=== PATIENT | male | born 1940 | race Caucasian/White ===

== ENCOUNTER 2016-12-06 13:18 | Inpatient (IN) ==
[2016-12-06] MEDS ORDERED: *HR* Morphine 2 MG/ML SYRINGE IVP ONE (15:22)
[2016-12-06 15:51] LABS: Basophils # 0.1 K/mcL (0.0-0.2); Basophils % 0.4 %; Eosinophils % 0.3 %; Hematocrit 34.5 % (37.5-50.1); Hemoglobin 11.1 g/dL (12.9-16.9); Immature Granulocytes % 0.6 % (0-4); Lymphocytes # 1.6 K/mcL (0.6-4.6); Lymphocytes % 11.3 %; Mean Corpuscular HGB Conc 32.2 g/dL (31.6-35.5); Mean Corpuscular Volume 96.4 fL (83.0-100.0); Mean Platelet Volume 10.1 fL (9.4-12.4); Monocytes # 0.7 K/mcL (0.0-1.3); Monocytes % 5.3 %; Neutrophils # 11.3 K/mcL (1.6-8.9); Platelet Count 279 K/mcL (140-400); Red Blood Count 3.58 M/mcL (4.19-5.50); Red Cell Distribution Width 14.6 % (11.5-14.5); Segmented Neutrophils % 82.1 %
[2016-12-06 16:00] LABS: Prothrombin Time 10.8 Seconds (9.4-12.1)
[2016-12-06 16:02] LABS: Activated Partial Thrombo Time 30.7 Seconds (26.0-36.0)
[2016-12-06 16:06] LABS: BUN/Creatinine Ratio 55 (6-26); Blood Urea Nitrogen 42 mg/dL (8-26); Calcium 9.5 mg/dL (8.6-10.8); Carbon Dioxide 28 mEq/L (19-29); Chloride 103 mEq/L (98-109); Glucose 119 mg/dL (70-99); Osmolality,Calculated 298 (280-300); Potassium 4.4 mEq/L (3.5-4.5); Sodium 138 mEq/L (136-145); eGFR For African Americans > 60 (> 60); eGFR For Non-African Americans > 60 (> 60)
--- NOTE | 2016-12-06 16:23 | Emergency Department Note ---
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 Patient states she has a long history of peripheral arterial disease specifically in his legs. He is having increasing pain on the left leg from the knee to the foot over the past few days. He also has chronic right lower extremity pain as well. The left is worse than the right. He denies any color changes or temperature changes in the legs. He is scheduled to see a vascular surgeon in a few weeks to have the arteries were placed in his lower extremities. He recently had a cardiac stent placed a few weeks ago and is on Brilenta. He has noticed some dark black stools over the past few days. He does have a history of a gastric ulcer. Does not take any NSAIDs. He does smoke. No alcohol. No bright red blood per rectum. No abdominal pain. No other complaints. Onset (ago): day(s) Radiation: non-radiation Pain Severity: moderate Pain Scale: 5 Quality: burning Consistency: constant Improves with: nothing Worsens with: movement Associated symptoms: Reports: other (Dark bloody stools) Treatments Prior to Arrival: none - Related Data Home Medications Medication Instructions Recorded Confirmed Hydrocodone/Acetaminophen [[place] 1 - 2 tab PO TID PRN 05/30/16 11/18/16 5-325 Tablet] FLUoxetine HCl [Prozac] 40 mg PO DAILY 11/18/16 11/30/16 Omeprazole 40 mg PO DAILY PRN 11/18/16 11/18/16 Aspirin [Lo-Dose Aspirin EC] 81 mg PO DAILY 11/30/16 11/30/16 Atorvastatin [Lipitor] 40 mg PO HS 11/30/16 11/30/16 Metoprolol XL (24 HR) Succ [Toprol 25 mg PO DAILY 11/30/16 11/30/16 Xl] Ondansetron ODT [Zofran ODT] 4 mg SL Q6HR PRN 11/30/16 11/30/16 Previous Rx's Medication Instructions Recorded Dicyclomine [Bentyl] 20 mg PO BID PRN #20 capsule 11/18/16 Isosorbide MONOnitrate (24 HR) 30 mg PO DAILY #30 tab.er.24h 12/01/16 [Imdur] Nicotine Patch [Nicoderm] 7 mg TD DAILY #14 patch.td24 12/01/16 Nicotine Patch [Nicoderm] 14 mg TD DAILY #14 patch.td24 12/01/16 Nicotine Patch [Nicoderm] 21 mg TD DAILY #28 patch.td24 12/01/16 Nitroglycerin 0.4 mg SL Q5MIN PRN #30 tab.subl 12/01/16 Ticagrelor [Brilinta] 90 mg PO BID #60 tablet 12/01/16 Allergies Allergy/AdvReac Type Severity Reaction Status Date / Time No Known Allergies Allergy Verified 05/30/16 10:20 All systems ED: reviewed and negative except as stated. Constitutional: Reports: as per HPI Eyes: Reports: as per HPI Cardiovascular: Reports: as per HPI Respiratory: Reports: as per HPI Gastrointestinal: Reports: melena Genitourinary: Reports: as per HPI Musculoskeletal: Reports: other (Bilateral leg pain) Neurological: Reports: as per HPI Psychiatric: Reports: as per HPI Hematological/Lymphatic: Reports: as per HPI Past Medical History - Past Medical History Medical history: Reports: COPD, coronary artery disease, hyperlipidemia, hypertension, myocardial infarction, other Surgical history: Reports: orthopedic, other Psychiatric history: Reports: no psych history, depression - Social History Smoking Status: Current every day smoker Smokeless Tobacco Status: No Alcohol use: Reports: occasionally Drug use: Reports: none Physical Exam - General Limitations: no limitations General appearance: alert - Head Head exam: atraumatic - ENT ENT exam: normal exam - Neck Neck exam: Present: normal inspection - Chest Chest inspection: Present: normal inspection - Respiratory Respiratory exam: Present: normal lung sounds bilaterally - Cardiovascular Cardiovascular exam: Present: regular rate, normal rhythm - Abdominal Exam Abdominal exam: Present: soft, Non-Tender. Absent: tenderness - Rectal Exam Pl Sql Programmer present during exam: No Rectal exam: Present: black stool - Extremities Exam Extremities exam: Present: other (Review able to Doppler some pulses in the lower extremities but they were very weak on the Doppler. Normal color to the bilateral lower extremities. They do not feel cold.) - Back Exam Back exam: Present: normal inspection - Neurological Exam Neurological exam: Present: alert, oriented X3 - Psychiatric Psychiatric exam: Present: normal affect, normal mood - Skin Skin exam: Present: warm, dry, intact Course Course Narrative: Patient's hemoglobin was found to be 11. He takes a blood thinner and has a current GI bleed. Most likely an upper GI bleed from gastric ulcer. I started him on Protonix. Patient need to be admitted to be evaluated for this blood thinner. Vital Signs Temperature 97.9 F 12/06/16 13:24 Pulse Rate 82 12/06/16 13:24 Respiratory Rate 14 12/06/16 13:24 Blood Pressure 109/67 12/06/16 13:24 O2 Sat by Pulse Oximetry 98 12/06/16 13:24 Temperature 97.9 F 12/06/16 13:24 Pulse Rate 71 12/06/16 16:22 Respiratory Rate 18 12/06/16 16:22 Blood Pressure 146/72 12/06/16 16:22 O2 Sat by Pulse Oximetry 97 12/06/16 16:22 Oxygen Delivery Oxygen Delivery Room Air Medical Decision Making - Medical Records Medical records reviewed: Yes I reviewed the patient's medical records. - Lab Data Lab results reviewed: Yes I reviewed the patient's lab results. Result diagrams: 12/06/16 15:33 12/06/16 15:33 Lab Results 12/06/16 12/06/16 12/06/16 Range/Units 15:33 15:33 15:33 WBC 13.7 H (4.3-11.1) K/mcL RBC 3.58 L (4.19-5.50) M/mcL Hgb 11.1 L (12.9-16.9) g/dL Hct 34.5 L (37.5-50.1) % MCV 96.4 (83.0-100.0) fL MCH 31.0 (28.0-33.3) pg MCHC 32.2 (31.6-35.5) g/dL RDW 14.6 H (11.5-14.5) % Plt Count 279 (140-400) K/mcL MPV 10.1 (9.4-12.4) fL Immature Gran % 0.6 (0-4) % Seg Neutrophils % 82.1 % Lymphocytes % 11.3 % Monocytes % 5.3 % Eosinophils % 0.3 % Basophils % 0.4 % Neutrophils # 11.3 H (1.6-8.9) K/mcL Lymphocytes # 1.6 (0.6-4.6) K/mcL Monocytes # 0.7 (0.0-1.3) K/mcL Eosinophils # 0.0 (0.0-0.6) K/mcL Basophils # 0.1 (0.0-0.2) K/mcL PT 10.8 (9.4-12.1) Seconds INR 1.0 APTT 30.7 (26.0-36.0) Seconds Sodium 138 (136-145) mEq/L Potassium 4.4 (3.5-4.5) mEq/L Chloride 103 (98-109) mEq/L Carbon Dioxide 28 (19-29) mEq/L BUN 42 H (8-26) mg/dL Creatinine 0.77 (0.72-1.25) mg/dL Est GFR ( Amer) > 60 (> 60) Est GFR (Non-Af Amer) > 60 (> 60) BUN/Creatinine Ratio 55 H (6-26) Glucose 119 H (70-99) mg/dL Calculated Osmolality 298 (280-300) Calcium 9.5 (8.6-10.8) mg/dL Troponin I (0-0.03) ng/mL Stool Occult Blood (Negative) 12/06/16 12/06/16 Range/Units 15:33 16:20 WBC (4.3-11.1) K/mcL RBC (4.19-5.50) M/mcL Hgb (12.9-16.9) g/dL Hct (37.5-50.1) % MCV (83.0-100.0) fL MCH (28.0-33.3) pg MCHC (31.6-35.5) g/dL RDW (11.5-14.5) % Plt Count (140-400) K/mcL MPV (9.4-12.4) fL Immature Gran % (0-4) % Seg Neutrophils % % Lymphocytes % % Monocytes % % Eosinophils % % Basophils % % Neutrophils # (1.6-8.9) K/mcL Lymphocytes # (0.6-4.6) K/mcL Monocytes # (0.0-1.3) K/mcL Eosinophils # (0.0-0.6) K/mcL Basophils # (0.0-0.2) K/mcL PT (9.4-12.1) Seconds INR APTT (26.0-36.0) Seconds Sodium (136-145) mEq/L Potassium (3.5-4.5) mEq/L Chloride (98-109) mEq/L Carbon Dioxide (19-29) mEq/L BUN (8-26) mg/dL Creatinine (0.72-1.25) mg/dL Est GFR ( Amer) (> 60) Est GFR (Non-Af Amer) (> 60) BUN/Creatinine Ratio (6-26) Glucose (70-99) mg/dL Calculated Osmolality (280-300) Calcium (8.6-10.8) mg/dL Troponin I 0.07 H* (0-0.03) ng/mL Stool Occult Blood Positive A (Negative) - Radiology Data Radiology results reviewed: Yes I reviewed the patient's radiology results. - EKG Data EKG #1 EKG results narrative: Rate of 70. No sinus rhythm. Normal axis. NV interval 156. QRS 93. QT 423. Nonspecific T wave abnormality seen in the lateral leads as well as in V2 and V3. This was seen on previous EKG from 6 days ago.
[2016-12-06] MEDS ORDERED: Pantoprazole 80 MG in 0.9 % Sodium Chloride 50 ML IVPB ONE (17:23)
[2016-12-06] MEDS ORDERED: Pantoprazole 40 MG in 0.9 % Sodium Chloride Mini Bag 100 ML IVC SCH (17:30)
[2016-12-06] MEDS ORDERED: Naloxone 0.4 MG/ML INJ IVP PRN (21:09)
[2016-12-06] MEDS ORDERED: Nitroglycerin 0.4 MG TAB.SUBL SL PRN (21:14)
[2016-12-06 22:21] LABS: Hematocrit 30.4 % (37.5-50.1); Hemoglobin 9.9 g/dL (12.9-16.9)
--- NOTE | 2016-12-06 23:11 | Internal Med History&Physical ---
Date of Encounter: 12/07/16 Time of Encounter: 23:00 Assessment and Plan (1) Upper GI bleed Current visit: Yes Status: Acute Acute worsening of known bleeding ulcer after starting Brilinta for BMS placed . Last hgb checked prior to stent placement was 12, was 11.1 on arrival to ER today. Although hgb decreasing he is hemodynamically stable and his last stool was this morning, suggesting that he is not briskly bleeding. Will continue Brilinta at this time, as currently his risk of poor outcome is much higher with risk of stent stenosis (placed 5 days ago) than his risk of catastrophic bleed. - [address] large [address] IV[address] in place - Discussed patient with operating manager chief controller station who recommended to keep Hgb around 10 and transfuse if decreases significantly - 2 units PRBCs on hold, type and screen completed in ER - Q6H H&H - ER physician discussed case with endoscopist chief controller station, Dr. Lira, who is aware of the patient and will assist tonight if bleeding worsens significantly - GI consulted for assistance with definitive management of the ulcer in the morning - Monitor on telemetry (2) CAD (coronary artery disease) Current visit: No Status: Acute Troponin slightly elevated on arrival to ER, likely stress from bleeding, also had recent stent placed. Patient is currently chest pain free. Troponin trended down on recheck. - Trend troponin - Keep patient chest pain free - If develops significant chest pain will transfuse PRBCs Qualifiers: Coronary Disease-Associated Artery/Lesion type: [place] artery [place] vs. transplanted heart: [place] heart Associated angina: angina presence unspecified Qualified Code(s): I25.10 - Atherosclerotic heart disease of [place] coronary artery without angina pectoris (3) Anemia Current visit: Yes Status: Acute Secondary to GI bleed - Management as above Qualifiers: Anemia type: other cause Other causes of anemia: other cause, not classified Qualified Code(s): D64.89 - Other specified anemias (4) Peripheral arterial disease Current visit: Yes Status: Acute Internal Medicine - H&P: HPI Chief complaint: Lower extremity pain, melena Admitted From: Emergency Dept Plans for Post Hospital Care: Home History of present illness: Mr. Pool is a 76 year old male with history of CAD s/p BMS to LAD on 2016, severe peripheral vascular disease, and known gastric ulcer who presented to the ER this afternoon with complaint of worsening lower extremity pain as well as melena for the past three days. He states that he has been having several stools per day and his last stool was this morning (as of 2099 this evening). The stool is black. He had an EGD by Dr Hanley 08/2016 which showed an oozing gastric ulcer with adherent clot, no intervention on ulcer was performed at that time and he is supposed to follow up with Dr. Hanley for repeat endoscopy. He has been experiencing intermittent chest pain and had LHC on 12/01 with BMS placed in LAD. He has continued to have mild intermittent chest pain since the procedure, and imdur was started when he was discharged from the hospital. He denies abdominal pain, and currently has no chest pain. Troponin mildly elevated in ER at 0.07, repeat is 0.05. Past Med Surg Social Fam HX - Past Medical History Medical history: arthritis, COPD, coronary artery disease, CVA, hyperlipidemia, hypertension, myocardial infarction, other Psychiatric history: no psych history, depression - Past Surgical History Surgical History: orthopedic, other - Social History Smoking Status: Current every day smoker Packs per day: 0.5 Smokeless Tobacco Status: No Alcohol use: occasionally Drug use: none - Family History Father Family Member Ethnicity: Non- Living Status: Hx Family Cardiac Disorders: No Hx Family Respiratory Disorders: No Hx Family Cancer: No Hx Family GI Disorders: No Hx Family Endocrine Disorder: No Hx Family Neuromuscular Disorders: No Hx Family Neurologic Disorders: No Hx Family HEENT Disorders: No Hx Family Autoimmune Disorders: No Internal Medicine - H&P: Meds FLUoxetine HCl [Prozac] 40 mg PO DAILY 11/18/16 [History] Omeprazole 40 mg PO DAILY PRN 11/18/16 [History] Aspirin [Lo-Dose Aspirin EC] 81 mg PO DAILY 11/30/16 [History] Atorvastatin [Lipitor] 40 mg PO HS 11/30/16 [History] Metoprolol XL (24 HR) Succ [Toprol Xl] 25 mg PO DAILY 11/30/16 [History] Isosorbide MONOnitrate (24 HR) [Imdur] 30 mg PO DAILY #30 tab.er.24h 12/01/16 [ Rx] Nicotine Patch [Nicoderm] 7 mg TD DAILY #14 patch.td24 12/01/16 [Rx] Nicotine Patch [Nicoderm] 14 mg TD DAILY #14 patch.td24 12/01/16 [Rx] Nicotine Patch [Nicoderm] 21 mg TD DAILY #28 patch.td24 12/01/16 [Rx] Nitroglycerin 0.4 mg SL Q5MIN PRN #30 tab.subl 12/01/16 [Rx] Ticagrelor [Brilinta] 90 mg PO BID #60 tablet 12/01/16 [Rx] Albuterol Sulfate [Albuterol Inhaler] 2 puff IH Q4H PRN 12/06/16 [History] Allergies No Known Allergies Allergy (Verified 05/30/16 10:20) All Systems PM: A 10-system review of systems was performed and is negative for pertinent findings except as documented above in the HPI. - Constitutional Vitals: Temp Pulse Resp BP Pulse Ox 98 F 75 18 125/73 96 12/06/16 21:54 12/06/16 21:54 12/06/16 21:54 12/06/16 21:54 12/06/16 21:54 General appearance: Present: A&O X 3, pleasant, no acute distress - Head Head exam: Present: atraumatic - Eye Eye exam: Present: EOMI, sclera anicteric - ENT ENT exam: Present: mucous membranes moist - Respiratory Respiratory exam: Present: CTAB - Cardiovascular Cardiovascular exam: Present: RRR. Absent: diastolic murmur, gallop, rubs, systolic murmur - GI/Abdominal GI/Abdominal exam: Present: normal bowel sounds, soft. Absent: distended, tenderness - Extremities Exam Extremities exam: Absent: pedal edema - Neurological Exam Neurological exam: Present: no focal deficits - Skin Skin exam: Absent: rash Internal Med - H&P Results - Labs CBC & Chem 7: 12/07/16 04:00 12/07/16 04:00 Labs: Short CBC 12/06/16 Range/Units 21:52 Hgb 9.9 L (12.9-16.9) g/dL Hct 30.4 L (37.5-50.1) % Cardiac Enzymes 12/06/16 Range/Units 21:52 Troponin I 0.05 H* (0-0.03) ng/mL
[2016-12-06] MEDS: *HR* Ticagrelor 90 MG TABLET PO SCH (23:46)
[2016-12-07] MEDS: Pantoprazole 40 MG in 0.9 % Sodium Chloride Mini Bag 100 ML IVC SCH ×2 (00:01→05:17)
[2016-12-07 04:39] LABS: Basophils # 0.1 K/mcL (0.0-0.2); Basophils % 0.5 %; Eosinophils # 0.2 K/mcL (0.0-0.6); Eosinophils % 2.1 %; Hematocrit 29.3 % (37.5-50.1); Hemoglobin 9.3 g/dL (12.9-16.9); Immature Granulocytes % 0.5 % (0-4); Lymphocytes % 27.2 %; Mean Corpuscular HGB Conc 31.7 g/dL (31.6-35.5); Mean Corpuscular Hemoglobin 30.2 pg (28.0-33.3); Mean Corpuscular Volume 95.1 fL (83.0-100.0); Mean Platelet Volume 9.9 fL (9.4-12.4); Monocytes # 0.9 K/mcL (0.0-1.3); Monocytes % 7.7 %; Neutrophils # 6.8 K/mcL (1.6-8.9); Platelet Count 261 K/mcL (140-400); Red Blood Count 3.08 M/mcL (4.19-5.50); Red Cell Distribution Width 14.7 % (11.5-14.5)
[2016-12-07 04:58] LABS: BUN/Creatinine Ratio 46 (6-26); Blood Urea Nitrogen 32 mg/dL (8-26); Calcium 8.7 mg/dL (8.6-10.8); Carbon Dioxide 29 mEq/L (19-29); Chloride 105 mEq/L (98-109); Glucose 87 mg/dL (70-99); Osmolality,Calculated 292 (280-300); Sodium 138 mEq/L (136-145); eGFR For African Americans > 60 (> 60); eGFR For Non-African Americans > 60 (> 60)
[2016-12-07] MEDS ORDERED: 0.9 % Sodium Chloride 1,000 ML IVC ONE (05:04)
[2016-12-07] MEDS ORDERED: 0.9 % Sodium Chloride 1,000 ML ONE (05:04)
[2016-12-07] MEDS: *HR* OxyCODONE/APAP 5/325 TABLET PO PRN ×2 (05:14→22:11)
[2016-12-07] MEDS ORDERED: Metoprolol XL (24 HR) Succ 25 MG TAB.ER.24H PO SCH (09:00)
[2016-12-07] MEDS: Aspirin Enteric Coated 81 MG Tablet PO SCH (09:06)
[2016-12-07] MEDS: Pantoprazole 40 MG VIAL IVP SCH ×2 (09:06→18:30)
[2016-12-07] MEDS: *HR* Ticagrelor 90 MG TABLET PO SCH ×2 (09:06→22:11)
[2016-12-07] MEDS: FLUoxetine 20 MG CAPSULE PO SCH (09:06)
[2016-12-07] MEDS: Isosorbide MONOnitrate (24 HR) 30 MG TAB.ER.24H PO SCH (09:06)
--- NOTE | 2016-12-07 09:59 | Internal Med Progress Note ---
Date of Encounter: 12/07/16 Time of Encounter: 09:57 - Assessment and plan (1) Anemia Current Visit: Yes Status: Acute Assessment and plan: Symptomatic With dizzines and hypotension Hx of melena and prior hx of Peptic ulcers s/p EGD I have spoken with Dr. Hanley who has agreed to evaluate the patient for possible Scope His Hb is 9, s/p one unit RBC Keep NPO Monitor Hb Hold 2nd unit of blood for now IVF Qualifiers: Anemia type: other cause Other causes of anemia: other cause, not classified Qualified Code(s): D64.89 - Other specified anemias (2) Upper GI bleed Current Visit: Yes Status: Suspected Assessment and plan: Suspected from Peptic ulcer Surgery consulted Continue IV PPI BID (3) CAD (coronary artery disease) Current Visit: Yes Status: Chronic Assessment and plan: s/p recent PCI 11/30/16 on dual APT Will continue DaPT at this time , despite suspicion of GIB from his chronic ulcer Slightly increased trops on admission, adynamic, trending down patient also with low blood pressures, already received metoprolol and imdur today, will hold those for now Qualifiers: Coronary Disease-Associated Artery/Lesion type: [place] artery [place] vs. transplanted heart: [place] heart Associated angina: angina presence unspecified Qualified Code(s): I25.10 - Atherosclerotic heart disease of [place] coronary artery without angina pectoris (4) Peripheral arterial disease Current Visit: Yes Status: Chronic (5) Bilateral leg pain Current Visit: Yes Status: Chronic Assessment and plan: Secondary to severe PAD Patient still smoking, continue ASA and Plavix (6) Tobacco abuse Current Visit: Yes Status: Chronic Assessment and plan: NRT (7) DVT prophylaxis Current Visit: Yes Status: Acute Assessment and plan: SCDs, patient with suspected GI bleed - Subjective Interval history: Initial encounter Seen at bedside with family he is being managed for symptomatic anemia with suspected UGIB from known duodenal ulcer patient is recently s/p PCI and is on dual APT. he denies new complains, denies chest pain at this time Awaiting surgery review - Constitutional Vitals: Temp Pulse Resp BP Pulse Ox 98.5 F 65 14 106/67 96 12/07/16 07:44 12/07/16 07:44 12/07/16 07:44 12/07/16 07:44 12/07/16 09:00 General appearance: Present: A&O X 3, pleasant, no acute distress - Head Head exam: Present: atraumatic, normocephalic - Eye Eye exam: Present: PERRL, conjuntiva pink, sclera anicteric Pupils: Present: PERRL - Neck Neck exam general surgery: Present: supple, trachea midline. Absent: lymphadenopathy - Respiratory Respiratory exam: Present: wheezes (Diffuse bilateral expiratory wheezing) - Cardiovascular Cardiovascular exam: Present: RRR, +S1, +S2. Absent: diastolic murmur, gallop, rubs, systolic murmur - GI/Abdominal GI/Abdominal exam: Present: normal bowel sounds, soft, no peritoneal signs. Absent: distended, tenderness - Extremities Exam Extremities exam: Present: warm, radial pulses palpable and symetrical. Absent : calf tenderness, cyanotic, pedal edema - Neurological Exam Neurological exam: Present: alert, CN II-XII intact, normal gait, oriented X3, no focal deficits. Absent: pronater drift, facial droop, speech deficit - Skin Skin exam: Present: dry, intact Internal Medicine: Result - Labs CBC & Chem 7: 12/07/16 04:00 12/07/16 04:00 Labs: Short CBC 12/06/16 12/07/16 Range/Units 21:52 04:00 WBC 11.0 (4.3-11.1) K/mcL Hgb 9.9 L 9.3 L (12.9-16.9) g/dL Hct 30.4 L 29.3 L (37.5-50.1) % Plt Count 261 (140-400) K/mcL Neutrophils # 6.8 (1.6-8.9) K/mcL BMP 12/07/16 04:00 Sodium 138 Potassium 4.0 Chloride 105 Carbon Dioxide 29 BUN 32 H D Creatinine 0.70 L Glucose 87 Calcium 8.7 Cardiac Enzymes 12/06/16 12/07/16 Range/Units 21:52 04:00 Troponin I 0.05 H* 0.05 H* (0-0.03) ng/mL - ABG Interpretation ABG results: PT/INR, D-dimer PT 10.8 Seconds (9.4-12.1) 12/06/16 15:33 Consult Discharge Plan - Plan Referrals: Lesvia Suarez, AVIATION MECHANIC [Primary Care Provider] - 12/13/16 9:00 am
--- NOTE | 2016-12-07 12:39 | Electrocardiograph Report ---
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
[2016-12-07] MEDS ORDERED: Nicotine 21 MG PATCH.TD24 TD PRN (14:47)
[2016-12-07] MEDS ORDERED: Ipratropium/Albuterol Neb 3 ML IH ONE (14:54)
[2016-12-07] MEDS: 0.9 % Sodium Chloride 1,000 ML IVC SCH (15:14)
--- NOTE | 2016-12-07 18:12 | General Surgery Consult Note ---
Date of Encounter: 12/07/16 Time of Encounter: 18:10 Assessment and Plan (1) Upper GI bleed Current Visit: Yes Status: Suspected The patient has a known lesser curvature gastric ulcer and may be actively hemorrhaging from this site after anticoagulation. We will plan upper endoscopy for tomorrow morning History of Present Illness Consult date: 12/07/16 Reason for consult: other (Upper GI bleeding and anemia) History of present illness: The patient was recently admitted to the hospital for treatment of coronary artery disease. He has developed melena. He has a known gastric ulcer area this is been documented and biopsied. There is no evidence of malignancy. With his recent melena it is possible that the gastric ulcers actively hemorrhaging. We will plan upper endoscopy to confirm that the bleeding is from the lesser curvature gastric ulcer and attempt hemostasis if this is actively bleeding. We will plan on upper endoscopy tomorrow morning. Past Med Surg Social Fam HX - Past Medical History Medical history: arthritis, COPD, coronary artery disease, CVA, hyperlipidemia, hypertension, myocardial infarction, other Psychiatric history: no psych history, depression - Past Surgical History Surgical History: orthopedic, other - Social History Smoking Status: Current every day smoker Packs per day: 0.5 Smokeless Tobacco Status: No Alcohol use: occasionally Drug use: none - Family History Father Family Member Ethnicity: Non- Living Status: Hx Family Cardiac Disorders: No Hx Family Respiratory Disorders: No Hx Family Cancer: No Hx Family GI Disorders: No Hx Family Endocrine Disorder: No Hx Family Neuromuscular Disorders: No Hx Family Neurologic Disorders: No Hx Family HEENT Disorders: No Hx Family Autoimmune Disorders: No Medications and Allergies FLUoxetine HCl [Prozac] 40 mg PO DAILY 11/18/16 [History] Omeprazole 40 mg PO DAILY PRN 11/18/16 [History] Aspirin [Lo-Dose Aspirin EC] 81 mg PO DAILY 11/30/16 [History] Atorvastatin [Lipitor] 40 mg PO HS 11/30/16 [History] Metoprolol XL (24 HR) Succ [Toprol Xl] 25 mg PO DAILY 11/30/16 [History] Isosorbide MONOnitrate (24 HR) [Imdur] 30 mg PO DAILY #30 tab.er.24h 12/01/16 [ Rx] Nicotine Patch [Nicoderm] 7 mg TD DAILY #14 patch.td24 12/01/16 [Rx] Nicotine Patch [Nicoderm] 14 mg TD DAILY #14 patch.td24 12/01/16 [Rx] Nicotine Patch [Nicoderm] 21 mg TD DAILY #28 patch.td24 12/01/16 [Rx] Nitroglycerin 0.4 mg SL Q5MIN PRN #30 tab.subl 12/01/16 [Rx] Ticagrelor [Brilinta] 90 mg PO BID #60 tablet 12/01/16 [Rx] Albuterol Sulfate [Albuterol Inhaler] 2 puff IH Q4H PRN 12/06/16 [History] Allergies No Known Allergies Allergy (Verified 05/30/16 10:20) Review of Systems All systems PM: reviewed and no additional remarkable complaints except as stated All systems PM: A 10-system review of systems was performed and is negative for pertinent findings except as documented above in the HPI. General Surgery Exam Initial Vital Signs Temp Pulse Resp BP Pulse Ox 97.9 F 82 14 109/67 98 12/06/16 13:24 12/06/16 13:24 12/06/16 13:24 12/06/16 13:24 12/06/16 13:24 - General physical appearance moderate pain, chronically ill - Neck no masses, no bruits, trachea midline, no lymphadectomy, no venous distension - Respiratory normal expansion, normal respiratory effort, clear to percussion, clear to auscultation - Cardiovascular Cardiovascular exam: Present: irregular rhythm, no murmurs/rubs/gallops - Abdomen Abdomen general surgery: Present: bowel sounds present, soft, non tender - Neurologic Present: CN 2-12 grossly intact, normal coordination, normal sensation - Psychiatric Psychiatric general surgery: Present: appropriate, oriented to person, oriented to place, oriented to time, speech is normal, memory intact Exam Initial Vital Signs Temp Pulse Resp BP Pulse Ox 97.9 F 82 14 109/67 98 12/06/16 13:24 12/06/16 13:24 12/06/16 13:24 12/06/16 13:24 12/06/16 13:24 Results - Labs 12/07/16 04:00 12/07/16 04:00 Abnormal lab results RBC 3.08 M/mcL (4.19-5.50) L 12/07/16 04:00 Hgb 9.3 g/dL (12.9-16.9) L 12/07/16 04:00 Hct 29.3 % (37.5-50.1) L 12/07/16 04:00 RDW 14.7 % (11.5-14.5) H 12/07/16 04:00 BUN 32 mg/dL (8-26) H D 12/07/16 04:00 Creatinine 0.70 mg/dL (0.72-1.25) L 12/07/16 04:00 BUN/Creatinine Ratio 46 (6-26) H 12/07/16 04:00 Troponin I 0.04 ng/mL (0-0.03) H* 12/07/16 09:42 Stool Occult Blood Positive (Negative) A 12/06/16 16:20 All other labs normal. Consult Discharge Plan - Plan Referrals: Lesvia Suarez, KAIN [Primary Care Provider] - 12/13/16 9:00 am
[2016-12-08] MEDS: Pantoprazole 40 MG VIAL IVP SCH (04:36)
[2016-12-08] MEDS: *HR* OxyCODONE/APAP 5/325 TABLET PO PRN ×2 (04:37→22:42)
[2016-12-08] MEDS: 0.9 % Sodium Chloride 1,000 ML IVC SCH (04:37)
[2016-12-08 04:53] LABS: Basophils # 0.1 K/mcL (0.0-0.2); Basophils % 0.8 %; Eosinophils # 0.4 K/mcL (0.0-0.6); Eosinophils % 3.9 %; Hematocrit 30.9 % (37.5-50.1); Hemoglobin 10.1 g/dL (12.9-16.9); Immature Granulocytes % 0.4 % (0-4); Lymphocytes # 2.9 K/mcL (0.6-4.6); Lymphocytes % 28.5 %; Mean Corpuscular HGB Conc 32.7 g/dL (31.6-35.5); Mean Corpuscular Hemoglobin 31.3 pg (28.0-33.3); Mean Corpuscular Volume 95.7 fL (83.0-100.0); Monocytes # 0.7 K/mcL (0.0-1.3); Monocytes % 6.6 %; Neutrophils # 6.1 K/mcL (1.6-8.9); Platelet Count 247 K/mcL (140-400); Red Blood Count 3.23 M/mcL (4.19-5.50); Red Cell Distribution Width 15.2 % (11.5-14.5); Segmented Neutrophils % 59.8 %
[2016-12-08 05:08] LABS: BUN/Creatinine Ratio 41 (6-26); Blood Urea Nitrogen 30 mg/dL (8-26); Calcium 8.9 mg/dL (8.6-10.8); Carbon Dioxide 26 mEq/L (19-29); Chloride 109 mEq/L (98-109); Glucose 87 mg/dL (70-99); Osmolality,Calculated 298 (280-300); Potassium 4.1 mEq/L (3.5-4.5); Sodium 141 mEq/L (136-145); eGFR For African Americans > 60 (> 60); eGFR For Non-African Americans > 60 (> 60)
[2016-12-08] MEDS ORDERED: *HR* Midazolam HCl 5 MG/5 ML VIAL IVP ONE (07:34)
[2016-12-08] MEDS ORDERED: *HR* FentaNYL (PF) 100 MCG/2 ML VIAL ONE (07:34)
--- NOTE | 2016-12-08 07:53 | Pre-Sedation Evaluation ---
Pre-sedation evaluation - Pre-sedation checklist Date of procedure: 12/08/16 Procedure: EGD Recent Vitals: Last Vital Signs Temp 97.7 F 12/08/16 07:43 Pulse 66 12/08/16 07:43 Resp 18 12/08/16 07:43 BP 140/90 12/08/16 07:43 Pulse Ox 94 12/08/16 07:43 H&P (including ROS) documented in medical record: Yes Previous reaction to sedatives/anesthetics: No Dietary Status: NPO after Midnight Airway Assessment: Patient can open mouth completely, TMJ function normal Dentition: dentures removed Possible difficult airway: No ASA Classification *see protocol: CLASS III-Severe systemic disease Plan of Care: Pt appropriate candidate for procedure/moderate/conscious sedation , Risks/benefits of procedure/sedation discussed w/ patient/family
[2016-12-08] MEDS ORDERED: Simethicone 40 MG/0.6 ML MLS IR ONE (07:55)
[2016-12-08] MEDS ORDERED: Tetracaine/Benzocaine/Butamben 200MG/SPRAY (100SPY/BOT) MM ONE (07:55)
[2016-12-08] MEDS ORDERED: *HR* FentaNYL (PF) 100 MCG/2 ML VIAL IVP PRN (07:55)
[2016-12-08] MEDS: *HR* Midazolam HCl 5 MG/5 ML VIAL IVP PRN ×2 (07:58→08:00)
[2016-12-08] MEDS ORDERED: 0.9 % Sodium Chloride 500 ML IVC SCH (08:00)
[2016-12-08] MEDS: Aspirin Enteric Coated 81 MG Tablet PO SCH (10:18)
[2016-12-08] MEDS: FLUoxetine 20 MG CAPSULE PO SCH (10:18)
[2016-12-08] MEDS: *HR* Ticagrelor 90 MG TABLET PO SCH ×2 (10:18→22:42)
--- NOTE | 2016-12-08 13:40 | Internal Med Progress Note ---
Date of Encounter: 12/08/16 Time of Encounter: 13:37 - Assessment and plan (1) Anemia Current Visit: Yes Status: Acute Assessment and plan: Symptomatic With dizzines and hypotension Hx of melena and prior hx of gastric ulcers s/p EGD EGD today noted,, findings include severe gastritis with Hge HB stable a 10 s/p 2 units RBCs Rpt hb a.m Qualifiers: Anemia type: other cause Other causes of anemia: other cause, not classified Qualified Code(s): D64.89 - Other specified anemias (2) Upper GI bleed Current Visit: Yes Status: Suspected Assessment and plan: EGD report noted Start diet Change PPI to po 40mg bid Add carafate 1g qid Patient educated about diagnosis, and biopsies have been taken Continue to monitor (3) CAD (coronary artery disease) Current Visit: Yes Status: Chronic Assessment and plan: s/p recent PCI 11/30/16 on dual APT Will continue DaPT at this time , despite suspicion of GIB from his chronic ulcer Slightly increased trops on admission, adynamic, trending down Continue to hold Imdur and Metoprolol Qualifiers: Coronary Disease-Associated Artery/Lesion type: [place] artery [place] vs. transplanted heart: [place] heart Associated angina: angina presence unspecified Qualified Code(s): I25.10 - Atherosclerotic heart disease of [place] coronary artery without angina pectoris (4) Peripheral arterial disease Current Visit: Yes Status: Chronic (5) Bilateral leg pain Current Visit: Yes Status: Chronic Assessment and plan: Secondary to severe PAD Patient still smoking, continue ASA and Plavix (6) Tobacco abuse Current Visit: Yes Status: Chronic Assessment and plan: NRT (7) DVT prophylaxis Current Visit: Yes Status: Acute Assessment and plan: SCDs, patient with suspected GI bleed - Subjective Interval history: Seen at bedside with family Admitted for management of symptomatic anemia secondary to UGIB Post-endoscopy Complains of wanting something to eat Hb is stable Endoscopy report showed benign esophageal stenosis, diffuse hemorrhagic gastritis with firability and granularity of GI mucosa, non-bleeding gastric ulcer with no stigmata of bleeding - Constitutional Vitals: Temp Pulse Resp BP Pulse Ox 97.6 F 55 13 108/62 96 12/08/16 10:52 12/08/16 10:52 12/08/16 10:52 12/08/16 10:52 12/08/16 10:52 General appearance: Present: A&O X 3, pleasant, no acute distress - Head Head exam: Present: atraumatic, normocephalic - Eye Eye exam: Present: PERRL, conjuntiva pink, sclera anicteric Pupils: Present: PERRL - Neck Neck exam general surgery: Present: supple, trachea midline. Absent: lymphadenopathy - Respiratory Respiratory exam: Present: CTAB. Absent: accessory muscle use, rales, rhonchi, wheezes - Cardiovascular Cardiovascular exam: Present: RRR, +S1, +S2. Absent: diastolic murmur, gallop, rubs, systolic murmur - GI/Abdominal GI/Abdominal exam: Present: normal bowel sounds, soft, no peritoneal signs. Absent: distended, tenderness - Extremities Exam Extremities exam: Present: warm, radial pulses palpable and symetrical. Absent : calf tenderness, cyanotic, pedal edema - Neurological Exam Neurological exam: Present: alert, CN II-XII intact, oriented X3, no focal deficits. Absent: pronater drift, facial droop, speech deficit - Skin Skin exam: Present: dry, intact Internal Medicine: Result - Labs CBC & Chem 7: 12/08/16 04:36 12/08/16 04:36 Labs: Short CBC 12/08/16 Range/Units 04:36 WBC 10.1 (4.3-11.1) K/mcL Hgb 10.1 L (12.9-16.9) g/dL Hct 30.9 L (37.5-50.1) % Plt Count 247 (140-400) K/mcL Neutrophils # 6.1 (1.6-8.9) K/mcL BMP 12/08/16 04:36 Sodium 141 Potassium 4.1 Chloride 109 Carbon Dioxide 26 BUN 30 H Creatinine 0.73 Glucose 87 Calcium 8.9 - ABG Interpretation ABG results: PT/INR, D-dimer PT 10.8 Seconds (9.4-12.1) 12/06/16 15:33 Consult Discharge Plan - Plan Referrals: Lesvia Suarez CNP [Primary Care Provider] - 12/13/16 9:00 am
[2016-12-08] MEDS: Sucralfate 1 GM TABLET PO SCH ×2 (17:20→22:42)
[2016-12-09 05:39] LABS: Basophils # 0.1 K/mcL (0.0-0.2); Basophils % 0.7 %; Eosinophils # 0.4 K/mcL (0.0-0.6); Eosinophils % 5.3 %; Hematocrit 25.1 % (37.5-50.1); Immature Granulocytes % 0.5 % (0-4); Lymphocytes # 2.1 K/mcL (0.6-4.6); Mean Corpuscular HGB Conc 32.7 g/dL (31.6-35.5); Mean Corpuscular Hemoglobin 30.7 pg (28.0-33.3); Mean Platelet Volume 9.8 fL (9.4-12.4); Monocytes # 0.6 K/mcL (0.0-1.3); Monocytes % 7.7 %; Neutrophils # 4.2 K/mcL (1.6-8.9); Platelet Count 209 K/mcL (140-400); Red Blood Count 2.67 M/mcL (4.19-5.50); Segmented Neutrophils % 57.8 %
[2016-12-09 05:58] LABS: Hemoglobin 8.2 g/dL (12.9-16.9)
[2016-12-09] MEDS: Sucralfate 1 GM TABLET PO SCH ×4 (07:35→22:31)
[2016-12-09] MEDS: Aspirin Enteric Coated 81 MG Tablet PO SCH (08:54)
[2016-12-09] MEDS: *HR* OxyCODONE/APAP 5/325 TABLET PO PRN (08:54)
[2016-12-09] MEDS: FLUoxetine 20 MG CAPSULE PO SCH (08:54)
[2016-12-09] MEDS: *HR* Ticagrelor 90 MG TABLET PO SCH (08:54)
--- NOTE | 2016-12-09 10:28 | Internal Med Progress Note ---
Date of Encounter: 12/09/16 Time of Encounter: 10:24 - Assessment and plan (1) Anemia Current Visit: Yes Status: Acute Assessment and plan: Symptomatic With dizzines and hypotension Hx of melena and prior hx of gastric ulcers s/p EGD 08/2016 EGD 12/08 findings include severe gastritis with Hge and gastric ulcer that was non-bleeding Pat's Hb tday dropped to 8.2 from 10.1 yesterday he endorses one large balck BM last night Rpt Hb today and transfuse prn he may need repeat EGD Will consult cardiology regarding DualAPT if Hb shows patient is still actively bleeding Qualifiers: Anemia type: other cause Other causes of anemia: other cause, not classified Qualified Code(s): D64.89 - Other specified anemias (2) Upper GI bleed Current Visit: Yes Status: Suspected Assessment and plan: EGD report noted Start diet Change PPI to po 40mg bid Add carafate 1g qid Patient educated about diagnosis, and biopsies have been taken Continue to monitor (3) CAD (coronary artery disease) Current Visit: Yes Status: Chronic Assessment and plan: s/p recent PCI 11/30/16 on dual APT Will continue DaPT at this time , despite suspicion of GIB from his chronic ulcer Slightly increased trops on admission, adynamic, trending down Restart Imdur and toprol at a lower dose, BP has improved Qualifiers: Coronary Disease-Associated Artery/Lesion type: [place] artery [place] vs. transplanted heart: [place] heart Associated angina: angina presence unspecified Qualified Code(s): I25.10 - Atherosclerotic heart disease of [place] coronary artery without angina pectoris (4) Peripheral arterial disease Current Visit: Yes Status: Chronic Assessment and plan: Start gabapentin for foot pain (5) Bilateral leg pain Current Visit: Yes Status: Chronic Assessment and plan: Secondary to severe PAD Patient still smoking, continue ASA and Plavix, add gabapentin (6) Tobacco abuse Current Visit: Yes Status: Chronic Assessment and plan: Declines NRT (7) DVT prophylaxis Current Visit: Yes Status: Acute Assessment and plan: SCDs, patient with suspected GI bleed - Subjective Interval history: Evaluated at bedside with RN and family Sitting up in bed , drinking a large cup of coffee Reports having a large black BM last night, no hematemesis His Hb today has dropped to 8.2 from 10.1 yesterday Endoscopy 12/08 report showed benign esophageal stenosis, diffuse hemorrhagic gastritis with firability and granularity of GI mucosa, non-bleeding gastric ulcer with no stigmata of bleeding It is possible patient is still bleeding , with UGIB Will repeat HB and transfuse prn Patient may require follow up EGD by Surgery Patient also complained of pain in his left toes, chronic, foot exam shows warm feet bilaterally, no mottling, he is neurovascularly intact - Constitutional Vitals: Temp Pulse Resp BP Pulse Ox 98 F 60 18 135/55 95 12/09/16 06:56 12/09/16 06:56 12/09/16 06:56 12/09/16 06:56 12/09/16 06:56 General appearance: Present: A&O X 3, pleasant, no acute distress - Head Head exam: Present: atraumatic, normocephalic - Eye Eye exam: Present: PERRL, conjuntiva pink, sclera anicteric Pupils: Present: PERRL - Neck Neck exam general surgery: Present: supple, trachea midline. Absent: lymphadenopathy - Respiratory Respiratory exam: Present: CTAB. Absent: accessory muscle use, rales, rhonchi, wheezes - Cardiovascular Cardiovascular exam: Present: RRR, +S1, +S2. Absent: diastolic murmur, gallop, rubs, systolic murmur - GI/Abdominal GI/Abdominal exam: Present: normal bowel sounds, soft, no peritoneal signs. Absent: distended, tenderness - Extremities Exam Extremities exam: Present: normal capillary refill, warm, radial pulses palpable and symetrical. Absent: calf tenderness, cyanotic, pedal edema - Neurological Exam Neurological exam: Present: alert, CN II-XII intact, normal gait, oriented X3, no focal deficits. Absent: pronater drift, facial droop, speech deficit - Skin Skin exam: Present: dry, intact Internal Medicine: Result - Labs CBC & Chem 7: 12/09/16 05:08 12/08/16 04:36 Labs: Short CBC 12/09/16 Range/Units 05:08 WBC 7.3 (4.3-11.1) K/mcL Hgb 8.2 L D (12.9-16.9) g/dL Hct 25.1 L (37.5-50.1) % Plt Count 209 (140-400) K/mcL Neutrophils # 4.2 (1.6-8.9) K/mcL - ABG Interpretation ABG results: PT/INR, D-dimer PT 10.8 Seconds (9.4-12.1) 12/06/16 15:33 Consult Discharge Plan - Plan Referrals: Lesvia Suarez, PULP TESTER [Primary Care Provider] - 12/13/16 9:00 am
[2016-12-09] MEDS: Metoprolol XL (24 HR) Succ 25 MG TAB.ER.24H PO SCH (11:43)
--- NOTE | 2016-12-09 12:18 | General Surgery Progress Note ---
Date of Encounter: 12/09/16 Time of Encounter: 12:15 - Assessment and Plan (1) Upper GI bleed Current Visit: Yes Status: Suspected The patient has a known lesser curvature gastric ulcer and may be actively hemorrhaging from this site after anticoagulation. We will plan upper endoscopy for tomorrow morning 12/09/2016 No Pain and tolerating regular diet. Await biopsy results on gastric ulcer Subjective Patient reports: feels better, tolerating a regular diet Narrative: Tolerating regular diet. Hgb did not respond as expected from transfussion. No active bleeding at the time of EGD Objective Vital Signs - Last 8 Hours Temp Pulse Resp BP Pulse Ox 12/09/16 10:53 98 F 65 18 117/60 98 12/09/16 08:25 98 12/09/16 06:56 98 F 60 18 135/55 95 12/09/16 04:25 97.7 F 54 18 133/63 97 Intake and Output 12/08/16 12/09/16 12/09/16 23:59 07:59 15:59 Intake Total 100 / 100 240 / 240 Balance 100 / 100 240 / 240 Intake: Oral 100 / 100 240 / 240 Other: Meal Dinner Breakfast Percent of Meal Consumed 30% 100% Weight 42.1 kg Patient Weight 12/09/16 23:59 Weight 42.1 kg - General physical appearance chronically ill - Respiratory normal expansion, normal respiratory effort, clear to percussion, clear to auscultation - Cardiovascular Cardiovascular exam: Present: RRR, no murmurs/rubs/gallops - Abdomen Abdomen: Present: bowel sounds present, soft, non tender - Psychiatric oriented to time, oriented to person, oriented to place, speech is normal, memory intact - Labs 12/09/16 05:08 12/08/16 04:36 Consult Discharge Plan - Plan Referrals: Lesvia Suarez PROGRAM SUPERVISOR [Primary Care Provider] - 12/13/16 9:00 am
[2016-12-09] MEDS: Gabapentin 100 MG CAPSULE PO SCH ×2 (14:08→22:31)
[2016-12-09] MEDS ORDERED: 0.9 % Sodium Chloride 500 ML ONE (17:03)
[2016-12-09] MEDS ORDERED: 0.9 % Sodium Chloride 250 ML ONE (21:51)
[2016-12-10 05:28] LABS: BUN/Creatinine Ratio 24 (6-26); Calcium 8.2 mg/dL (8.6-10.8); Carbon Dioxide 26 mEq/L (19-29); Chloride 109 mEq/L (98-109); Glucose 87 mg/dL (70-99); Osmolality,Calculated 291 (280-300); Potassium 3.7 mEq/L (3.5-4.5); Sodium 140 mEq/L (136-145); eGFR For African Americans > 60 (> 60); eGFR For Non-African Americans > 60 (> 60)
[2016-12-10 05:40] LABS: Blood Urea Nitrogen 16 mg/dL (8-26)
[2016-12-10 05:43] LABS: Basophils # 0.1 K/mcL (0.0-0.2); Basophils % 0.8 %; Eosinophils # 0.3 K/mcL (0.0-0.6); Eosinophils % 3.4 %; Hematocrit 31.2 % (37.5-50.1); Immature Granulocytes % 0.5 % (0-4); Lymphocytes # 2.3 K/mcL (0.6-4.6); Lymphocytes % 26.7 %; Mean Corpuscular Hemoglobin 30.2 pg (28.0-33.3); Mean Corpuscular Volume 91.5 fL (83.0-100.0); Mean Platelet Volume 10.5 fL (9.4-12.4); Monocytes # 0.7 K/mcL (0.0-1.3); Monocytes % 8.1 %; Neutrophils # 5.2 K/mcL (1.6-8.9); Platelet Count 205 K/mcL (140-400); Red Blood Count 3.41 M/mcL (4.19-5.50); Red Cell Distribution Width 15.9 % (11.5-14.5); Segmented Neutrophils % 60.5 %
[2016-12-10 05:46] LABS: Hemoglobin 10.3 g/dL (12.9-16.9)
[2016-12-10] MEDS: FLUoxetine 20 MG CAPSULE PO SCH (07:59)
[2016-12-10] MEDS: Metoprolol XL (24 HR) Succ 25 MG TAB.ER.24H PO SCH (07:59)
[2016-12-10] MEDS: Sucralfate 1 GM TABLET PO SCH ×4 (07:59→23:08)
[2016-12-10] MEDS: Gabapentin 100 MG CAPSULE PO SCH ×3 (08:01→23:08)
--- NOTE | 2016-12-10 09:06 | Cardiology Consult Note ---
Date of Encounter: 12/10/16 Time of Encounter: 08:30 Assessment and Plan (1) CAD (coronary artery disease) Current Visit: Yes Status: Chronic Recent PCI with BMS to pLAD on 11/30/16. Will need to be on uninterrupted DAPT (asa + brilinta) for at least 1 month-- resumed medications this AM. Recommend supportive care with PRBC transfusions. H/H stable this AM. Chest pain free. No ischemic ECG changes noted. Mild, adynamic troponin elevation in the setting of GI bleed upon presentation. Continue home CV medication including betablocker and statin. Emphasized the importance of uninterrupted DAPT therapy for at least 1 month-- patient/daughter verbalized understanding. No further recommendations/testing from Cardiac standpoint. Follow-up with [facility] in 2-3 weeks. Qualifiers: Coronary Disease-Associated Artery/Lesion type: [place] artery [place] vs. transplanted heart: [place] heart Associated angina: angina presence unspecified Qualified Code(s): I25.10 - Atherosclerotic heart disease of [place] coronary artery without angina pectoris (2) Anemia Current Visit: Yes Status: Acute Acute anemia in the setting of suspected GI bleed. Hx of gastric ulcer per ECG in 2016. EGD 12/08/16: non-bleeding cratered gastric ulcer. Plan for repeat EGD with Dr. Hanley today given recurrent melanotic stools over the weekend. H/H stable this AM (10.3/31.2), s/p 3 total PRBC infusions. Further mgmt per Surgery/primary service. Qualifiers: Anemia type: other cause Other causes of anemia: other cause, not classified Qualified Code(s): D64.89 - Other specified anemias Discussion w patient/family: The assessment and plan as outlined above was discussed with the patient and/or family members who expressed understanding and agreement. All questions were answered. Thank you for involving us in the care of your patient. Please call with any questions. The patient will be discussed and reviewed with Dr. Stoner; changes to be made accordingly. History of Present Illness Consult date: 12/10/16 Requesting physician: Gaudencio Christopher Consult reason: GI bleed s/p PCI Chief complaint: Melanotic stools History of present illness: Mr. Pool is a 76 year old male with PMH significant for tobacco use, PVD, CAD s/p PCI (11/30/16), COPD, gastric ulcers, HTN, and HLD who presented to the ED on 12/06/16 with complaints of melanotic stools. He reports he started noticing black stools after he was started on brilinta s/p PCI on 11/30/16. Associated symptoms include weakness and fatigue. Upon arrival to ED, initiall Hgb was 11.1; occult stool positive. He underwent EGD on 12/08/16 which demonstrated non-bleeding cratered gastric ulcer. He was reportedly going to be discharged yesterday; however had another episode of melena, H/H check and was 7.8/25.1. Past Med Surg Social Fam HX - Past Medical History Attestation: Yes The following information was validated with the patient. Source: patient, old records reviewed, obtained from family Medical history: arthritis, COPD, coronary artery disease, hyperlipidemia, hypertension, myocardial infarction Psychiatric history: depression - Past Surgical History Surgical History: angioplasty/stent, orthopedic, other - Social History Smoking Status: Current every day smoker Packs per day: 0.5 Smokeless Tobacco Status: No Alcohol use: occasionally Drug use: none - Family History Father Family Member Ethnicity: Non- Living Status: Hx Family Cardiac Disorders: No Hx Family Respiratory Disorders: No Hx Family Cancer: No Hx Family GI Disorders: No Hx Family Endocrine Disorder: No Hx Family Neuromuscular Disorders: No Hx Family Neurologic Disorders: No Hx Family HEENT Disorders: No Hx Family Autoimmune Disorders: No Medications and Allergies FLUoxetine HCl [Prozac] 40 mg PO DAILY 11/18/16 [History] Omeprazole 40 mg PO DAILY PRN 11/18/16 [History] Aspirin [Lo-Dose Aspirin EC] 81 mg PO DAILY 11/30/16 [History] Atorvastatin [Lipitor] 40 mg PO HS 11/30/16 [History] Metoprolol XL (24 HR) Succ [Toprol Xl] 25 mg PO DAILY 11/30/16 [History] Isosorbide MONOnitrate (24 HR) [Imdur] 30 mg PO DAILY #30 tab.er.24h 12/01/16 [ Rx] Nicotine Patch [Nicoderm] 7 mg TD DAILY #14 patch.td24 12/01/16 [Rx] Nicotine Patch [Nicoderm] 14 mg TD DAILY #14 patch.td24 12/01/16 [Rx] Nicotine Patch [Nicoderm] 21 mg TD DAILY #28 patch.td24 12/01/16 [Rx] Nitroglycerin 0.4 mg SL Q5MIN PRN #30 tab.subl 12/01/16 [Rx] Ticagrelor [Brilinta] 90 mg PO BID #60 tablet 12/01/16 [Rx] Albuterol Sulfate [Albuterol Inhaler] 2 puff IH Q4H PRN 12/06/16 [History] Allergies No Known Allergies Allergy (Verified 05/30/16 10:20) All Systems Review: A 10-system review of systems was performed and is negative for pertinent findings except as documented above in the HPI. - Cardiovascular Cardiovascular: as per HPI Physical Examination Vital Signs, Last 4 Hours Temp Pulse Resp BP Pulse Ox 12/10/16 08:05 95 12/10/16 07:05 97.9 F 63 16 138/65 95 12/10/16 05:07 98.1 F 63 18 120/65 93 General: Conversant, No Apparent Distress HEENT: Atraumatic, Normocephaly, Mucus Membranes Moist Cardiac: Reg Rate and Rhythm, Normal S1 and S2 Lungs: Normal Breath Sounds Neuro: Alert and responsive Abdomen: Soft Skin: No rashes noted on visualized skin Musculoskeletal: No Chest Wall Tenderness Extremities: No Edema, Normal Pulses Results 12/10/16 04:41 12/10/16 04:41 Lab Results 12/09/16 12/10/16 12/10/16 16:17 04:41 04:41 WBC 8.6 Hgb 7.8 L 10.3 L D Hct 31.2 L Plt Count 205 Sodium 140 Potassium 3.7 Chloride 109 Carbon Dioxide 26 BUN 16 D Creatinine 0.66 L Glucose 87 Calcium 8.2 L - Imaging and Cardiology Stress Test: report reviewed Echo: report reviewed Cardiac cath: report reviewed Other Results: 12 hour tele: avg HR=59 SB/SR. Occasional PVCs. - EKG Interpretation EKG results cardiology: personally reviewed Consult Discharge Plan - Plan Referrals: Lesvia Suarez CNP [Primary Care Provider] - 12/13/16 9:00 am
[2016-12-10] MEDS: Isosorbide MONOnitrate (24 HR) 30 MG TAB.ER.24H PO SCH (09:07)
[2016-12-10] MEDS: Aspirin Enteric Coated 81 MG Tablet PO SCH (09:07)
[2016-12-10] MEDS: *HR* Ticagrelor 90 MG TABLET PO SCH ×2 (09:07→23:08)
[2016-12-10] MEDS ORDERED: *HR* Midazolam HCl 5 MG/5 ML VIAL IVP ONE (12:23)
[2016-12-10] MEDS ORDERED: *HR* FentaNYL (PF) 100 MCG/2 ML VIAL ONE (12:24)
[2016-12-10] MEDS ORDERED: 0.9 % Sodium Chloride 1,000 ML IVC SCH (12:30)
--- NOTE | 2016-12-10 12:36 | Internal Med Progress Note ---
Date of Encounter: 12/10/16 Time of Encounter: 12:36 - Assessment and plan (1) Anemia Current Visit: Yes Status: Acute Assessment and plan: Symptomatic With dizzines and hypotension Hx of melena and prior hx of gastric ulcers s/p EGD 08/2016 EGD 12/08 findings include severe gastritis with Hge and gastric ulcer that was non-bleeding Evidence of recurrent bleed with drop in Hb 12/09 s/p 2 units HB 10 Repeat EGD today noted for bleeding gastric ulcer, cauterized Rpt Hb a.m Qualifiers: Anemia type: other cause Other causes of anemia: other cause, not classified Qualified Code(s): D64.89 - Other specified anemias (2) Upper GI bleed Current Visit: Yes Status: Acute Assessment and plan: EGD report noted COnitnue PPI po 40mg bid Continue carafate 1g qid Patient educated about diagnosis, and biopsies have been taken Continue to monitor (3) CAD (coronary artery disease) Current Visit: Yes Status: Chronic Assessment and plan: s/p recent PCI 11/30/16 on dual APT Will continue DaPT at this time , despite suspicion of GIB from his chronic ulcer Continue all meds Qualifiers: Coronary Disease-Associated Artery/Lesion type: [place] artery [place] vs. transplanted heart: [place] heart Associated angina: angina presence unspecified Qualified Code(s): I25.10 - Atherosclerotic heart disease of [place] coronary artery without angina pectoris (4) Peripheral arterial disease Current Visit: Yes Status: Chronic Assessment and plan: Start gabapentin for foot pain (5) Bilateral leg pain Current Visit: Yes Status: Chronic Assessment and plan: Secondary to severe PAD Patient still smoking, continue ASA and Plavix, add gabapentin (6) Tobacco abuse Current Visit: Yes Status: Chronic Assessment and plan: Declines NRT (7) DVT prophylaxis Current Visit: Yes Status: Acute Assessment and plan: SCDs, patient with suspected GI bleed - Subjective Interval history: Evaluated at bedside with RN and family Sitting up in bed , drinking a large cup of coffee Reports having a large black BM last night, no hematemesis His Hb today has dropped to 8.2 from 10.1 yesterday Endoscopy 12/08 report showed benign esophageal stenosis, diffuse hemorrhagic gastritis with firability and granularity of GI mucosa, non-bleeding gastric ulcer with no stigmata of bleeding Rpt Hb 12/09 with evidence of active bleed, now Hb 10 s/p 3 units RBC. One dose of Brilinta was held last night prior to cardio eval, has been resumed Repeat EGD today showed one oozing cratered gastric ulcer with oozing hemorrhage , coagulated with argon beam Surgery evaluation highly appreciated - Constitutional Vitals: Temp Pulse Resp BP Pulse Ox 98.2 F 60 16 130/68 95 12/10/16 11:46 12/10/16 12:18 12/10/16 12:18 12/10/16 12:18 12/10/16 12:18 General appearance: Present: A&O X 3, pleasant, no acute distress - Head Head exam: Present: atraumatic, normocephalic - Eye Eye exam: Present: PERRL, conjuntiva pink, sclera anicteric Pupils: Present: PERRL - Neck Neck exam general surgery: Present: supple, trachea midline. Absent: lymphadenopathy - Respiratory Respiratory exam: Present: CTAB. Absent: accessory muscle use, rales, rhonchi, wheezes - Cardiovascular Cardiovascular exam: Present: RRR, +S1, +S2. Absent: diastolic murmur, gallop, rubs, systolic murmur - GI/Abdominal GI/Abdominal exam: Present: normal bowel sounds, soft, no peritoneal signs. Absent: distended, tenderness - Extremities Exam Extremities exam: Present: warm, radial pulses palpable and symetrical. Absent : calf tenderness, cyanotic, pedal edema - Neurological Exam Neurological exam: Present: alert, CN II-XII intact, oriented X3, no focal deficits. Absent: pronater drift, facial droop, speech deficit - Skin Skin exam: Present: dry, intact Internal Medicine: Result - Labs CBC & Chem 7: 12/10/16 04:41 12/10/16 04:41 Labs: Short CBC 12/09/16 12/10/16 Range/Units 16:17 04:41 WBC 8.6 (4.3-11.1) K/mcL Hgb 7.8 L 10.3 L D (12.9-16.9) g/dL Hct 31.2 L (37.5-50.1) % Plt Count 205 (140-400) K/mcL Neutrophils # 5.2 (1.6-8.9) K/mcL BMP 12/10/16 04:41 Sodium 140 Potassium 3.7 Chloride 109 Carbon Dioxide 26 BUN 16 D Creatinine 0.66 L Glucose 87 Calcium 8.2 L - ABG Interpretation ABG results: PT/INR, D-dimer PT 10.8 Seconds (9.4-12.1) 12/06/16 15:33 Consult Discharge Plan - Plan Referrals: Lesvia Suarez CNP [Primary Care Provider] - 12/13/16 9:00 am
[2016-12-10] MEDS ORDERED: *HR* Midazolam HCl 5 MG/5 ML VIAL IVP PRN (12:38)
[2016-12-10] MEDS ORDERED: Simethicone 40 MG/0.6 ML MLS IR ONE (12:38)
[2016-12-10] MEDS ORDERED: *HR* FentaNYL (PF) 100 MCG/2 ML VIAL IVP PRN (12:38)
--- NOTE | 2016-12-10 12:38 | Pre-Sedation Evaluation ---
Pre-sedation evaluation - Pre-sedation checklist Date of procedure: 12/08/16 Procedure: EGD Recent Vitals: Last Vital Signs Temp 98.2 F 12/10/16 11:46 Pulse 60 12/10/16 12:18 Resp 16 12/10/16 12:18 BP 130/68 12/10/16 12:18 Pulse Ox 95 12/10/16 12:18 H&P (including ROS) documented in medical record: Yes Previous reaction to sedatives/anesthetics: No Dietary Status: NPO after Midnight Dentition: dentures removed Possible difficult airway: No ASA Classification *see protocol: CLASS III-Severe systemic disease Plan of Care: Pt appropriate candidate for procedure/moderate/conscious sedation , Risks/benefits of procedure/sedation discussed w/ patient/family
[2016-12-11] MEDS: Sucralfate 1 GM TABLET PO SCH (06:50)
[2016-12-11 07:51] VITALS: BP 139/70
--- NOTE | 2016-12-11 09:44 | Discharge Summary ---
Date of Encounter: 12/11/16 Time of Encounter: 09:42 - Discharge Diagnosis (1) Anemia Priority: Primary Status: Resolved Qualifiers: Anemia type: other cause Other causes of anemia: other cause, not classified Qualified Code(s): D64.89 - Other specified anemias (2) Upper GI bleed Priority: Primary Status: Acute (3) CAD (coronary artery disease) Priority: Secondary Status: Chronic Qualifiers: Coronary Disease-Associated Artery/Lesion type: [place] artery [place] vs. transplanted heart: [place] heart Associated angina: angina presence unspecified Qualified Code(s): I25.10 - Atherosclerotic heart disease of [place] coronary artery without angina pectoris (4) Peripheral arterial disease Priority: Secondary Status: Chronic (5) Bilateral leg pain Priority: Secondary Status: Chronic (6) Tobacco abuse Priority: Secondary Status: Chronic (7) DVT prophylaxis Priority: Primary Status: Resolved - Discharge Medications Prescriptions: Gabapentin [Neurontin] 100 mg PO HS #30 capsule Omeprazole 40 mg PO BID #120 tablet. Sucralfate [Carafate] 1 gm PO QIDAC #120 tablet Home Medications: FLUoxetine HCl [Prozac] 40 mg PO DAILY 11/18/16 [History] Aspirin [Lo-Dose Aspirin EC] 81 mg PO DAILY 11/30/16 [History] Atorvastatin [Lipitor] 40 mg PO HS 11/30/16 [History] Metoprolol XL (24 HR) Succ [Toprol Xl] 25 mg PO DAILY 11/30/16 [History] Isosorbide MONOnitrate (24 HR) [Imdur] 30 mg PO DAILY #30 tab.er.24h 12/01/16 [ Rx] Nicotine Patch [Nicoderm] 7 mg TD DAILY #14 patch.td24 12/01/16 [Rx] Nicotine Patch [Nicoderm] 14 mg TD DAILY #14 patch.td24 12/01/16 [Rx] Nicotine Patch [Nicoderm] 21 mg TD DAILY #28 patch.td24 12/01/16 [Rx] Nitroglycerin 0.4 mg SL Q5MIN PRN #30 tab.subl 12/01/16 [Rx] Ticagrelor [Brilinta] 90 mg PO BID #60 tablet 12/01/16 [Rx] Albuterol Sulfate [Albuterol Inhaler] 2 puff IH Q4H PRN 12/06/16 [History] Gabapentin [Neurontin] 100 mg PO HS #30 capsule 12/11/16 [Rx] Omeprazole 40 mg PO BID #120 tablet. 12/11/16 [Rx] Sucralfate [Carafate] 1 gm PO QIDAC #120 tablet 12/11/16 [Rx] Allergies/Adverse Reactions: Allergies No Known Allergies Allergy (Verified 05/30/16 10:20) Date of admission: 12/07/16 14:43 Primary care physician: Lesvia Suarez CNP Consults: 12/09/16 16:36 Consult to Cardiology [CONS] Routine Comment: Consulting Provider: Cardiology Kate Reason for Consult: UGIB, recent IN s/p PCI on 11/26/16. Please evaluate for Dual antiplatelet therapy continuation. Call Completed: No Discharging clinician: Gaudencio Christopher Anticipated date of discharge: 12/11/16 - Patient Status Disposition: Home, Self-Care Condition: Good Functional capacity at discharge: independent ambulation Overall status at discharge: patient is progressing back to baseline - Discharge Instructions Instructions: Anemia (GEN) Follow Up With: Lesvia Suarez CNP [Primary Care Provider] - 12/13/16 9:00 am - Diet and Activity Activity: resume usual activities as tolerated Diet: low fat, low cholesterol, low salt diet Interval History: See below Hospital course: Mr. Pool is a 76 year old male Evaluated at bedside with family He has a PMH of PAD, CAD, HLD, Tobacco abuse He was admitted and managed for symptomatic anemia secondary to acute blood loss from UGIB He has PCI with bare metal stents a week to onset of symptoms, but he has a history of gastric ulcer He was transfused with 3 units of blood Endoscopy 12/08 report showed benign esophageal stenosis, diffuse hemorrhagic gastritis with firability and granularity of GI mucosa, non-bleeding gastric ulcer with no stigmata of bleeding Rpt Hb 12/09 with evidence of active bleed, now Hb 10 s/p 3 units RBC. One dose of Brilinta was held last night prior to cardio eval, and had been resumed Repeat EGD 12/10 showed one oozing cratered gastric ulcer with oozing hemorrhage , coagulated with argon beam Patient denies new symptoms this morning, and has not had any more melena His HB is stable He is discharged on Omeprazole 40mg bid and sucralfate qid He is well educated about his diagnosis and need for lifelong PPI therapy, follow up with GI and Cardiology Patient was counselled everyday of hospital stay on tobacco cessation, declined NRT, wished to self-quit Plan of care discussed with patient and at beside, verbalized understanding Time spent discussing smoking cessation with patient: 3 to 10 minutes (4 minutes spent on tobacco cessation counselling) - Time Spent with Patient Total time spent providing and/or coordinating discharge services: Less than 30 minutes - Constitutional Vitals: Temp Pulse Resp BP Pulse Ox 98.4 F 66 16 139/70 92 12/11/16 07:49 12/11/16 07:49 12/11/16 07:49 12/11/16 07:49 12/11/16 07:49 General appearance: Present: A&O X 3, pleasant, no acute distress - Head Head exam: Present: atraumatic, normocephalic - Eye Eye exam: Present: PERRL, conjuntiva pink, sclera anicteric Pupils: Present: PERRL - Neck Neck exam general surgery: Present: supple, trachea midline. Absent: lymphadenopathy - Respiratory Respiratory exam: Present: CTAB. Absent: accessory muscle use, rales, rhonchi, wheezes - Cardiovascular Cardiovascular exam: Present: RRR, +S1, +S2. Absent: diastolic murmur, gallop, rubs, systolic murmur - GI/Abdominal GI/Abdominal exam: Present: normal bowel sounds, soft, no peritoneal signs. Absent: distended, tenderness - Extremities Exam Extremities exam: Present: warm, radial pulses palpable and symetrical. Absent : calf tenderness, cyanotic, pedal edema - Neurological Exam Neurological exam: Present: alert, CN II-XII intact, oriented X3, no focal deficits. Absent: pronater drift, facial droop, speech deficit - Skin Skin exam: Present: dry, intact
[2016-12-11] MEDS: Aspirin Enteric Coated 81 MG Tablet PO SCH (10:36)
[2016-12-11] MEDS: Isosorbide MONOnitrate (24 HR) 30 MG TAB.ER.24H PO SCH (10:36)
[2016-12-11] MEDS: FLUoxetine 20 MG CAPSULE PO SCH (10:36)
[2016-12-11] MEDS: Gabapentin 100 MG CAPSULE PO SCH (10:36)
[2016-12-11] MEDS: Metoprolol XL (24 HR) Succ 25 MG TAB.ER.24H PO SCH (10:36)
[2016-12-11] MEDS: *HR* Ticagrelor 90 MG TABLET PO SCH (10:37)
== END 2016-12-11 11:20 | disposition home or self-care (01) | DRG 378 ==
LOC: EMEROO 13:18 → 2ANU 13:18
PROVIDERS: ADMIT Hospitalist; ATTEND Internal Medicine
PROC: ENDOEBX (2016-12-08 08:00)

== ENCOUNTER 2016-12-14 14:12 | Inpatient (IN) ==
[2016-12-14] MEDS ORDERED: Pantoprazole 80 MG in 0.9 % Sodium Chloride 50 ML IVPB ONE (14:27)
[2016-12-14] MEDS ORDERED: 0.9 % Sodium Chloride 1,000 ML IVC ONE (14:27)
--- NOTE | 2016-12-14 14:46 | Emergency Department Note ---
Disposition Clinical Impression: CAD (coronary artery disease), Upper GI bleed, Peripheral arterial disease Anemia Qualifiers: Anemia type: unspecified type Qualified Code(s): D64.9 - Anemia, unspecified Disposition: Admitted As Inpatient Condition: Serious Time of Disposition: 18:00 General Adult HPI - General Chief complaint: ED Weakness Stated complaint: abnormal labs, low hgb Time Seen by Provider: 12/14/16 14:17 Source: patient, family Limitations: no limitations Nursing Notes Reviewed: Yes Vital Signs Reviewed: Yes - History of Present Illness HPI Narrative: 76-year-old male presenting with acute onset of lower extremity pain and continued melanic stools. Patient was also sent over from primary care physician's office after having blood work drawn yesterday that showed a continued decrease in his hemoglobin from 11 on discharge a few days ago to 9.4. Patient was recently admitted for an upper GI bleed and had a scope which showed John 1B ulcer treated with argon laser by Dr. Hanley. Also of note, he had a aorta CTA with runoff on 11/14, which showed a completely occluded infrarenal abdominal aorta. The internal and external as well as the common iliac arteries were also included. The patient had small collateral flow off the internal iliac. At that time. He did have flow through the anterior and posterior tibial arteries. 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 He presents today with new and worsening bilateral lower extremity pain. Was just contacted by PCP office for HGB of 9.4 and told to come to the ER. Patient is also on Brilinta for a recent LAD stent on 11/30. Pain Scale: 8 - Related Data Home Medications Medication Instructions Recorded Confirmed FLUoxetine HCl [Prozac] 40 mg PO DAILY 11/18/16 12/14/16 Aspirin [Lo-Dose Aspirin EC] 81 mg PO DAILY 11/30/16 12/14/16 Atorvastatin [Lipitor] 40 mg PO HS 11/30/16 12/14/16 Metoprolol XL (24 HR) Succ [Toprol 25 mg PO DAILY 11/30/16 12/14/16 Xl] Albuterol Sulfate [Albuterol 2 puff IH Q4H PRN 12/06/16 12/14/16 Inhaler] Previous Rx's Medication Instructions Recorded Isosorbide MONOnitrate (24 HR) 30 mg PO DAILY #30 tab.er.24h 12/01/16 [Imdur] Nitroglycerin 0.4 mg SL Q5MIN PRN #30 tab.subl 12/01/16 Ticagrelor [Brilinta] 90 mg PO BID #60 tablet 12/01/16 Gabapentin [Neurontin] 100 mg PO HS #30 capsule 12/11/16 Omeprazole 40 mg PO BID #120 tablet. 12/11/16 Sucralfate [Carafate] 1 gm PO QIDAC #120 tablet 12/11/16 Allergies Allergy/AdvReac Type Severity Reaction Status Date / Time No Known Allergies Allergy Verified 05/30/16 10:20 Limitations: ROS unobtainable due to patients medical condition Gastrointestinal: Reports: melena Musculoskeletal: Reports: as per HPI (leg pain ) Past Medical History - Past Medical History Attestation: Yes The following information was validated with the patient. Source: patient, old records reviewed Medical history: Reports: arthritis, COPD, coronary artery disease, hyperlipidemia, hypertension, myocardial infarction Surgical history: Reports: angioplasty/stent, orthopedic, other Psychiatric history: Reports: depression - Social History Smoking Status: Current every day smoker Smokeless Tobacco Status: No Alcohol use: Reports: occasionally Drug use: Reports: none Physical Exam - General Limitations: no limitations General appearance: alert, anxious, in distress (Patient is hypotensive, diaphoretic and pale) - Head Head exam: atraumatic, normocephalic, normal inspection - Eye Eye exam: Present: PERRL, other (Pale conjunctiva) - ENT ENT exam: mucous membranes dry - Chest Chest inspection: Present: normal inspection, symmetric chest wall rise - Respiratory Respiratory exam: Present: normal lung sounds bilaterally - Cardiovascular Cardiovascular exam: Present: regular rate, normal rhythm, normal heart sounds - Abdominal Exam Abdominal exam: Present: soft, Non-Tender. Absent: tenderness, distention, guarding, rebound, rigidity - Extremities Exam Extremities exam: Absent: normal capillary refill, pedal edema - Expanded Lower Extremity Exam Neurovascular/Tendon exam: Present: pulse deficit (There is no palpable or dopplerable PT or DP pulses bilaterally), extremity cold to touch, pallor. Absent: normal capillary refill (Patient has significantly delayed capillary refill) Gait: not tested/not observed - Neurological Exam Neurological exam: Present: alert, oriented X3 - Psychiatric Psychiatric exam: Present: anxious - Skin Skin exam: Present: intact, diaphoresis, pallor. Absent: dry Course Course Narrative: 76-year-old male presenting with acute onset of lower extremity pain. Patient was also sent over from primary care physician's office after having blood work drawn yesterday that showed a continued decrease in his hemoglobin from 11-9.4. Patient was recently admitted for an upper GI bleed. Also of note, he had a aorta CTA with runoff on 11/14, which showed a completely occluded infrarenal abdominal aorta. The internal and external as well as the common iliac arteries were also included. The patient had small collateral flow off the internal iliac. At that time. He did have flow through the anterior and posterior tibial arteries. 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 He presents today with new and worsening bilateral lower extremity pain. Patient appears pale, diaphoretic, in moderate/severe pain and is hypotensive. I was unable to palpate PT or DP pulses bilaterally. We were also unable to Doppler these pulses. Femoral pulses are very weak on palpation, and are dopplerable. His abdomen is soft and there is no pulsatile mass. Previous aortogram did not show any AAA. We have ordered 4 units of blood as well as 2 L bolus of normal saline. Vascular surgery was contacted immediately and requested JOSE MIGUEL, and a call back. - Reevaluation(s) Additional Reevaluation(s): 17:40 - air plant engineer called back. States that there are no longer taking admissions to the ICU after 5 PM. We will page the hospitalist. - Consultations Consultation #1: Spoke with Dr. Rose with vascular surgery. I discussed my concern for ischemic limbs. Given the patient's pain and non-palpable or dopplerable PT her DP pulses. His foot is pale and cold bilaterally. His previous CTA aorta with runoff showed a completely occluded infrarenal aorta including the iliacs with minimal collateral blood flow. Patient is presented with acute pain in his bilateral legs. He requested us to obtain an JOSE MIGUEL and call him back. Time: 14:44 Consultation #2: I spoke with Dr. Rose again. The patient's JOSE MIGUEL is 0. He states that he would not operate on him at this hospital tonight. Recommended CTA aorta with runoff and that he would come evaluate the patient in approximately 30 minutes when he is finished in the OR. Time: 16:01 Consultation #3: Dr. Manazer down and evaluated patient. States that we need to control his GI bleed before he would consider operation. Still wanted the CT aorta for operative planning. He will speak with the surgeon on-call, Dr. Bowden about possible endoscopy due to the recent [place] class IB gastric ulcer. Patient is also less then 30 days post stent placement for an 80-90% stenosis of the LAD with complete total occlusion of the left circumflex and right coronaries with adequate collateral flow. Patient's blood pressure is much improved after fluids and blood. Feeling subjectively better. Still looks pale. He is no longer diaphoretic. Time: 17:01 Additional Consultation(s): 17:[address] Bowden. He recommended admission to the hospitalist service and he will consult to discuss upper endoscopy. He also spoke with vascular surgery and they will coordinate care between themselves and cardiology due to the patient's multiple comorbid conditions. 17:20 I spoke with the on-call barman, Dr. Stoner. He recommended that we do not stop the Brilinta since he does have a stent in his LAD and this could lead to massive infarction and cardiac arrest. Recommended continuing resuscitation and if the upper endoscopies unrevealing that we should consider IR for embolization. We will page the air plant engineer for admission at this time. 17:25 - Dr. Stoner called back, stated can stop aspirin therapy but continued to recommend not to hold Brilinta since his LAD is his only artery left. Vital Signs Temperature 98.4 F 12/14/16 14:15 Pulse Rate 87 12/14/16 14:15 Respiratory Rate 18 12/14/16 14:15 Blood Pressure 78/42 12/14/16 14:15 O2 Sat by Pulse Oximetry 96 12/14/16 14:15 Temperature 98.3 F 12/14/16 18:58 Pulse Rate 93 12/14/16 18:58 Respiratory Rate 22 12/14/16 18:58 Blood Pressure 171/88 12/14/16 18:58 O2 Sat by Pulse Oximetry 99 12/14/16 18:58 Oxygen Delivery Oxygen Delivery Room Air Medical Decision Making - Lab Data Result diagrams: 12/14/16 14:49 12/14/16 14:49 Lab Results 12/14/16 12/14/16 12/14/16 Range/Units 14:49 14:49 14:49 WBC 12.6 H (4.3-11.1) K/mcL RBC 2.18 L (4.19-5.50) M/mcL Hgb 6.8 L D (12.9-16.9) g/dL Hct 21.2 L (37.5-50.1) % MCV 97.2 (83.0-100.0) fL MCH 31.2 (28.0-33.3) pg MCHC 32.1 (31.6-35.5) g/dL RDW 16.4 H (11.5-14.5) % Plt Count 281 (140-400) K/mcL MPV 9.8 (9.4-12.4) fL Immature Gran % 0.9 (0-4) % Seg Neutrophils % 68.4 % Lymphocytes % 21.4 % Monocytes % 7.7 % Eosinophils % 1.3 % Basophils % 0.3 % Neutrophils # 8.6 (1.6-8.9) K/mcL Lymphocytes # 2.7 (0.6-4.6) K/mcL Monocytes # 1.0 (0.0-1.3) K/mcL Eosinophils # 0.2 (0.0-0.6) K/mcL Basophils # 0.0 (0.0-0.2) K/mcL PT 12.2 H (9.4-12.1) Seconds INR 1.1 APTT 31.7 (26.0-36.0) Seconds Sodium 139 (136-145) mEq/L Potassium 3.9 (3.5-4.5) mEq/L Chloride 109 (98-109) mEq/L Carbon Dioxide 25 (19-29) mEq/L BUN 23 (8-26) mg/dL Creatinine 0.66 L (0.72-1.25) mg/dL Est GFR ( Amer) > 60 (> 60) Est GFR (Non-Af Amer) > 60 (> 60) BUN/Creatinine Ratio 35 H (6-26) Glucose 124 H (70-99) mg/dL Calculated Osmolality 293 (280-300) Lactic Acid (0.5-2.2) mmol/L Calcium 7.5 L (8.6-10.8) mg/dL Magnesium 1.7 (1.6-2.6) mg/dL Total Bilirubin 0.2 (0.2-1.2) mg/dL AST 14 (5-34) Units/L ALT 10 (0-55) Units/L Alkaline Phosphatase 50 (38-126) Units/L Troponin I (0-0.03) ng/mL Serum Total Protein 4.6 L (6.0-8.3) g/dL Albumin 2.3 L (3.5-5.0) g/dL Globulin 2.3 L (2.4-3.5) g/dL Albumin/Globulin Ratio 1.0 L (1.1-2.2) Lipase 38 (8-78) Units/L Blood Type Antibody Screen Crossmatch 12/14/16 12/14/16 12/14/16 Range/Units 14:49 14:49 14:49 WBC (4.3-11.1) K/mcL RBC (4.19-5.50) M/mcL Hgb (12.9-16.9) g/dL Hct (37.5-50.1) % MCV (83.0-100.0) fL MCH (28.0-33.3) pg MCHC (31.6-35.5) g/dL RDW (11.5-14.5) % Plt Count (140-400) K/mcL MPV (9.4-12.4) fL Immature Gran % (0-4) % Seg Neutrophils % % Lymphocytes % % Monocytes % % Eosinophils % % Basophils % % Neutrophils # (1.6-8.9) K/mcL Lymphocytes # (0.6-4.6) K/mcL Monocytes # (0.0-1.3) K/mcL Eosinophils # (0.0-0.6) K/mcL Basophils # (0.0-0.2) K/mcL PT (9.4-12.1) Seconds INR APTT (26.0-36.0) Seconds Sodium (136-145) mEq/L Potassium (3.5-4.5) mEq/L Chloride (98-109) mEq/L Carbon Dioxide (19-29) mEq/L BUN (8-26) mg/dL Creatinine (0.72-1.25) mg/dL Est GFR ( Amer) (> 60) Est GFR (Non-Af Amer) (> 60) BUN/Creatinine Ratio (6-26) Glucose (70-99) mg/dL Calculated Osmolality (280-300) Lactic Acid 2.9 H (0.5-2.2) mmol/L Calcium (8.6-10.8) mg/dL Magnesium (1.6-2.6) mg/dL Total Bilirubin (0.2-1.2) mg/dL AST (5-34) Units/L ALT (0-55) Units/L Alkaline Phosphatase (38-126) Units/L Troponin I 0.00 (0-0.03) ng/mL Serum Total Protein (6.0-8.3) g/dL Albumin (3.5-5.0) g/dL Globulin (2.4-3.5) g/dL Albumin/Globulin Ratio (1.1-2.2) Lipase (8-78) Units/L Blood Type O POSITIVE Antibody Screen NEGATIVE Crossmatch See Detail [email or web address]. - Will Situation: Demographics, MOA Background: Presenting Complaint, Relevant PMH, Meds, & Allergies Assessment: Vital Signs, Course and respsone to treatment, Exam Concerns, Patient/Family Expectation, Pertinant Lab Results, Outstanding Labs Recommendation: Recommendation based on pending studies, treatments, or consults [email or web address].RKorin Report Given to: Chiquita Solis Repor Time: 17:59 Attestation Statement - Attestation Attestation: I examined this patient and my medical decision-making was reviewed with the EXPORT COORDINATOR/PA/Advanced Practice Nurse/Resident Physician. I agree with the documented findings, disposition and treatment plan as described except to the extent set forth below. 76-year-old male presents ED because of leg pain, dropping hemoglobin,. He has a history of coronary disease and had an LAD stent placed recently. Currently on Brilinta. He has severe coronary disease with multiple areas of collateral dependent upon the LAD. He was also found to have upper GI bleed with gastric ulcer that was cauterized per Dr Hanley. He also has severe occlusive disease of his peripheral vessels as well as aorta. He has occlusion of the infrarenal aorta and is dependent on large collateral flow from his epigastric vessels. He was recently transfused and he said continue drop his hemoglobin. Today he has increasing abdominal discomfort as well as severe pain in both legs. He Continues with dark, tarry stools. Patient appears very pale, diaphoretic and in moderate distress. He is hypotensive with a systolic blood pressure 70. Heart rate 115. Chest is clear to auscultation bilaterally. Abdomen tender in the lower left quadrant, hypoactive bowel sounds Upper extremities are clammy but warm. Both legs are cool and pulseless. 2 IVs were placed he was given 1 L bolus of saline. Blood pressure responded to the crystalloid infusion. He does have a have a drop in his hemoglobin to 6 and was started on 2 units of blood. Blood pressure remained stable. ABIs were obtained and he was found to have JOSE MIGUEL of 0 both legs. Case was discussed with Dr. Rose as well as Dr. Bowden, both saw the patient and the ED. He will be admitted to the critical-care unit and Dr. Bowden will attempt EGD to try to control the upper GI bleeding. Once bleeding is under control he may add be able to undergo revascularization procedure. The high probability of a clinically significant, sudden or life threatening deterioration of the [cardiovascular, renovascular] system(s) required my full and direct attention, intervention and personal management. The aggregate critical care time was [45] minutes. This time is in addition to time spent performing reported procedures but includes the following: [x] Data Review and interpretation [x] Patient assessment and monitoring of vital signs [x] Documentation [x] Medication orders and management
[2016-12-14] MEDS ORDERED: Ondansetron 4 MG/2 ML VIAL IVP ONE (14:52)
[2016-12-14] MEDS ORDERED: *HR* HYDROmorphone (PF) 1 MG/ML SYRINGE IVP ONE ×2 (14:52→16:33)
[2016-12-14 15:00] LABS: Basophils % 0.3 %; Eosinophils # 0.2 K/mcL (0.0-0.6); Eosinophils % 1.3 %; Hematocrit 21.2 % (37.5-50.1); Immature Granulocytes % 0.9 % (0-4); Lymphocytes # 2.7 K/mcL (0.6-4.6); Lymphocytes % 21.4 %; Mean Corpuscular HGB Conc 32.1 g/dL (31.6-35.5); Mean Corpuscular Hemoglobin 31.2 pg (28.0-33.3); Mean Corpuscular Volume 97.2 fL (83.0-100.0); Mean Platelet Volume 9.8 fL (9.4-12.4); Monocytes % 7.7 %; Neutrophils # 8.6 K/mcL (1.6-8.9); Platelet Count 281 K/mcL (140-400); Red Blood Count 2.18 M/mcL (4.19-5.50); Red Cell Distribution Width 16.4 % (11.5-14.5); Segmented Neutrophils % 68.4 %
[2016-12-14 15:03] LABS: INR 1.1; Prothrombin Time 12.2 Seconds (9.4-12.1)
[2016-12-14 15:06] LABS: Activated Partial Thrombo Time 31.7 Seconds (26.0-36.0)
[2016-12-14 15:13] LABS: Alanine Aminotransferase 10 Units/L (0-55); Albumin 2.3 g/dL (3.5-5.0); Alkaline Phosphatase 50 Units/L (38-126); Aspartate Amino Transferase 14 Units/L (5-34); BUN/Creatinine Ratio 35 (6-26); Bilirubin,Total 0.2 mg/dL (0.2-1.2); Blood Urea Nitrogen 23 mg/dL (8-26); Calcium 7.5 mg/dL (8.6-10.8); Carbon Dioxide 25 mEq/L (19-29); Chloride 109 mEq/L (98-109); Globulin 2.3 g/dL (2.4-3.5); Glucose 124 mg/dL (70-99); Lipase 38 Units/L (8-78); Magnesium 1.7 mg/dL (1.6-2.6); Osmolality,Calculated 293 (280-300); Potassium 3.9 mEq/L (3.5-4.5); Sodium 139 mEq/L (136-145); Total Protein 4.6 g/dL (6.0-8.3); eGFR For African Americans > 60 (> 60); eGFR For Non-African Americans > 60 (> 60)
[2016-12-14 15:17] LABS: Hemoglobin 6.8 g/dL (12.9-16.9)
[2016-12-14] MEDS ORDERED: 0.9 % Sodium Chloride 1,000 ML ONE (16:10)
--- NOTE | 2016-12-14 17:40 | Vascular/Endovasc Consult Note ---
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 His current JOSE MIGUEL is 0.0 bilaterally. He reports rest pain. He has no ulcers or gangrene. His motor and sensory exam are intact. He exam appears to be unchanged during the last few weeks. His prior ABIs were 0.[address] scan today reveals no significant vascular changes since his prior CT scan. He has no evidence of an acute arterial process. At this time, given his anemia, GI bleeding and recent coronary stent, he is a very high risk patient for surgery. His primary issue is his GI bleed. The patient was discussed with Dr. Bowden and he will plan for endoscopy in the morning. He will be placed on the hospitalist service for rescusitation. (2) CAD (coronary artery disease) Status: Chronic Recent coronary stent. Continue with Brilinta. Qualifiers: Coronary Disease-Associated Artery/Lesion type: [place] artery [place] vs. transplanted heart: [place] heart Associated angina: without angina Qualified Code(s): I25.10 - Atherosclerotic heart disease of [place] coronary artery without angina pectoris (3) Tobacco abuse Status: Chronic (4) Upper GI bleed Status: Acute (5) Anemia Status: Resolved Qualifiers: Anemia type: other cause Other causes of anemia: other cause, not classified Qualified Code(s): D64.89 - Other specified anemias (6) Anemia Status: Acute Qualifiers: Anemia type: unspecified type Qualified Code(s): D64.9 - Anemia, unspecified - History of Present Illness Consult date: 12/14/16 Requesting physician: Juan Farley Consult reason: Peripheral vascular disease with rest pain Chief complaint: Aortic occlusion, GI bleeding, recent coronary stent History of present illness: Mr. Pool is a 76 year old male with a history of severe peripheral vascular disease. He has a history of a chronic aortoiliac occlusion as well as bilateral femoral and popliteal disease. He recently underwent a left heart cath and was found to have significant coronary artery disease. He underwent a coronary stent placement and was started on Briliinta. The patient reports that he recently was hospitalized due to GI bleeding. He underwent endoscopy and was found to have a bleeding gastric ulcer. He underwent intervention, but did require a repeat EGD. He was discharged and his Brilinta was continued due to his coronary artery stent. He returned to the ER today with anemia and hypotension. He reported leg pain and vascular labs were ordered. The patient had ABIs orf 0.0 bilaterally. He is currently being resucitated and reports that his legs are starting to feel better. He currently denies chest pain or shortness of breath. Past Med Surg Social Fam HX - Past Medical History Medical history: arthritis, COPD, coronary artery disease, hyperlipidemia, hypertension, myocardial infarction Psychiatric history: depression - Past Surgical History Surgical History: angioplasty/stent, orthopedic, other - Social History Smoking Status: Current every day smoker Smokeless Tobacco Status: No Alcohol use: occasionally Drug use: none - Family History Father Family Member Ethnicity: Non- Living Status: Hx Family Cardiac Disorders: No Hx Family Respiratory Disorders: No Hx Family Cancer: No Hx Family GI Disorders: No Hx Family Endocrine Disorder: No Hx Family Neuromuscular Disorders: No Hx Family Neurologic Disorders: No Hx Family HEENT Disorders: No Hx Family Autoimmune Disorders: No Medications and Allergies FLUoxetine HCl [Prozac] 40 mg PO DAILY 11/18/16 [History] Aspirin [Lo-Dose Aspirin EC] 81 mg PO DAILY 11/30/16 [History] Atorvastatin [Lipitor] 40 mg PO HS 11/30/16 [History] Metoprolol XL (24 HR) Succ [Toprol Xl] 25 mg PO DAILY 11/30/16 [History] Isosorbide MONOnitrate (24 HR) [Imdur] 30 mg PO DAILY #30 tab.er.24h 12/01/16 [ Rx] Nitroglycerin 0.4 mg SL Q5MIN PRN #30 tab.subl 12/01/16 [Rx] Ticagrelor [Brilinta] 90 mg PO BID #60 tablet 12/01/16 [Rx] Albuterol Sulfate [Albuterol Inhaler] 2 puff IH Q4H PRN 12/06/16 [History] Gabapentin [Neurontin] 100 mg PO HS #30 capsule 12/11/16 [Rx] Omeprazole 40 mg PO BID #120 tablet. 12/11/16 [Rx] Sucralfate [Carafate] 1 gm PO QIDAC #120 tablet 12/11/16 [Rx] Allergies No Known Allergies Allergy (Verified 05/30/16 10:20) All Systems Review: A 10-system review of systems was performed and is negative for pertinent findings except as documented above in the HPI. - Constitutional Constitutional: no chills, no fever(s) - EENT Nose, mouth and throat: no epistaxis - Cardiovascular Cardiovascular: no chest pain at rest, no dyspnea at rest - Gastrointestinal Gastrointestinal: melena Exam Vital Signs, Last 4 Hours Temp Pulse Resp BP Pulse Ox 12/14/16 17:06 87 18 134/89 12/14/16 16:31 97.8 F 77 18 140/54 98 12/14/16 16:16 81 18 136/55 98 12/14/16 16:00 84 18 134/54 97 12/14/16 15:19 82 18 121/51 100 12/14/16 14:27 67 18 121/62 97 12/14/16 14:15 98.4 F 87 18 78/42 96 General: Present: Conversant, No Apparent Distress HEENT: Present: Trachea midline, Pupils equal Neck: Absent: JVD, Left Carotid bruit, Right Carotid bruit Cardiac: Present: Reg Rate and Rhythm, Normal S1 and S2, No Murmur Lungs: Present: Normal Breath Sounds, No Wheeze, Rales, Rhonchi Neuro: Present: Alert and responsive, No focal deficits noted, Motor nerves grossly intact, Sensory nerves grossly intact Abdomen: Present: Soft, Non-tender Vascular: Present: Normal capillary refill, Pulse, absent, Color/Temperature ( feet warm). Absent: Cyanosis, Edema Consult Discharge Plan - Plan Instructions: Gastrointestinal Bleeding (DC), Peripheral Vascular Disorders (DC ) Additional Instructions: F/up with Cardiology in 2 weeks [facility] diet for the next 2 weeks- avoid citrus of tomato based foods. Avoid carbonated drinks and alcohol. Referrals: Eduardo Hanley MD [Partnered Physician] - 12/28/16 1:15 pm ([place] office) Lesvia Suarez CNP [Primary Care Provider] - 12/24/16 2:00 pm
--- NOTE | 2016-12-14 18:05 | General Surgery Consult Note ---
Date of Encounter: 12/14/16 Time of Encounter: 18:00 Assessment and Plan (1) Upper GI bleed Current Visit: Yes Status: Acute Patient is a presumed upper GI bleeding source due to his previous EGDs and demonstration of a gastric ulcer along the lesser curvature. To the patient and family that I had an opportunity to look at his previous notes and the previous EGD pictures demonstrating the ulcer. I do think that he will require repeat EGD during this hospitalization with possible hemostasis of the bleeding. Concern is the fact that he has to continue with his antiplatelet therapy due to his increased risk of a myocardial infarction. If the medication is stopped he has a very high risk of heart attack and . It is very possible that despite being able to control the source of the upper GI bleed that he may rebleed over a short course just like he has recently done earlier this week. At the time of the EGD I will also tattoo the area of the ulcer with blue dye just in case he may have to undergo some type of surgical procedure (minimally invasive versus open gastric resection of the gastric ulcer ). History of Present Illness Consult date: 12/14/16 Requesting physician: Obinna Rose History of present illness: The patient is a 76-year-old male with a past medical history significant for COPD, arthritis, coronary artery disease (history of myocardial infarction and ( , and peripheral arterial disease has a known history of GI bleed and has recently had an EGD performed demonstrating a gastric ulcer. He has a history of aortic occlusion and has been having occasional symptoms at first and then subsequently rest pain. His ABIs are 0.2 or less and the CTA has demonstrated or verify his aortic occlusion. As part of his workup for possible aortobifemoral bypass he was discovered to have significant coronary artery disease and required a bare metal stent across his LAD. He was performed approximately 10 days ago. Since the time of the procedure he has developed melanotic stool and had an EGD showing gastric stent. Bleeding was controlled with argon beam and he was discharged from the hospital earlier this week but has continuously had melanotic appearing stool. His hemoglobin level was checked by his primary physician yesterday was noted to be 9 or less. He was then asked to come to the emergency room where his hemoglobin was checked once again was approximately 6.4. He denies any nausea or vomiting and does not really admit to current abdominal pain symptoms. He has had a couple of dark colored stools today. He denies any bright red blood per rectum. He denies any hematemesis. Past Med Surg Social Fam HX - Past Medical History Medical history: arthritis, COPD, coronary artery disease, hyperlipidemia, hypertension, myocardial infarction Psychiatric history: depression - Past Surgical History Surgical History: angioplasty/stent, orthopedic, other - Social History Smoking Status: Current every day smoker Smokeless Tobacco Status: No Alcohol use: occasionally Drug use: none - Family History Father Family Member Ethnicity: Non- Living Status: Hx Family Cardiac Disorders: No Hx Family Respiratory Disorders: No Hx Family Cancer: No Hx Family GI Disorders: No Hx Family Endocrine Disorder: No Hx Family Neuromuscular Disorders: No Hx Family Neurologic Disorders: No Hx Family HEENT Disorders: No Hx Family Autoimmune Disorders: No Medications and Allergies FLUoxetine HCl [Prozac] 40 mg PO DAILY 11/18/16 [History] Aspirin [Lo-Dose Aspirin EC] 81 mg PO DAILY 11/30/16 [History] Atorvastatin [Lipitor] 40 mg PO HS 11/30/16 [History] Metoprolol XL (24 HR) Succ [Toprol Xl] 25 mg PO DAILY 11/30/16 [History] Isosorbide MONOnitrate (24 HR) [Imdur] 30 mg PO DAILY #30 tab.er.24h 12/01/16 [ Rx] Nitroglycerin 0.4 mg SL Q5MIN PRN #30 tab.subl 12/01/16 [Rx] Ticagrelor [Brilinta] 90 mg PO BID #60 tablet 12/01/16 [Rx] Albuterol Sulfate [Albuterol Inhaler] 2 puff IH Q4H PRN 12/06/16 [History] Gabapentin [Neurontin] 100 mg PO HS #30 capsule 12/11/16 [Rx] Omeprazole 40 mg PO BID #120 tablet.dr 12/11/16 [Rx] Sucralfate [Carafate] 1 gm PO QIDAC #120 tablet 12/11/16 [Rx] Allergies No Known Allergies Allergy (Verified 05/30/16 10:20) Review of Systems All systems PM: A 10-system review of systems was performed and is negative for pertinent findings except as documented above in the HPI. General Surgery Exam Initial Vital Signs Temp Pulse Resp BP Pulse Ox 98.4 F 87 18 78/42 96 12/14/16 14:15 12/14/16 14:15 12/14/16 14:15 12/14/16 14:15 12/14/16 14:15 - Eyes PERRL, normal ocular movement - Neck no masses, trachea midline, no venous distension - Respiratory normal expansion, normal respiratory effort (Decreased breath sounds noted at the bases) - Cardiovascular Cardiovascular exam: Present: RRR, no murmurs/rubs/gallops - Abdomen Abdomen general surgery: Present: bowel sounds present, soft, non tender - Integumentary Integumentary general surgery: Present: warm and dry - Neurologic Present: CN 2-12 grossly intact - Musculoskeletal Present: other (No clubbing or edema. No obvious cyanosis evident.) - Psychiatric Psychiatric general surgery: Present: A&Ox3, appropriate, oriented to person, oriented to place, oriented to time Exam Initial Vital Signs Temp Pulse Resp BP Pulse Ox 98.4 F 87 18 78/42 96 12/14/16 14:15 12/14/16 14:15 12/14/16 14:15 12/14/16 14:15 12/14/16 14:15 Results - Labs 12/14/16 14:49 12/14/16 14:49 Abnormal lab results WBC 12.6 K/mcL (4.3-11.1) H 12/14/16 14:49 RBC 2.18 M/mcL (4.19-5.50) L 12/14/16 14:49 Hgb 6.8 g/dL (12.9-16.9) L D 12/14/16 14:49 Hct 21.2 % (37.5-50.1) L 12/14/16 14:49 RDW 16.4 % (11.5-14.5) H 12/14/16 14:49 PT 12.2 Seconds (9.4-12.1) H 12/14/16 14:49 Creatinine 0.66 mg/dL (0.72-1.25) L 12/14/16 14:49 BUN/Creatinine Ratio 35 (6-26) H 12/14/16 14:49 Glucose 124 mg/dL (70-99) H 12/14/16 14:49 Lactic Acid 2.9 mmol/L (0.5-2.2) H 12/14/16 14:49 Calcium 7.5 mg/dL (8.6-10.8) L 12/14/16 14:49 Serum Total Protein 4.6 g/dL (6.0-8.3) L 12/14/16 14:49 Albumin 2.3 g/dL (3.5-5.0) L 12/14/16 14:49 Globulin 2.3 g/dL (2.4-3.5) L 12/14/16 14:49 Albumin/Globulin Ratio 1.0 (1.1-2.2) L 12/14/16 14:49 Diabetes panel 12/14/16 Range/Units 14:49 Sodium 139 (136-145) mEq/L Potassium 3.9 (3.5-4.5) mEq/L Chloride 109 (98-109) mEq/L Carbon Dioxide 25 (19-29) mEq/L BUN 23 (8-26) mg/dL Creatinine 0.66 L (0.72-1.25) mg/dL Glucose 124 H (70-99) mg/dL Calcium 7.5 L (8.6-10.8) mg/dL AST 14 (5-34) Units/L ALT 10 (0-55) Units/L Alkaline Phosphatase 50 (38-126) Units/L Albumin 2.3 L (3.5-5.0) g/dL Calcium panel 12/14/16 Range/Units 14:49 Calcium 7.5 L (8.6-10.8) mg/dL Albumin 2.3 L (3.5-5.0) g/dL Pituitary panel 12/14/16 Range/Units 14:49 Sodium 139 (136-145) mEq/L Potassium 3.9 (3.5-4.5) mEq/L Chloride 109 (98-109) mEq/L Carbon Dioxide 25 (19-29) mEq/L BUN 23 (8-26) mg/dL Creatinine 0.66 L (0.72-1.25) mg/dL Glucose 124 H (70-99) mg/dL Calcium 7.5 L (8.6-10.8) mg/dL Adrenal panel 12/14/16 Range/Units 14:49 Sodium 139 (136-145) mEq/L Potassium 3.9 (3.5-4.5) mEq/L Chloride 109 (98-109) mEq/L Carbon Dioxide 25 (19-29) mEq/L BUN 23 (8-26) mg/dL Creatinine 0.66 L (0.72-1.25) mg/dL Glucose 124 H (70-99) mg/dL Calcium 7.5 L (8.6-10.8) mg/dL Total Bilirubin 0.2 (0.2-1.2) mg/dL AST 14 (5-34) Units/L ALT 10 (0-55) Units/L Alkaline Phosphatase 50 (38-126) Units/L Albumin 2.3 L (3.5-5.0) g/dL All other labs normal. Consult Discharge Plan - Plan Referrals: Lesvia Suarez, COLLATERAL SPECIALIST [Primary Care Provider] -
--- NOTE | 2016-12-14 19:39 | Internal Med History&Physical ---
<Saran Rangel - Last Filed: 12/15/16 03:47> Date of Encounter: 12/14/16 Time of Encounter: 19:39 Assessment and Plan (1) Peripheral arterial disease Current visit: Yes Status: Chronic -Chronic 7-8 years. -CTA with runoff shows extensive PAD, total occlusions present. -Vascular on board:must control active bleeding before intervention -Keep patient NPO. -Will continue to follow and take recommendations. Thank you. (2) Anemia Current visit: Yes Status: Acute -Hgb <7. Likely source is Upper GI ulcer. Did not see records of recent colonoscopy. Stool hemocult ordered. History of iron deficiency anemia. -Cr WNL, BUN increased. Not concerned at this time for renal disease contributing to anemia. -Transfuse 4 units of PRBC. Keep Hgb >8. Will reorder if necessary. H and H q6h. -Per cardiology, continue Brilinta. See ED note. Qualifiers: Anemia type: unspecified type Qualified Code(s): D64.9 - Anemia, unspecified (3) Upper GI bleed Current visit: Yes Status: Acute -EDG on 12/10 showed bleeding gastric ulcer. Cauterized -Surgery aware and has been consulted. See ED note on 12/14/16 Plan -Continue to monitor -Consider protonix pump/octreotide. (4) CAD (coronary artery disease) Current visit: Yes Status: Chronic -Recent stent placement in LAD. denies CP. -Cardiology on board. Qualifiers: Coronary Disease-Associated Artery/Lesion type: unspecified vessel or lesion type [place] vs. transplanted heart: [place] heart Associated angina: without angina Qualified Code(s): I25.10 - Atherosclerotic heart disease of [place] coronary artery without angina pectoris (5) Tobacco abuse Current visit: Yes Status: Chronic -Consider nicotine patch if cravings severe. (6) DVT prophylaxis Current visit: Yes Status: Resolved -Continue Brilenta (7) Lactate blood increase Current visit: Yes Status: Acute -lactate elevated at 2.9 and mild elevated WBC -Doubt infection: Not tachy, no complaint of N/V/C. Does not appear toxic. Elevated WBC likely due to stress response. No left shift. -No need for sepsis workup at this time. However, will reorder 4am lab with CBC (8) Hypertension Current visit: Yes Status: Chronic -continue home medications Qualifiers: Hypertension type: essential hypertension Qualified Code(s): I10 - Essential (primary) hypertension Internal Medicine - H&P: HPI Chief complaint: Weakness, LLE and RLE pain Admitted From: Emergency Dept Plans for Post Hospital Care: Home History of present illness: Mr. Pool is a 76 year old male, PMH arthritis, COPD, CAD, [place], HTN, hyperlipidema, c/c weakness and LLE and RLE pain. Concerning lower extremity pain: Been present for 7-8 years. located in throughout the RLE and LLE. Described as tingling, dull ache.Worse with walking however is continuous even at rest behind the thighs. No previous treatment with Cilostazol. Did try gabapentin, which didnt help and caused vivid nightmares, so discontinued. No previous stent placement in legs. Did have CT with runoff that showed extensive occlusions throughout the arteries. Vascular surgery consulted. Continues to smoke. Since treatment in the ED/ICU, feels the same. Concerning weakness/fatigue: Patient states he has been feeling diffused weakness/fatigue for a couple of weeks. Does have history of gastric ulcer and "dark brown/black stools". Recent cardiac stent placement of LAD and rx Brilenta. Following stent placement patient has been noticing these symptoms. Seen at the PCP office, Hgb drop to 9 and instructed to go to ED. While in ED, Hbg 6. Transfusion ordered. Cardio consulted. Instructed to continue brilenta due to severe CAD and risk of thrombosis. Recent EGD 12/10/16 showed bleeding gastric ulcer. Cauterized. Surgery consulted and aware. Patient does not recall last colonoscopy, unable to find in records. Patient still complains of feeling weak. Is able to stand and use bedside commode unassisted. Stool was dark. Denies AN/blurry vision/recent syncope/CP/recent changes to SOB (has COPD)/ hemophysis/ abdominal pain. Please see ED note on 12/14/16 concerning coordination of care regarding vascular surgery and general surgery. Past Med Surg Social Fam HX - Past Medical History Medical history: arthritis, COPD, coronary artery disease, GI bleed (gastric ulcer), hyperlipidemia, hypertension, myocardial infarction Psychiatric history: depression - Past Surgical History Surgical History: angioplasty/stent, orthopedic, other - Social History Smoking Status: Current every day smoker Smokeless Tobacco Status: No Alcohol use: occasionally Drug use: none - Family History Father Family Member Ethnicity: Non- Living Status: Hx Family Cardiac Disorders: No Hx Family Respiratory Disorders: No Hx Family Cancer: No Hx Family GI Disorders: No Hx Family Endocrine Disorder: No Hx Family Neuromuscular Disorders: No Hx Family Neurologic Disorders: No Hx Family HEENT Disorders: No Hx Family Autoimmune Disorders: No Internal Medicine - H&P: Meds FLUoxetine HCl [Prozac] 40 mg PO DAILY 11/18/16 [History] Aspirin [Lo-Dose Aspirin EC] 81 mg PO DAILY 11/30/16 [History] Atorvastatin [Lipitor] 40 mg PO HS 11/30/16 [History] Metoprolol XL (24 HR) Succ [Toprol Xl] 25 mg PO DAILY 11/30/16 [History] Isosorbide MONOnitrate (24 HR) [Imdur] 30 mg PO DAILY #30 tab.er.24h 12/01/16 [ Rx] Nitroglycerin 0.4 mg SL Q5MIN PRN #30 tab.subl 12/01/16 [Rx] Ticagrelor [Brilinta] 90 mg PO BID #60 tablet 12/01/16 [Rx] Albuterol Sulfate [Albuterol Inhaler] 2 puff IH Q4H PRN 12/06/16 [History] Gabapentin [Neurontin] 100 mg PO HS #30 capsule 12/11/16 [Rx] Omeprazole 40 mg PO BID #120 tablet.dr 12/11/16 [Rx] Sucralfate [Carafate] 1 gm PO QIDAC #120 tablet 12/11/16 [Rx] Allergies No Known Allergies Allergy (Verified 05/30/16 10:20) All Systems PM: A 10-system review of systems was performed and is negative for pertinent findings except as documented above in the HPI. - Constitutional Constitutional: as per HPI - Constitutional Vitals: Temp Pulse Resp BP Pulse Ox 98.3 F 93 22 171/88 99 12/14/16 18:58 12/14/16 18:58 12/14/16 18:58 12/14/16 18:58 12/14/16 18:58 General appearance: Present: A&O X 3, no acute distress, answers questions appropriately - Head Head exam: Present: atraumatic, normocephalic - Eye Eye exam: Present: PERRL, conjuntiva pink, sclera anicteric Pupils: Present: PERRL - Neck Neck exam general surgery: Present: supple, trachea midline. Absent: lymphadenopathy - Respiratory Respiratory exam: Present: rhonchi, wheezes - Cardiovascular Cardiovascular exam: Present: RRR, +S1, +S2. Absent: diastolic murmur, gallop, rubs, systolic murmur Additional comments: very faint HR. hard to hear. - GI/Abdominal GI/Abdominal exam: Present: normal bowel sounds, soft, no peritoneal signs. Absent: distended, tenderness - Neurological Exam Neurological exam: Present: alert, oriented X3, strengths equal and symetr throughout. Absent: altered - Psychiatric Psychiatric exam: Present: normal affect, normal mood - Skin Skin exam: Present: pallor (Widespread. Particularly in RLE and LLE). Absent: mottled, petechiae, rash, urticaria, warm - Other Additional findings: R tibial pulse +1/4. unable to palpate L tibial or R and L dorsalis pedis pulse. Internal Med - H&P Results - Labs CBC & Chem 7: 12/14/16 14:49 12/14/16 14:49 <Jalen Kong - Last Filed: 12/15/16 04:19> Date of Encounter: 12/14/16 Internal Medicine - H&P: HPI History of present illness: Mr. Pool is a 76 year old male All Systems PM: A 10-system review of systems was performed and is negative for pertinent findings except as documented above in the HPI. - Constitutional Vitals: Temp Pulse Resp BP Pulse Ox 99.8 F H 63 18 153/73 99 12/15/16 01:40 12/15/16 03:00 12/15/16 03:00 12/15/16 03:00 12/15/16 03:00 Internal Med - H&P Results - Labs CBC & Chem 7: 12/14/16 14:49 12/14/16 14:49 - Attending Attestation I personally interviewed and examined this patient and my medical decision- making was reviewed with the Resident Physician. I agree with the documented findings, disposition and treatment plan as described.
[2016-12-14] MEDS ORDERED: Nitroglycerin 0.4 MG TAB.SUBL SL PRN (19:40)
--- NOTE | 2016-12-14 20:25 | Arterial Study Report ---
LE Arterial Physiologic Study Patient Name:Yoni Pool Order Number:[id number] Procedure Date:12/14/2016 Date:1940Age:76 yrs Gender:Male Rt.BP:140 / mmHgHeart Rate: Location:[facility] ED Room #: ER30 Floor Space Allocator:Marlin Gibbs RDCS Referring MD:Zay Davis DO technologies division chair:Lesvia Suarez, [employer] OPERATOR Reading MD:Obinna Rose MD Primary Indications:Ischemic Limb Risk Factors Yes/No Hypertension Yes Smoking Current Yes Hypercholesterolemia Yes Hx of CAD/PTCA Yes Impressions: The bilateral ABIs are consistent with severe disease. Right JOSE MIGUEL: 0.0 Left JOSE MIGUEL: 0.0 Recommendations: Further evaluation is recommended. Test completed on 12/14/2016 at 3:45:00 pm. Critical findings reported to Dr Davis in person at 3:46:00 pm on 12/14/2016 by Marlin Gibbs RDCS. Findings LE Arterial Physiologic Exam: PVR: Right: The PVR waveforms are absent in the right ankle. Left: The PVR waveforms are absent in the left ankle. Segmental Pressures Side Location Pressure Index Result Right Posterior Tibial 0 Right Dorsalis Pedis 0 Left Posterior Tibial 0 Left Dorsalis Pedis 0 Ankle Brachial Index Right Systolic Diastolic JOSE MIGUEL Brachial 140 Dorsalis Pedis 0 Posterior Tibial 0 Left Systolic Diastolic JOSE MIGUEL Dorsalis Pedis 0 Posterior Tibial 0 Updated by Obinna Rose MD on 12/14/2016 8:18:35 PM with Status of Final electronically signed on 12/14/2016 8:19:07 PM with status of Final
[2016-12-14] MEDS ORDERED: Gabapentin 100 MG CAPSULE PO SCH (21:00)
[2016-12-14] MEDS: *HR* Ticagrelor 90 MG TABLET PO SCH (22:37)
[2016-12-15] MEDS ORDERED: Ipratropium/Albuterol Neb 3 ML IH PRN (00:35)
[2016-12-15] MEDS ORDERED: Albuterol 2.5 MG/3 ML NEBULIZER IH PRN (00:42)
[2016-12-15 06:32] LABS: INR 1.1; Prothrombin Time 11.8 Seconds (9.4-12.1)
[2016-12-15 06:42] LABS: Alanine Aminotransferase 20 Units/L (0-55); Albumin 2.6 g/dL (3.5-5.0); Alkaline Phosphatase 54 Units/L (38-126); Aspartate Amino Transferase 30 Units/L (5-34); BUN/Creatinine Ratio 34 (6-26); Bilirubin,Total 0.6 mg/dL (0.2-1.2); Blood Urea Nitrogen 23 mg/dL (8-26); Calcium 7.8 mg/dL (8.6-10.8); Carbon Dioxide 27 mEq/L (19-29); Chloride 109 mEq/L (98-109); Globulin 2.6 g/dL (2.4-3.5); Glucose 128 mg/dL (70-99); Magnesium 1.6 mg/dL (1.6-2.6); Osmolality,Calculated 295 (280-300); Phosphorous 3.6 mg/dL (2.3-4.7); Potassium 3.7 mEq/L (3.5-4.5); Sodium 140 mEq/L (136-145); Total Protein 5.2 g/dL (6.0-8.3); eGFR For African Americans > 60 (> 60); eGFR For Non-African Americans > 60 (> 60)
[2016-12-15 07:01] LABS: Hematocrit 35.4 % (37.5-50.1); Mean Corpuscular HGB Conc 33.1 g/dL (31.6-35.5); Mean Corpuscular Hemoglobin 29.8 pg (28.0-33.3); Platelet Count 220 K/mcL (140-400); Red Blood Count 3.92 M/mcL (4.19-5.50); Red Cell Distribution Width 16.2 % (11.5-14.5)
[2016-12-15 07:03] LABS: Hemoglobin 11.7 g/dL (12.9-16.9); Mean Corpuscular Volume 90.3 fL (83.0-100.0)
[2016-12-15] MEDS ORDERED: *HR* FentaNYL (PF) 100 MCG/2 ML VIAL ONE (08:12)
[2016-12-15] MEDS ORDERED: *HR* Midazolam HCl 5 MG/5 ML VIAL IVP ONE ×2 (08:12→08:53)
[2016-12-15] MEDS: *HR* Ticagrelor 90 MG TABLET PO SCH ×3 (08:16→20:55)
[2016-12-15] MEDS: Aspirin Enteric Coated 81 MG Tablet PO SCH ×2 (08:16→13:23)
[2016-12-15] MEDS: Isosorbide MONOnitrate (24 HR) 30 MG TAB.ER.24H PO SCH ×2 (08:16→13:22)
[2016-12-15] MEDS: FLUoxetine 20 MG CAPSULE PO SCH ×2 (08:17→13:23)
[2016-12-15] MEDS: Metoprolol XL (24 HR) Succ 25 MG TAB.ER.24H PO SCH ×2 (08:17→13:23)
[2016-12-15] MEDS ORDERED: *HR* FentaNYL (PF) 100 MCG/2 ML VIAL IVP ONE (08:53)
--- NOTE | 2016-12-15 09:00 | Event Note ---
Date of Encounter: 12/15/16 Time of Encounter: 08:59 EGD was performed this morning. Noted ulcer at the lesser curvature-stigmata of bleeding with clot present. No active bleeding, however there was hematin in the stomach consistent with the ulcer as the source of his melena. The ulcer was cauterized, injected with epi, and tattooed with methylene blue. Will add carafate and start clears. Patient will require repeat endoscopy in 24 -48 hours to ensure hemostasis.
[2016-12-15] MEDS ORDERED: *HR* EPINEPHrine 1 MG/10 ML SYRINGE ONE (09:33)
--- NOTE | 2016-12-15 11:13 | Pulmonology Consult Note ---
Date of Encounter: 12/15/16 Time of Encounter: 09:45 Assessment and Plan (1) Acute blood loss anemia Current Visit: Yes Status: Acute Acute blood loss anemia is due to GI bleed likely upper source in light of risk factors for peptic ulcer disease and sees prior history of the same plus active smoker plus anticoagulants). Patient's hemoglobin hemodynamic status and clinical status are acceptable following transfusion of packed red cells. Patient is to undergo EGD by Dr. Bowden for further evaluation. He will be maintained on PPI in the meantime. Given recent proximity of coronary stent placement, the patient will also be maintained on antiplatelet agent. Code(s): D62 - Acute posthemorrhagic anemia SNOMED Code(s): 112551961 (2) CAD (coronary artery disease) Current Visit: Yes Status: Chronic Continue antiplatelet therapy for the same in light of recent stent placement within the distribution of the LAD. Qualifiers: Coronary Disease-Associated Artery/Lesion type: unspecified vessel or lesion type [place] vs. transplanted heart: [place] heart Associated angina: without angina Qualified Code(s): I25.10 - Atherosclerotic heart disease of [place] coronary artery without angina pectoris Code(s): I25.10 - Atherosclerotic heart disease of [place] coronary artery without angina pectoris SNOMED Code(s): 41188221 (3) Peripheral arterial disease Current Visit: Yes Status: Chronic Known severe peripheral arterial disease affecting lower extremity distribution for which patient will require revascularization for evaluation by vascular surgical service. Code(s): I73.9 - Peripheral vascular disease, unspecified SNOMED Code(s): 558443923 (4) COPD (chronic obstructive pulmonary disease) Current Visit: Yes Status: Acute Active cigarette soap smoker, presumptive COPD likely on moderate to moderately severe. Aside from smoking cessation, bronchodilator therapy can be provided. Qualifiers: Qualified Code(s): J44.9 - Chronic obstructive pulmonary disease, unspecified Code(s): J44.9 - Chronic obstructive pulmonary disease, unspecified SNOMED Code(s): 19349191 History of Present Illness Consult date: 12/15/16 Chief complaint: Acute blood loss anemia, GI bleed History of present illness: 76-year-old male active cigarette smoker with COPD severe peripheral vascular disease and coronary artery disease was admitted to the intensive care unit with dark discolored stool (heme positive plus question of melena) anemia necessitating transfusion of 4 units of packed red cells. This patient has known severe coronary disease and recently underwent stent placement LAD distribution by Dr. Sarabia on the of this month. Furthermore, the patient has known severe occlusive aortic femoral disease for which he will likely require surgical intervention. Additional significant background history for GI bleed also includes known peptic ulcer disease. Given his somewhat tenuous status he was admitted to the intensive care unit. Past Med Surg Social Fam HX - Past Medical History Medical history: arthritis, COPD, coronary artery disease, GI bleed (gastric ulcer), hyperlipidemia, hypertension, myocardial infarction Psychiatric history: depression - Past Surgical History Surgical History: angioplasty/stent, orthopedic, other - Social History Smoking Status: Current every day smoker Smokeless Tobacco Status: No Alcohol use: occasionally Drug use: none - Family History Father Family Member Ethnicity: Non- Living Status: Hx Family Cardiac Disorders: No Hx Family Respiratory Disorders: No Hx Family Cancer: No Hx Family GI Disorders: No Hx Family Endocrine Disorder: No Hx Family Neuromuscular Disorders: No Hx Family Neurologic Disorders: No Hx Family HEENT Disorders: No Hx Family Autoimmune Disorders: No Medications and Allergies FLUoxetine HCl [Prozac] 40 mg PO DAILY 11/18/16 [History] Aspirin [Lo-Dose Aspirin EC] 81 mg PO DAILY 11/30/16 [History] Atorvastatin [Lipitor] 40 mg PO HS 11/30/16 [History] Metoprolol XL (24 HR) Succ [Toprol Xl] 25 mg PO DAILY 11/30/16 [History] Isosorbide MONOnitrate (24 HR) [Imdur] 30 mg PO DAILY #30 tab.er.24h 12/01/16 [ Rx] Nitroglycerin 0.4 mg SL Q5MIN PRN #30 tab.subl 12/01/16 [Rx] Ticagrelor [Brilinta] 90 mg PO BID #60 tablet 12/01/16 [Rx] Albuterol Sulfate [Albuterol Inhaler] 2 puff IH Q4H PRN 12/06/16 [History] Gabapentin [Neurontin] 100 mg PO HS #30 capsule 12/11/16 [Rx] Omeprazole 40 mg PO BID #120 tablet. 12/11/16 [Rx] Sucralfate [Carafate] 1 gm PO QIDAC #120 tablet 12/11/16 [Rx] Allergies No Known Allergies Allergy (Verified 10/12/16 10:20) All Systems: A 10-system review of systems was performed and is negative for pertinent findings except as documented above in the HPI. - Respiratory Respiratory: dyspnea - Gastrointestinal Gastrointestinal: as per HPI Physical Examination General appearance: no acute distress, other ( male appears his stated age) Eyes: nonicteric ENT: oropharynx moist Auscultation: bilateral: diminished breath sounds (Diminished breath sound intensity throughout all [place] but clear to auscultation bilaterally.) Cardiovascular: regular rate and rhythm Gastrointestinal: normoactive bowel sounds, non-distended Extremities: no cyanosis, other (Diminished ulcers lower extremities, extremities are somewhat cool but no evidence of ischemia) normal mental status, non-focal exam affect normal Results - Laboratory Findings CBC and BMP: 12/15/16 06:18 12/15/16 06:18 PT/INR, D-dimer PT 11.8 Seconds (9.4-12.1) 12/15/16 06:18 Abnormal lab findings: Abnormal lab results WBC 19.9 K/mcL (4.3-11.1) H D 12/15/16 06:18 RBC 3.92 M/mcL (4.19-5.50) L 12/15/16 06:18 Hgb 11.7 g/dL (12.9-16.9) L D 12/15/16 06:18 Hct 35.4 % (37.5-50.1) L 12/15/16 06:18 RDW 16.2 % (11.5-14.5) H 12/15/16 06:18 Creatinine 0.67 mg/dL (0.72-1.25) L 12/15/16 06:18 BUN/Creatinine Ratio 34 (6-26) H 12/15/16 06:18 Glucose 128 mg/dL (70-99) H 12/15/16 06:18 POC Glucose 118 (58-89) H 12/14/16 18:53 Calcium 7.8 mg/dL (8.6-10.8) L 12/15/16 06:18 Serum Total Protein 5.2 g/dL (6.0-8.3) L 12/15/16 06:18 Albumin 2.6 g/dL (3.5-5.0) L 12/15/16 06:18 Albumin/Globulin Ratio 1.0 (1.1-2.2) L 12/15/16 06:18 - Clinical Findings Intake & Output: Intake & Output 12/14/16 12/15/16 12/15/16 23:59 07:59 15:59 Intake Total 1765 / 2115 700 / 700 Output Total 250 / 250 800 / 800 Balance 1515 / 1865 -100 / -100 Consult Discharge Plan - Plan Referrals: Lesvia Suarez, CHINESE HERBALIST [Primary Care Provider] -
[2016-12-15 13:00] LABS: Hematocrit 33.5 % (37.5-50.1); Hemoglobin 11.5 g/dL (12.9-16.9)
[2016-12-15] MEDS: Sucralfate 1 GM TABLET PO SCH ×3 (13:23→20:56)
[2016-12-15] MEDS: Pantoprazole 40 MG VIAL IVP SCH ×2 (17:45→20:55)
[2016-12-15 19:07] LABS: Hematocrit 31.3 % (37.5-50.1); Hemoglobin 10.7 g/dL (12.9-16.9)
--- NOTE | 2016-12-15 19:07 | Vascular/Endovas Progress Note ---
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 He has been rescusitated after his GI bleed and is now feeling better. He now denies rest pain, ulcearation or gangrene. His feet are warm and pedal signals are present. Continue with a heparin drip at this time. The patient is currently a poor surgical candidate due to unresolved GI bleeding issues and his recent coronary stent. Ideally, resolution of his GI bleed and then scheduling surgery 1 month after his stent is preferred if he remains asymptomatic. . (2) CAD (coronary artery disease) Current Visit: Yes Status: Chronic Qualifiers: Coronary Disease-Associated Artery/Lesion type: unspecified vessel or lesion type [place] vs. transplanted heart: [place] heart Associated angina: without angina Qualified Code(s): I25.10 - Atherosclerotic heart disease of [place] coronary artery without angina pectoris (3) Tobacco abuse Current Visit: Yes Status: Chronic (4) Upper GI bleed Current Visit: Yes Status: Acute (5) Anemia Current Visit: No Status: Resolved Qualifiers: Anemia type: other cause Other causes of anemia: other cause, not classified Qualified Code(s): D64.89 - Other specified anemias (6) Anemia Current Visit: Yes Status: Acute Qualifiers: Anemia type: unspecified type Qualified Code(s): D64.9 - Anemia, unspecified - Subjective Interval history: The patient is resting comfortably today. He reports that his legs are feeling much better today. He denies any pain at rest in his feet. He denies chest pain or shortness of breath. He underwent an EGD this morning. Vital Signs, Last 4 Hours Temp Pulse Resp BP Pulse Ox 12/15/16 18:35 65 22 108/59 97 12/15/16 17:49 69 20 121/53 97 12/15/16 16:00 73 21 102/92 97 12/15/16 15:58 98.6 F - Physical Examination General: Present: Conversant, No Apparent Distress Cardiac: Present: Reg Rate and Rhythm Lungs: Present: Normal Breath Sounds Neuro: Present: Alert and responsive, No focal deficits noted, Motor nerves grossly intact, Sensory nerves grossly intact Vascular: Present: Normal capillary refill, Other (feet warm, pedal signals are present). Absent: Cyanosis, Edema Abdomen: Present: Soft, Non-tender Skin: Present: No rashes noted on visualized skin - VTE Documentation of Mechanical Device: Intermittent pneumatic compression device Results 12/15/16 12:50 12/15/16 06:18 Lab Results, Last 24 hours 12/15/16 12/15/16 12/15/16 06:18 06:18 06:18 WBC 19.9 H D Hgb 11.7 L D Hct 35.4 L Plt Count 220 INR Sodium 140 Potassium 3.7 Chloride 109 Carbon Dioxide 27 BUN 23 Creatinine 0.67 L Glucose 128 H Calcium 7.8 L Magnesium 1.6 Total Bilirubin 0.6 AST 30 ALT 20 Alkaline Phosphatase 54 Troponin I 0.02 12/15/16 12/15/16 06:18 12:50 WBC Hgb 11.5 L Hct 33.5 L Plt Count INR 1.1 Sodium Potassium Chloride Carbon Dioxide BUN Creatinine Glucose Calcium Magnesium Total Bilirubin AST ALT Alkaline Phosphatase Troponin I Consult Discharge Plan - Plan Referrals: Lesvia Suarez, DUAL RATE SUPERVISOR [Primary Care Provider] -
[2016-12-16] MEDS: Pantoprazole 40 MG VIAL IVP SCH ×2 (06:09→18:28)
[2016-12-16 06:29] LABS: Basophils % 0.3 %; Eosinophils # 0.1 K/mcL (0.0-0.6); Eosinophils % 0.4 %; Hemoglobin 10.8 g/dL (12.9-16.9); Immature Granulocytes % 0.8 % (0-4); Lymphocytes # 1.3 K/mcL (0.6-4.6); Lymphocytes % 9.2 %; Mean Corpuscular HGB Conc 33.8 g/dL (31.6-35.5); Mean Corpuscular Hemoglobin 30.9 pg (28.0-33.3); Mean Corpuscular Volume 91.4 fL (83.0-100.0); Mean Platelet Volume 9.7 fL (9.4-12.4); Neutrophils # 11.6 K/mcL (1.6-8.9); Platelet Count 204 K/mcL (140-400); Red Cell Distribution Width 16.8 % (11.5-14.5); Segmented Neutrophils % 82.3 %
[2016-12-16] MEDS: Sucralfate 1 GM TABLET PO SCH ×4 (07:42→22:40)
[2016-12-16] MEDS: Aspirin Enteric Coated 81 MG Tablet PO SCH (07:42)
[2016-12-16] MEDS: *HR* Ticagrelor 90 MG TABLET PO SCH ×2 (07:42→21:39)
[2016-12-16] MEDS: Metoprolol XL (24 HR) Succ 25 MG TAB.ER.24H PO SCH (07:43)
[2016-12-16] MEDS: FLUoxetine 20 MG CAPSULE PO SCH (07:43)
--- NOTE | 2016-12-16 08:56 | Pulmonology Progress Note ---
Date of Encounter: 12/16/16 Time of Encounter: 07:00 Assessment and Plan (1) CAD (coronary artery disease) Current Visit: Yes Status: Chronic Qualifiers: Coronary Disease-Associated Artery/Lesion type: unspecified vessel or lesion type [place] vs. transplanted heart: [place] heart Associated angina: without angina Qualified Code(s): I25.10 - Atherosclerotic heart disease of [place] coronary artery without angina pectoris Code(s): I25.10 - Atherosclerotic heart disease of [place] coronary artery without angina pectoris SNOMED Code(s): 64539142 (2) Acute blood loss anemia Current Visit: Yes Status: Acute Acute blood loss anemia due to upper GI bleed in this patient with peptic ulcer disease. Hemoglobins have been stable. Maintain Protonix IV. Carafate was added by general surgery service. EGD yesterday revealed a large ulcer that was not actively bleeding but had stigmata of recent bleeding. Peptic ulcer disease in this patient is compounded by the absolute need for aspirin and an additional antiplatelet therapy in light of recent LAD stent placement. Code(s): D62 - Acute posthemorrhagic anemia SNOMED Code(s): 022308552 (3) Peripheral arterial disease Current Visit: Yes Status: Chronic History of severe peripheral vascular disease, patient will re-eventually require revascularization of the lower extremities.. Code(s): I73.9 - Peripheral vascular disease, unspecified SNOMED Code(s): 639365739 (4) COPD (chronic obstructive pulmonary disease) Current Visit: Yes Status: Acute Active cigarette smoker with presumptive COPD. Continue bronchodilator therapy. Qualifiers: COPD type: unspecified COPD Qualified Code(s): J44.9 - Chronic obstructive pulmonary disease, unspecified Code(s): J44.9 - Chronic obstructive pulmonary disease, unspecified SNOMED Code(s): 26043362 Subjective Principal diagnosis: Acute blood loss anemia, GI bleed upper, history of peptic ulcer disease. Interval history: No acute problems noted overnight. Currently, there is no compelling clinical evidence to suggest ongoing active gastrointestinal bleeding although certainly the patient is at risk of the same. Objective PUL Vital signs: Last Vital Signs Temp 98.7 F 12/16/16 07:44 Pulse 64 12/16/16 07:00 Resp 20 12/16/16 07:00 BP 146/68 12/16/16 07:00 Pulse Ox 96 12/16/16 06:10 General appearance: no acute distress Eyes: nonicteric ENT: oropharynx moist Neck: supple Auscultation: bilateral: diminished breath sounds Cardiovascular: regular rate and rhythm Gastrointestinal: normoactive bowel sounds, non-distended Extremities: no cyanosis Musculoskeletal: no deformities normal mental status, non-focal exam Results - Laboratory Findings CBC and BMP: 12/16/16 06:22 12/15/16 06:18 PT/INR, D-dimer PT 11.8 Seconds (9.4-12.1) 12/15/16 06:18 Abnormal lab findings: Abnormal lab results WBC 14.0 K/mcL (4.3-11.1) H 12/16/16 06:22 RBC 3.50 M/mcL (4.19-5.50) L 12/16/16 06:22 Hgb 10.8 g/dL (12.9-16.9) L 12/16/16 06:22 Hct 32.0 % (37.5-50.1) L 12/16/16 06:22 RDW 16.8 % (11.5-14.5) H 12/16/16 06:22 Neutrophils # 11.6 K/mcL (1.6-8.9) H 12/16/16 06:22 Creatinine 0.67 mg/dL (0.72-1.25) L 12/15/16 06:18 BUN/Creatinine Ratio 34 (6-26) H 12/15/16 06:18 Glucose 128 mg/dL (70-99) H 12/15/16 06:18 POC Glucose 118 (58-89) H 12/14/16 18:53 Calcium 7.8 mg/dL (8.6-10.8) L 12/15/16 06:18 Serum Total Protein 5.2 g/dL (6.0-8.3) L 12/15/16 06:18 Albumin 2.6 g/dL (3.5-5.0) L 12/15/16 06:18 Albumin/Globulin Ratio 1.0 (1.1-2.2) L 12/15/16 06:18 - Clinical Findings Intake & Output: Intake & Output 12/15/16 12/16/16 12/16/16 23:59 07:59 15:59 Intake Total 60 / 60 15 / 15 Output Total 200 / 200 0 / 0 Balance -140 / -140 15 / 15 Weight 46.7 kg - VTE Documentation of Mechanical Device: Intermittent pneumatic compression device Consult Discharge Plan - Plan Referrals: Lesvia Suarez, MARGARINE MAKER [Primary Care Provider] -
[2016-12-16] MEDS ORDERED: Ipratropium/Albuterol Neb 3 ML IH PRN (10:33)
[2016-12-16] MEDS ORDERED: Albuterol 2.5 MG/3 ML NEBULIZER IH PRN (10:33)
[2016-12-16] MEDS ORDERED: Nitroglycerin 0.4 MG TAB.SUBL SL PRN (10:33)
--- NOTE | 2016-12-16 10:37 | General Surgery Progress Note ---
Date of Encounter: 12/16/16 Time of Encounter: 10:34 - Assessment and Plan (1) Upper GI bleed Current Visit: Yes Status: Acute Current HGB is 10.8 (10.7 yesterday). Agree with continued check of his hemoglobin. Continue with clears. We will tentatively schedule for repeat EGD tomorrow. The reason is to ensure that there is no continued "leak" or small drip of a bleed present at the level of his gastric ulcer. Discussed with the patient he agrees to the above plan. Subjective Patient reports: other (The patient states that everytime he coughs he has a BM. No nausea or vomiting. Reported that yesterday evening he had a brown BM.) Objective Vital Signs - Last 8 Hours Temp Pulse Resp BP Pulse Ox 12/16/16 09:00 65 20 113/65 12/16/16 07:44 98.7 F 12/16/16 07:00 98.3 F 63 20 146/68 12/16/16 06:10 68 18 141/66 96 12/16/16 05:10 64 16 130/66 95 12/16/16 04:00 60 18 114/69 95 12/16/16 03:12 98.3 F 12/16/16 03:10 65 16 116/55 94 Intake and Output 12/15/16 12/16/16 12/16/16 23:59 07:59 15:59 Intake Total 60 / 60 15 / 15 Output Total 200 / 200 0 / 0 Balance -140 / -140 15 / 15 Intake: Oral 60 / 60 15 / 15 Output: Urine 200 / 200 0 / 0 Other: Stool Size Small Moderate Moderate Stool Consistency liquid liquid liquid Stool Characteristics Tarry Stool Color Black Black Black # Voids 1 # Bowel Movements 1 1 Weight 46.7 kg Patient Weight 12/16/16 23:59 Weight 46.7 kg - General physical appearance well developed, well nourished - Abdomen Abdomen: Present: bowel sounds present, soft, tender (noted mild pain in the RUQ. No masses.) - Labs 12/16/16 06:22 12/15/16 06:18 - VTE Documentation of Mechanical Device: Intermittent pneumatic compression device Consult Discharge Plan - Plan Referrals: Lesvia Suarez, STEWARD/STEWARDESS CHIEF CARGO VESSEL [Primary Care Provider] -
[2016-12-16] MEDS ORDERED: Ondansetron 4 MG/2 ML VIAL IVP PRN (11:40)
[2016-12-16] MEDS ORDERED: *HR* Morphine 2 MG/ML SYRINGE IVP PRN (11:42)
--- NOTE | 2016-12-16 17:40 | Electrocardiograph Report ---
[address] [address] Test Date: 2016-12-14 Pat Name: Yoni Pool Department: 102 Room: [facility] Gender: M Blood Bank Assistant: True : 1940 Requested By: Zay Davis Order Number: [id number] Reading MD: Viry Potter Measurements Intervals [place] Rate: 66 P: 227 [place]: 291 QRS: 64 QRSD: 82 T: -79 QT: 424 QTc: 438 Interpretive Statements SINUS RHYTHM Nonspecific T wave changes Electronically Signed On 12-16-2016 17:39:05 EDT by Viry Potter
--- NOTE | 2016-12-16 22:12 | Vascular/Endovas Progress Note ---
Date of Encounter: 12/16/16 Time of Encounter: 13:00 - Assessment and plan (1) Atherosclerosis of [place] artery of both lower extremities with rest pain Status: Chronic The patient has a known aortic occlusion and has been in the process of being prepared for an aortobifemoral artery bypass. He has been rescusitated after his GI bleed and is now feeling better. He states that his legs are now at baseline. He now denies rest pain, ulceration or gangrene. His feet are warm and pedal signals are present. The patient has undergone endoscopy and his hemoglobin is stable today. He is scheduled for repeat endoscopy tomorrow. Will await results of repeat endoscopy. Patient remains a high risk for surgery at this time. (2) CAD (coronary artery disease) Status: Chronic Qualifiers: Coronary Disease-Associated Artery/Lesion type: [place] artery [place] vs. transplanted heart: [place] heart Associated angina: without angina Qualified Code(s): I25.10 - Atherosclerotic heart disease of [place] coronary artery without angina pectoris (3) Tobacco abuse Status: Chronic (4) Upper GI bleed Status: Acute (5) Anemia Status: Resolved Qualifiers: Anemia type: other cause Other causes of anemia: other cause, not classified Qualified Code(s): D64.89 - Other specified anemias (6) Anemia Status: Acute Qualifiers: Anemia type: unspecified type Qualified Code(s): D64.9 - Anemia, unspecified - Subjective Interval history: The patient is resting comfortably today. He reports that his legs are feeling much better today. He denies any pain at rest in his feet. He denies chest pain or shortness of breath. He underwent an EGD this morning. Vital Signs, Last 4 Hours Temp Pulse Resp BP Pulse Ox 12/16/16 20:22 98.4 F 60 14 104/58 98 - Physical Examination General: Present: Conversant, No Apparent Distress Cardiac: Present: Reg Rate and Rhythm Lungs: Present: Normal Breath Sounds, No Wheeze, Rales, Rhonchi Neuro: Present: Alert and responsive, No focal deficits noted, Motor nerves grossly intact, Sensory nerves grossly intact Vascular: Present: Normal capillary refill, Other (pedal signals present bilaterally). Absent: Cyanosis, Edema Abdomen: Present: Soft, Non-tender. Absent: Masses - VTE Documentation of Mechanical Device: Intermittent pneumatic compression device Results 12/18/16 04:17 12/15/16 06:18 Lab Results, Last 24 hours 12/16/16 06:22 WBC 14.0 H Hgb 10.8 L Hct 32.0 L Plt Count 204 Consult Discharge Plan - Plan Instructions: Gastrointestinal Bleeding (DC), Peripheral Vascular Disorders (DC ) Additional Instructions: F/up with Cardiology in 2 weeks [place] diet for the next 2 weeks- avoid citrus of tomato based foods. Avoid carbonated drinks and alcohol. Referrals: Eduardo Hanley MD [Partnered Physician] - 12/28/16 1:15 pm ([place] office) Lesvia Suarez CNP [Primary Care Provider] - 12/24/16 2:00 pm
[2016-12-17] MEDS: Sucralfate 1 GM TABLET PO SCH ×4 (06:31→21:07)
[2016-12-17] MEDS: Pantoprazole 40 MG VIAL IVP SCH ×2 (06:31→17:09)
[2016-12-17 08:14] LABS: Basophils # 0.1 K/mcL (0.0-0.2); Basophils % 0.5 %; Eosinophils # 0.2 K/mcL (0.0-0.6); Eosinophils % 1.9 %; Hematocrit 32.7 % (37.5-50.1); Hemoglobin 10.7 g/dL (12.9-16.9); Immature Granulocytes % 0.6 % (0-4); Immature Platelets 3.6 % (1.1-6.1); Lymphocytes # 1.2 K/mcL (0.6-4.6); Lymphocytes % 11.9 %; Mean Corpuscular HGB Conc 32.7 g/dL (31.6-35.5); Mean Corpuscular Hemoglobin 30.7 pg (28.0-33.3); Mean Corpuscular Volume 93.7 fL (83.0-100.0); Mean Platelet Volume 10.2 fL (9.4-12.4); Monocytes # 0.8 K/mcL (0.0-1.3); Monocytes % 7.4 %; Platelet Count 238 K/mcL (140-400); Red Blood Count 3.49 M/mcL (4.19-5.50); Red Cell Distribution Width 16.6 % (11.5-14.5); Segmented Neutrophils % 77.7 %
[2016-12-17] MEDS: *HR* Ticagrelor 90 MG TABLET PO SCH ×2 (08:48→21:07)
[2016-12-17] MEDS: Aspirin Enteric Coated 81 MG Tablet PO SCH (08:48)
[2016-12-17] MEDS: FLUoxetine 20 MG CAPSULE PO SCH (08:49)
[2016-12-17] MEDS: Isosorbide MONOnitrate (24 HR) 30 MG TAB.ER.24H PO SCH (08:49)
[2016-12-17] MEDS: Metoprolol XL (24 HR) Succ 25 MG TAB.ER.24H PO SCH (08:49)
[2016-12-17] MEDS ORDERED: *HR* Midazolam HCl 5 MG/5 ML VIAL IVP ONE (11:47)
[2016-12-17] MEDS ORDERED: *HR* FentaNYL (PF) 100 MCG/2 ML VIAL ONE (11:49)
[2016-12-17] MEDS: *HR* Midazolam HCl 5 MG/5 ML VIAL IVP PRN ×2 (12:25→12:30)
[2016-12-17] MEDS: *HR* FentaNYL (PF) 100 MCG/2 ML VIAL IVP PRN ×2 (12:25→12:49)
[2016-12-17] MEDS: 0.9 % Sodium Chloride 1,000 ML IVC SCH (12:29)
[2016-12-17] MEDS ORDERED: Tetracaine/Benzocaine/Butamben 200MG/SPRAY (100SPY/BOT) MM ONE (12:36)
[2016-12-17] MEDS ORDERED: Simethicone 40 MG/0.6 ML MLS IR ONE (12:36)
--- NOTE | 2016-12-17 12:40 | Pre-Sedation Evaluation ---
Pre-sedation evaluation - Pre-sedation checklist Date of procedure: 12/17/16 Procedure: EGD Recent Vitals: Last Vital Signs Temp 98.3 F 12/17/16 12:35 Pulse 56 12/17/16 12:35 Resp 16 12/17/16 12:35 BP 84/33 12/17/16 12:35 Pulse Ox 100 12/17/16 12:35 H&P (including ROS) documented in medical record: Yes Previous reaction to sedatives/anesthetics: No Dietary Status: NPO after Midnight Airway Assessment: Patient can open mouth completely, TMJ function normal Dentition: dentures removed Possible difficult airway: No ASA Classification *see protocol: CLASS III-Severe systemic disease Plan of Care: Pt appropriate candidate for procedure/moderate/conscious sedation
--- NOTE | 2016-12-17 12:40 | Pre-Sedation Evaluation ---
Pre-sedation evaluation - Pre-sedation checklist Date of procedure: 12/15/16 Procedure: EGD Recent Vitals: Last Vital Signs Temp 98.3 F 12/17/16 12:35 Pulse 56 12/17/16 12:35 Resp 16 12/17/16 12:35 BP 84/33 12/17/16 12:35 Pulse Ox 100 12/17/16 12:35 H&P (including ROS) documented in medical record: Yes Previous reaction to sedatives/anesthetics: No Dietary Status: NPO after Midnight Airway Assessment: Patient can open mouth completely, TMJ function normal Dentition: dentures removed Possible difficult airway: No ASA Classification *see protocol: CLASS III-Severe systemic disease Plan of Care: Pt appropriate candidate for procedure/moderate/conscious sedation
--- NOTE | 2016-12-17 12:42 | Event Note ---
Date of Encounter: 12/17/16 Time of Encounter: 12:41 EGD completed. No evidence of blood in stomach. No clot present at the level of the ulcer. No active bleeding. Noted erythema in the fundus-biopsied. Ok to advance diet to fulls and advance as tolerated.
--- NOTE | 2016-12-17 13:01 | Internal Med Progress Note ---
Date of Encounter: 12/17/16 Time of Encounter: 10:00 - Assessment and plan (1) Acute blood loss anemia Current Visit: Yes Status: Acute Assessment and plan: Improving. From GI bleed. Continue to monitor blood counts. Continue PPI. Repeat Upper GI endoscopy today. (2) CAD (coronary artery disease) Current Visit: Yes Status: Chronic Assessment and plan: No chest pain. Continue aspirin and ticagrelor Qualifiers: Coronary Disease-Associated Artery/Lesion type: unspecified vessel or lesion type [place] vs. transplanted heart: [place] heart Associated angina: without angina Qualified Code(s): I25.10 - Atherosclerotic heart disease of [place] coronary artery without angina pectoris (3) COPD (chronic obstructive pulmonary disease) Current Visit: Yes Status: Chronic Assessment and plan: On bronchodilators as needed. Qualifiers: COPD type: unspecified COPD Qualified Code(s): J44.9 - Chronic obstructive pulmonary disease, unspecified (4) Peripheral arterial disease Current Visit: Yes Status: Chronic Assessment and plan: Patient with severe peripheral vascular disease. Vascular surgery consult appreciated. Follow up outpatient for further management. (5) Gastric ulcer, acute Current Visit: Yes Status: Acute Assessment and plan: Without active bleeding but with adherent clot. Cauterized. Repeat upper GI endoscopy today. On PPI and sucralfate. Surgery following. Qualifiers: Gastric ulcer complication status: without hemorrhage or perforation Qualified Code(s): K25.3 - Acute gastric ulcer without hemorrhage or perforation (6) Protein-calorie malnutrition, moderate Current Visit: Yes Status: Acute Assessment and plan: Patient with poor appetite and decreasing weight. We will consult nutrition for further recommendations. Albumin is 2.6. - Subjective Interval history: Patient is awake and alert. He says his stools are clearing up with less blood noted. He denies any nausea or vomiting. He is awaiting repeat endoscopy today. - Constitutional Vitals: Temp Pulse Resp BP Pulse Ox 98.3 F 55 16 88/45 100 12/17/16 12:55 12/17/16 12:55 12/17/16 12:55 12/17/16 12:55 12/17/16 12:55 General appearance: Present: A&O X 3, pleasant, no acute distress, underweight, answers questions appropriately - Neck Neck exam general surgery: Present: supple, trachea midline. Absent: lymphadenopathy - Respiratory Respiratory exam: Present: CTAB. Absent: accessory muscle use, rales, rhonchi, wheezes - Cardiovascular Cardiovascular exam: Present: RRR, +S1, +S2. Absent: diastolic murmur, gallop, rubs, systolic murmur - GI/Abdominal GI/Abdominal exam: Present: normal bowel sounds, soft, no peritoneal signs. Absent: distended, tenderness - Extremities Exam Extremities exam: Present: warm, radial pulses palpable and symetrical. Absent : calf tenderness, cyanotic, pedal edema - Neurological Exam Neurological exam: Present: alert, oriented X3, no focal deficits. Absent: facial droop, speech deficit - Skin Skin exam: Present: dry, intact, pallor Internal Medicine: Result - Labs CBC & Chem 7: 12/17/16 07:15 12/15/16 06:18 Labs: Short CBC 12/17/16 Range/Units 07:15 WBC 10.3 (4.3-11.1) K/mcL Hgb 10.7 L (12.9-16.9) g/dL Hct 32.7 L (37.5-50.1) % Plt Count 238 (140-400) K/mcL Neutrophils # 8.0 (1.6-8.9) K/mcL - ABG Interpretation ABG results: PT/INR, D-dimer PT 11.8 Seconds (9.4-12.1) 12/15/16 06:18 - VTE Documentation of Mechanical Device: Intermittent pneumatic compression device Consult Discharge Plan - Plan Referrals: Lesvia Suarez, KNUCKLE BENDER [Primary Care Provider] - - Attending Attestation This document has been at least partially created by [employer] recognition technology by Dr. Miranda. Errors in grammar, wording or other phrases may exist. If errors are found after the documentation is signed, they will be addressed individually in the addendum section of this document when appropriate.
[2016-12-17] MEDS ORDERED: *HR* OxyCODONE/APAP 5/325 TABLET PO PRN (18:56)
--- NOTE | 2016-12-17 22:44 | Vascular/Endovas Progress Note ---
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 He also has bilateral superficial femoral artery disease. He denies any rest pain today. He has had limited mobility. The patient is scheduled to undergo an EGD today. The patient does not appear to require urgent or emergent revascularization. Await the results of his EGD later today. He will follow-up in clinic after discharge for further evaluation. (2) CAD (coronary artery disease) Status: Chronic Qualifiers: Coronary Disease-Associated Artery/Lesion type: [place] artery [place] vs. transplanted heart: [place] heart Associated angina: without angina Qualified Code(s): I25.10 - Atherosclerotic heart disease of [place] coronary artery without angina pectoris (3) Tobacco abuse Status: Chronic (4) Upper GI bleed Status: Acute (5) Anemia Status: Resolved Qualifiers: Anemia type: other cause Other causes of anemia: other cause, not classified Qualified Code(s): D64.89 - Other specified anemias (6) Anemia Status: Acute Qualifiers: Anemia type: unspecified type Qualified Code(s): D64.9 - Anemia, unspecified - Subjective Interval history: The patient is resting comfortably today. He reports that his legs are feeling much better today. He denies any pain at rest in his feet. He underwent an EGD this morning.He denies chest pain or shortness of breath. - Physical Examination General: Present: Conversant, No Apparent Distress Neck: Absent: JVD Cardiac: Present: Reg Rate and Rhythm, No Murmur Lungs: Present: Normal Breath Sounds, No Wheeze, Rales, Rhonchi Neuro: Present: Alert and responsive, No focal deficits noted, Motor nerves grossly intact Vascular: Present: Normal capillary refill. Absent: Clubbing, Cyanosis, Edema Abdomen: Present: Soft, Non-tender. Absent: Masses Skin: Present: No rashes noted on visualized skin - VTE Documentation of Mechanical Device: Intermittent pneumatic compression device Results 12/18/16 04:17 12/15/16 06:18 Lab Results, Last 24 hours 12/17/16 07:15 WBC 10.3 Hgb 10.7 L Hct 32.7 L Plt Count 238 Consult Discharge Plan - Plan Instructions: Gastrointestinal Bleeding (DC), Peripheral Vascular Disorders (DC ) Additional Instructions: F/up with Cardiology in 2 weeks [place] diet for the next 2 weeks- avoid citrus of tomato based foods. Avoid carbonated drinks and alcohol. Referrals: Eduardo Hanley MD [Partnered Physician] - 12/28/16 1:15 pm ([place] office) Lesvia Suarez CNP [Primary Care Provider] - 12/24/16 2:00 pm
[2016-12-18 05:07] LABS: Basophils # 0.1 K/mcL (0.0-0.2); Basophils % 0.6 %; Eosinophils # 0.3 K/mcL (0.0-0.6); Eosinophils % 3.3 %; Hematocrit 28.4 % (37.5-50.1); Hemoglobin 9.2 g/dL (12.9-16.9); Immature Granulocytes % 0.7 % (0-4); Lymphocytes # 1.8 K/mcL (0.6-4.6); Mean Corpuscular HGB Conc 32.4 g/dL (31.6-35.5); Mean Corpuscular Hemoglobin 29.9 pg (28.0-33.3); Mean Corpuscular Volume 92.2 fL (83.0-100.0); Monocytes # 0.7 K/mcL (0.0-1.3); Monocytes % 8.4 %; Neutrophils # 5.6 K/mcL (1.6-8.9); Platelet Count 246 K/mcL (140-400); Red Blood Count 3.08 M/mcL (4.19-5.50); Red Cell Distribution Width 15.8 % (11.5-14.5)
[2016-12-18] MEDS: Sucralfate 1 GM TABLET PO SCH ×2 (06:37→12:48)
[2016-12-18] MEDS: Pantoprazole 40 MG VIAL IVP SCH (06:37)
[2016-12-18] MEDS: Metoprolol XL (24 HR) Succ 25 MG TAB.ER.24H PO SCH (09:25)
[2016-12-18] MEDS: *HR* Ticagrelor 90 MG TABLET PO SCH (09:25)
[2016-12-18] MEDS: FLUoxetine 20 MG CAPSULE PO SCH (09:25)
[2016-12-18] MEDS: Isosorbide MONOnitrate (24 HR) 30 MG TAB.ER.24H PO SCH (09:25)
[2016-12-18] MEDS: Aspirin Enteric Coated 81 MG Tablet PO SCH (09:25)
[2016-12-18 11:00] VITALS: BP 115/61
[2016-12-18] MEDS: 0.9 % Sodium Chloride 1,000 ML IVC SCH (12:51)
--- NOTE | 2016-12-18 13:25 | Discharge Summary ---
Date of Encounter: 12/18/16 Time of Encounter: 13:23 - Discharge Diagnosis (1) Acute blood loss anemia Priority: Primary Status: Acute (2) Upper GI bleed Priority: Primary Status: Acute (3) CAD (coronary artery disease) Priority: Secondary Status: Chronic Qualifiers: Coronary Disease-Associated Artery/Lesion type: [place] artery [place] vs. transplanted heart: [place] heart Associated angina: without angina Qualified Code(s): I25.10 - Atherosclerotic heart disease of [place] coronary artery without angina pectoris (4) Tobacco abuse Priority: Secondary Status: Chronic (5) Peripheral arterial disease Priority: Secondary Status: Chronic (6) COPD (chronic obstructive pulmonary disease) Priority: Secondary Status: Chronic Qualifiers: COPD type: unspecified COPD Qualified Code(s): J44.9 - Chronic obstructive pulmonary disease, unspecified - Discharge Medications Home Medications: FLUoxetine HCl [Prozac] 40 mg PO DAILY 11/18/16 [History] Aspirin [Lo-Dose Aspirin EC] 81 mg PO DAILY 11/30/16 [History] Atorvastatin [Lipitor] 40 mg PO HS 11/30/16 [History] Metoprolol XL (24 HR) Succ [Toprol Xl] 25 mg PO DAILY 11/30/16 [History] Isosorbide MONOnitrate (24 HR) [Imdur] 30 mg PO DAILY #30 tab.er.24h 12/01/16 [ Rx] Nitroglycerin 0.4 mg SL Q5MIN PRN #30 tab.subl 12/01/16 [Rx] Ticagrelor [Brilinta] 90 mg PO BID #60 tablet 12/01/16 [Rx] Albuterol Sulfate [Albuterol Inhaler] 2 puff IH Q4H PRN 12/06/16 [History] Gabapentin [Neurontin] 100 mg PO HS #30 capsule 12/11/16 [Rx] Omeprazole 40 mg PO BID #120 tablet. 12/11/16 [Rx] Sucralfate [Carafate] 1 gm PO QIDAC #120 tablet 12/11/16 [Rx] Allergies/Adverse Reactions: Allergies No Known Allergies Allergy (Verified 05/30/16 10:20) Date of admission: 12/14/16 18:01 Primary care physician: Lesvia Suarez CNP Consults: 12/14/16 19:39 Consult to Pulmonology [CONS] Routine Consulting Provider: [facility] Reason for Consult: ICU Admission Call Completed: Yes 12/17/16 13:07 Consult to Nutrition [CONS] Routine Comment: Consulting Provider: NUTRITION Reason for Dietary Consult: Other Discharging clinician: Letitia Del Cid Anticipated date of discharge: 12/18/16 - Patient Status Disposition: Home, Self-Care Condition: Good Functional capacity at discharge: independent ambulation Overall status at discharge: patient is progressing back to baseline - Discharge Instructions Instructions: Gastrointestinal Bleeding (DC), Peripheral Vascular Disorders (DC ) Follow Up With: Eduardo Hanley MD [Partnered Physician] - 12/28/16 1:15 pm ([place] office) Lesvia Suarez CNP [Primary Care Provider] - 12/24/16 2:00 pm Additional Instructions: F/up with Cardiology in [address] [place] diet for the next 2 weeks- avoid citrus of tomato based foods. Avoid carbonated drinks and alcohol. - Diet and Activity Activity: resume usual activities as tolerated Diet: low fat, low cholesterol, low salt diet, other (soft diet) Hospital course: Mr. Pool is a 76 year old male with the above medical problems was admitted with symptomatic anemia. Patient was recently admitted and discharged with similar complaints after receiving PRBC transfusion and EGD that showed bleeding gastric ulcer and received cauterization. He is noted to be on dual antiplatelet therapy with aspirin and Brilinta for recent coronary stent placement about 2 weeks back. Cardiology was consulted during this admission and recommended to continue antiplatelet therapy. Surgery was consulted and patient underwent EGD that showed hematin in the stomach along with a cratered nonbleeding gastric ulcer with adherent clot, that was cleaned and flushed. Patient received PRBC transfusion and underwent repeat EGD in 2 days that showed no significant bleeding or clots. He is noted to have a 1 g drop in hemoglobin today, at 9.2, however patient and his daughter at bedside report no evidence of melena/ hematochezia/hematemesis and feels that patient is back to his baseline and insisted on being discharged today. Patient is a current active smoker, smoking cessation counseling has been done, he understands the risks of smoking given his underlying coronary artery disease, gastritis, peptic ulcer disease and he began to cut down significantly as an outpatient. He is advised to continue having bland soft diet, avoid NSAIDs and to follow-up with his primary care provider. He is also instructed to present to emergency room in the event of continued GI bleed, shortness of breath or chest pain. Time spent discussing smoking cessation with patient: 3 to 10 minutes (4 min) - Time Spent with Patient Total time spent providing and/or coordinating discharge services: Greater than 30 minutes (45 min) - Constitutional Vitals: Temp Pulse Resp BP Pulse Ox 98.1 F 65 16 115/61 96 12/18/16 10:59 12/18/16 10:59 12/18/16 10:59 12/18/16 10:59 12/18/16 10:59 General appearance: Present: A&O X 3, underweight, answers questions appropriately - Respiratory Respiratory exam: Present: CTAB. Absent: accessory muscle use, rales, rhonchi, wheezes - Cardiovascular Cardiovascular exam: Present: RRR, +S1, +S2. Absent: diastolic murmur, gallop, rubs, systolic murmur - VTE Documentation of Mechanical Device: Intermittent pneumatic compression device
--- NOTE | 2016-12-18 14:06 | General Surgery Progress Note ---
Date of Encounter: 12/18/16 Time of Encounter: 13:45 - Assessment and Plan (1) Gastric ulcer, acute Current Visit: Yes Status: Acute Continue PPI therapy Carafate QID [place] diet for the next 2 weeks- avoid citrus or tomato based foods F/U 12/28/[address] Hanley Qualifiers: Gastric ulcer complication status: without hemorrhage or perforation Qualified Code(s): K25.3 - Acute gastric ulcer without hemorrhage or perforation (2) Acute blood loss anemia Current Visit: Yes Status: Acute Stable No evidence of current or ongoing GI bleeding Subjective Patient reports: no new complaints, feels better, tolerating a regular diet ( full liquid), voiding w/o difficulty, flatus, bowel movement (brown this morning ), afebrile Objective Vital Signs - Last 8 Hours Temp Pulse Resp BP Pulse Ox 12/18/16 10:59 98.1 F 65 16 115/61 96 12/18/16 07:36 98.2 F 60 17 126/65 96 Intake and Output 12/17/16 12/18/16 12/18/16 23:59 07:59 15:59 Intake Total 700 / 700 473 / 473 Balance 700 / 700 473 / 473 Intake: Oral 700 / 700 473 / 473 Other: Meal Lunch Percent of Meal Consumed 100% Stool Size Small Stool Consistency loose Stool Color [place] Black # Bowel Movements 1 - General physical appearance well developed, well nourished, no distress, no pain - Eyes normal ocular movement - ENT normal mucosa, atraumatic, normocephalic - Neck Neck exam: trachea midline - Respiratory normal respiratory effort - Cardiovascular Cardiovascular exam: Present: RRR - Abdomen Abdomen: Present: bowel sounds present, soft, non tender - Neurologic CN 2-12 grossly intact - Musculoskeletal normal gait, normal posture - Psychiatric oriented to time, oriented to person, oriented to place, speech is normal, memory intact - Labs 12/18/16 04:17 12/15/16 06:18 Diabetes panel 12/18/16 Range/Units 04:17 Albumin 2.2 L (3.5-5.0) g/dL Calcium panel 12/18/16 Range/Units 04:17 Albumin 2.2 L (3.5-5.0) g/dL Adrenal panel 12/18/16 Range/Units 04:17 Albumin 2.2 L (3.5-5.0) g/dL - VTE Documentation of Mechanical Device: Intermittent pneumatic compression device Consult Discharge Plan - Plan Instructions: Gastrointestinal Bleeding (DC), Peripheral Vascular Disorders (DC ) Additional Instructions: F/up with Cardiology in 2 weeks [place] diet for the next 2 weeks- avoid citrus of tomato based foods. Avoid carbonated drinks and alcohol. Referrals: Lesvia Suarez CNP [Primary Care Provider] - 12/24/16 2:00 pm Eduardo Hanley MD [Partnered Physician] - 12/28/16 1:15 pm ([place] office)
== END 2016-12-18 14:25 | disposition home or self-care (01) | DRG 378 ==
LOC: EMEROO 14:12 → SUATTDRO 18:01 → ICNU 18:01 → 3BNU 12-16 10:32
PROVIDERS: ADMIT Registered Nurse; ATTEND Internal Medicine
PROC: ENDOEBX (2016-12-17 15:30)

== ENCOUNTER 2016-12-21 20:17 | Inpatient (IN) ==
[2016-12-21] MEDS ORDERED: Ondansetron 4 MG/2 ML VIAL IVP PRN (22:48)
[2016-12-21] MEDS ORDERED: Naloxone 0.4 MG/ML INJ IVP PRN (22:48)
[2016-12-21] MEDS ORDERED: Nitroglycerin 0.4 MG TAB.SUBL SL PRN (23:17)
--- NOTE | 2016-12-21 23:19 | Internal Med History&Physical ---
Date of Encounter: 12/21/16 Time of Encounter: 21:00 Assessment and Plan (1) Upper GI bleed Current visit: No Status: Acute patient has history of gastric ulcer. Recent GI bleeding. Hemoglobin dropped with positive guaiac test. - Consider GI bleeding. Vitals are stable right now. Hemoglobin 7.9 - We will keep patient nothing by mouth, IV fluid, IV PPI. - Surgical consult called for possible EGD/colonoscopy. - Patient has CAD, will transfuse 1 unit PRBC - Monitor vitals and hemoglobin level (2) CAD (coronary artery disease) Current visit: No Status: Chronic Patient has history of CAD, had Bare-metal stent placed on November 30, 2016. He is on aspirin and brilinta. - Consider patient has stable vitals, no signs of massive active bleeding. Balance risk and benefit, will continue aspirin and Brilinta. - Cardiology consult for further management. Qualifiers: Coronary Disease-Associated Artery/Lesion type: [place] artery [place] vs. transplanted heart: [place] heart Associated angina: without angina Qualified Code(s): I25.10 - Atherosclerotic heart disease of [place] coronary artery without angina pectoris (3) Anemia Current visit: No Status: Resolved Due to acute GI bleeding. He will be transfused because patient has cardiac problems Qualifiers: Anemia type: other cause Other causes of anemia: other cause, not classified Qualified Code(s): D64.89 - Other specified anemias (4) DVT prophylaxis Current visit: No Status: Resolved EPCD Internal Medicine - H&P: HPI Chief complaint: Low hemoglobin Admitted From: Home Plans for Post Hospital Care: Home History of present illness: Mr. Pool is a 76 year old male presented to [facility] emergency room for low hemoglobin. He has a history of GI bleeding and was just discharged from hospital. He went to his primary doctor for follow-up yesterday, had a blood draw. He was called by PCP said his hemoglobin is low. His hemoglobin is 10.6 on December 19 and dropped to 7.9 today. Patient denies lightheaded, dizziness, nausea, vomiting, chest pain, or shortness of breath. He noticed that his stool is black and brown. He was admitted for GI bleeding. I discussed with patient regarding CODE STATUS, he is full code. Past Med Surg Social Fam HX - Past Medical History Medical history: arthritis, COPD, coronary artery disease, GI bleed, hyperlipidemia, hypertension, myocardial infarction Psychiatric history: depression - Past Surgical History Surgical History: angioplasty/stent, orthopedic, other - Social History Smoking Status: Current every day smoker Packs per day: 1pack per week Smokeless Tobacco Status: No Alcohol use: none Drug use: none - Family History Father Family Member Ethnicity: Non- Living Status: Hx Family Cardiac Disorders: No Hx Family Respiratory Disorders: No Hx Family Cancer: No Hx Family GI Disorders: No Hx Family Endocrine Disorder: No Hx Family Neuromuscular Disorders: No Hx Family Neurologic Disorders: No Hx Family HEENT Disorders: No Hx Family Autoimmune Disorders: No Internal Medicine - H&P: Meds FLUoxetine HCl [Prozac] 40 mg PO DAILY 11/18/16 [History] Aspirin [Lo-Dose Aspirin EC] 81 mg PO DAILY 11/30/16 [History] Atorvastatin [Lipitor] 40 mg PO HS 11/30/16 [History] Metoprolol XL (24 HR) Succ [Toprol Xl] 25 mg PO DAILY 11/30/16 [History] Isosorbide MONOnitrate (24 HR) [Imdur] 30 mg PO DAILY #30 tab.er.24h 12/01/16 [ Rx] Nitroglycerin 0.4 mg SL Q5MIN PRN #30 tab.subl 12/01/16 [Rx] Ticagrelor [Brilinta] 90 mg PO BID #60 tablet 12/01/16 [Rx] Albuterol Sulfate [Albuterol Inhaler] 2 puff IH Q4H PRN 12/06/16 [History] Omeprazole 40 mg PO BID #120 tablet.dr 12/11/16 [Rx] Sucralfate [Carafate] 1 gm PO QIDAC #120 tablet 12/11/16 [Rx] Gabapentin [Neurontin] 100 mg PO DAILY 12/21/16 [History] HYDROcodone/Acet 5/325 mg [[place] 5-325 mg] 1 tab PO DAILY 12/21/16 [History] Oxycodone HCl/Acetaminophen [Percocet 5-325 mg Tablet] 1 each PO Q6HR PRN [History] Allergies No Known Allergies Allergy (Verified 12/21/16 22:19) All Systems PM: A 10-system review of systems was performed and is negative for pertinent findings except as documented above in the HPI. - Constitutional Vitals: Temp Pulse Resp BP Pulse Ox 97.9 F 71 14 144/64 98 12/21/16 21:30 12/21/16 21:30 12/21/16 21:30 12/21/16 21:30 12/21/16 21:30 General appearance: Present: A&O X 3, no acute distress, answers questions appropriately - Head Head exam: Present: atraumatic, normocephalic - Eye Eye exam: Present: PERRL, conjuntiva pink, sclera anicteric Pupils: Present: PERRL - Neck Neck exam general surgery: Present: supple, trachea midline. Absent: lymphadenopathy - Respiratory Respiratory exam: Present: CTAB. Absent: accessory muscle use, rales, rhonchi, wheezes - Cardiovascular Cardiovascular exam: Present: RRR, +S1, +S2. Absent: diastolic murmur, gallop, rubs, systolic murmur - GI/Abdominal GI/Abdominal exam: Present: normal bowel sounds, soft, no peritoneal signs. Absent: distended, tenderness - Extremities Exam Extremities exam: Present: warm, radial pulses palpable and symetrical. Absent : calf tenderness, cyanotic, pedal edema - Neurological Exam Neurological exam: Present: CN II-XII intact, oriented X3, no focal deficits. Absent: pronater drift, facial droop, speech deficit - Skin Skin exam: Present: dry, intact
[2016-12-21] MEDS: 0.9 % Sodium Chloride 1,000 ML IVC SCH (23:25)
[2016-12-21] MEDS: Pantoprazole 40 MG in 0.9 % Sodium Chloride Mini Bag 100 ML IVC SCH (23:28)
[2016-12-21] MEDS: *HR* Ticagrelor 90 MG TABLET PO SCH (23:40)
[2016-12-22] MEDS ORDERED: 0.9 % Sodium Chloride Mini Bag 100 ML ONE (01:32)
[2016-12-22] MEDS: Pantoprazole 40 MG in 0.9 % Sodium Chloride Mini Bag 100 ML IVC SCH ×4 (03:50→21:44)
[2016-12-22 06:21] LABS: Basophils # 0.1 K/mcL (0.0-0.2); Basophils % 0.6 %; Eosinophils # 0.3 K/mcL (0.0-0.6); Eosinophils % 3.1 %; Hematocrit 26.8 % (37.5-50.1); Immature Granulocytes % 0.7 % (0-4); Lymphocytes # 1.6 K/mcL (0.6-4.6); Lymphocytes % 18.3 %; Mean Corpuscular HGB Conc 32.1 g/dL (31.6-35.5); Mean Corpuscular Hemoglobin 29.4 pg (28.0-33.3); Mean Corpuscular Volume 91.5 fL (83.0-100.0); Mean Platelet Volume 8.9 fL (9.4-12.4); Monocytes # 0.7 K/mcL (0.0-1.3); Neutrophils # 6.2 K/mcL (1.6-8.9); Platelet Count 281 K/mcL (140-400); Red Blood Count 2.93 M/mcL (4.19-5.50); Red Cell Distribution Width 17.1 % (11.5-14.5); Segmented Neutrophils % 69.3 %
[2016-12-22 06:25] LABS: Hemoglobin 8.6 g/dL (12.9-16.9)
[2016-12-22 06:32] LABS: BUN/Creatinine Ratio 30 (6-26); Blood Urea Nitrogen 17 mg/dL (8-26); Calcium 7.5 mg/dL (8.6-10.8); Carbon Dioxide 26 mEq/L (19-29); Chloride 111 mEq/L (98-109); Glucose 88 mg/dL (70-99); Osmolality,Calculated 293 (280-300); Potassium 3.2 mEq/L (3.5-4.5); Sodium 141 mEq/L (136-145); eGFR For African Americans > 60 (> 60); eGFR For Non-African Americans > 60 (> 60)
[2016-12-22 08:16] LABS: Albumin 2.2 g/dL (3.5-5.0); Magnesium 1.5 mg/dL (1.6-2.6)
--- NOTE | 2016-12-22 08:32 | General Surgery Consult Note ---
Date of Encounter: 12/22/16 Time of Encounter: 07:20 Assessment and Plan (1) Gastric ulcer, acute Current Visit: Yes Status: Acute The patient has recurrent gastrointestinal bleeding and is now on anticoagulation for coronary artery stent. The gastric ulcer has not healed over the last 5 months. The gastric ulcers the source of bleeding. He is at high risk for surgery because of recent coronary artery stent. He will not be able to be anticoagulated with the gastric ulcer bleeding. For this reason I recommend a gastrectomy with Billroth I with or without truncal vagotomy. I will discuss this with the family. Qualifiers: Gastric ulcer complication status: without hemorrhage or perforation Qualified Code(s): K25.3 - Acute gastric ulcer without hemorrhage or perforation History of Present Illness Consult date: 12/22/16 History of present illness: The patient is well-known to the general surgery service. He has a known gastric ulcer. This has been identified as the bleeding source. He has had intervention over the last 5 months on multiple occasions. He underwent bare- metal stent placement several weeks ago and is currently on anticoagulation therapy. He continues to bleed. At this point it is no longer reasonable to expect endoscopic measures to control this hemorrhage. The gastric ulcer has been present for over 5 months and not healed. I will discuss the recommendations with the family but at this point I would recommend vagotomy and antrectomy with Billroth I or antrectomy with Billroth I and long-term proton pump inhibitor therapy. Past Med Surg Social Fam HX - Past Medical History Medical history: arthritis, COPD, coronary artery disease, GI bleed, hyperlipidemia, hypertension, myocardial infarction Psychiatric history: depression - Past Surgical History Surgical History: angioplasty/stent, orthopedic, other - Social History Smoking Status: Current every day smoker Packs per day: 1pack per week Smokeless Tobacco Status: No Alcohol use: none Drug use: none - Family History Father Family Member Ethnicity: Non- Living Status: Hx Family Cardiac Disorders: No Hx Family Respiratory Disorders: No Hx Family Cancer: No Hx Family GI Disorders: No Hx Family Endocrine Disorder: No Hx Family Neuromuscular Disorders: No Hx Family Neurologic Disorders: No Hx Family HEENT Disorders: No Hx Family Autoimmune Disorders: No Medications and Allergies FLUoxetine HCl [Prozac] 40 mg PO DAILY 11/18/16 [History] Aspirin [Lo-Dose Aspirin EC] 81 mg PO DAILY 11/30/16 [History] Atorvastatin [Lipitor] 40 mg PO HS 11/30/16 [History] Metoprolol XL (24 HR) Succ [Toprol Xl] 25 mg PO DAILY 11/30/16 [History] Isosorbide MONOnitrate (24 HR) [Imdur] 30 mg PO DAILY #30 tab.er.24h 12/01/16 [ Rx] Nitroglycerin 0.4 mg SL Q5MIN PRN #30 tab.subl 12/01/16 [Rx] Ticagrelor [Brilinta] 90 mg PO BID #60 tablet 12/01/16 [Rx] Albuterol Sulfate [Albuterol Inhaler] 2 puff IH Q4H PRN 12/06/16 [History] Omeprazole 40 mg PO BID #120 tablet.dr 12/11/16 [Rx] Sucralfate [Carafate] 1 gm PO QIDAC #120 tablet 12/11/16 [Rx] Gabapentin [Neurontin] 100 mg PO DAILY 12/21/16 [History] HYDROcodone/Acet 5/325 mg [[place] 5-325 mg] 1 tab PO DAILY 12/21/16 [History] Oxycodone HCl/Acetaminophen [Percocet 5-325 mg Tablet] 1 each PO Q6HR PRN [History] Allergies No Known Allergies Allergy (Verified 12/21/16 22:19) Review of Systems All systems PM: A 10-system review of systems was performed and is negative for pertinent findings except as documented above in the HPI. General Surgery Exam Initial Vital Signs Temp Pulse Resp BP Pulse Ox 97.9 F 71 14 144/64 98 12/21/16 21:30 12/21/16 21:30 12/21/16 21:30 12/21/16 21:30 12/21/16 21:30 - General physical appearance cachectic, chronically ill - Respiratory other (Decreased bilateral breath sounds) - Abdomen Abdomen general surgery: Present: bowel sounds present, soft, non tender - Neurologic Present: CN 2-12 grossly intact, normal coordination, normal sensation - Psychiatric Psychiatric general surgery: Present: appropriate, oriented to person, oriented to place, oriented to time, speech is normal, memory intact Exam Initial Vital Signs Temp Pulse Resp BP Pulse Ox 97.9 F 71 14 144/64 98 12/21/16 21:30 12/21/16 21:30 12/21/16 21:30 12/21/16 21:30 12/21/16 21:30 Results - Labs 12/22/16 06:12 12/22/16 06:12 Abnormal lab results RBC 2.93 M/mcL (4.19-5.50) L 12/22/16 06:12 Hgb 8.6 g/dL (12.9-16.9) L 12/22/16 06:12 Hct 26.8 % (37.5-50.1) L 12/22/16 06:12 RDW 17.1 % (11.5-14.5) H 12/22/16 06:12 MPV 8.9 fL (9.4-12.4) L 12/22/16 06:12 Potassium 3.2 mEq/L (3.5-4.5) L 12/22/16 06:12 Chloride 111 mEq/L (98-109) H 12/22/16 06:12 Creatinine 0.56 mg/dL (0.72-1.25) L 12/22/16 06:12 BUN/Creatinine Ratio 30 (6-26) H 12/22/16 06:12 Calcium 7.5 mg/dL (8.6-10.8) L 12/22/16 06:12 Magnesium 1.5 mg/dL (1.6-2.6) L 12/22/16 06:12 Albumin 2.2 g/dL (3.5-5.0) L 12/22/16 06:12 Diabetes panel 12/22/16 Range/Units 06:12 Sodium 141 (136-145) mEq/L Potassium 3.2 L (3.5-4.5) mEq/L Chloride 111 H (98-109) mEq/L Carbon Dioxide 26 (19-29) mEq/L BUN 17 (8-26) mg/dL Creatinine 0.56 L (0.72-1.25) mg/dL Glucose 88 (70-99) mg/dL Calcium 7.5 L (8.6-10.8) mg/dL Albumin 2.2 L (3.5-5.0) g/dL Calcium panel 12/22/16 Range/Units 06:12 Calcium 7.5 L (8.6-10.8) mg/dL Albumin 2.2 L (3.5-5.0) g/dL Pituitary panel 12/22/16 Range/Units 06:12 Sodium 141 (136-145) mEq/L Potassium 3.2 L (3.5-4.5) mEq/L Chloride 111 H (98-109) mEq/L Carbon Dioxide 26 (19-29) mEq/L BUN 17 (8-26) mg/dL Creatinine 0.56 L (0.72-1.25) mg/dL Glucose 88 (70-99) mg/dL Calcium 7.5 L (8.6-10.8) mg/dL Adrenal panel 12/22/16 Range/Units 06:12 Sodium 141 (136-145) mEq/L Potassium 3.2 L (3.5-4.5) mEq/L Chloride 111 H (98-109) mEq/L Carbon Dioxide 26 (19-29) mEq/L BUN 17 (8-26) mg/dL Creatinine 0.56 L (0.72-1.25) mg/dL Glucose 88 (70-99) mg/dL Calcium 7.5 L (8.6-10.8) mg/dL Albumin 2.2 L (3.5-5.0) g/dL All other labs normal. Consult Discharge Plan - Plan Referrals: Yen Way CNP [Primary Care Provider] -
[2016-12-22] MEDS: Metoprolol XL (24 HR) Succ 25 MG TAB.ER.24H PO SCH (08:34)
[2016-12-22] MEDS: Aspirin Enteric Coated 81 MG Tablet PO SCH (08:34)
[2016-12-22] MEDS: Sucralfate 1 GM TABLET PO SCH ×4 (08:34→20:53)
[2016-12-22] MEDS: *HR* Ticagrelor 90 MG TABLET PO SCH ×2 (08:35→20:53)
[2016-12-22] MEDS: Isosorbide MONOnitrate (24 HR) 30 MG TAB.ER.24H PO SCH (08:35)
[2016-12-22] MEDS: FLUoxetine 20 MG CAPSULE PO SCH (08:39)
[2016-12-22] MEDS: Gabapentin 100 MG CAPSULE PO SCH (08:39)
[2016-12-22] MEDS: Acetaminophen 325 MG TABLET PO PRN ×2 (08:47→16:50)
--- NOTE | 2016-12-22 10:37 | Internal Med Progress Note ---
<PaulinoMatilde Bird - Last Filed: 12/22/16 14:15> Date of Encounter: 12/22/16 Time of Encounter: 09:00 - Assessment and plan (1) Upper GI bleed Current Visit: No Status: Acute Assessment and plan: Patient has been seen and evaluated by Dr. Hanley, surgeon Patient has 5 month of non-healing gastric ulcer Dr. Hanley recommends antrectomy with Billroth I Family is expected to arrive this afternoon to discuss this option and make final decision Continue IV protonix and Carafate Clear diet Hb down to 8.6 from 14.7 on 11/27/16 Continue to monitor Hb (2) Gastric ulcer Current Visit: No Status: Acute Assessment and plan: Plan as above Qualifiers: Gastric ulcer chronicity: unspecified ulcer chronicity Gastric ulcer complication status: with hemorrhage Qualified Code(s): K25.4 - Chronic or unspecified gastric ulcer with hemorrhage (3) Acute blood loss anemia Current Visit: No Status: Acute Assessment and plan: Will continue to monitor Hb Will plan transfusion should Hb drop below 7 (4) CAD (coronary artery disease) Current Visit: No Status: Chronic Assessment and plan: Continue Imdur, BB, Brilinta, ASA Qualifiers: Coronary Disease-Associated Artery/Lesion type: [place] artery [place] vs. transplanted heart: [place] heart Associated angina: without angina Qualified Code(s): I25.10 - Atherosclerotic heart disease of [place] coronary artery without angina pectoris (5) COPD (chronic obstructive pulmonary disease) Current Visit: No Status: Chronic Assessment and plan: Continue albuterol inhaler prn Qualifiers: COPD type: unspecified COPD Qualified Code(s): J44.9 - Chronic obstructive pulmonary disease, unspecified (6) Tobacco abuse Current Visit: No Status: Chronic Assessment and plan: Discussed with patient the dangers of smoking Advise quitting (7) Hypokalemia Current Visit: Yes Status: Acute Assessment and plan: Repleted Continue to monitor (8) Hypomagnesemia Current Visit: Yes Status: Acute Assessment and plan: Repleted Continue to monitor (9) DVT prophylaxis Current Visit: No Status: Resolved Assessment and plan: SCDs - Subjective Interval history: Patient has been admitted for recurrent upper GI bleed due to non-healing gastric ulcer. Patient is on ASA and Brillinta for a bare-metal stent placed on November. - Constitutional Vitals: Temp Pulse Resp BP Pulse Ox 97.6 F 72 16 138/76 95 12/22/16 06:50 12/22/16 06:50 12/22/16 06:50 12/22/16 06:50 12/22/16 06:50 General appearance: Present: cachectic, A&O X 3, no acute distress, answers questions appropriately - Head Head exam: Present: atraumatic, normocephalic - Eye Eye exam: Present: EOMI, PERRL, sclera anicteric. Absent: conjuntiva pink Additional comments: pale conjunctiva - Neck Neck exam general surgery: Present: supple, trachea midline. Absent: lymphadenopathy - Respiratory Respiratory exam: Present: prolonged expiratory phase, wheezes (wheezes to all lung velazco bilaterally). Absent: accessory muscle use, CTAB, rales, rhonchi - Cardiovascular Cardiovascular exam: Present: distant heart sounds, RRR, +S1, +S2. Absent: diastolic murmur, gallop, rubs, systolic murmur Additional comments: Bruit to left and right carotid arteries - GI/Abdominal GI/Abdominal exam: Present: normal bowel sounds, soft, no peritoneal signs. Absent: distended, tenderness - Extremities Exam Extremities exam: Present: warm, radial pulses palpable and symetrical. Absent : calf tenderness, cyanotic, pedal edema Additional comments: Nail clubbing appreciated to bilateral hands - Neurological Exam Neurological exam: Present: CN II-XII intact, oriented X3, no focal deficits. Absent: pronater drift, facial droop, speech deficit - Skin Skin exam: Present: dry, intact Internal Medicine: Result - Labs CBC & Chem 7: 12/22/16 06:12 12/22/16 06:12 Labs: Short CBC 12/22/16 Range/Units 06:12 WBC 8.9 (4.3-11.1) K/mcL Hgb 8.6 L (12.9-16.9) g/dL Hct 26.8 L (37.5-50.1) % Plt Count 281 (140-400) K/mcL Neutrophils # 6.2 (1.6-8.9) K/mcL BMP 12/22/16 06:12 Sodium 141 Potassium 3.2 L Chloride 111 H Carbon Dioxide 26 BUN 17 Creatinine 0.56 L Glucose 88 Calcium 7.5 L Liver Function 12/22/16 Range/Units 06:12 Albumin 2.2 L (3.5-5.0) g/dL Consult Discharge Plan - Plan Referrals: Yen Way CNP [Primary Care Provider] - <JanEnrike senior - Last Filed: 12/22/16 17:38> Date of Encounter: 12/22/16 - Constitutional Vitals: Temp Pulse Resp BP Pulse Ox 98.3 F 66 16 126/66 96 12/22/16 14:28 12/22/16 14:28 12/22/16 14:28 12/22/16 14:28 12/22/16 14:28 Internal Medicine: Result - Labs CBC & Chem 7: 12/22/16 06:12 12/22/16 06:12 Labs: Short CBC 12/22/16 Range/Units 06:12 WBC 8.9 (4.3-11.1) K/mcL Hgb 8.6 L (12.9-16.9) g/dL Hct 26.8 L (37.5-50.1) % Plt Count 281 (140-400) K/mcL Neutrophils # 6.2 (1.6-8.9) K/mcL BMP 12/22/16 06:12 Sodium 141 Potassium 3.2 L Chloride 111 H Carbon Dioxide 26 BUN 17 Creatinine 0.56 L Glucose 88 Calcium 7.5 L Liver Function 12/22/16 12/22/16 Range/Units 06:12 10:47 Total Bilirubin 0.4 (0.2-1.2) mg/dL Albumin 2.2 L 2.2 L (3.5-5.0) g/dL - Attending Attestation I examined this patient and my medical decision-making was reviewed with the Resident Physician, Dr Paulino. I agree with the documented findings, disposition and treatment plan as described except to the extent set forth below. Patient is an elderly man in no acute distress awake alert and oriented. Heart exam reveals regular S1 and S2 with no murmurs. Abdomen is soft nontender to palpation. Lung exam reveals bilateral diminished breath sounds throughout with no wheezes or rales. Plan: Upper GI bleed we will continue nothing by mouth, IV fluids, IV Protonix drip and follow up with surgery. Hemoglobin and hematocrit every 12 hours. Transfuse if more than 2. drop or active bleed or if hemoglobin below 8.
[2016-12-22] MEDS: 0.9 % Sodium Chloride 1,000 ML IVC SCH ×2 (11:07→20:54)
[2016-12-22 11:24] LABS: Albumin 2.2 g/dL (3.5-5.0); Bilirubin,Total 0.4 mg/dL (0.2-1.2)
[2016-12-22] MEDS ORDERED: Magnesium Sulfate 2 GM in D5% in Water 100 ML IVPB ONE (13:20)
--- NOTE | 2016-12-22 16:52 | Cardiology History & Physical ---
Date of Encounter: 12/22/16 Time of Encounter: 16:00 Assessment and Plan (1) CAD (coronary artery disease) Current Visit: No Status: Chronic Mr. Pool has re-presented with GI bleeding presumed from a gastric ulcer while on DAPT for recent PCI. He should remain on DAPT for at least 30 days until 12/30/2016 without interruption. He is hemodynamically stable and without chest pain. I recommend supportive care until that time. I understand that the primary team is considering gastrectomy with Bilroth I. Unfortunately, if antiplatelets are interrupted the patient is at high risk for acute in-stent thrombosis, [place] and . Qualifiers: Coronary Disease-Associated Artery/Lesion type: [place] artery [place] vs. transplanted heart: [place] heart Associated angina: without angina Qualified Code(s): I25.10 - Atherosclerotic heart disease of [place] coronary artery without angina pectoris History of Present Illness Chief complaint: GIB HPI: Mr. Pool is a 76 year old male presenting for recurrent GIB. He had a PCI with a BMS to pLAD on 11/30/2016 as part of a preoperative cardiac evaluation. He presented on 12/10 for melanotic stool and acute blood loss anemia and received supportive care with PRBCs. He underwent an EGD at that time demonstrating a nonbleeding gastric ulcer. He presents again with melanotic stool and blood loss anemia, Hgb 7.9 (10.6 on 12/19). Primary team is considering gastrectomy with Bilroth I. At the bedside, the patient has no complaints of chest pain. He has not had palpitations, pre syncope or syncope. He has been hemodynamically stable. Past Med Surg Social Fam HX - Past Medical History Medical history: arthritis, COPD, coronary artery disease, GI bleed, hyperlipidemia, hypertension, myocardial infarction Psychiatric history: depression - Past Surgical History Surgical History: angioplasty/stent, orthopedic, other - Social History Smoking Status: Current every day smoker Packs per day: 1pack per week Smokeless Tobacco Status: No Alcohol use: none Drug use: none - Family History Father Family Member Ethnicity: Non- Living Status: Hx Family Cardiac Disorders: No Hx Family Respiratory Disorders: No Hx Family Cancer: No Hx Family GI Disorders: No Hx Family Endocrine Disorder: No Hx Family Neuromuscular Disorders: No Hx Family Neurologic Disorders: No Hx Family HEENT Disorders: No Hx Family Autoimmune Disorders: No Medications and Allergies FLUoxetine HCl [Prozac] 40 mg PO DAILY 11/18/16 [History] Aspirin [Lo-Dose Aspirin EC] 81 mg PO DAILY 11/30/16 [History] Atorvastatin [Lipitor] 40 mg PO HS 11/30/16 [History] Metoprolol XL (24 HR) Succ [Toprol Xl] 25 mg PO DAILY 11/30/16 [History] Isosorbide MONOnitrate (24 HR) [Imdur] 30 mg PO DAILY #30 tab.er.24h 12/01/16 [ Rx] Nitroglycerin 0.4 mg SL Q5MIN PRN #30 tab.subl 12/01/16 [Rx] Ticagrelor [Brilinta] 90 mg PO BID #60 tablet 12/01/16 [Rx] Albuterol Sulfate [Albuterol Inhaler] 2 puff IH Q4H PRN 12/06/16 [History] Omeprazole 40 mg PO BID #120 tablet.dr 12/11/16 [Rx] Sucralfate [Carafate] 1 gm PO QIDAC #120 tablet 12/11/16 [Rx] Gabapentin [Neurontin] 100 mg PO DAILY 12/21/16 [History] HYDROcodone/Acet 5/325 mg [[place] 5-325 mg] 1 tab PO DAILY 12/21/16 [History] Oxycodone HCl/Acetaminophen [Percocet 5-325 mg Tablet] 1 each PO Q6HR PRN [History] Allergies No Known Allergies Allergy (Verified 12/21/16 22:19) All Systems Review: A 10-system review of systems was performed and is negative for pertinent findings except as documented above in the HPI. - Cardiovascular Cardiovascular: as per HPI Physical Examination Vital Signs, Last 4 Hours Temp Pulse Resp BP Pulse Ox 12/22/16 14:28 98.3 F 66 16 126/66 96 General: Conversant, No Apparent Distress HEENT: Mucus Membranes Moist Neck: No JVD Cardiac: Reg Rate and Rhythm, Normal S1 and S2, No Murmur Lungs: Normal Breath Sounds, No Wheeze, Rales, Rhonchi Neuro: Alert and responsive, No focal deficits noted Extremities: No Edema Results 12/22/16 06:12 12/22/16 06:12 Lab Results 12/22/16 12/22/16 12/22/16 06:12 06:12 10:47 WBC 8.9 Hgb 8.6 L Hct 26.8 L Plt Count 281 Sodium 141 Potassium 3.2 L Chloride 111 H Carbon Dioxide 26 BUN 17 Creatinine 0.56 L Glucose 88 Calcium 7.5 L Magnesium 1.5 L Total Bilirubin 0.4 - Imaging and Cardiology Echo: report reviewed Cardiac cath: report reviewed Other Results: Recent medical records reviewed - EKG Interpretation EKG results cardiology: other (I do not see an admitting ECG) - VTE Documentation of Mechanical Device: Intermittent pneumatic compression device
[2016-12-23] MEDS: Pantoprazole 40 MG in 0.9 % Sodium Chloride Mini Bag 100 ML IVC SCH ×6 (00:36→23:04)
[2016-12-23 03:52] LABS: Basophils % 0.5 %; Eosinophils # 0.4 K/mcL (0.0-0.6); Eosinophils % 5.4 %; Hematocrit 25.4 % (37.5-50.1); Hemoglobin 8.2 g/dL (12.9-16.9); Lymphocytes # 1.9 K/mcL (0.6-4.6); Mean Corpuscular HGB Conc 32.3 g/dL (31.6-35.5); Mean Corpuscular Hemoglobin 29.7 pg (28.0-33.3); Mean Platelet Volume 9.5 fL (9.4-12.4); Monocytes # 0.7 K/mcL (0.0-1.3); Monocytes % 8.2 %; Neutrophils # 4.9 K/mcL (1.6-8.9); Platelet Count 324 K/mcL (140-400); Red Blood Count 2.76 M/mcL (4.19-5.50); Red Cell Distribution Width 17.2 % (11.5-14.5); Segmented Neutrophils % 60.9 %
[2016-12-23 04:11] LABS: BUN/Creatinine Ratio 28 (6-26); Blood Urea Nitrogen 15 mg/dL (8-26); Calcium 7.3 mg/dL (8.6-10.8); Carbon Dioxide 24 mEq/L (19-29); Chloride 113 mEq/L (98-109); Glucose 74 mg/dL (70-99); Osmolality,Calculated 287 (280-300); Potassium 3.4 mEq/L (3.5-4.5); Sodium 139 mEq/L (136-145); eGFR For African Americans > 60 (> 60); eGFR For Non-African Americans > 60 (> 60)
[2016-12-23] MEDS ORDERED: Potassium Chloride 20 MEQ, Lidocaine 1% 2 ML in D5% in Water 250 ML IVPB ONE (07:46)
[2016-12-23] MEDS: Metoprolol XL (24 HR) Succ 25 MG TAB.ER.24H PO SCH (07:52)
[2016-12-23] MEDS: Isosorbide MONOnitrate (24 HR) 30 MG TAB.ER.24H PO SCH (07:52)
[2016-12-23] MEDS: Sucralfate 1 GM TABLET PO SCH (07:52)
[2016-12-23] MEDS: FLUoxetine 20 MG CAPSULE PO SCH (07:53)
[2016-12-23] MEDS: Gabapentin 100 MG CAPSULE PO SCH (07:53)
[2016-12-23] MEDS: 0.9 % Sodium Chloride 1,000 ML IVC SCH ×2 (08:59→19:46)
--- NOTE | 2016-12-23 09:28 | General Surgery Progress Note ---
Date of Encounter: 12/23/16 Time of Encounter: 08:10 - Assessment and Plan (1) Gastric ulcer, acute Current Visit: Yes Status: Acute The patient has recurrent gastrointestinal bleeding and is now on anticoagulation for coronary artery stent. The gastric ulcer has not healed over the last 5 months. The gastric ulcers the source of bleeding. He is at high risk for surgery because of recent coronary artery stent. He will not be able to be anticoagulated with the gastric ulcer bleeding. For this reason I recommend a gastrectomy with Billroth I with or without truncal vagotomy. I will discuss this with the family. 12/23/2016. Reviewed the cardiology note. He appears to be a prohibitive risk for surgery. This means that until his risk decrease his we will perform only temporizing therapeutic interventions such as upper endoscopy with injection, hemostatic clipping, or coagulation. We will need to continue this until his risk of in-stent thrombosis is manageable. Today his hemoglobin and hematocrit are stable and I would not recommend upper endoscopy was he is actively bleeding. Qualifiers: Gastric ulcer complication status: without hemorrhage or perforation Qualified Code(s): K25.3 - Acute gastric ulcer without hemorrhage or perforation Subjective Narrative: The patient has a stable hemoglobin and hematocrit. I reviewed the cardiology note. He appears to have a prohibitive risk of in-stent stenosis. Because of this we will be forced to provide only temporizing measures such as endoscopy with coagulation for any bleeding episodes until his risk of in-stent thrombosis decreases. Although my review of the literature suggests this will be in 90 days from the time of the stent, the final decision will be made by cardiology. In the meantime, his hemoglobin and hematocrit is stable and I would not perform upper endoscopy and was he was clinically hemorrhaging. Objective Vital Signs - Last 8 Hours Temp Pulse Resp BP Pulse Ox 12/23/16 06:57 98.5 F 73 18 137/77 97 12/23/16 03:19 97.8 F 78 14 155/76 98 Intake and Output 12/22/16 12/23/16 12/23/16 23:59 07:59 15:59 Intake Total 1520 / 1520 100 / 100 100 / 100 Output Total 500 / 500 300 / 300 Balance 1020 / 1020 -200 / -200 100 / 100 Intake: IV Fluids 1100 / 1100 100 / 100 100 / 100 0.9 % Sodium Chloride 1, 1000 / 1000 000 ML @ 90 mls/hr IVC . [id number] RIAZ Rx#:[id number] Protonix 40 MG In 0.9 % 100 / 100 100 / 100 100 / 100 Sodium Chloride (Mini-Bag +) 100 ML @ 20 mls/hr IVC .Q5H RIAZ Rx#: [id number] Oral 420 / 420 0 / 0 Output: Urine 500 / 500 300 / 300 Other: Meal Dinner Stool Size Moderate Large Stool Consistency soft liquid Stool Color Brown Brown Green # Bowel Movements 1 Weight 46.312 kg Blood Glucose* 90 Patient Weight 12/23/16 23:59 Weight 46.312 kg - General physical appearance cachectic, chronically ill - Respiratory other (Hyperexpanded chest decreased breath sounds with wheezing on both lung velazco) - Cardiovascular Cardiovascular exam: Present: RRR, no murmurs/rubs/gallops - Abdomen Abdomen: Present: bowel sounds present, soft, non tender - Labs 12/23/16 03:03 12/23/16 03:03 Diabetes panel 12/22/16 12/23/16 Range/Units 10:47 03:03 Sodium 139 (136-145) mEq/L Potassium 3.4 L (3.5-4.5) mEq/L Chloride 113 H (98-109) mEq/L Carbon Dioxide 24 (19-29) mEq/L BUN 15 (8-26) mg/dL Creatinine 0.53 L (0.72-1.25) mg/dL Glucose 74 (70-99) mg/dL Calcium 7.3 L (8.6-10.8) mg/dL Albumin 2.2 L (3.5-5.0) g/dL Calcium panel 12/22/16 12/23/16 Range/Units 10:47 03:03 Calcium 7.3 L (8.6-10.8) mg/dL Albumin 2.2 L (3.5-5.0) g/dL Pituitary panel 12/23/16 Range/Units 03:03 Sodium 139 (136-145) mEq/L Potassium 3.4 L (3.5-4.5) mEq/L Chloride 113 H (98-109) mEq/L Carbon Dioxide 24 (19-29) mEq/L BUN 15 (8-26) mg/dL Creatinine 0.53 L (0.72-1.25) mg/dL Glucose 74 (70-99) mg/dL Calcium 7.3 L (8.6-10.8) mg/dL Adrenal panel 12/22/16 12/23/16 Range/Units 10:47 03:03 Sodium 139 (136-145) mEq/L Potassium 3.4 L (3.5-4.5) mEq/L Chloride 113 H (98-109) mEq/L Carbon Dioxide 24 (19-29) mEq/L BUN 15 (8-26) mg/dL Creatinine 0.53 L (0.72-1.25) mg/dL Glucose 74 (70-99) mg/dL Calcium 7.3 L (8.6-10.8) mg/dL Total Bilirubin 0.4 (0.2-1.2) mg/dL Albumin 2.2 L (3.5-5.0) g/dL - VTE Documentation of Mechanical Device: Intermittent pneumatic compression device Consult Discharge Plan - Plan Referrals: Yen Way CNP [Primary Care Provider] -
[2016-12-23] MEDS: Aspirin Enteric Coated 81 MG Tablet PO SCH (09:33)
[2016-12-23] MEDS: *HR* Ticagrelor 90 MG TABLET PO SCH ×2 (09:34→20:34)
[2016-12-23] MEDS: Acetaminophen 325 MG TABLET PO PRN ×2 (09:34→19:49)
--- NOTE | 2016-12-23 12:16 | Internal Med Progress Note ---
<Matilde Paulino Bird - Last Filed: 12/23/16 12:13> Date of Encounter: 12/23/16 Time of Encounter: 10:00 - Assessment and plan (1) Upper GI bleed Current Visit: No Status: Acute Assessment and plan: 12/23/16 We will observe patient today and will trend H&H Patient projected to have surgery in 2 months Advance diet to soft foods with addition of 4 bottles ensure plus per day Patient to continue liquid carafate prior to meals QID Continue IV protonix at this time Hb stable at 8.2 12/22/16 Patient has been seen and evaluated by Dr. Hanley, surgeon Patient has 5 month of non-healing gastric ulcer Dr. Hanley recommends antrectomy with Billroth I Family is expected to arrive this afternoon to discuss this option and make final decision Continue IV protonix and Carafate Clear diet Hb down to 8.6 from 14.7 on 11/27/16 Continue to monitor Hb (2) Gastric ulcer Current Visit: No Status: Acute Assessment and plan: Plan as above Qualifiers: Gastric ulcer chronicity: unspecified ulcer chronicity Gastric ulcer complication status: with hemorrhage Qualified Code(s): K25.4 - Chronic or unspecified gastric ulcer with hemorrhage (3) Acute blood loss anemia Current Visit: No Status: Acute Assessment and plan: Will continue to monitor Hb Will plan transfusion should Hb drop below 7 (4) CAD (coronary artery disease) Current Visit: No Status: Chronic Assessment and plan: Continue Imdur, BB, Brilinta, ASA Per cardiology, we cannot discontinue Brilinta until 12/30/16 due to high risk of bare metal stent thrombosis Qualifiers: Coronary Disease-Associated Artery/Lesion type: [place] artery [place] vs. transplanted heart: [place] heart Associated angina: without angina Qualified Code(s): I25.10 - Atherosclerotic heart disease of [place] coronary artery without angina pectoris (5) COPD (chronic obstructive pulmonary disease) Current Visit: No Status: Chronic Assessment and plan: Continue albuterol inhaler prn Qualifiers: COPD type: unspecified COPD Qualified Code(s): J44.9 - Chronic obstructive pulmonary disease, unspecified (6) Tobacco abuse Current Visit: No Status: Chronic Assessment and plan: Discussed with patient the dangers of smoking Advise quitting Smoking cessation assistance was offered (7) Hypokalemia Current Visit: Yes Status: Acute Assessment and plan: Repleted Continue to monitor (8) Hypomagnesemia Current Visit: Yes Status: Acute Assessment and plan: Repleted Continue to monitor (9) DVT prophylaxis Current Visit: No Status: Resolved Assessment and plan: SCDs - Subjective Interval history: Patient has been admitted for recurrent upper GI bleed due to non-healing gastric ulcer. Patient is on ASA and Brillinta for a bare-metal stent placed on November. Per cardiology, patient will not be acceptable to discontinue Brillinta until December 30, 2016. General surgery recommends gastric antrectomy with Billroth I. However, cardiology recommends that surgery is postponed until patient is s/p 3months from stent placement. - Constitutional Vitals: Temp Pulse Resp BP Pulse Ox 97.9 F 64 18 110/57 98 12/23/16 11:16 12/23/16 11:16 12/23/16 11:16 12/23/16 11:16 12/23/16 11:16 General appearance: Present: cachectic, A&O X 3, no acute distress, answers questions appropriately - Head Head exam: Present: atraumatic, normocephalic - Eye Eye exam: Present: EOMI, conjuntiva pink, sclera anicteric - Neck Neck exam general surgery: Present: supple, trachea midline Additional comments: Bilateral carotid bruits - Respiratory Respiratory exam: Present: prolonged expiratory phase, wheezes (diffuse in all lung vel[place]). Absent: accessory muscle use, rales, rhonchi - Cardiovascular Cardiovascular exam: Present: distant heart sounds, RRR, +S1, +S2. Absent: diastolic murmur, gallop, rubs, systolic murmur - GI/Abdominal GI/Abdominal exam: Present: normal bowel sounds, soft, no peritoneal signs. Absent: distended, tenderness - Extremities Exam Extremities exam: Present: warm, radial pulses palpable and symetrical. Absent : calf tenderness, cyanotic, pedal edema - Neurological Exam Neurological exam: Present: CN II-XII intact, oriented X3. Absent: facial droop , speech deficit - Skin Skin exam: Present: dry, intact Internal Medicine: Result - Labs CBC & Chem 7: 12/23/16 03:03 12/23/16 03:03 Labs: Short CBC 12/23/16 Range/Units 03:03 WBC 8.0 (4.3-11.1) K/mcL Hgb 8.2 L (12.9-16.9) g/dL Hct 25.4 L (37.5-50.1) % Plt Count 324 (140-400) K/mcL Neutrophils # 4.9 (1.6-8.9) K/mcL [facility] 12/23/16 03:03 Sodium 139 Potassium 3.4 L Chloride 113 H Carbon Dioxide 24 BUN 15 Creatinine 0.53 L Glucose 74 Calcium 7.3 L - VTE Documentation of Mechanical Device: Intermittent pneumatic compression device Consult Discharge Plan - Plan Referrals: Yen Way CNP [Primary Care Provider] - <[email or web address] - Last Filed: 12/23/16 14:28> Date of Encounter: 12/23/16 - Constitutional Vitals: Temp Pulse Resp BP Pulse Ox 97.9 F 64 18 110/57 98 12/23/16 11:16 12/23/16 11:16 12/23/16 11:16 12/23/16 11:16 12/23/16 11:16 Internal Medicine: Result - Labs CBC & Chem 7: 12/23/16 03:03 12/23/16 03:03 Labs: Short CBC 12/23/16 Range/Units 03:03 WBC 8.0 (4.3-11.1) K/mcL Hgb 8.2 L (12.9-16.9) g/dL Hct 25.4 L (37.5-50.1) % Plt Count 324 (140-400) K/mcL Neutrophils # 4.9 (1.6-8.9) K/mcL [facility] 12/23/16 03:03 Sodium 139 Potassium 3.4 L Chloride 113 H Carbon Dioxide 24 BUN 15 Creatinine 0.53 L Glucose 74 Calcium 7.3 L - Attending Attestation I examined this patient and my medical decision-making was reviewed with the Resident Physician, Dr. Matilde Paulino. I agree with the documented findings, disposition and treatment plan as described except to the extent set forth below. Patient denies abdominal pain today. Family member he has severe bilateral lower extremity pain when he sits up in bed, pain is relieved when he lies down. On exam he is in no acute distress. Heart is regular. Lungs are clear abdomen is soft. Plan: I discussed the care with for general surgery who recommends partial gastrectomy with Billroth I anastomosis however the patient per cardiology cannot have surgery for a total of 90 days after the stent placement. We will continue current care. Monitor hemoglobin and hematocrit. Continue with IV Protonix. Advance diet.
--- NOTE | 2016-12-23 12:18 | Cardiology Progress Note ---
Date of Encounter: 12/23/16 Time of Encounter: 12:30 Assessment and Plan (1) CAD (coronary artery disease) Current Visit: No Status: Chronic Mr. Pool has re-presented with GI bleeding presumed from a gastric ulcer while on DAPT for recent PCI. The risk for in-stent thrombosis remains high within the first 30 days of stent placement and he should remain on DAPT for at least 30 days until 12/30/2016 without interruption. He is hemodynamically stable and without chest pain. Blood count is stable. I recommend supportive care until that time. Unfortunately, if antiplatelets are interrupted prematurely the patient is at high risk for acute in-stent thrombosis, [place] and . Qualifiers: Qualified Code(s): I25.10 - Atherosclerotic heart disease of [place] coronary artery without angina pectoris Discussion w patient/family: The assessment and plan as outlined above was discussed with the patient and/or family members who expressed understanding and agreement. All questions were answered. Thank you for involving us in the care of your patient. Please call with any questions. Subjective Principal diagnosis: GIB Interval history: Patient continues to have episodes of melena. He continues to be tired. He has no new complaints today. Objective Vital Signs, Last 4 Hours Temp Pulse Resp BP Pulse Ox 12/23/16 11:16 97.9 F 64 18 110/57 98 General: Conversant, No Apparent Distress HEENT: Mucus Membranes Moist Neck: No JVD Cardiac: Reg Rate and Rhythm, Normal S1 and S2, No Murmur Lungs: Normal Breath Sounds Neuro: Alert and responsive, No focal deficits noted Abdomen: Soft, Other (bowel sounds diminished) Extremities: No Edema Results 12/23/16 03:03 12/23/16 03:03 Lab Results 12/23/16 12/23/16 03:03 03:03 WBC 8.0 Hgb 8.2 L Hct 25.4 L Plt Count 324 Sodium 139 Potassium 3.4 L Chloride 113 H Carbon Dioxide 24 BUN 15 Creatinine 0.53 L Glucose 74 Calcium 7.3 L - EKG Interpretation EKG results cardiology: other (24h telemetry demonstrates average heart rate 73 bpm without significant dysrhythmia) - VTE Documentation of Mechanical Device: Intermittent pneumatic compression device Consult Discharge Plan - Plan Referrals: Yen Way CNP [Primary Care Provider] -
[2016-12-23 12:33] LABS: Magnesium 1.9 mg/dL (1.6-2.6)
[2016-12-24] MEDS: Pantoprazole 40 MG in 0.9 % Sodium Chloride Mini Bag 100 ML IVC SCH ×4 (04:08→21:12)
[2016-12-24 05:09] LABS: Basophils % 0.4 %; Eosinophils # 0.6 K/mcL (0.0-0.6); Eosinophils % 6.1 %; Hematocrit 24.9 % (37.5-50.1); Hemoglobin 7.6 g/dL (12.9-16.9); Immature Granulocytes % 0.6 % (0-4); Lymphocytes # 1.9 K/mcL (0.6-4.6); Lymphocytes % 18.9 %; Mean Corpuscular HGB Conc 30.5 g/dL (31.6-35.5); Mean Corpuscular Hemoglobin 29.5 pg (28.0-33.3); Mean Corpuscular Volume 96.5 fL (83.0-100.0); Mean Platelet Volume 9.7 fL (9.4-12.4); Monocytes # 0.6 K/mcL (0.0-1.3); Monocytes % 6.3 %; Neutrophils # 6.9 K/mcL (1.6-8.9); Platelet Count 313 K/mcL (140-400); Red Blood Count 2.58 M/mcL (4.19-5.50); Red Cell Distribution Width 17.5 % (11.5-14.5); Segmented Neutrophils % 67.7 %
[2016-12-24 05:33] LABS: BUN/Creatinine Ratio 27 (6-26); Blood Urea Nitrogen 17 mg/dL (8-26); Calcium 7.8 mg/dL (8.6-10.8); Carbon Dioxide 23 mEq/L (19-29); Chloride 115 mEq/L (98-109); Glucose 94 mg/dL (70-99); Osmolality,Calculated 293 (280-300); Sodium 141 mEq/L (136-145); eGFR For African Americans > 60 (> 60); eGFR For Non-African Americans > 60 (> 60)
[2016-12-24] MEDS: 0.9 % Sodium Chloride 1,000 ML IVC SCH ×2 (07:05→16:23)
[2016-12-24] MEDS: Isosorbide MONOnitrate (24 HR) 30 MG TAB.ER.24H PO SCH (07:45)
[2016-12-24] MEDS: Metoprolol XL (24 HR) Succ 25 MG TAB.ER.24H PO SCH (07:45)
[2016-12-24] MEDS: FLUoxetine 20 MG CAPSULE PO SCH (07:45)
[2016-12-24] MEDS: *HR* Ticagrelor 90 MG TABLET PO SCH ×2 (07:45→21:13)
[2016-12-24] MEDS: Aspirin Enteric Coated 81 MG Tablet PO SCH (07:45)
[2016-12-24] MEDS: Gabapentin 100 MG CAPSULE PO SCH (07:45)
--- NOTE | 2016-12-24 09:57 | General Surgery Progress Note ---
Date of Encounter: 12/24/16 Time of Encounter: 09:54 - Assessment and Plan (1) Gastric ulcer, acute Current Visit: Yes Status: Acute The patient has recurrent gastrointestinal bleeding and is now on anticoagulation for coronary artery stent. The gastric ulcer has not healed over the last 5 months. The gastric ulcers the source of bleeding. Per cardiology patient has a prohibitive risk of in-stent stenosis if anti- coagulation is held. Because of this we will provide only temporizing measures such as endoscopy with coagulation for any bleeding episodes until his risk of in-stent thrombosis decreases. Will tentatively plan to perform this 90 days from the time of the stent, the final decision will be made by cardiology for timeline. His hemoglobin and hematocrit remain stable. If he becomes unstable and appears to be clinically hemorrhaging would need to perform EGD. Qualifiers: Gastric ulcer complication status: without hemorrhage or perforation Qualified Code(s): K25.3 - Acute gastric ulcer without hemorrhage or perforation Subjective Patient reports: no new complaints, feels better Narrative: Patient was seen and examined. His hemoglobin and hematocrit remain stable. He appears to have a prohibitive risk of in-stent stenosis per cardiology s/p BMS 4 weeks ago. Plan to perform upper endoscopy only if he is clinically hemorrhaging. Plan for intervention 3 months out from BMS placement. Continue PPI and carafate. Objective Vital Signs - Last 8 Hours Temp Pulse Resp BP Pulse Ox 12/24/16 07:59 98.3 F 61 14 143/78 99 12/24/16 07:05 96 12/24/16 03:47 98.4 F 59 16 127/63 96 Intake and Output 12/23/16 12/24/16 12/24/16 23:59 07:59 15:59 Intake Total 1440 / 1440 1100 / 1100 200 / 200 Output Total 0 / 0 Balance 1440 / 1440 1100 / 1100 200 / 200 Intake: IV Fluids 1200 / 1200 1100 / 1100 100 / 100 0.9 % Sodium Chloride 1, 1000 / 1000 1000 / 1000 000 ML @ 90 mls/hr IVC . [id number] RIAZ Rx#:[id number] Protonix 40 MG In 0.9 % 200 / 200 100 / 100 100 / 100 Sodium Chloride (Mini-Bag +) 100 ML @ 20 mls/hr IVC .Q5H RIAZ Rx#: [id number] Oral 240 / 240 0 / 0 100 / 100 Output: Urine 0 / 0 Other: Meal Dinner Breakfast Percent of Meal Consumed 25% 20% Stool Size Smear Moderate Stool Consistency soft loose Stool Color Brown Brown # Voids 1 # Bowel Movements 1 Weight 48.807 kg Patient Weight 12/24/16 23:59 Weight 48.807 kg - General physical appearance well developed, well nourished, no distress - Respiratory normal expansion, normal respiratory effort, clear to percussion, clear to auscultation - Cardiovascular Cardiovascular exam: Present: RRR, no murmurs/rubs/gallops - Abdomen Abdomen: Present: bowel sounds present, soft, non tender - Integumentary other (skin is pink, warm and dry) - Neurologic normal coordination, normal sensation - Psychiatric oriented to time, oriented to person, oriented to place, speech is normal, memory intact - Labs 12/25/16 02:22 12/25/16 02:02 Diabetes panel 12/24/16 Range/Units 04:04 Sodium 141 (136-145) mEq/L Potassium 4.0 (3.5-4.5) mEq/L Chloride 115 H (98-109) mEq/L Carbon Dioxide 23 (19-29) mEq/L BUN 17 (8-26) mg/dL Creatinine 0.62 L (0.72-1.25) mg/dL Glucose 94 (70-99) mg/dL Calcium 7.8 L (8.6-10.8) mg/dL Calcium panel 12/24/16 Range/Units 04:04 Calcium 7.8 L (8.6-10.8) mg/dL Pituitary panel 12/24/16 Range/Units 04:04 Sodium 141 (136-145) mEq/L Potassium 4.0 (3.5-4.5) mEq/L Chloride 115 H (98-109) mEq/L Carbon Dioxide 23 (19-29) mEq/L BUN 17 (8-26) mg/dL Creatinine 0.62 L (0.72-1.25) mg/dL Glucose 94 (70-99) mg/dL Calcium 7.8 L (8.6-10.8) mg/dL Adrenal panel 12/24/16 Range/Units 04:04 Sodium 141 (136-145) mEq/L Potassium 4.0 (3.5-4.5) mEq/L Chloride 115 H (98-109) mEq/L Carbon Dioxide 23 (19-29) mEq/L BUN 17 (8-26) mg/dL Creatinine 0.62 L (0.72-1.25) mg/dL Glucose 94 (70-99) mg/dL Calcium 7.8 L (8.6-10.8) mg/dL - VTE Documentation of Mechanical Device: Intermittent pneumatic compression device Consult Discharge Plan - Plan Referrals: Lesvia Suarez ETHICS MANAGER [Advanced Practice Nurse] - 01/01/17 1:00 pm - Attending Attestation I examined this patient and my medical decision-making was reviewed with the FOOD PHOTOGRAPHER/PA/Advanced Practice Nurse/Resident Physician. I agree with the documented findings, disposition and treatment plan as described except to the extent set forth below. The patient was seen and evaluated with resident morning rounds. He has a stable hemoglobin. We will plan upper endoscopy and temporizing hemostasis for the next several months until we are more than 3 months out from his bare-metal stent. Emergency surgery only during that period of time. Eduardo Hanley MD FACS
--- NOTE | 2016-12-24 13:23 | Cardiology Progress Note ---
Date of Encounter: 12/24/16 Time of Encounter: 13:21 Assessment and Plan (1) CAD (coronary artery disease) Current Visit: No Status: Chronic Mr. Pool has re-presented with GI bleeding presumed from a gastric ulcer while on DAPT for recent PCI. The risk for in-stent thrombosis remains high within the first 30 days of stent placement and he should remain on DAPT for at least 30 days until 12/30/2016 without interruption. I recommend supportive care until that time. Unfortunately, if antiplatelets are interrupted prematurely the patient is at high risk for acute in-stent thrombosis, [place] and . He is hemodynamically stable. C/o chest tightness this morning when he was feeling anxious and agitated. Primary team notified of anxiety. Blood count 7.6. Recommend transfusion to keep Hgb above 8.0. Qualifiers: Coronary Disease-Associated Artery/Lesion type: [place] artery [place] vs. transplanted heart: [place] heart Associated angina: without angina Qualified Code(s): I25.10 - Atherosclerotic heart disease of [place] coronary artery without angina pectoris Discussion w patient/family: The assessment and plan as outlined above was discussed with the patient and/or family members who expressed understanding and agreement. All questions were answered. Thank you for involving us in the care of your patient. Please call with any questions. Subjective Principal diagnosis: GIB Interval history: Denies signs of bleeding. C/o feeling anxious about diagnosis, c/o chest feeling tight when he is anxious. No discomfort with activity. Denies SOB. Re- assurance given. Objective Vital Signs, Last 4 Hours Temp Pulse Resp BP Pulse Ox 12/24/16 10:46 98.2 F 64 16 106/54 96 General: Conversant, No Apparent Distress HEENT: Atraumatic, Normocephaly, Mucus Membranes Moist Neck: No JVD, Normal carotid pulses Cardiac: Reg Rate and Rhythm, Normal S1 and S2, No Murmur Lungs: Normal Breath Sounds, No Wheeze, Rales, Rhonchi Neuro: Alert and responsive, No focal deficits noted Abdomen: Soft, Non-Tender Skin: No rashes noted on visualized skin Musculoskeletal: No Chest Wall Tenderness Extremities: No Clubbing, No Cyanosis, No Edema, Normal Pulses Results 12/24/16 04:04 12/24/16 04:04 Lab Results 05/08/17 05/08/17 05/08/17 04:04 04:04 04:04 WBC 10.2 Hgb 7.6 L Hct 24.9 L Plt Count 313 Sodium 141 Potassium 4.0 Chloride 115 H Carbon Dioxide 23 BUN 17 Creatinine 0.62 L Glucose 94 Calcium 7.8 L Magnesium 1.6 - EKG Interpretation EKG results cardiology: other (24 hr telemetry review shows NSR. AVg HR 66 bpm. One 5 beat run of SVT seen.) - VTE Documentation of Mechanical Device: Intermittent pneumatic compression device Consult Discharge Plan - Plan Referrals: Lesvia Suarez, MOLD PRESSER [Advanced Practice Nurse] - 01/01/17 1:00 pm
--- NOTE | 2016-12-24 18:50 | Internal Med Progress Note ---
Date of Encounter: 12/24/16 Time of Encounter: 13:00 - Assessment and plan (1) CAD (coronary artery disease) Current Visit: No Status: Chronic Assessment and plan: Continue Imdur, BB, Brilinta, ASA Per cardiology, we cannot discontinue Brilinta until 12/30/16 due to high risk of in stent thrombosis. The patient has a high risk of perioperative mortality and the first 90 days post acute SC and therefore any nonemergent surgical intervention should be delayed for 90 days. This was discussed with cardiology. Qualifiers: Coronary Disease-Associated Artery/Lesion type: [place] artery [place] vs. transplanted heart: [place] heart Associated angina: without angina Qualified Code(s): I25.10 - Atherosclerotic heart disease of [place] coronary artery without angina pectoris (2) Tobacco abuse Current Visit: No Status: Chronic Assessment and plan: Discussed with patient the hazards of smoking Advise quitting Smoking cessation assistance was offered (3) Upper GI bleed Current Visit: No Status: Acute Assessment and plan: 12/23/16 We will observe patient today and will trend H&H Patient projected to have surgery in 2 months Advance diet to soft foods with addition of 4 bottles ensure plus per day Patient to continue liquid carafate prior to meals QID Continue IV protonix at this time Hb stable at 8.2 12/22/16 Patient has been seen and evaluated by Dr. Hanley, surgeon Patient has 5 month of non-healing gastric ulcer Dr. Hanley recommends antrectomy with Billroth I Family is expected to arrive this afternoon to discuss this option and make final decision Continue IV protonix and Carafate Clear diet Hb down to 8.6 from 14.7 on 11/27/16 Continue to monitor Hb (4) DVT prophylaxis Current Visit: No Status: Resolved Assessment and plan: SCDs (5) Acute blood loss anemia Current Visit: No Status: Acute Assessment and plan: Will continue to monitor Hb 12/24/2016: We will transfuse 1 unit PRBC today. Per cardiology recommendations wall keep hemoglobin above 8.0. - Subjective Interval history: Patient reports no chest pain or abdominal pain. Denies nausea vomiting or diarrhea. He has had no more melena over the last 2 days. - Constitutional Vitals: Temp Pulse Resp BP Pulse Ox 98.1 F 78 20 123/74 98 12/24/16 14:24 12/24/16 14:24 12/24/16 14:24 12/24/16 14:24 12/24/16 14:24 General appearance: Present: cachectic, A&O X 3, no acute distress, answers questions appropriately - Eye Eye exam: Present: PERRL, conjuntiva pink, sclera anicteric Pupils: Present: PERRL - Respiratory Respiratory exam: Present: CTAB. Absent: accessory muscle use, rales, rhonchi, wheezes - Cardiovascular Cardiovascular exam: Present: RRR, +S1, +S2. Absent: diastolic murmur, gallop, rubs, systolic murmur - GI/Abdominal GI/Abdominal exam: Present: normal bowel sounds, soft, no peritoneal signs. Absent: distended, tenderness - Extremities Exam Extremities exam: Present: warm, radial pulses palpable and symetrical. Absent : calf tenderness, cyanotic, pedal edema - Skin Skin exam: Present: dry, intact Internal Medicine: Result - Labs CBC & Chem 7: 12/24/16 04:04 12/24/16 04:04 Labs: Short CBC 12/24/16 Range/Units 04:04 WBC 10.2 (4.3-11.1) K/mcL Hgb 7.6 L (12.9-16.9) g/dL Hct 24.9 L (37.5-50.1) % Plt Count 313 (140-400) K/mcL Neutrophils # 6.9 (1.6-8.9) K/mcL BMP 12/24/16 04:04 Sodium 141 Potassium 4.0 Chloride 115 H Carbon Dioxide 23 BUN 17 Creatinine 0.62 L Glucose 94 Calcium 7.8 L - VTE Documentation of Mechanical Device: Intermittent pneumatic compression device Consult Discharge Plan - Plan Referrals: Lesvia Suarez, BUILDING ENGINEER [Advanced Practice Nurse] - 01/01/17 1:00 pm
[2016-12-24] MEDS ORDERED: 0.9 % Sodium Chloride 250 ML ONE (21:47)
[2016-12-25] MEDS ORDERED: Furosemide 20 MG/2 ML VIAL IVP ONE (01:23)
[2016-12-25 02:20] LABS: Basophils % 0.3 %; Eosinophils # 0.5 K/mcL (0.0-0.6); Eosinophils % 3.9 %; Hematocrit 28.8 % (37.5-50.1); Immature Granulocytes % 0.6 % (0-4); Immature Platelets 2.4 % (1.1-6.1); Lymphocytes # 1.6 K/mcL (0.6-4.6); Lymphocytes % 12.1 %; Mean Corpuscular HGB Conc 31.3 g/dL (31.6-35.5); Mean Corpuscular Hemoglobin 29.5 pg (28.0-33.3); Mean Corpuscular Volume 94.4 fL (83.0-100.0); Mean Platelet Volume 9.7 fL (9.4-12.4); Monocytes # 0.8 K/mcL (0.0-1.3); Neutrophils # 10.3 K/mcL (1.6-8.9); Platelet Count 387 K/mcL (140-400); Red Blood Count 3.05 M/mcL (4.19-5.50); Red Cell Distribution Width 18.4 % (11.5-14.5); Segmented Neutrophils % 77.1 %
[2016-12-25] MEDS: Pantoprazole 40 MG in 0.9 % Sodium Chloride Mini Bag 100 ML IVC SCH ×5 (02:23→21:21)
[2016-12-25 02:36] LABS: BUN/Creatinine Ratio 24 (6-26); Blood Urea Nitrogen 15 mg/dL (8-26); Carbon Dioxide 27 mEq/L (19-29); Chloride 112 mEq/L (98-109); Glucose 115 mg/dL (70-99); Osmolality,Calculated 296 (280-300); Sodium 142 mEq/L (136-145); eGFR For African Americans > 60 (> 60); eGFR For Non-African Americans > 60 (> 60)
[2016-12-25 03:18] LABS: Bilirubin,Urine Negative (Negative); Blood,Urine Negative (Negative); Clarity,Urine Clear (Clear); Color,Urine Yellow (Yellow); Glucose,Urine (UA) Normal (Normal); Ketones,Urine Negative (Negative); Leukocyte Esterase,Urine Negative (Negative); Nitrite,Urine Negative (Negative); Protein,Urine Negative (Neg-Trace); Specific Gravity,Urine 1.009 (1.010-1.025); Urobilinogen,Urine Normal (Normal)
[2016-12-25 03:27] LABS: RBC,Urine 0-3 per hpf (0-3); WBC,Urine 0-3 per hpf (0-3)
[2016-12-25] MEDS: 0.9 % Sodium Chloride 1,000 ML IVC SCH ×2 (03:40→14:21)
[2016-12-25] MEDS: Isosorbide MONOnitrate (24 HR) 30 MG TAB.ER.24H PO SCH (07:27)
[2016-12-25] MEDS: *HR* Ticagrelor 90 MG TABLET PO SCH ×2 (07:27→21:16)
[2016-12-25] MEDS: Gabapentin 100 MG CAPSULE PO SCH (07:27)
[2016-12-25] MEDS: Aspirin Enteric Coated 81 MG Tablet PO SCH (07:27)
[2016-12-25] MEDS: Metoprolol XL (24 HR) Succ 25 MG TAB.ER.24H PO SCH (07:28)
[2016-12-25] MEDS: FLUoxetine 20 MG CAPSULE PO SCH (07:28)
--- NOTE | 2016-12-25 09:02 | General Surgery Progress Note ---
Date of Encounter: 12/25/16 Time of Encounter: 09:00 - Assessment and Plan (1) Gastric ulcer, acute Current Visit: Yes Status: Acute The patient has recurrent gastrointestinal bleeding and is now on anticoagulation for coronary artery stent. The gastric ulcer has not healed over the last 5 months. The gastric ulcers the source of bleeding. Per cardiology patient has a prohibitive risk of in-stent stenosis if anti- coagulation is held. Because of this we will provide only temporizing measures such as endoscopy with coagulation for any bleeding episodes until his risk of in-stent thrombosis decreases. Will tentatively plan to perform this 90 days from the time of the stent, the final decision will be made by cardiology for timeline. His hemoglobin and hematocrit remain stable. If he becomes unstable and appears to be clinically hemorrhaging would need to perform EGD. Patient states that he is feeling much better today, he did have 3-4 brown BMs overnight. The patient was receiving 1 unit of PRBC's overnight and when the unit almost complete he began complaining of SOB and mild chest pain. He had a change in vital signs: blood pressure increased from 133/68 with RR 16 23:51 to 187/89 RR24. Blood was stopped. Patient feeling fine this morning. Denies any complaints. Hgb 9, Hct 28.8 this morning. Plan: -Continue to monitor H/H -Continue PPI and carafate -Plan for EGD only if he becomes unstable and appears to be clinically hemorrhaging during this stay Qualifiers: Gastric ulcer complication status: without hemorrhage or perforation Qualified Code(s): K25.3 - Acute gastric ulcer without hemorrhage or perforation Subjective Patient reports: no new complaints, feels better Narrative: Patient seen and examined. He states that he is feeling much better today. He does note that he had 3-4 bowel movements overnight. He states that they were brown. Objective Vital Signs - Last 8 Hours Temp Pulse Resp BP Pulse Ox 12/25/16 08:32 97.6 F 73 16 151/64 99 12/25/16 06:58 97 12/25/16 03:58 71 20 97 12/25/16 03:27 97.1 F L 80 16 167/62 93 12/25/16 02:09 18 98 Intake and Output 12/24/16 12/25/16 12/25/16 23:59 07:59 15:59 Intake Total 1052 / 1052 1354 / 1354 Output Total 100 / 100 200 / 200 Balance 952 / 952 1154 / 1154 Intake: IV Fluids 1052 / 1052 1200 / 1200 0.9 % Sodium Chloride 250 50 / 50 ML As .ROUTE .[facility] Rx#:[id number] 0.9 % Sodium Chloride 1, 952 / 952 950 / 950 000 ML @ 90 mls/hr IVC . Q11H7M [facility] Rx#:[id number] Protonix 40 MG In 0.9 % 100 / 100 200 / 200 Sodium Chloride (Mini-Bag +) 100 ML @ 20 mls/hr IVC .Q5H [facility] Rx#: [id number] Oral 0 / 0 0 / 0 Blood Product 0 / 0 154 / 154 Rbcs Leuko Poor As-3 2nd 0 / 0 154 / 154 Unit [id number] Output: Urine 0 / 0 200 / 200 Urine/Stool Mix 100 / 100 Other: Stool Size Large Stool Consistency loose liquid soft Stool Color Black # Voids 1 Weight 48.807 kg Patient Weight 12/25/16 23:59 Weight 48.807 kg - General physical appearance well developed, well nourished, no distress - Respiratory normal expansion, normal respiratory effort, clear to percussion, clear to auscultation - Cardiovascular Cardiovascular exam: Present: RRR, no murmurs/rubs/gallops - Abdomen Abdomen: Present: bowel sounds present, soft, non tender - Integumentary no rash, other (pink, warm, dry) - Psychiatric oriented to time, oriented to person, oriented to place, speech is normal, memory intact - Labs 12/26/16 04:34 12/25/16 02:02 Diabetes panel 12/25/16 Range/Units 02:02 Sodium 142 (136-145) mEq/L Potassium 4.0 (3.5-4.5) mEq/L Chloride 112 H (98-109) mEq/L Carbon Dioxide 27 (19-29) mEq/L BUN 15 (8-26) mg/dL Creatinine 0.62 L (0.72-1.25) mg/dL Glucose 115 H (70-99) mg/dL Calcium 8.0 L (8.6-10.8) mg/dL Calcium panel 12/25/16 Range/Units 02:02 Calcium 8.0 L (8.6-10.8) mg/dL Pituitary panel 12/25/16 Range/Units 02:02 Sodium 142 (136-145) mEq/L Potassium 4.0 (3.5-4.5) mEq/L Chloride 112 H (98-109) mEq/L Carbon Dioxide 27 (19-29) mEq/L BUN 15 (8-26) mg/dL Creatinine 0.62 L (0.72-1.25) mg/dL Glucose 115 H (70-99) mg/dL Calcium 8.0 L (8.6-10.8) mg/dL Adrenal panel 12/25/16 Range/Units 02:02 Sodium 142 (136-145) mEq/L Potassium 4.0 (3.5-4.5) mEq/L Chloride 112 H (98-109) mEq/L Carbon Dioxide 27 (19-29) mEq/L BUN 15 (8-26) mg/dL Creatinine 0.62 L (0.72-1.25) mg/dL Glucose 115 H (70-99) mg/dL Calcium 8.0 L (8.6-10.8) mg/dL - VTE Documentation of Mechanical Device: Intermittent pneumatic compression device Consult Discharge Plan - Plan Referrals: Lesvia Suarez GUIDE DOG INSTRUCTOR [Advanced Practice Nurse] - 01/01/17 1:00 pm - Attending Attestation I examined this patient and my medical decision-making was reviewed with the BENCH SCIENTIST/PA/Advanced Practice Nurse/Resident Physician. I agree with the documented findings, disposition and treatment plan as described except to the extent set forth below. The patient is seen and evaluated on morning rounds. His hemoglobin is stable. I would not recommend endoscopy today. We will continue to follow closely. Eduardo Hanley MD FACS
--- NOTE | 2016-12-25 11:27 | Event Note ---
Date of Encounter: 12/25/16 Time of Encounter: 11:25 - Cardiology Event Note Mr. Pool has re-presented with GI bleeding presumed from a gastric ulcer while on DAPT for recent PCI. The risk for in-stent thrombosis remains high within the first 30 days of stent placement and he should remain on DAPT with asa and brilinta for at least 30 days until 12/30/2016 without interruption. I recommend supportive care until that time. Unfortunately, if antiplatelets are interrupted prematurely the patient is at high risk for acute in-stent thrombosis, ND and . He is hemodynamically stable. Recommend transfusion to keep Hgb above 8.0, due to recent ND. Cardiology will sign off and will follow in outpatient setting. Follow up set.
--- NOTE | 2016-12-25 12:48 | Internal Med Progress Note ---
Date of Encounter: 12/25/16 Time of Encounter: 12:47 - Assessment and plan (1) Acute blood loss anemia Current Visit: No Status: Acute Assessment and plan: due to upper gi bleeds likely from gastric ulcer 12/24/2016: transfused 1/2 unit PRBC (had to be stopped due to HTN and CP). Per cardiology recommendations wall keep hemoglobin above 8.0. (2) CAD (coronary artery disease) Current Visit: No Status: Chronic Assessment and plan: Continue Imdur, BB, Brilinta, ASA Per cardiology, we cannot discontinue Brilinta until 12/30/16 due to high risk of in stent thrombosis. The patient has a high risk of perioperative mortality and the first 90 days post acute LA and therefore any nonemergent surgical intervention should be delayed for 90 days. This was discussed with cardiology. Qualifiers: Coronary Disease-Associated Artery/Lesion type: [place] artery [place] vs. transplanted heart: [place] heart Associated angina: without angina Qualified Code(s): I25.10 - Atherosclerotic heart disease of [place] coronary artery without angina pectoris (3) Tobacco abuse Current Visit: No Status: Chronic Assessment and plan: Discussed with patient the hazards of smoking Advise quitting Smoking cessation assistance was offered (4) Upper GI bleed Current Visit: No Status: Acute Assessment and plan: continue liquid carafate prior to meals QID Continue IV protonix drip Patient has been seen and evaluated by Dr. Hanley, surgeon Patient has 5 month of non-healing gastric ulcer Dr. Hanley recommends antrectomy with Billroth I (5) Peripheral arterial disease Current Visit: No Status: Chronic (6) COPD (chronic obstructive pulmonary disease) Current Visit: No Status: Chronic Assessment and plan: start duonebs CXR avoid steroids due to gastric ulcer Qualifiers: COPD type: unspecified COPD Qualified Code(s): J44.9 - Chronic obstructive pulmonary disease, unspecified (7) Gastric ulcer Current Visit: No Status: Acute Assessment and plan: Plan as above Qualifiers: Gastric ulcer chronicity: unspecified ulcer chronicity Gastric ulcer complication status: with hemorrhage Qualified Code(s): K25.4 - Chronic or unspecified gastric ulcer with hemorrhage (8) Hypokalemia Current Visit: Yes Status: Acute Assessment and plan: Repleted Continue to monitor - Subjective Interval history: denies any CP but had CP and High BP while receiving blood on 12/24/16. Feels SOB , had dark stools on and off, no diarrha, no abdominal pain or dysuria - Constitutional Vitals: Temp Pulse Resp BP Pulse Ox 98.5 F 66 16 107/60 96 12/25/16 11:15 12/25/16 11:15 12/25/16 11:15 12/25/16 11:15 12/25/16 11:15 General appearance: Present: cachectic, A&O X 3, no acute distress, answers questions appropriately - Head Head exam: Present: atraumatic, normocephalic - Eye Eye exam: Present: PERRL, conjuntiva pink, sclera anicteric Pupils: Present: PERRL - Neck Neck exam general surgery: Present: supple, trachea midline. Absent: lymphadenopathy - Respiratory Respiratory exam: Present: CTAB, wheezes (minimal wheezing). Absent: accessory muscle use, rales, rhonchi - Cardiovascular Cardiovascular exam: Present: RRR, +S1, +S2. Absent: diastolic murmur, gallop, rubs, systolic murmur - GI/Abdominal GI/Abdominal exam: Present: normal bowel sounds, soft, no peritoneal signs. Absent: distended, tenderness - Extremities Exam Extremities exam: Present: warm, radial pulses palpable and symetrical. Absent : calf tenderness, cyanotic, pedal edema - Neurological Exam Neurological exam: Present: CN II-XII intact, oriented X3, no focal deficits. Absent: pronater drift, facial droop, speech deficit - Skin Skin exam: Present: dry, intact Internal Medicine: Result - Labs CBC & Chem 7: 12/25/16 02:22 12/25/16 02:02 Labs: Short CBC 12/25/16 Range/Units 02:22 WBC 13.4 H (4.3-11.1) K/mcL Hgb 9.0 L (12.9-16.9) g/dL Hct 28.8 L (37.5-50.1) % Plt Count 387 (140-400) K/mcL Neutrophils # 10.3 H (1.6-8.9) K/mcL BMP 12/25/16 02:02 Sodium 142 Potassium 4.0 Chloride 112 H Carbon Dioxide 27 BUN 15 Creatinine 0.62 L Glucose 115 H Calcium 8.0 L Urine 12/25/16 Range/Units 03:00 Urine Color Yellow (Yellow) Urine Clarity Clear (Clear) Urine pH 6.0 (5.0-8.0) pH Units Ur Specific [place] 1.009 L (1.010-1.025) Urine Protein Negative (Neg-Trace) mg/dL Urine Glucose (UA) Normal (Normal) mg/dL - VTE Documentation of Mechanical Device: Intermittent pneumatic compression device Consult Discharge Plan - Plan Referrals: Lesvia Suarez CNP [Advanced Practice Nurse] - 01/01/17 1:00 pm
[2016-12-25] MEDS: Ipratropium/Albuterol Neb 3 ML IH SCH ×4 (16:36→23:56)
--- NOTE | 2016-12-25 17:01 | Electrocardiograph Report ---
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
[2016-12-26] MEDS: Pantoprazole 40 MG in 0.9 % Sodium Chloride Mini Bag 100 ML IVC SCH ×2 (03:45→09:24)
[2016-12-26] MEDS: Ipratropium/Albuterol Neb 3 ML IH SCH ×5 (04:04→19:57)
[2016-12-26 04:43] LABS: Hematocrit 23.2 % (37.5-50.1); Hemoglobin 7.4 g/dL (12.9-16.9); Mean Corpuscular HGB Conc 31.9 g/dL (31.6-35.5); Mean Corpuscular Hemoglobin 29.1 pg (28.0-33.3); Mean Corpuscular Volume 91.3 fL (83.0-100.0); Mean Platelet Volume 9.3 fL (9.4-12.4); Platelet Count 276 K/mcL (140-400); Red Blood Count 2.54 M/mcL (4.19-5.50)
[2016-12-26] MEDS ORDERED: Furosemide 20 MG/2 ML VIAL IVP ONE (05:57)
[2016-12-26] MEDS: Metoprolol XL (24 HR) Succ 25 MG TAB.ER.24H PO SCH (07:57)
[2016-12-26] MEDS: Isosorbide MONOnitrate (24 HR) 30 MG TAB.ER.24H PO SCH (07:57)
[2016-12-26] MEDS: FLUoxetine 20 MG CAPSULE PO SCH (07:57)
[2016-12-26] MEDS: Gabapentin 100 MG CAPSULE PO SCH (07:57)
[2016-12-26 08:33] LABS: Hematocrit 25.6 % (37.5-50.1)
--- NOTE | 2016-12-26 08:48 | General Surgery Progress Note ---
Date of Encounter: 12/26/16 Time of Encounter: 08:46 - Assessment and Plan (1) Gastric ulcer, acute Current Visit: Yes Status: Acute The patient has recurrent gastrointestinal bleeding and is now on anticoagulation for coronary artery stent. The gastric ulcer has not healed over the last 5 months. The gastric ulcers the source of bleeding. Per cardiology patient has a prohibitive risk of in-stent stenosis if anti- coagulation is held. Because of this we will provide only temporizing measures such as endoscopy with coagulation for any bleeding episodes until his risk of in-stent thrombosis decreases. Will tentatively plan to perform this 90 days from the time of the stent, the final decision will be made by cardiology for timeline. His hemoglobin and hematocrit remain stable. If he becomes unstable and appears to be clinically hemorrhaging would need to perform EGD. Patient states that he is feeling fine today. His Hgb dropped to 7.4 overnight. 1 unit PRBC was ordered, but patient refused. It was discussed with the patient that since it appears that he is actively bleeding he should have an EGD today to evaluate bleeding source and control as able. Patient is agreeable to this and will have the EGD done this afternoon. Plan: -NPO -EGD this afternoon. -Continue to monitor H/H -Continue PPI and carafate Qualifiers: Gastric ulcer complication status: without hemorrhage or perforation Qualified Code(s): K25.3 - Acute gastric ulcer without hemorrhage or perforation Subjective Patient reports: no new complaints Narrative: Patient seen and examined. He denies any complaints. His Hgb dropped to 7.4 over night, a unit of PRBCs was ordered, but the patient refused. VSS. Discussed need for EGD to determine if bleeding can be stopped with patient, he has agreed to procedure today. Objective Vital Signs - Last 8 Hours Temp Pulse Resp BP Pulse Ox 12/26/16 08:10 18 94 12/26/16 06:53 98.4 F 66 20 120/54 95 12/26/16 03:41 98.2 F 69 14 111/60 97 Intake and Output 12/25/16 12/26/16 12/26/16 23:59 07:59 15:59 Intake Total 679 / 679 304 / 304 Output Total 903 / 903 0 / 0 Balance -224 / -224 304 / 304 Intake: IV Fluids 679 / 679 184 / 184 0.9 % Sodium Chloride 1, 375 / 375 000 ML @ 90 mls/hr IVC . Q11H7M [facility] Rx#:[id number] Protonix 40 MG In 0.9 % 200 / 200 184 / 184 Sodium Chloride (Mini-Bag +) 100 ML @ 20 mls/hr IVC .Q5H [facility] Rx#: [id number] Lasix 20 MG In 0.9 % 104 / 104 Sodium Chloride 50 ML @ 100 mls/hr IVP BID [facility] Rx #:[id number] Oral 0 / 0 120 / 120 Output: Urine 900 / 900 0 / 0 Right Nephrostomy 3 Other: Meal Dinner Percent of Meal Consumed 100% # Voids 1 # Bowel Movements 1 - General physical appearance well developed, well nourished, no distress - ENT atraumatic, normocephalic - Neck Neck exam: no masses, trachea midline - Respiratory normal expansion, normal respiratory effort, clear to percussion, clear to auscultation - Cardiovascular Cardiovascular exam: Present: RRR, no murmurs/rubs/gallops - Abdomen Abdomen: Present: bowel sounds present, soft, non tender - Integumentary no rash, no abnormal pigmentation - Psychiatric oriented to time, oriented to person, oriented to place, speech is normal, memory intact - Labs 12/27/16 04:51 12/27/16 04:51 - VTE Documentation of Mechanical Device: Intermittent pneumatic compression device Consult Discharge Plan - Plan Instructions: Peptic Ulcer (DC), Gastritis (DC), Diet for Ulcers and Gastritis (GEN) Additional Instructions: Follow with primary care physician within the next [address] Hanley within 1-2 months. Continue Brilinta until 12/30/16. Continue Omeprazole 40 mg twice a day for 6 months. Continue sucralfate. Quit smoking Referrals: Lesvia Suarez, HIGH DENSITY TALC COATER OPERATOR [Advanced Practice Nurse] - 01/01/17 1:00 pm Prescriptions: HYDROcodone/Acet 5/325 mg [[place] 5-325 mg] 1 tab PO BID PRN #20 tablet PRN Reason: Pain Omeprazole 40 mg PO BID #120 tablet. Potassium Chloride 10 meq PO DAILY #7 tab.er.prt Sucralfate [Carafate] 1 gm PO QIDAC #120 tablet - Attending Attestation I examined this patient and my medical decision-making was reviewed with the SAP ADMINISTRATOR/PA/Advanced Practice Nurse/Resident Physician. I agree with the documented findings, disposition and treatment plan as described except to the extent set forth below. The patient is seen in evaluated on morning rounds. I made the decision to perform EGD in the afternoon. EGD was performed and the gastric ulcer had no evidence of bleeding. There was a firm fibrotic base to the ulcer with no sequela of recent hemorrhage. Eduardo Hanley MD FACS
--- NOTE | 2016-12-26 11:11 | Internal Med Progress Note ---
Date of Encounter: 12/26/16 Time of Encounter: 11:08 - Assessment and plan (1) Acute blood loss anemia Current Visit: No Status: Acute Assessment and plan: due to upper gi bleeds likely from gastric ulcer On 12/24/2016 he was transfused 1/2 unit PRBC (had to be stopped due to HTN and CP). Per cardiology recommendations wall keep hemoglobin above 8.0 agrees to have another unit ( refused on 12/25/16) if he gets lasix before Dr Hanley will perform an EGD today may hold billinta and assa for procedure and resume later (2) CAD (coronary artery disease) Current Visit: No Status: Chronic Assessment and plan: Continue Imdur, BB, Brilinta, ASA Per cardiology, we cannot discontinue Brilinta until 12/30/16 due to high risk of in stent thrombosis. The patient has a high risk of perioperative mortality and the first 90 days post acute LA and therefore any nonemergent surgical intervention should be delayed for 90 days. This was discussed with cardiology. Qualifiers: Coronary Disease-Associated Artery/Lesion type: [place] artery [place] vs. transplanted heart: [place] heart Associated angina: without angina Qualified Code(s): I25.10 - Atherosclerotic heart disease of [place] coronary artery without angina pectoris (3) Tobacco abuse Current Visit: No Status: Chronic Assessment and plan: Discussed with patient the hazards of smoking Advise quitting Smoking cessation assistance was offered (4) Upper GI bleed Current Visit: No Status: Acute Assessment and plan: continue liquid carafate prior to meals QID Continue IV protonix drip Patient has been seen and evaluated by Dr. Hanley, surgeon Patient has 5 month of non-healing gastric ulcer Dr. Hanley recommends antrectomy with Billroth I (5) Peripheral arterial disease Current Visit: No Status: Chronic (6) COPD (chronic obstructive pulmonary disease) Current Visit: No Status: Chronic Assessment and plan: start duonebs CXR avoid steroids due to gastric ulcer Qualifiers: COPD type: unspecified COPD Qualified Code(s): J44.9 - Chronic obstructive pulmonary disease, unspecified (7) Gastric ulcer Current Visit: No Status: Acute Assessment and plan: Plan as above Qualifiers: Gastric ulcer chronicity: unspecified ulcer chronicity Gastric ulcer complication status: with hemorrhage Qualified Code(s): K25.4 - Chronic or unspecified gastric ulcer with hemorrhage (8) Hypokalemia Current Visit: Yes Status: Acute Assessment and plan: Repleted Continue to monitor (9) Pulmonary edema Current Visit: Yes Status: Acute Assessment and plan: due to volume overload /blood trasfusion continue IV lasix ECHo 11/01 showed EF 50 % and sevental left ventricular dysfunction high risk for resp failure Qualifiers: Chronicity: acute Qualified Code(s): J81.0 - Acute pulmonary edema - Time Spent With Patient Greater than 35 minutes - Subjective Interval history: denies any CP but had CP and High BP while receiving blood on 12/24/16. Feels less SOB, had dark stools on and off, no diarrha, no abdominal pain or dysuria. refused to have more units of blood but is agreeable to it right now - Constitutional Vitals: Temp Pulse Resp BP Pulse Ox 98.6 F 69 18 97/54 92 12/26/16 10:13 12/26/16 10:13 12/26/16 10:13 12/26/16 10:13 12/26/16 10:13 General appearance: Present: cachectic, A&O X 3, no acute distress, answers questions appropriately - Head Head exam: Present: atraumatic, normocephalic - Eye Eye exam: Present: PERRL, conjuntiva pink, sclera anicteric Pupils: Present: PERRL - Neck Neck exam general surgery: Present: supple, trachea midline. Absent: lymphadenopathy - Respiratory Respiratory exam: Present: CTAB, rales (minimal bibasilar crackles). Absent: accessory muscle use, rhonchi, wheezes - Cardiovascular Cardiovascular exam: Present: RRR, +S1, +S2. Absent: diastolic murmur, gallop, rubs, systolic murmur - GI/Abdominal GI/Abdominal exam: Present: normal bowel sounds, soft, no peritoneal signs. Absent: distended, tenderness - Extremities Exam Extremities exam: Present: warm, radial pulses palpable and symetrical. Absent : calf tenderness, cyanotic, pedal edema - Neurological Exam Neurological exam: Present: CN II-XII intact, oriented X3, no focal deficits. Absent: pronater drift, facial droop, speech deficit - Skin Skin exam: Present: dry, intact Internal Medicine: Result - Labs CBC & Chem 7: 12/26/16 08:07 12/25/16 02:02 Labs: Short CBC 05/10/17 05/10/17 Range/Units 04:34 08:07 WBC 10.5 (4.3-11.1) K/mcL Hgb 7.4 L D 8.0 L (12.9-16.9) g/dL Hct 23.2 L 25.6 L (37.5-50.1) % Plt Count 276 (140-400) K/mcL - Impressions Impressions Chest X-Ray 12/25/16 12:44 IMPRESSION: Bilateral small pleural effusions with mild interstitial pulmonary edema suggesting mild CHF. Hyperinflation suggesting COPD. D/ / 12/25/2016 16:09:39 Carmelo Carrillo MD / morales Interpreting Provider: Carmelo Carrillo MD - VTE Documentation of Mechanical Device: Intermittent pneumatic compression device Consult Discharge Plan - Plan Referrals: Lesvia Suarez ENGINEERING DIRECTOR [Advanced Practice Nurse] - 01/01/17 1:00 pm
[2016-12-26] MEDS ORDERED: *HR* Midazolam HCl 5 MG/5 ML VIAL IVP ONE (11:42)
[2016-12-26] MEDS ORDERED: *HR* FentaNYL (PF) 100 MCG/2 ML VIAL ONE (11:43)
[2016-12-26] MEDS ORDERED: 0.9 % Sodium Chloride 1,000 ML IVC SCH (12:30)
[2016-12-26] MEDS ORDERED: *HR* Midazolam HCl 5 MG/5 ML VIAL IVP PRN (12:48)
[2016-12-26] MEDS ORDERED: Simethicone 40 MG/0.6 ML MLS IR ONE (12:48)
[2016-12-26] MEDS ORDERED: *HR* FentaNYL (PF) 100 MCG/2 ML VIAL IVP PRN (12:48)
[2016-12-26] MEDS ORDERED: Tetracaine/Benzocaine/Butamben 200MG/SPRAY (100SPY/BOT) MM ONE (12:48)
--- NOTE | 2016-12-26 12:50 | Pre-Sedation Evaluation ---
Pre-sedation evaluation - Pre-sedation checklist Date of procedure: 12/26/16 Procedure: EGD Recent Vitals: Last Vital Signs Temp 98.6 F 12/26/16 10:13 Pulse 68 12/26/16 12:26 Resp 16 12/26/16 12:26 BP 116/59 12/26/16 12:26 Pulse Ox 95 12/26/16 12:26 H&P (including ROS) documented in medical record: Yes Previous reaction to sedatives/anesthetics: No Dietary Status: NPO after Midnight Airway Assessment: Patient can open mouth completely, TMJ function normal Dentition: dentures removed Possible difficult airway: No ASA Classification *see protocol: CLASS IV-Severe systemic disease/constant threat to pt's life Plan of Care: Pt appropriate candidate for procedure/moderate/conscious sedation , Risks/benefits of procedure/sedation discussed w/ patient/family
[2016-12-26 14:08] LABS: BUN/Creatinine Ratio 18 (6-26); Blood Urea Nitrogen 12 mg/dL (8-26); Calcium 7.6 mg/dL (8.6-10.8); Carbon Dioxide 33 mEq/L (19-29); Chloride 104 mEq/L (98-109); Glucose 90 mg/dL (70-99); Osmolality,Calculated 289 (280-300); Potassium 3.3 mEq/L (3.5-4.5); Sodium 140 mEq/L (136-145); eGFR For African Americans > 60 (> 60); eGFR For Non-African Americans > 60 (> 60)
[2016-12-26] MEDS ORDERED: 0.9 % Sodium Chloride 250 ML ONE (15:06)
[2016-12-26] MEDS ORDERED: Furosemide 40 MG/4 ML VIAL IVP ONE (15:06)
[2016-12-26] MEDS: *HR* Ticagrelor 90 MG TABLET PO SCH ×2 (15:12→21:21)
[2016-12-26] MEDS: Aspirin Enteric Coated 81 MG Tablet PO SCH (15:12)
[2016-12-26] MEDS: Pantoprazole 40 MG VIAL IVP SCH (17:37)
[2016-12-27] MEDS: Pantoprazole 40 MG VIAL IVP SCH (05:21)
[2016-12-27 05:27] LABS: Hemoglobin 8.7 g/dL (12.9-16.9); Mean Corpuscular HGB Conc 32.2 g/dL (31.6-35.5); Mean Platelet Volume 9.6 fL (9.4-12.4); Platelet Count 309 K/mcL (140-400); Red Cell Distribution Width 16.8 % (11.5-14.5)
[2016-12-27] MEDS: Ipratropium/Albuterol Neb 3 ML IH SCH ×3 (05:30→08:10)
[2016-12-27 05:52] LABS: BUN/Creatinine Ratio 19 (6-26); Blood Urea Nitrogen 12 mg/dL (8-26); Calcium 7.8 mg/dL (8.6-10.8); Carbon Dioxide 31 mEq/L (19-29); Chloride 101 mEq/L (98-109); Glucose 84 mg/dL (70-99); Osmolality,Calculated 291 (280-300); Potassium 2.8 mEq/L (3.5-4.5); Sodium 141 mEq/L (136-145); eGFR For African Americans > 60 (> 60); eGFR For Non-African Americans > 60 (> 60)
[2016-12-27 07:12] VITALS: BP 134/66
[2016-12-27] MEDS: Aspirin Enteric Coated 81 MG Tablet PO SCH (08:18)
[2016-12-27] MEDS: FLUoxetine 20 MG CAPSULE PO SCH (08:18)
[2016-12-27] MEDS: Isosorbide MONOnitrate (24 HR) 30 MG TAB.ER.24H PO SCH (08:19)
[2016-12-27] MEDS: Metoprolol XL (24 HR) Succ 25 MG TAB.ER.24H PO SCH (08:19)
[2016-12-27] MEDS: *HR* Ticagrelor 90 MG TABLET PO SCH (08:19)
[2016-12-27] MEDS: Gabapentin 100 MG CAPSULE PO SCH (08:20)
--- NOTE | 2016-12-27 08:36 | Discharge Summary ---
Date of Encounter: 12/27/16 Time of Encounter: 08:31 - Discharge Diagnosis (1) Acute blood loss anemia Priority: Primary Status: Acute Comments: due to upper gi bleed likely from gastric ulcer, not actively bleeding (2) CAD (coronary artery disease) Priority: Secondary Status: Chronic Qualifiers: Coronary Disease-Associated Artery/Lesion type: [place] artery [place] vs. transplanted heart: [place] heart Associated angina: without angina Qualified Code(s): I25.10 - Atherosclerotic heart disease of [place] coronary artery without angina pectoris (3) Tobacco abuse Priority: Secondary Status: Chronic (4) Upper GI bleed Priority: Primary Status: Acute (5) Peripheral arterial disease Priority: Secondary Status: Chronic (6) COPD (chronic obstructive pulmonary disease) Priority: Secondary Status: Chronic Qualifiers: COPD type: unspecified COPD Qualified Code(s): J44.9 - Chronic obstructive pulmonary disease, unspecified (7) Gastric ulcer Priority: Primary Status: Inactive Qualifiers: Gastric ulcer chronicity: unspecified ulcer chronicity Gastric ulcer complication status: with hemorrhage Qualified Code(s): K25.4 - Chronic or unspecified gastric ulcer with hemorrhage (8) Hypokalemia Priority: Secondary Status: Acute Comments: due to lasix use, will supplement for 1 week (9) Pulmonary edema Priority: Secondary Status: Acute Comments: after receiving blood , volume overload ECHo 11/01 showed EF 50 % and sevental left ventricular dysfunction does not need lasix upon discharge Qualifiers: Chronicity: acute Qualified Code(s): J81.0 - Acute pulmonary edema - Discharge Medications Prescriptions: HYDROcodone/Acet 5/325 mg [[place] 5-325 mg] 1 tab PO BID PRN #20 tablet PRN Reason: Pain Omeprazole 40 mg PO BID #120 tablet. Potassium Chloride 10 meq PO DAILY #7 tab.er.prt Sucralfate [Carafate] 1 gm PO QIDAC #120 tablet Home Medications: FLUoxetine HCl [Prozac] 40 mg PO DAILY 11/18/16 [History] Aspirin [Lo-Dose Aspirin EC] 81 mg PO DAILY 11/30/16 [History] Atorvastatin [Lipitor] 40 mg PO HS 11/30/16 [History] Metoprolol XL (24 HR) Succ [Toprol Xl] 25 mg PO DAILY 11/30/16 [History] Isosorbide MONOnitrate (24 HR) [Imdur] 30 mg PO DAILY #30 tab.er.24h 12/01/16 [ Rx] Nitroglycerin 0.4 mg SL Q5MIN PRN #30 tab.subl 12/01/16 [Rx] Ticagrelor [Brilinta] 90 mg PO BID #60 tablet 12/01/16 [Rx] Albuterol Sulfate [Albuterol Inhaler] 2 puff IH Q4H PRN 12/06/16 [History] Gabapentin [Neurontin] 100 mg PO DAILY 12/21/16 [History] Oxycodone HCl/Acetaminophen [Percocet 5-325 mg Tablet] 1 each PO Q6HR PRN [History] HYDROcodone/Acet 5/325 mg [[place] 5-325 mg] 1 tab PO BID PRN #20 tablet 12/27/16 [Rx] Omeprazole 40 mg PO BID #120 tablet. 12/27/16 [Rx] Potassium Chloride 10 meq PO DAILY #7 tab.er.prt 12/27/16 [Rx] Sucralfate [Carafate] 1 gm PO QIDAC #120 tablet 12/27/16 [Rx] Allergies/Adverse Reactions: Allergies No Known Allergies Allergy (Verified 12/21/16 22:19) Procedures/tests Complete & Pending: Procedures Performed prior 72 hours Category Date Time Status EKG [ECG 12 lead ECG] [ECG] Stat Y 12/25/16 01:13 Completed Date of admission: 12/21/16 22:48 Primary care physician: Yen Way, Consults: 12/21/16 22:26 Consult to Nutrition [CONS] Routine Comment: Consulting Provider: NUTRITION Reason for Dietary Consult: MST Score 12/21/16 22:55 Consult to Surgery [CONS] Routine Consulting Provider: [facility] Reason for Consult: GI bleeding Call Completed: Yes 12/21/16 22:56 Consult to Cardiology [CONS] Routine Comment: Consulting Provider: Cardiology Kate Reason for Consult: GI bleeding, pt is on aspirin and brilinta Call Completed: No - Patient Status Disposition: Home Health Service Condition: Fair Overall status at discharge: patient is progressing back to baseline - Discharge Instructions Follow Up With: Lesvia Suarez CNP [Advanced Practice Nurse] - 01/01/17 1:00 pm Additional Instructions: Follow with primary care physician within the next [address] Hanley within 1-2 months. Continue Brilinta until 12/30/16. Continue Omeprazole 40 mg twice a day for 6 months. Continue sucralfate. Quit smoking - Diet and Activity Activity: increase activity as tolerated Diet: low fat, low cholesterol Hospital course: Mr. Pool is a 76 year old male with a PMHx of CAD stents (11/30/16), tobacco use, COPD not O2 dep, HTN , HLD, presenting for recurrent GIB. He had a PCI with a BMS to pLAD on 11/30/2016. He presented on 12/10 for melanotic stool and acute blood loss anemia and received supportive care with PRBCs. He underwent an EGD at that time demonstrating a nonbleeding gastric ulcer. He presents again with melanotic stool and blood loss anemia, Hgb 7.9 (10.6 on 12/19). Surgery was considering gastrectomy with [place] I. On 12/24/2016 he was transfused 1/2 unit PRBC (had to be stopped due to HTN and CP), accepted to have another blood transfusion on 12/26/16 with lasix as he developed acute pulmonary edema with the first one. Hb is 8.7 today, prefers to go home and not to have another trasfusion today. Continue Imdur, BB, Brilinta, ASA Per cardiology, we cannot discontinue Brilinta until 12/30/16 due to high risk of in stent thrombosis. The patient has a high risk of perioperative mortality and the first 90 days post acute NH and therefore any nonemergent surgical intervention should be delayed for 90 days. Underwent an EGD on 12/26/16 that showed a non bleeding gastric ulcer ( performed by Dr Hanley) Time spent discussing smoking cessation with patient: 3 to 10 minutes - Time Spent with Patient Total time spent providing and/or coordinating discharge services: Greater than 30 minutes (40 min) - Constitutional Vitals: Temp Pulse Resp BP Pulse Ox 98.5 F 63 16 134/66 94 12/27/16 07:08 12/27/16 07:08 12/27/16 07:08 12/27/16 07:08 12/27/16 07:08 General appearance: Present: cachectic, A&O X 3, no acute distress, answers questions appropriately - Head Head exam: Present: atraumatic, normocephalic - Eye Eye exam: Present: PERRL, conjuntiva pink, sclera anicteric Pupils: Present: PERRL - Neck Neck exam general surgery: Present: supple, trachea midline. Absent: lymphadenopathy - Respiratory Respiratory exam: Present: CTAB. Absent: accessory muscle use, rales, rhonchi, wheezes - Cardiovascular Cardiovascular exam: Present: RRR, +S1, +S2. Absent: diastolic murmur, gallop, rubs, systolic murmur - GI/Abdominal GI/Abdominal exam: Present: normal bowel sounds, soft, no peritoneal signs. Absent: distended, tenderness - Extremities Exam Extremities exam: Present: warm, radial pulses palpable and symetrical. Absent : calf tenderness, cyanotic, pedal edema - Neurological Exam Neurological exam: Present: CN II-XII intact, oriented X3, no focal deficits. Absent: pronater drift, facial droop, speech deficit - Skin Skin exam: Present: dry, intact - VTE Documentation of Mechanical Device: Intermittent pneumatic compression device
--- NOTE | 2016-12-27 08:46 | Physician Discharge Referral ---
Home Health/Hosp Referral Info Transfer to: Home Health Provider in Charge Post Discharge: PCP - Diagnosis (1) Acute blood loss anemia Status: Acute (2) CAD (coronary artery disease) Status: Chronic (3) Tobacco abuse Status: Chronic (4) Upper GI bleed Status: Acute (5) Peripheral arterial disease Status: Chronic (6) COPD (chronic obstructive pulmonary disease) Status: Chronic (7) Gastric ulcer Status: Inactive (8) Hypokalemia Status: Acute (9) Pulmonary edema Status: Acute - Respiratory Orders Smoking Cessation: Smoking cessation has been advised. For more information, call the [place] Tobacco Quit Line at 2-906-UCYZ-NOW. - Diet/Nutrition Diet/Nutrition Orders: Cardiac - Activity Activity: List: Follow with primary care physician within the next [address] Hanley within 1-2 months. Continue Brilinta until 12/30/16. Continue Omeprazole 40 mg twice a day for 6 months. Continue sucralfate. Quit smoking - Services Needed Following services are medically necessary services: Nursing, Home Health Aide, Physical Therapy - Transfer Medications Prescriptions: HYDROcodone/Acet 5/325 mg [[place] 5-325 mg] 1 tab PO BID PRN #20 tablet PRN Reason: Pain Omeprazole 40 mg PO BID #120 tablet. Potassium Chloride 10 meq PO DAILY #7 tab.er.prt Sucralfate [Carafate] 1 gm PO QIDAC #120 tablet Home Medications: FLUoxetine HCl [Prozac] 40 mg PO DAILY 11/18/16 [History] Aspirin [Lo-Dose Aspirin EC] 81 mg PO DAILY 11/30/16 [History] Atorvastatin [Lipitor] 40 mg PO HS 11/30/16 [History] Metoprolol XL (24 HR) Succ [Toprol Xl] 25 mg PO DAILY 11/30/16 [History] Isosorbide MONOnitrate (24 HR) [Imdur] 30 mg PO DAILY #30 tab.er.24h 12/01/16 [ Rx] Nitroglycerin 0.4 mg SL Q5MIN PRN #30 tab.subl 12/01/16 [Rx] Ticagrelor [Brilinta] 90 mg PO BID #60 tablet 12/01/16 [Rx] Albuterol Sulfate [Albuterol Inhaler] 2 puff IH Q4H PRN 12/06/16 [History] Gabapentin [Neurontin] 100 mg PO DAILY 12/21/16 [History] Oxycodone HCl/Acetaminophen [Percocet 5-325 mg Tablet] 1 each PO Q6HR PRN [History] HYDROcodone/Acet 5/325 mg [[place] 5-325 mg] 1 tab PO BID PRN #20 tablet 12/27/16 [Rx] Omeprazole 40 mg PO BID #120 tablet. 12/27/16 [Rx] Potassium Chloride 10 meq PO DAILY #7 tab.er.prt 12/27/16 [Rx] Sucralfate [Carafate] 1 gm PO QIDAC #120 tablet 12/27/16 [Rx] Allergies/Adverse Reactions: Allergies No Known Allergies Allergy (Verified 12/21/16 22:19) Certification: Further, I certify that my clinical findings support that this patient is homebound (i.e. absences from home require considerable and taxing effort and are for medical reasons or shinto services or infrequently or short duration when for other reasons) because: Homebound Reason: Patient requires assistance of a person or device to safely leave home Attestation: My signature below is to certify that this patient is under my care and that I, or nurse practitioner, or a physician's assistant chief engineer working with me, has a face-to -face encounter with this patient.
--- NOTE | 2016-12-27 09:08 | General Surgery Progress Note ---
Date of Encounter: 12/27/16 Time of Encounter: 09:05 - Assessment and Plan (1) Gastric ulcer, acute Status: Acute The patient has recurrent gastrointestinal bleeding and is now on anticoagulation for coronary artery stent. The gastric ulcer has not healed over the last 5 months. The gastric ulcers the source of bleeding. Per cardiology patient has a prohibitive risk of in-stent stenosis if anti- coagulation is held. Because of this we will provide only temporizing measures such as endoscopy with coagulation for any bleeding episodes until his risk of in-stent thrombosis decreases. Will tentatively plan to perform this 90 days from the time of the stent, the final decision will be made by cardiology for timeline. His hemoglobin and hematocrit remain stable. If he becomes unstable and appears to be clinically hemorrhaging would need to perform EGD. Patient states that he is feeling fine today. His Hgb is stable. Gastric ulcer was visualized on EGD yesterday, no active bleeding was identified. Patient is stable to discharge home if medicine service is agreeable, and will require follow-up with Dr. Hanley. Surgery will sign off at this time. Qualifiers: Gastric ulcer complication status: without hemorrhage or perforation Qualified Code(s): K25.3 - Acute gastric ulcer without hemorrhage or perforation Subjective Patient reports: feels better Narrative: Patient seen and examined. He denies any complaints. His Hgb is stable. Gastric ulcer was visualized on EGD yesterday, no active bleeding was identified. Patient is stable to discharge home and will require follow-up with Dr. Hanley Objective Vital Signs - Last 8 Hours Temp Pulse Resp BP Pulse Ox 12/27/16 07:08 98.5 F 63 16 134/66 94 12/27/16 04:32 99.1 F 67 16 117/64 94 Intake and Output 12/26/16 12/27/16 12/27/16 23:59 07:59 15:59 Intake Total 477 / 477 0 / 0 Output Total 1800 / 1800 500 / 500 Balance -1323 / -1323 -500 / -500 Intake: IV Fluids Lasix 20 MG In 0.9 % Sodium Chloride 50 ML @ 100 mls/hr IVP BID RIAZ Rx #:[id number] Oral 120 / 120 0 / 0 Blood Product 305 / 305 Rbcs Leuko Poor As-3 2nd 305 / 305 Unit [id number] Output: Urine 1800 / 1800 500 / 500 Other: Meal Dinner Percent of Meal Consumed 100% Weight 46.947 kg Patient Weight 12/27/16 23:59 Weight 46.947 kg - General physical appearance well developed, well nourished, no distress, no pain - ENT atraumatic, normocephalic - Neck Neck exam: no masses, trachea midline - Respiratory normal expansion, normal respiratory effort, clear to auscultation - Cardiovascular Cardiovascular exam: Present: RRR, no murmurs/rubs/gallops - Abdomen Abdomen: Present: bowel sounds present, soft, non tender - Psychiatric oriented to time, oriented to person, oriented to place, speech is normal, memory intact - Labs 12/27/16 04:51 12/27/16 04:51 Diabetes panel 12/26/16 12/27/16 Range/Units 13:30 04:51 Sodium 140 141 (136-145) mEq/L Potassium 3.3 L 2.8 L (3.5-4.5) mEq/L Chloride 104 101 (98-109) mEq/L Carbon Dioxide 33 H 31 H (19-29) mEq/L BUN 12 12 (8-26) mg/dL Creatinine 0.65 L 0.64 L (0.72-1.25) mg/dL Glucose 90 84 (70-99) mg/dL Calcium 7.6 L 7.8 L (8.6-10.8) mg/dL Calcium panel 12/26/16 12/27/16 Range/Units 13:30 04:51 Calcium 7.6 L 7.8 L (8.6-10.8) mg/dL Pituitary panel 12/26/16 12/27/16 Range/Units 13:30 04:51 Sodium 140 141 (136-145) mEq/L Potassium 3.3 L 2.8 L (3.5-4.5) mEq/L Chloride 104 101 (98-109) mEq/L Carbon Dioxide 33 H 31 H (19-29) mEq/L BUN 12 12 (8-26) mg/dL Creatinine 0.65 L 0.64 L (0.72-1.25) mg/dL Glucose 90 84 (70-99) mg/dL Calcium 7.6 L 7.8 L (8.6-10.8) mg/dL Adrenal panel 12/26/16 12/27/16 Range/Units 13:30 04:51 Sodium 140 141 (136-145) mEq/L Potassium 3.3 L 2.8 L (3.5-4.5) mEq/L Chloride 104 101 (98-109) mEq/L Carbon Dioxide 33 H 31 H (19-29) mEq/L BUN 12 12 (8-26) mg/dL Creatinine 0.65 L 0.64 L (0.72-1.25) mg/dL Glucose 90 84 (70-99) mg/dL Calcium 7.6 L 7.8 L (8.6-10.8) mg/dL - VTE Documentation of Mechanical Device: Intermittent pneumatic compression device Consult Discharge Plan - Plan Instructions: Peptic Ulcer (DC), Gastritis (DC), Diet for Ulcers and Gastritis (GEN) Additional Instructions: Follow with primary care physician within the next [address] Hanley within 1-2 months. Continue Brilinta until 12/30/16. Continue Omeprazole 40 mg twice a day for 6 months. Continue sucralfate. Quit smoking Referrals: Lesvia Suarez BOILER ROOM HELPER [Advanced Practice Nurse] - 01/01/17 1:00 pm Prescriptions: HYDROcodone/Acet 5/325 mg [[place] 5-325 mg] 1 tab PO BID PRN #20 tablet PRN Reason: Pain Omeprazole 40 mg PO BID #120 tablet. Potassium Chloride 10 meq PO DAILY #7 tab.er.prt Sucralfate [Carafate] 1 gm PO QIDAC #120 tablet - Attending Attestation I examined this patient and my medical decision-making was reviewed with the SPECK DYER/PA/Advanced Practice Nurse/Resident Physician. I agree with the documented findings, disposition and treatment plan as described except to the extent set forth below. The patient was seen and evaluated on morning rounds. There is no evidence of ongoing bleeding from the gastric ulcer. I will be glad to follow him as an outpatient. Eduardo Hanley MD FACS
[2016-12-28] MEDS ORDERED: Furosemide 20 MG/2 ML VIAL IVP SCH (09:30)
== END 2016-12-27 10:05 | disposition home or self-care (01) | DRG 377 ==
LOC: 3ANU → SUATTDRO 22:48
PROVIDERS: ADMIT Internal Medicine; ATTEND Internal Medicine

== ENCOUNTER 2016-12-31 15:28 | Inpatient (IN) ==
[2016-12-31 16:11] LABS: Basophils # 0.1 K/mcL (0.0-0.2); Basophils % 0.6 %; Eosinophils # 0.2 K/mcL (0.0-0.6); Immature Granulocytes % 0.6 % (0-4); Lymphocytes # 1.8 K/mcL (0.6-4.6); Lymphocytes % 21.8 %; Mean Corpuscular HGB Conc 31.2 g/dL (31.6-35.5); Mean Corpuscular Hemoglobin 29.4 pg (28.0-33.3); Mean Corpuscular Volume 94.3 fL (83.0-100.0); Mean Platelet Volume 9.1 fL (9.4-12.4); Monocytes # 0.7 K/mcL (0.0-1.3); Monocytes % 8.9 %; Neutrophils # 5.4 K/mcL (1.6-8.9); Platelet Count 421 K/mcL (140-400); Red Blood Count 2.65 M/mcL (4.19-5.50); Red Cell Distribution Width 15.7 % (11.5-14.5); Segmented Neutrophils % 66.1 %
[2016-12-31 16:17] LABS: INR 1.1; Prothrombin Time 12.2 Seconds (9.4-12.1)
--- NOTE | 2016-12-31 16:17 | Emergency Department Note ---
Disposition Clinical Impression: Blood loss anemia, Generalized weakness Gastric ulcer Qualifiers: Gastric ulcer chronicity: chronic Gastric ulcer complication status: unspecified whether hemorrhage or perforation present Qualified Code(s): K25.7 - Chronic gastric ulcer without hemorrhage or perforation Disposition: Admitted As Inpatient Referrals: NO,PCP [Non-Partnered Physician] - Forms: Work/School Release, ED Satisfaction Letter Weakness HPI - General Chief complaint: ED Extremity Problem,Nontraumatic Stated complaint: LEG/HIP PAIN Time Seen by Provider: 12/31/16 15:35 Source: patient, family Limitations: no limitations Nursing Notes Reviewed: Yes Vital Signs Reviewed: Yes - History of Present Illness Pt Subjective Complaint: generalized weakness/fatigue Onset (ago): week(s) (1) Duration: constant, gradually worsening Location: generalized Pain Scale: 8 Improves with: none Worsens with: none Context: new medication Associated symptoms: Reports: other (black stools) - Related Data Home Medications Medication Instructions Recorded Confirmed FLUoxetine HCl [Prozac] 40 mg PO DAILY 11/18/16 12/21/16 Aspirin [Lo-Dose Aspirin EC] 81 mg PO DAILY 11/30/16 12/21/16 Atorvastatin [Lipitor] 40 mg PO HS 11/30/16 12/21/16 Metoprolol XL (24 HR) Succ [Toprol 25 mg PO DAILY 11/30/16 12/21/16 Xl] Albuterol Sulfate [Albuterol 2 puff IH Q4H PRN 12/06/16 12/21/16 Inhaler] Gabapentin [Neurontin] 100 mg PO DAILY 12/21/16 12/21/16 Oxycodone HCl/Acetaminophen 1 each PO Q6HR PRN 12/21/16 12/21/16 [Percocet 5-325 mg Tablet] Previous Rx's Medication Instructions Recorded Isosorbide MONOnitrate (24 HR) 30 mg PO DAILY #30 tab.er.24h 12/01/16 [Imdur] Nitroglycerin 0.4 mg SL Q5MIN PRN #30 tab.subl 12/01/16 Ticagrelor [Brilinta] 90 mg PO BID #60 tablet 12/01/16 HYDROcodone/Acet 5/325 mg [[place] 1 tab PO BID PRN #20 tablet 12/27/16 5-325 mg] Omeprazole 40 mg PO BID #120 tablet.dr 12/27/16 Potassium Chloride 10 meq PO DAILY #7 tab.er.prt 12/27/16 Sucralfate [Carafate] 1 gm PO QIDAC #120 tablet 12/27/16 Allergies Allergy/AdvReac Type Severity Reaction Status Date / Time No Known Allergies Allergy Verified 12/21/16 22:19 All systems ED: reviewed and negative except as stated. Constitutional: Denies: fever, chills Gastrointestinal: Reports: melena. Denies: abdominal pain, nausea, vomiting Past Medical History - Past Medical History Source: patient, old records reviewed, obtained from family, nursing notes reviewed Medical history: Reports: arthritis, COPD, coronary artery disease, GI bleed, hyperlipidemia, hypertension, myocardial infarction Surgical history: Reports: angioplasty/stent, orthopedic, other Psychiatric history: Reports: depression - Social History Smoking Status: Current every day smoker Smokeless Tobacco Status: No Alcohol use: Reports: none Drug use: Reports: none Physical Exam - General Limitations: no limitations General appearance: alert, in no apparent distress - Head Head exam: atraumatic, normocephalic, normal inspection - Eye Eye exam: Present: normal appearance, PERRL, EOMI - Expanded Eye Exam Pupils: Left: reactive - ENT ENT exam: normal exam, normal oropharynx, mucous membranes moist - Expanded ENT Exam External ear exam: Present: normal external inspection Mouth exam: Present: normal external inspection Teeth exam: Present: normal inspection Throat exam: Present: normal inspection - Neck Neck exam: Present: normal inspection, full ROM, trachea midline - Chest Chest inspection: Present: normal inspection, symmetric chest wall rise - Respiratory Respiratory exam: Present: normal lung sounds bilaterally - Cardiovascular Cardiovascular exam: Present: regular rate, normal rhythm, normal heart sounds - Abdominal Exam Abdominal exam: Present: soft, Non-Tender. Absent: tenderness, distention, guarding, rebound, rigidity - Rectal Exam Rectal exam: Present: normal inspection, normal rectal tone, heme (+) stool, black stool - Extremities Exam Extremities exam: Present: normal inspection, full ROM. Absent: tenderness, pedal edema - Expanded Upper Extremity Exam Shoulder exam: Present: normal inspection, full ROM Arm exam: Present: normal inspection, full ROM Elbow exam: Present: normal inspection, full ROM Forearm/Wrist exam: Present: normal inspection, full ROM Hand exam: Present: normal inspection, full ROM Vascular exam: Normal: capillary refill, radial pulse - Expanded Lower Extremity Exam Hip/Pelvis exam: Present: normal inspection, full ROM Upper leg exam: Present: normal inspection, full ROM Knee exam: Present: normal inspection, full ROM Lower leg exam: Present: normal inspection, full ROM Ankle exam: Present: normal inspection, full ROM Foot/toe exam: Present: normal inspection, full ROM Neurovascular/Tendon exam: Absent: motor deficit, sensory deficit, tendon deficit - Back Exam Back exam: Present: normal inspection, full ROM. Absent: tenderness - Neurological Exam Neurological exam: Present: alert, oriented X3 - Expanded Neurological Exam Patient oriented to: Present: person, place, time Coma Scale Eye Opening: Spontaneous Coma Scale Motor Response: Obeys Commands Coma Scale Verbal Response: Oriented Coma Scale Total: 15 - Psychiatric Psychiatric exam: Present: normal affect, normal mood - Skin Skin exam: Present: warm, dry, intact, normal color Course Vital Signs Temperature 98.6 F 12/31/16 15:29 Pulse Rate 74 12/31/16 15:29 Respiratory Rate 18 12/31/16 15:29 Blood Pressure 94/55 12/31/16 15:29 O2 Sat by Pulse Oximetry 96 12/31/16 15:29 Temperature 98.6 F 12/31/16 15:29 Pulse Rate 66 12/31/16 17:23 Respiratory Rate 18 12/31/16 17:23 Blood Pressure 112/58 12/31/16 17:23 O2 Sat by Pulse Oximetry 96 12/31/16 17:23 Oxygen Delivery Oxygen Delivery Room Air Weakness - Differential Diagnosis Differential Diagnosis: Likely: anemia, hypoglycemia, metabolic - Medical Records Medical records reviewed: Yes I reviewed the patient's medical records. - Lab Data Lab results reviewed: Yes I reviewed the patient's lab results. Result diagrams: 12/31/16 15:46 12/31/16 15:46 Lab Results 12/31/16 12/31/16 12/31/16 Range/Units 15:46 15:46 15:46 WBC 8.2 (4.3-11.1) K/mcL RBC 2.65 L (4.19-5.50) M/mcL Hgb 7.8 L (12.9-16.9) g/dL Hct 25.0 L (37.5-50.1) % MCV 94.3 (83.0-100.0) fL MCH 29.4 (28.0-33.3) pg MCHC 31.2 L (31.6-35.5) g/dL RDW 15.7 H (11.5-14.5) % Plt Count 421 H (140-400) K/mcL MPV 9.1 L (9.4-12.4) fL Immature Gran % 0.6 (0-4) % Seg Neutrophils % 66.1 % Lymphocytes % 21.8 % Monocytes % 8.9 % Eosinophils % 2.0 % Basophils % 0.6 % Neutrophils # 5.4 (1.6-8.9) K/mcL Lymphocytes # 1.8 (0.6-4.6) K/mcL Monocytes # 0.7 (0.0-1.3) K/mcL Eosinophils # 0.2 (0.0-0.6) K/mcL Basophils # 0.1 (0.0-0.2) K/mcL PT 12.2 H (9.4-12.1) Seconds INR 1.1 APTT 32.0 (26.0-36.0) Seconds Sodium 138 (136-145) mEq/L Potassium 4.0 (3.5-4.5) mEq/L Chloride 106 (98-109) mEq/L Carbon Dioxide 26 (19-29) mEq/L BUN 20 (8-26) mg/dL Creatinine 0.68 L (0.72-1.25) mg/dL Est GFR ( Amer) > 60 (> 60) Est GFR (Non-Af Amer) > 60 (> 60) BUN/Creatinine Ratio 29 H (6-26) Glucose 114 H (70-99) mg/dL Calculated Osmolality 289 (280-300) Calcium 8.2 L (8.6-10.8) mg/dL Magnesium 1.9 (1.6-2.6) mg/dL Iron 22 L (65-175) mcg/dL % Saturation 7 L (20-55) % Transferrin 213 (174-364) mg/dL Troponin I (0-0.03) ng/mL Stool Occult Blood (Negative) Blood Type Antibody Screen Crossmatch 12/31/16 12/31/16 12/31/16 Range/Units 15:46 15:46 17:27 WBC (4.3-11.1) K/mcL RBC (4.19-5.50) M/mcL Hgb (12.9-16.9) g/dL Hct (37.5-50.1) % MCV (83.0-100.0) fL MCH (28.0-33.3) pg MCHC (31.6-35.5) g/dL RDW (11.5-14.5) % Plt Count (140-400) K/mcL MPV (9.4-12.4) fL Immature Gran % (0-4) % Seg Neutrophils % % Lymphocytes % % Monocytes % % Eosinophils % % Basophils % % Neutrophils # (1.6-8.9) K/mcL Lymphocytes # (0.6-4.6) K/mcL Monocytes # (0.0-1.3) K/mcL Eosinophils # (0.0-0.6) K/mcL Basophils # (0.0-0.2) K/mcL PT (9.4-12.1) Seconds INR APTT (26.0-36.0) Seconds Sodium (136-145) mEq/L Potassium (3.5-4.5) mEq/L Chloride (98-109) mEq/L Carbon Dioxide (19-29) mEq/L BUN (8-26) mg/dL Creatinine (0.72-1.25) mg/dL Est GFR ( Amer) (> 60) Est GFR (Non-Af Amer) (> 60) BUN/Creatinine Ratio (6-26) Glucose (70-99) mg/dL Calculated Osmolality (280-300) Calcium (8.6-10.8) mg/dL Magnesium (1.6-2.6) mg/dL Iron (65-175) mcg/dL % Saturation (20-55) % Transferrin (174-364) mg/dL Troponin I 0.00 (0-0.03) ng/mL Stool Occult Blood Positive A (Negative) Blood Type O POSITIVE Antibody Screen NEGATIVE Crossmatch See Detail Critical Care Time Critical Care Time: Yes Total Critical Care Time: 35 Attestation: Critical care performed: Time is exclusive of separately billable procedures. Time includes: direct patient care, patient reassessment, coordination of patient care, interpretation of data (laboratory data, radiology data, and respiratory data), review of patient's medical records, medical consultation and documentation of patient care. Procedures included in critical care time: Procedures excluded from critical care time:
[2016-12-31 16:28] LABS: BUN/Creatinine Ratio 29 (6-26); Blood Urea Nitrogen 20 mg/dL (8-26); Calcium 8.2 mg/dL (8.6-10.8); Carbon Dioxide 26 mEq/L (19-29); Chloride 106 mEq/L (98-109); Glucose 114 mg/dL (70-99); Magnesium 1.9 mg/dL (1.6-2.6); Osmolality,Calculated 289 (280-300); Sodium 138 mEq/L (136-145); eGFR For African Americans > 60 (> 60); eGFR For Non-African Americans > 60 (> 60)
[2016-12-31 16:31] LABS: Hemoglobin 7.8 g/dL (12.9-16.9)
[2016-12-31 16:47] LABS: % Iron Saturation 7 % (20-55); Iron 22 mcg/dL (65-175); Transferrin 213 mg/dL (174-364)
[2016-12-31] MEDS ORDERED: Pantoprazole 40 MG VIAL IVP ONE (17:37)
[2016-12-31] MEDS ORDERED: Ondansetron 4 MG/2 ML VIAL IVP ONE (18:19)
[2016-12-31] MEDS ORDERED: *HR* Morphine 2 MG/ML SYRINGE IVP ONE (18:19)
[2016-12-31] MEDS: 0.9 % Sodium Chloride 1,000 ML IVC SCH (18:44)
[2016-12-31] MEDS ORDERED: Ondansetron 4 MG/2 ML VIAL IVP PRN (20:18)
[2016-12-31] MEDS ORDERED: Acetaminophen 325 MG TABLET PO PRN (20:18)
[2016-12-31] MEDS ORDERED: *HR* Morphine 2 MG/ML SYRINGE IVP PRN (20:18)
[2016-12-31] MEDS ORDERED: Naloxone 0.4 MG/ML INJ IVP PRN (20:18)
[2016-12-31] MEDS ORDERED: *HR* HYDROcodone/Acet 5/325 mg TABLET PO PRN (20:26)
[2016-12-31] MEDS ORDERED: Nitroglycerin 0.4 MG TAB.SUBL SL PRN (20:26)
--- NOTE | 2016-12-31 20:44 | Internal Med History&Physical ---
Date of Encounter: 12/31/16 Time of Encounter: 19:40 Assessment and Plan (1) Acute blood loss anemia Current visit: Yes Status: Acute 1. Will transfuse PRBC's and monitor H/H closely. 2. I consulted Dr. Hanley and Dr. Lenz for guidance and assistance. 3. Will try to obtain GI bleeding scan tonight if possible. 4. Off Brilinta. Per cardiology recommendations, will continue Aspirin for now and monitor closely. 5. I requested ER staff place two large bore IV's. 6. Monitor on telemetry. (2) Upper GI bleed Current visit: No Status: Chronic 1. Patient has had several EGD's in the last month documenting gastric ulcer which is improving and showing no stigmata of active or recent bleeding. Therefore, will proceed with GI bleeding scan per Dr. Hanley's recommendation. Dr. Hanley on consult for endoscopy and surgical guidance as needed. 2. Will place on Protonix dirp and Carafate. 3. Monitor H/H closely. (3) CAD (coronary artery disease) Current visit: No Status: Chronic 1. Off Brilinta now. Continue aspirin. 2. Hold BB due to borderline bradycardia and concern for hypotension in the setting of GI bleeding. Resume BB when bleeding issues stabilized. 3. Continue other home meds as appropriate. 4. No signs or symptoms presently of angina. 5. Monitor on telemetry. 6. Cardiology consulted for guidance and assistance. Qualifiers: Coronary Disease-Associated Artery/Lesion type: [place] artery [place] vs. transplanted heart: [place] heart Associated angina: without angina Qualified Code(s): I25.10 - Atherosclerotic heart disease of [place] coronary artery without angina pectoris (4) DVT prophylaxis Current visit: No Status: Acute 1. EPCD's. 2. No anticoagulation due to active GI bleed. Internal Medicine - H&P: HPI Chief complaint: GI bleed Admitted From: Emergency Dept Plans for Post Hospital Care: Home History of present illness: Mr. Pool is a 76 year old male who presents with persistent and worsening melena over the last 2 days. He has been hospitalized several times since November 30 for GI bleeding. He underwent left heart catheterization with PCI and bare metal stent placement on November 30. He was placed on aspirin and Brilinta in addition to his cardiac medications. Since then, he has been hospitalized 4 times for GI bleeding and has had several endoscopies for his gastric ulcer. The last few endoscopies revealed no stigmata of active bleeding and a stable ulcer which appears to be improving and healing. However, he has had continued GI bleeding and persistent melena. According to patient and his daughter, he has had worsening melena and dropping hemoglobin over the last 2 days. Workup in the ER included routine labs and a dropping hemoglobin. He has had blood transfusion initiated and is now being admitted to the hospitalist service for further workup and care. On my assessment of the patient, he appears in no distress and feels well otherwise. He is a little emotionally and mentally exhausted from the recurrent hospitalizations since November regarding his GI bleeding. Otherwise, he states he feels well. He's had no appetite loss, unintentional weight loss, vomiting, or diarrhea. He's had no chest pain, shortness of breath, fevers, chills, or night sweats. Melena has been persistent for almost a whole month, but it has worsened over the last 2 days. I called and spoke with Dr. Hanley and Dr. Lenz requesting consultation and assistance. Dr. Hanley recommends trying to obtain a GI bleeding scan tonight if possible. He is off Brilinta now, but we will continue aspirin for now under the guidance of cardiology. Because of his borderline bradycardia and concern for hypotension, I'm going to hold his beta ernetsina for now until we can stabilize his bleeding issue. Past Med Surg Social Fam HX - Past Medical History Attestation: Yes The following information was validated with the patient. Source: patient, old records reviewed, obtained from family Medical history: arthritis, COPD, coronary artery disease, GI bleed, hyperlipidemia, hypertension, myocardial infarction Psychiatric history: depression - Past Surgical History Surgical History: angioplasty/stent, orthopedic, other - Social History Smoking Status: Current every day smoker Smokeless Tobacco Status: No Alcohol use: none Drug use: none Current living situation: Home Activity Level: Independent ambulation Recent Out of Country Travel Within the Last 8 Weeks: No - Family History Father Family Member Ethnicity: Non- Living Status: Hx Family Cardiac Disorders: No Hx Family Respiratory Disorders: No Hx Family Cancer: No Hx Family GI Disorders: No Hx Family Endocrine Disorder: No Hx Family Neuromuscular Disorders: No Hx Family Neurologic Disorders: No Hx Family HEENT Disorders: No Hx Family Autoimmune Disorders: No Internal Medicine - H&P: Meds FLUoxetine HCl [Prozac] 40 mg PO DAILY 11/18/16 [History] Aspirin [Lo-Dose Aspirin EC] 81 mg PO DAILY 11/30/16 [History] Atorvastatin [Lipitor] 40 mg PO HS 11/30/16 [History] Metoprolol XL (24 HR) Succ [Toprol Xl] 25 mg PO DAILY 11/30/16 [History] Isosorbide MONOnitrate (24 HR) [Imdur] 30 mg PO DAILY #30 tab.er.24h 12/01/16 [ Rx] Nitroglycerin 0.4 mg SL Q5MIN PRN #30 tab.subl 12/01/16 [Rx] Ticagrelor [Brilinta] 90 mg PO BID #60 tablet 12/01/16 [Rx] Albuterol Sulfate [Albuterol Inhaler] 2 puff IH Q4H PRN 12/06/16 [History] Oxycodone HCl/Acetaminophen [Percocet 5-325 mg Tablet] 1 tab PO Q6HR PRN [History] HYDROcodone/Acet 5/325 mg [[place] 5-325 mg] 1 tab PO BID PRN #20 tablet 12/27/16 [Rx] Omeprazole 40 mg PO BID #120 tablet.dr 12/27/16 [Rx] Potassium Chloride 10 meq PO DAILY #7 tab.er.prt 12/27/16 [Rx] Sucralfate [Carafate] 1 gm PO QIDAC #120 tablet 12/27/16 [Rx] Allergies No Known Allergies Allergy (Verified 12/21/16 22:19) - Constitutional Constitutional: no chills, no fever(s) - EENT Eyes: no blurry vision, no change in vision Ears: no ear pain, no tinnitus Nose, mouth and throat: no nasal congestion, no nasal discharge, no sore throat - Cardiovascular Cardiovascular ROS IM: no chest pain, no diaphoresis, no dyspnea, no dyspnea on exertion, no edema - Respiratory Respiratory: no cough, no hemoptysis, no dyspnea on exertion, no wheezing - Gastrointestinal Gastrointestinal: melena, no abdominal pain, no diarrhea, no hematemesis, no hematochezia, no nausea, no vomiting - Genitourinary Genitourinary ROS male: no dysuria, no flank pain - Musculoskeletal Musculoskeletal ROS IM: muscle cramps, no arthralgias, no back pain - Integumentary Integumentary IM: no rash, no jaundice - Neurological Neurological ROS: no focal weakness, no frequent falls, no headache(s) - Psychiatric Psychiatric: depression (mild -- due to ), no anxiety, no change in appetite - Endocrine Endocrine IM: no polydipsia, no polyuria - Hematologic/Lymphatic Hematologic/Lymphatic: easy bruising - Allergic/Immunologic Allergic/Immunologic: no GI upset with certain foods - Constitutional Vitals: Temp Pulse Resp BP Pulse Ox 98.3 F 58 18 114/58 99 12/31/16 19:15 12/31/16 19:41 12/31/16 19:48 12/31/16 19:48 12/31/16 19:41 General appearance: Present: cooperative, A&O X 3, pleasant, no acute distress, answers questions appropriately - Head Head exam: Present: atraumatic, normal inspection - Expanded Head Exam Head exam expanded: Absent: general tenderness - Eye Eye exam: Present: EOMI, PERRL. Absent: scleral icterus Pupils: Present: normal accommodation - ENT ENT exam: Present: mucous membranes dry, normal exam, normal oropharynx - Neck Neck exam general surgery: Present: full ROM, normal inspection, supple. Absent : tenderness, thyromegaly - Respiratory Respiratory exam: Present: CTAB. Absent: chest wall tenderness, rales, rhonchi , wheezes - Cardiovascular Cardiovascular exam: Present: RRR, +S1, +S2. Absent: diastolic murmur, systolic murmur - GI/Abdominal GI/Abdominal exam: Present: normal bowel sounds, soft, no peritoneal signs. Absent: guarding, hepatomegaly, mass, rebound, splenomegaly, tenderness - Extremities Exam Extremities exam: Present: full ROM, warm. Absent: calf tenderness, joint swelling, pedal edema - Back Exam Back exam: Present: normal inspection. Absent: CVA tenderness (L), CVA tenderness (R) - Neurological Exam Neurological exam: Present: alert, CN II-XII intact, oriented X3, no focal deficits - Psychiatric Psychiatric exam: Present: flat affect. Absent: anxious - Skin Skin exam: Present: dry, warm. Absent: rash Internal Med - H&P Results - Labs CBC & Chem 7: 12/31/16 15:46 12/31/16 15:46 - EKG Data -: EKG Interpreted by Myself EKG shows normal: sinus rhythm - EKG Data Prior EKG available for review: no EKG comments: 12/31/16 20:[address]-T changes; sinus rhythm
[2016-12-31] MEDS ORDERED: 0.9 % Sodium Chloride 500 ML ONE (21:28)
[2017-01-01] MEDS: Pantoprazole 40 MG in 0.9 % Sodium Chloride Mini Bag 100 ML IVC SCH ×6 (00:41→21:03)
[2017-01-01] MEDS: Sucralfate 1 GM TABLET PO SCH ×3 (00:46→19:40)
[2017-01-01] MEDS ORDERED: 0.9 % Sodium Chloride 500 ML ONE (03:34)
[2017-01-01] MEDS: FLUoxetine 20 MG CAPSULE PO SCH (08:06)
[2017-01-01] MEDS: Isosorbide MONOnitrate (24 HR) 30 MG TAB.ER.24H PO SCH (08:07)
[2017-01-01] MEDS: Aspirin Enteric Coated 81 MG Tablet PO SCH (08:15)
--- NOTE | 2017-01-01 09:29 | General Surgery Consult Note ---
<Pat Preciado - Last Filed: 01/01/17 17:57> Date of Encounter: 01/01/17 Time of Encounter: 09:27 Assessment and Plan (1) Acute blood loss anemia Current Visit: Yes Status: Acute Patient presents with worsening melena, fatigue, drop in hemoglobin for the last 2 days. He has had multiple hospitalizations since November for GI bleeding. He also recently underwent LHC with PCI BMS placement on November 30. He has had several endoscopies which have revealed a gastric ulcer that is not bleeding and is healing. He has had continued GI bleeding. He has been on Brilinta and aspirin following his stent placement. However, since his last admission the Brilinta as been stopped. Patient received a transfusion on admission. His hemoglobin increased from 7.8 to 10.9. GI Bleed Scan 12/31/16: no evidence of active GI bleeding during acquisition EGD 12/26/16: Non-bleeding gastric ulcer with no stigmata of bleeding. Colonoscopy 05/30/16: Two 3-6mm polyps in the descending colon and in the cecum were removed with a hot snare. Resected and retrieved. Otherwise normal exam. Pathology of the polyp in the cecum revealed tubular adenoma. Pathology of the polyp in descending colon revealed tubular adenoma. With repeated negative EGD and colonoscopy workups and GI bleed scan that shows no active bleeding, plan to monitor H\\H. Will consult GI for further recommendations and possible capsule endoscopy for further evaluation of bleeding. (2) Gastric ulcer Current Visit: Yes Status: Chronic Qualifiers: Gastric ulcer chronicity: chronic Gastric ulcer complication status: unspecified whether hemorrhage or perforation present Qualified Code(s): K25.7 - Chronic gastric ulcer without hemorrhage or perforation (3) Upper GI bleed Current Visit: No Status: Chronic (4) CAD (coronary artery disease) Current Visit: No Status: Chronic The patient is not currently on Brilinta. He remains on aspirin. Beta ernestina has been held by the medicine team Qualifiers: Coronary Disease-Associated Artery/Lesion type: [place] artery [place] vs. transplanted heart: [place] heart Associated angina: without angina Qualified Code(s): I25.10 - Atherosclerotic heart disease of [place] coronary artery without angina pectoris History of Present Illness Consult date: 01/01/17 Reason for consult: other (GI Bleed) Requesting physician: Brannon Fountain History of present illness: Mr. Pool is a 76-year-old male with a PMH of CAD, COPD, hyperlipidemia, hypertension, [place], GI bleed, gastric ulcer presented to the emergency department last evening with worsening melena and fatigue\\weakness for the last 2 days. Patient has been hospitalized several times since November 30 for GI bleeding. He has a known gastric ulcer that was last scoped recently one week ago with no active bleeding found. The patient did have a C with PCI and p.m. placement on November 30, at which time he was placed on aspirin and Brilinta. He has since been taken off the Brilinta, but remains on aspirin. The patient states that for the last few days he has been feeling increasingly weak and fatigued. He states that his legs feel like "Jell-O." He also has had worsening and persistent melena for the last 2 days. GI Bleed Scan 12/31/16: no evidence of active GI bleeding during acquisition EGD 12/26/16: Non-bleeding gastric ulcer with no stigmata of bleeding. Colonoscopy 05/30/16: Two 3-6mm polyps in the descending colon and in the cecum were removed with a hot snare. Resected and retrieved. Otherwise normal exam. Pathology of the polyp in the cecum revealed tubular adenoma. Pathology of the polyp in descending colon revealed tubular adenoma. Past Med Surg Social Fam HX - Past Medical History Medical history: arthritis, COPD, coronary artery disease, GI bleed, hyperlipidemia, hypertension, myocardial infarction Psychiatric history: depression - Past Surgical History Surgical History: angioplasty/stent, orthopedic, other - Social History Smoking Status: Current every day smoker Smokeless Tobacco Status: No Alcohol use: none Drug use: none - Family History Father Adopted: No Family Member Ethnicity: Non- Living Status: Cause of : lung cancer Hx Family Cardiac Disorders: No Hx Family Respiratory Disorders: No Hx Family Cancer: No Hx Family GI Disorders: No Hx Family Genitourinary Disorders: No Hx Family Endocrine Disorder: No Hx Family Musculoskeletal Disorders: No Hx Family Neuromuscular Disorders: No Hx Family Neurologic Disorders: No Hx Family HEENT Disorders: No Hx Family Autoimmune Disorders: No Hx Family Reproductive Disorders: No Hx Family Psychosocial Disorders: No Hx Family Medical Disorders: No Medications and Allergies FLUoxetine HCl [Prozac] 40 mg PO DAILY 11/18/16 [History] Aspirin [Lo-Dose Aspirin EC] 81 mg PO DAILY 11/30/16 [History] Atorvastatin [Lipitor] 40 mg PO HS 11/30/16 [History] Metoprolol XL (24 HR) Succ [Toprol Xl] 25 mg PO DAILY 11/30/16 [History] Isosorbide MONOnitrate (24 HR) [Imdur] 30 mg PO DAILY #30 tab.er.24h 12/01/16 [ Rx] Nitroglycerin 0.4 mg SL Q5MIN PRN #30 tab.subl 12/01/16 [Rx] Ticagrelor [Brilinta] 90 mg PO BID #60 tablet 12/01/16 [Rx] Albuterol Sulfate [Albuterol Inhaler] 2 puff IH Q4H PRN 12/06/16 [History] Oxycodone HCl/Acetaminophen [Percocet 5-325 mg Tablet] 1 tab PO Q6HR PRN [History] HYDROcodone/Acet 5/325 mg [[place] 5-325 mg] 1 tab PO BID PRN #20 tablet 12/27/16 [Rx] Omeprazole 40 mg PO BID #120 tablet.dr 12/27/16 [Rx] Potassium Chloride 10 meq PO DAILY #7 tab.er.prt 12/27/16 [Rx] Sucralfate [Carafate] 1 gm PO QIDAC #120 tablet 12/27/16 [Rx] Allergies No Known Allergies Allergy (Verified 12/21/16 22:19) Review of Systems All systems PM: A 10-system review of systems was performed and is negative for pertinent findings except as documented above in the HPI. - Constitutional fatigue, malaise, weakness, no chills, no fever(s), no headache(s) - EENT Nose, mouth and throat: no dizziness - Cardiovascular no chest pain, no palpitations - Respiratory no dyspnea - Gastrointestinal abdominal pain, melena, no diarrhea, no hematemesis, no hematochezia, no nausea , no vomiting - Genitourinary no dysuria - Musculoskeletal muscle weakness - Integumentary no erythema, no rash, no unusual bruising - Neurological weakness, no confusion, no dizziness, no headache(s) - Psychiatric no anxiety, no confusion, no depression General Surgery Exam Initial Vital Signs Temp Pulse Resp BP Pulse Ox 98.6 F 74 18 94/55 96 12/31/16 15:29 12/31/16 15:29 12/31/16 15:29 12/31/16 15:29 12/31/16 15:29 - General physical appearance well developed, well nourished, no distress, no pain - Eyes PERRL, normal ocular movement - ENT normal pinna, normal nares, normal mucosa, atraumatic, normocephalic - Neck no masses, trachea midline - Respiratory normal expansion, normal respiratory effort, clear to auscultation - Cardiovascular Cardiovascular exam: Present: RRR, no murmurs/rubs/gallops - Abdomen Abdomen general surgery: Present: bowel sounds present, soft, tender. Absent: distended Abdominal Tenderness: Present: diffusely (mild) - Integumentary Integumentary general surgery: Present: warm and dry, no abnormal pigmentation - Neurologic Present: CN 2-12 grossly intact, normal coordination, normal sensation - Musculoskeletal Present: normal gait, normal posture - Psychiatric Psychiatric general surgery: Present: appropriate, oriented to person, oriented to place, oriented to time, speech is normal, memory intact Exam Initial Vital Signs Temp Pulse Resp BP Pulse Ox 98.6 F 74 18 94/55 96 12/31/16 15:29 12/31/16 15:29 12/31/16 15:29 12/31/16 15:29 12/31/16 15:29 Results - Labs 01/01/17 11:58 01/01/17 11:58 Abnormal lab results RBC 2.65 M/mcL (4.19-5.50) L 12/31/16 15:46 Hgb 7.8 g/dL (12.9-16.9) L 12/31/16 15:46 Hct 25.0 % (37.5-50.1) L 12/31/16 15:46 MCHC 31.2 g/dL (31.6-35.5) L 12/31/16 15:46 RDW 15.7 % (11.5-14.5) H 12/31/16 15:46 Plt Count 421 K/mcL (140-400) H 12/31/16 15:46 MPV 9.1 fL (9.4-12.4) L 12/31/16 15:46 PT 12.2 Seconds (9.4-12.1) H 12/31/16 15:46 Creatinine 0.68 mg/dL (0.72-1.25) L 12/31/16 15:46 BUN/Creatinine Ratio 29 (6-26) H 12/31/16 15:46 Glucose 114 mg/dL (70-99) H 12/31/16 15:46 Calcium 8.2 mg/dL (8.6-10.8) L 12/31/16 15:46 Iron 22 mcg/dL (65-175) L 12/31/16 15:46 % Saturation 7 % (20-55) L 12/31/16 15:46 Stool Occult Blood Positive (Negative) A 12/31/16 17:27 All other labs normal. - Imaging Additional studies: GI Bleed Scan Nuclear Medicine 12/31/16 20:18 IMPRESSION: No evidence of active GI bleeding during acquisition. RECOMMENDATIONS: If the patient shows hemodynamic signs of an active bleed in the next 20 hours, additional images can be acquired. D/ / Wood Puckett MD / Wood Puckett MD Interpreting Provider: Wood Puckett MD Consult Discharge Plan - Plan Referrals: Yen Way [Primary Care Provider] - 01/09/17 2:45 pm <Eduardo Hanley - Last Filed: 01/02/17 08:03> Date of Encounter: 01/02/17 Review of Systems All systems PM: A 10-system review of systems was performed and is negative for pertinent findings except as documented above in the HPI. General Surgery Exam Initial Vital Signs Temp Pulse Resp BP Pulse Ox 98.6 F 74 18 94/55 96 12/31/16 15:29 12/31/16 15:29 12/31/16 15:29 12/31/16 15:29 12/31/16 15:29 Exam Initial Vital Signs Temp Pulse Resp BP Pulse Ox 98.6 F 74 18 94/55 96 12/31/16 15:29 12/31/16 15:29 12/31/16 15:29 12/31/16 15:29 12/31/16 15:29 Results - Labs 01/02/17 06:35 01/02/17 06:35 Abnormal lab results Hgb 12.1 g/dL (12.9-16.9) L 01/02/17 06:35 MCHC 31.3 g/dL (31.6-35.5) L 01/02/17 06:35 RDW 16.4 % (11.5-14.5) H 01/02/17 06:35 Plt Count 419 K/mcL (140-400) H 01/02/17 06:35 Creatinine 0.69 mg/dL (0.72-1.25) L 01/02/17 06:35 Calcium 8.2 mg/dL (8.6-10.8) L 01/02/17 06:35 Magnesium 1.5 mg/dL (1.6-2.6) L 01/01/17 11:58 Iron 22 mcg/dL (65-175) L 12/31/16 15:46 % Saturation 7 % (20-55) L 12/31/16 15:46 Serum Total Protein 5.1 g/dL (6.0-8.3) L 01/01/17 11:58 Albumin 2.5 g/dL (3.5-5.0) L 01/01/17 11:58 Albumin/Globulin Ratio 1.0 (1.1-2.2) L 01/01/17 11:58 Stool Occult Blood Positive (Negative) A 12/31/16 17:27 Diabetes panel 01/01/17 01/02/17 Range/Units 11:58 06:35 Sodium 139 141 (136-145) mEq/L Potassium 4.2 4.1 (3.5-4.5) mEq/L Chloride 108 108 (98-109) mEq/L Carbon Dioxide 26 26 (19-29) mEq/L BUN 16 15 (8-26) mg/dL Creatinine 0.66 L 0.69 L (0.72-1.25) mg/dL Glucose 85 92 (70-99) mg/dL Calcium 8.1 L 8.2 L (8.6-10.8) mg/dL AST 17 (5-34) Units/L ALT 13 (0-55) Units/L Alkaline Phosphatase 60 (38-126) Units/L Albumin 2.5 L (3.5-5.0) g/dL Calcium panel 01/01/17 01/02/17 Range/Units 11:58 06:35 Calcium 8.1 L 8.2 L (8.6-10.8) mg/dL Albumin 2.5 L (3.5-5.0) g/dL Pituitary panel 01/01/17 01/02/17 Range/Units 11:58 06:35 Sodium 139 141 (136-145) mEq/L Potassium 4.2 4.1 (3.5-4.5) mEq/L Chloride 108 108 (98-109) mEq/L Carbon Dioxide 26 26 (19-29) mEq/L BUN 16 15 (8-26) mg/dL Creatinine 0.66 L 0.69 L (0.72-1.25) mg/dL Glucose 85 92 (70-99) mg/dL Calcium 8.1 L 8.2 L (8.6-10.8) mg/dL Adrenal panel 01/01/17 01/02/17 Range/Units 11:58 06:35 Sodium 139 141 (136-145) mEq/L Potassium 4.2 4.1 (3.5-4.5) mEq/L Chloride 108 108 (98-109) mEq/L Carbon Dioxide 26 26 (19-29) mEq/L BUN 16 15 (8-26) mg/dL Creatinine 0.66 L 0.69 L (0.72-1.25) mg/dL Glucose 85 92 (70-99) mg/dL Calcium 8.1 L 8.2 L (8.6-10.8) mg/dL Total Bilirubin 1.0 (0.2-1.2) mg/dL AST 17 (5-34) Units/L ALT 13 (0-55) Units/L Alkaline Phosphatase 60 (38-126) Units/L Albumin 2.5 L (3.5-5.0) g/dL All other labs normal. - Attending Attestation The patient has had multiple episodes of bleeding. The bleeding scan shows no active bleeding. He has a known gastric ulcer with no visible bleeding on the last 2 upper endoscopy examinations. I have recommended consideration for capsule endoscopy to rule out small bowel as the cause of the bleeding. We will work closely with gastroenterology to try and identify and treat the source of bleeding. Eduardo Hanley MD FACS
--- NOTE | 2017-01-01 11:08 | Cardiology Consult Note ---
Date of Encounter: 01/01/17 Time of Encounter: 10:30 Assessment and Plan (1) Upper GI bleed Current Visit: No Status: Chronic Per cardiology: -KNown history of upper GI bleed. -Hemoglobin 7.8. -Patient is now off of brilinta. -Management per primary and surgical services. (2) CAD (coronary artery disease) Current Visit: No Status: Chronic Per cardiology: -Known history of CAD with bare metal stent placed 11/30/16. Was on asa and brilinta. Brilinta was stopped 12/30/16. -LHC 11/30/16 with 80-90% proximal LAD stenosis with BMS placed, 100% mid circumflex that recannulizes, small vessel, mid RCA INVESTOR with left to right collateral, 70% stenosis proximal RCA. -Echo 10/2016 with LVEF 55%, mild diastolic dysfunction, no significant valvular dysfunction, the mid inferior, basal inferior, basal inferior septal, and basal inferior lateral wall akinetic, all other wall segments with normal motion. -ON asa, imdur, and statin. -Was on beta ernestina, held by primary team due to bradycardia. -Average HR per tele 58. -Recommend re-starting low dose beta ernestina when deemed clinically appropriate. -Recommend continuing asa. -Cardiology will sign off and will follow in outpatient setting. FOllow up set. Qualifiers: Coronary Disease-Associated Artery/Lesion type: [place] artery [place] vs. transplanted heart: [place] heart Associated angina: without angina Qualified Code(s): I25.10 - Atherosclerotic heart disease of [place] coronary artery without angina pectoris (3) Anemia Current Visit: No Status: Chronic Per cardiology: -Hemoglobin 7.8. -KNown history of GI bleed. -PRBC transfusion this admission. -Management per primary and surgical services. Qualifiers: Anemia type: other cause Other causes of anemia: other cause, not classified Qualified Code(s): D64.89 - Other specified anemias (4) Peripheral arterial disease Current Visit: No Status: Chronic Per cardiology: -Known history of PAD. -Patient was supposed to have aorto-iliac bypass, however needed pre-op cardiac clearance. Pateint had abnormal stress which led to LHC and BMS being placed. -Management per primary service. -Can consider vascular consult. Discussion w patient/family: The assessment and plan as outlined above was discussed with the patient and/or family members who expressed understanding and agreement. All questions were answered. Thank you for involving us in the care of your patient. Please call with any questions. Discussed and reviewed with . History of Present Illness Consult date: 12/31/16 Requesting physician: Brannon Fountain Consult reason: Recent PCI, BMS, now off brilinta Chief complaint: GI bleeding History of present illness: Mr. Pool is a 76 year old male with a relevant past medical history of CAD, HTN, COPD, GI bleeding. Patient underwent LHC 11/30/16 with bare metal stent placement to proximal LAD. Patient had recurrent GI bleed while on dual anti- platelet therapy. Cardiology recommended dual anti-platelet therapy for 1 month. Patient stopped brilinta on 12/30/16. Patient with another episode of recurrent GI bleed this admission. Patient has received PRBC transfusion. Hemoglobin on admission 7.8, stools positive for occult blood. Cardiology was consulted for recommendations with recent BMS and GI bleeding. Patient denies chest pain, shortness of breath, or increased fatigue. Past Med Surg Social Fam HX - Past Medical History Attestation: Yes The following information was validated with the patient. Source: patient, old records reviewed, obtained from family Medical history: arthritis, COPD, coronary artery disease, GI bleed, hyperlipidemia, hypertension, myocardial infarction Psychiatric history: depression - Past Surgical History Surgical History: angioplasty/stent, orthopedic, other - Social History Smoking Status: Current every day smoker Smokeless Tobacco Status: No Alcohol use: none Drug use: none - Family History Father Adopted: No Family Member Ethnicity: Non- Living Status: Cause of : lung cancer Hx Family Cardiac Disorders: No Hx Family Respiratory Disorders: No Hx Family Cancer: No Hx Family GI Disorders: No Hx Family Genitourinary Disorders: No Hx Family Endocrine Disorder: No Hx Family Musculoskeletal Disorders: No Hx Family Neuromuscular Disorders: No Hx Family Neurologic Disorders: No Hx Family HEENT Disorders: No Hx Family Autoimmune Disorders: No Hx Family Reproductive Disorders: No Hx Family Psychosocial Disorders: No Hx Family Medical Disorders: No Medications and Allergies FLUoxetine HCl [Prozac] 40 mg PO DAILY 11/18/16 [History] Aspirin [Lo-Dose Aspirin EC] 81 mg PO DAILY 11/30/16 [History] Atorvastatin [Lipitor] 40 mg PO HS 11/30/16 [History] Metoprolol XL (24 HR) Succ [Toprol Xl] 25 mg PO DAILY 11/30/16 [History] Isosorbide MONOnitrate (24 HR) [Imdur] 30 mg PO DAILY #30 tab.er.24h 12/01/16 [ Rx] Nitroglycerin 0.4 mg SL Q5MIN PRN #30 tab.subl 12/01/16 [Rx] Ticagrelor [Brilinta] 90 mg PO BID #60 tablet 12/01/16 [Rx] Albuterol Sulfate [Albuterol Inhaler] 2 puff IH Q4H PRN 12/06/16 [History] Oxycodone HCl/Acetaminophen [Percocet 5-325 mg Tablet] 1 tab PO Q6HR PRN [History] HYDROcodone/Acet 5/325 mg [[place] 5-325 mg] 1 tab PO BID PRN #20 tablet 12/27/16 [Rx] Omeprazole 40 mg PO BID #120 tablet.dr 12/27/16 [Rx] Potassium Chloride 10 meq PO DAILY #7 tab.er.prt 12/27/16 [Rx] Sucralfate [Carafate] 1 gm PO QIDAC #120 tablet 12/27/16 [Rx] Allergies No Known Allergies Allergy (Verified 12/21/16 22:19) All Systems Review: A 10-system review of systems was performed and is negative for pertinent findings except as documented above in the HPI. - Constitutional Constitutional: weakness - Cardiovascular Cardiovascular: as per HPI - Gastrointestinal Gastrointestinal: melena Physical Examination Vital Signs, Last 4 Hours Temp Pulse Resp BP Pulse Ox 01/01/17 07:55 14 93 01/01/17 07:15 97.5 F L 58 16 166/77 94 General: Conversant, No Apparent Distress HEENT: Atraumatic, Normocephaly, Mucus Membranes Moist Neck: No JVD, Normal carotid pulses Cardiac: Reg Rate and Rhythm, Normal S1 and S2, No Murmur Lungs: Normal Breath Sounds, No Wheeze, Rales, Rhonchi Neuro: Alert and responsive, No focal deficits noted Abdomen: Soft, Non-Tender Skin: No rashes noted on visualized skin Musculoskeletal: No Chest Wall Tenderness Extremities: No Clubbing, No Cyanosis, No Edema, Other (Diminished pedal pulses bilaterally, toes warm with good capillary refill. ) Results 12/31/16 15:46 12/31/16 15:46 Impressions GI Bleed Scan Nuclear Medicine 12/31/16 20:18 IMPRESSION: No evidence of active GI bleeding during acquisition. RECOMMENDATIONS: If the patient shows hemodynamic signs of an active bleed in the next 20 hours, additional images can be acquired. D/ / Wood Puckett MD / Wood Puckett MD Interpreting Provider: Wood Puckett MD Active Medications Acetaminophen (Tylenol) 650 mg PO Q6HR PRN PRN Reason: Mild Pain (1-3) Stop: 07/02/17 20:19 Acetaminophen/Hydrocodone Bitart ([place] 5-325 Mg) 1 tab PO BID PRN PRN Reason: for moderate Pain Stop: 07/02/17 20:27 Albuterol Sulfate (Albuterol Inhaler) 2 puff IH [id number] [facility] Stop: 07/03/17 00:01 Last Admin: 01/01/17 11:04 Dose: Not Given Aspirin (Aspirin Ec) 81 mg PO DAILY [facility] Stop: 07/03/17 09:01 Last Admin: 01/01/17 08:15 Dose: Not Given Fluoxetine HCl (Prozac) 40 mg PO DAILY [facility] Stop: 07/03/17 09:01 Last Admin: 01/01/17 08:06 Dose: 40 mg Sodium Chloride (0.9 % Sodium Chloride) 1,000 mls @ 75 mls/hr IVC .[id number] [facility] Stop: 07/02/17 18:31 Last Admin: 12/31/16 18:44 Dose: 75 mls/hr Pantoprazole Sodium 40 mg/ (Sodium Chloride) 100 mls @ 20 mls/hr IVC .Q5H [facility] Stop: 07/02/17 20:31 Last Admin: 01/01/17 08:11 Dose: 20 mls/hr Isosorbide Mononitrate (Imdur) 30 mg PO DAILY [facility] Stop: 07/03/17 09:01 Last Admin: 01/01/17 08:07 Dose: 30 mg Morphine Sulfate (Morphine Sulfate) 1 mg IVP Q3H PRN PRN Reason: Severe Pain (7-10) Stop: 07/02/17 20:19 Naloxone HCl (Narcan) 0.4 mg IVP Q2MIN PRN PRN Reason: Opioid Reversal Stop: 07/02/17 20:19 Nitroglycerin (Nitroglycerin) 0.4 mg SL Q5MIN PRN PRN Reason: Chest Pain Stop: 07/02/17 20:27 Ondansetron HCl (Zofran) 4 mg IVP Q8HR PRN PRN Reason: Nausea And Vomiting Stop: 07/02/17 20:19 Simvastatin (Zocor) 40 mg PO HS [facility] Stop: 07/02/17 21:01 Last Admin: 01/01/17 00:46 Dose: 40 mg Sucralfate (Carafate) 1 gm PO QIDAC [facility] Stop: 07/02/17 22:01 Last Admin: 01/01/17 08:06 Dose: 1 gm Sucralfate (Carafate) 1 gm PO QIDAC [facility] Stop: 07/03/17 11:46 Laboratory Tests 12/31/16 12/31/16 12/31/16 15:46 15:46 17:27 Hgb 7.8 L Hct 25.0 L Potassium 4.0 Creatinine 0.68 L Magnesium 1.9 Stool Occult Blood Positive A - Imaging and Cardiology Chest Xray: report reviewed Cardiac cath: report reviewed - EKG Interpretation EKG results cardiology: personally reviewed (ECG reviewed with sinus rhythm, HR 67.), other (Telemetry reviewed with average HR 58, sinus bradycardia. No significant events noted.) Consult Discharge Plan - Plan Referrals: Yen Way [Primary Care Provider] - 01/09/17 2:45 pm
[2017-01-01] MEDS ORDERED: *HR* HYDROcodone/Acet 5/325 mg TABLET PO PRN (11:33)
[2017-01-01 12:17] LABS: Basophils # 0.1 K/mcL (0.0-0.2); Eosinophils # 0.2 K/mcL (0.0-0.6); Eosinophils % 3.2 %; Immature Granulocytes % 0.4 % (0-4); Immature Platelets 2.3 % (1.1-6.1); Lymphocytes # 1.4 K/mcL (0.6-4.6); Lymphocytes % 20.7 %; Mean Corpuscular HGB Conc 32.1 g/dL (31.6-35.5); Mean Corpuscular Hemoglobin 28.5 pg (28.0-33.3); Monocytes # 0.6 K/mcL (0.0-1.3); Monocytes % 8.8 %; Neutrophils # 4.5 K/mcL (1.6-8.9); Platelet Count 380 K/mcL (140-400); Red Blood Count 3.82 M/mcL (4.19-5.50); Red Cell Distribution Width 16.4 % (11.5-14.5); Segmented Neutrophils % 65.9 %
[2017-01-01 12:21] LABS: INR 1.1; Prothrombin Time 11.8 Seconds (9.4-12.1)
[2017-01-01 12:25] LABS: Hemoglobin 10.9 g/dL (12.9-16.9)
[2017-01-01 12:30] LABS: Alanine Aminotransferase 13 Units/L (0-55); Albumin 2.5 g/dL (3.5-5.0); Alkaline Phosphatase 60 Units/L (38-126); Aspartate Amino Transferase 17 Units/L (5-34); BUN/Creatinine Ratio 24 (6-26); Blood Urea Nitrogen 16 mg/dL (8-26); Calcium 8.1 mg/dL (8.6-10.8); Carbon Dioxide 26 mEq/L (19-29); Chloride 108 mEq/L (98-109); Globulin 2.6 g/dL (2.4-3.5); Glucose 85 mg/dL (70-99); Magnesium 1.5 mg/dL (1.6-2.6); Osmolality,Calculated 288 (280-300); Potassium 4.2 mEq/L (3.5-4.5); Sodium 139 mEq/L (136-145); Total Protein 5.1 g/dL (6.0-8.3); eGFR For African Americans > 60 (> 60); eGFR For Non-African Americans > 60 (> 60)
[2017-01-01] MEDS: Metoprolol XL (24 HR) Succ 25 MG TAB.ER.24H PO SCH (12:56)
--- NOTE | 2017-01-01 12:56 | Event Note ---
Date of Encounter: 01/01/17 Time of Encounter: 12:00 Patient with recurrent GI bleeding obscure with anemia/melena had scopes done by Dr. Lundberg/Kal but no obvious source. Patient also with a cardiac cath with stenting recently and was on Brilinta. Per family/pt probably with bleeding started after being on that medication. Currently is been off itfor the last few days. At this point patient do not want any enteroscopy/cap endoscopy and he would like to wait to see whether his hemoglobin stabilizes after being off of Brilinta. Patient will follow with Carmen Rosenberg as an outpatient and if still with anemia then we will schedule a capsule endoscopy as an outpatient
[2017-01-01] MEDS: 0.9 % Sodium Chloride 1,000 ML IVC SCH (13:00)
--- NOTE | 2017-01-01 13:12 | Electrocardiograph Report ---
[place] [id number] Test Date: 2016-12-31 Pat Name: Yoni Pool Department: 102 Room: 3A Gender: M [employer] Specialist: Leon : 1940 Requested By: Pablo Paulino Order Number: [id number] Reading MD: Mauro Sarabia MD Measurements Intervals [place] Rate: 67 P: 76 HI: 183 QRS: 68 QRSD: 86 T: 25 QT: 424 QTc: 439 Interpretive Statements SINUS RHYTHM Electronically Signed On 01-01-2017 13:10:32 EDT by Mauro Sarabia MD
--- NOTE | 2017-01-01 14:35 | Internal Med Progress Note ---
Date of Encounter: 01/01/17 Time of Encounter: 14:33 - Assessment and plan (1) Acute blood loss anemia Current Visit: Yes Status: Acute Assessment and plan: Posttransfusion hemoglobin level is 10.9. Patient is now off Brillinta she has not had any further episodes of bleeding /melena or hematemesis. They recommend outpatient capsule endoscopy. Monitor hemoglobin counts. if these remain stable, patient maybe discharged tomorrow (2) CAD (coronary artery disease) Current Visit: No Status: Chronic Assessment and plan: Not having acute chest pain. COntinue aspirin, beta ernestina, statin Qualifiers: Coronary Disease-Associated Artery/Lesion type: [place] artery [place] vs. transplanted heart: [place] heart Associated angina: without angina Qualified Code(s): I25.10 - Atherosclerotic heart disease of [place] coronary artery without angina pectoris (3) Upper GI bleed Current Visit: No Status: Chronic Assessment and plan: Seems to be stabilizing. GI, surgery on board. - Subjective Interval history: Complains of nausea. Has not had any further new episodes of melena or hematemesis. Concerned about discoloration noted at nailbeds of third and fourth toes on the right side. No abdominal pain. - Constitutional Vitals: Temp Pulse Resp BP Pulse Ox 98.0 F 56 18 135/57 93 01/01/17 11:39 01/01/17 11:39 01/01/17 11:39 01/01/17 11:39 01/01/17 11:39 General appearance: Present: cooperative, A&O X 3, pleasant, no acute distress, answers questions appropriately - Respiratory Respiratory exam: Present: CTAB. Absent: accessory muscle use, rales, rhonchi, wheezes - Cardiovascular Cardiovascular exam: Present: RRR, +S1, +S2. Absent: diastolic murmur, gallop, rubs, systolic murmur - GI/Abdominal GI/Abdominal exam: Present: normal bowel sounds, soft, no peritoneal signs. Absent: distended, tenderness - Extremities Exam Extremities exam: Present: warm, radial pulses palpable and symetrical. Absent : calf tenderness, cyanotic, pedal edema Additional comments: The third and fourth toenails on the right foot seem to be getting the detached due to underlying fungal infection. No signs of gangrene. - Neurological Exam Neurological exam: Present: alert, oriented X3, no focal deficits. Absent: facial droop, speech deficit Internal Medicine: Result - Labs CBC & Chem 7: 01/01/17 11:58 01/01/17 11:58 Labs: Short CBC 01/01/17 Range/Units 11:58 WBC 6.8 (4.3-11.1) K/mcL Hgb 10.9 L D (12.9-16.9) g/dL Hct 34.0 L (37.5-50.1) % Plt Count 380 (140-400) K/mcL Neutrophils # 4.5 (1.6-8.9) K/mcL BMP 01/01/17 11:58 Sodium 139 Potassium 4.2 Chloride 108 Carbon Dioxide 26 BUN 16 Creatinine 0.66 L Glucose 85 Calcium 8.1 L Liver Function 01/01/17 Range/Units 11:58 Total Bilirubin 1.0 (0.2-1.2) mg/dL AST 17 (5-34) Units/L ALT 13 (0-55) Units/L Alkaline Phosphatase 60 (38-126) Units/L Albumin 2.5 L (3.5-5.0) g/dL - ABG Interpretation ABG results: PT/INR, D-dimer PT 11.8 Seconds (9.4-12.1) 01/01/17 11:58 Consult Discharge Plan - Plan Referrals: Yen Way [Primary Care Provider] - 01/09/17 2:45 pm - Attending Attestation This document has been at least partially created by [employer] recognition technology by Dr. Miranda. Errors in grammar, wording or other phrases may exist. If errors are found after the documentation is signed, they will be addressed individually in the addendum section of this document when appropriate.
[2017-01-02] MEDS: 0.9 % Sodium Chloride 1,000 ML IVC SCH (02:08)
[2017-01-02] MEDS: Pantoprazole 40 MG in 0.9 % Sodium Chloride Mini Bag 100 ML IVC SCH ×2 (02:08→07:57)
[2017-01-02 06:58] VITALS: BP 161/74
[2017-01-02 07:03] LABS: Basophils # 0.1 K/mcL (0.0-0.2); Basophils % 0.9 %; Eosinophils # 0.3 K/mcL (0.0-0.6); Eosinophils % 3.8 %; Hematocrit 38.7 % (37.5-50.1); Hemoglobin 12.1 g/dL (12.9-16.9); Immature Granulocytes % 0.4 % (0-4); Immature Platelets 2.4 % (1.1-6.1); Lymphocytes % 14.9 %; Mean Corpuscular HGB Conc 31.3 g/dL (31.6-35.5); Mean Corpuscular Hemoglobin 28.5 pg (28.0-33.3); Mean Corpuscular Volume 91.3 fL (83.0-100.0); Mean Platelet Volume 9.5 fL (9.4-12.4); Monocytes # 0.6 K/mcL (0.0-1.3); Monocytes % 8.1 %; Neutrophils # 5.5 K/mcL (1.6-8.9); Platelet Count 419 K/mcL (140-400); Red Blood Count 4.24 M/mcL (4.19-5.50); Red Cell Distribution Width 16.4 % (11.5-14.5); Segmented Neutrophils % 71.9 %
[2017-01-02 07:16] LABS: Lymphocytes # 1.2 K/mcL (0.6-4.6)
[2017-01-02 07:17] LABS: BUN/Creatinine Ratio 22 (6-26); Blood Urea Nitrogen 15 mg/dL (8-26); Calcium 8.2 mg/dL (8.6-10.8); Carbon Dioxide 26 mEq/L (19-29); Chloride 108 mEq/L (98-109); Glucose 92 mg/dL (70-99); Osmolality,Calculated 292 (280-300); Potassium 4.1 mEq/L (3.5-4.5); Sodium 141 mEq/L (136-145); eGFR For African Americans > 60 (> 60); eGFR For Non-African Americans > 60 (> 60)
[2017-01-02] MEDS: Isosorbide MONOnitrate (24 HR) 30 MG TAB.ER.24H PO SCH (07:54)
[2017-01-02] MEDS: FLUoxetine 20 MG CAPSULE PO SCH (07:54)
[2017-01-02] MEDS: Aspirin Enteric Coated 81 MG Tablet PO SCH (07:54)
[2017-01-02] MEDS: Metoprolol XL (24 HR) Succ 25 MG TAB.ER.24H PO SCH (07:54)
--- NOTE | 2017-01-02 08:11 | General Surgery Progress Note ---
Date of Encounter: 01/02/17 Time of Encounter: 08:11 - Assessment and Plan (1) Acute blood loss anemia Status: Acute Patient has been off of Brilinta for 4 days. Patient received 3 units of blood on admission. His hemoglobin increased from 7.8, 10.9 to 12.1 and hematocrit is 38.7 today GI Bleed Scan 12/31/16: no evidence of active GI bleeding during acquisition EGD 12/26/16: Non-bleeding gastric ulcer with no stigmata of bleeding. Colonoscopy 05/30/16: Two 3-6mm polyps in the descending colon and in the cecum were removed with a hot snare. Resected and retrieved. Otherwise normal exam. Pathology of the polyp in the cecum revealed tubular adenoma. Pathology of the polyp in descending colon revealed tubular adenoma. With repeated negative EGD and colonoscopy workups and GI bleed scan that shows no active bleeding, H\H stable. GI was consulted for possible capsule endoscopy, patient prefers to wait to see how his hemoglobin does well he is off Brilinta. He will follow-up as an outpatient for further evaluation of bleeding, will need H\H monitoring as well. (2) Gastric ulcer Status: Chronic Qualifiers: Gastric ulcer chronicity: chronic Gastric ulcer complication status: unspecified whether hemorrhage or perforation present Qualified Code(s): K25.7 - Chronic gastric ulcer without hemorrhage or perforation (3) Upper GI bleed Status: Chronic (4) CAD (coronary artery disease) Status: Chronic The patient is not currently on Brilinta. He remains on aspirin. Beta ernestina has been held by the medicine team Qualifiers: Coronary Disease-Associated Artery/Lesion type: [place] artery [place] vs. transplanted heart: [place] heart Associated angina: without angina Qualified Code(s): I25.10 - Atherosclerotic heart disease of [place] coronary artery without angina pectoris Subjective Patient reports: no new complaints, feels better Narrative: The patient was seen and examined. He denies any abdominal pain. He does complain of increased shortness of breath today. Objective Vital Signs - Last 8 Hours Temp Pulse Resp BP Pulse Ox 01/02/17 06:57 98.3 F 64 16 161/74 90 01/02/17 06:08 18 93 01/02/17 03:43 98.4 F 76 18 186/89 93 Intake and Output 01/01/17 01/02/17 01/02/17 23:59 07:59 15:59 Intake Total 1607 / 1607 653 / 653 Output Total 0 / 0 200 / 200 Balance 1607 / 1607 453 / 453 Intake: IV Fluids 647 / 647 653 / 653 0.9 % Sodium Chloride 1, 547 / 547 453 / 453 000 ML @ 75 mls/hr IVC . [id number] [facility]IA[facility] Rx#: [id number] Protonix 40 MG In 0.9 % 100 / 100 200 / 200 Sodium Chloride (Mini-Bag +) 100 ML @ 20 mls/hr IVC .Q5H [facility] Rx#: [id number] Oral 960 / 960 0 / 0 Output: Urine 0 / 0 200 / 200 Other: # Voids 1 # Bowel Movements 1 Weight 46.357 kg Patient Weight 01/02/17 23:59 Weight 46.357 kg - General physical appearance well developed, well nourished, no distress, no pain - Eyes PERRL, normal ocular movement - ENT atraumatic, normocephalic - Neck Neck exam: trachea midline - Respiratory normal expansion, normal respiratory effort wheezing: right, rales: bilateral - Cardiovascular Cardiovascular exam: Present: RRR, no murmurs/rubs/gallops - Abdomen Abdomen: Present: bowel sounds present, soft, non tender - Integumentary no rash, no growths, no abnormal pigmentation - Neurologic normal coordination, normal sensation - Musculoskeletal normal gait, normal posture - Psychiatric oriented to time, oriented to person, oriented to place, speech is normal, memory intact - Labs 01/02/17 06:35 01/02/17 06:35 Diabetes panel 01/01/17 01/02/17 Range/Units 11:58 06:35 Sodium 139 141 (136-145) mEq/L Potassium 4.2 4.1 (3.5-4.5) mEq/L Chloride 108 108 (98-109) mEq/L Carbon Dioxide 26 26 (19-29) mEq/L BUN 16 15 (8-26) mg/dL Creatinine 0.66 L 0.69 L (0.72-1.25) mg/dL Glucose 85 92 (70-99) mg/dL Calcium 8.1 L 8.2 L (8.6-10.8) mg/dL AST 17 (5-34) Units/L ALT 13 (0-55) Units/L Alkaline Phosphatase 60 (38-126) Units/L Albumin 2.5 L (3.5-5.0) g/dL Calcium panel 01/01/17 01/02/17 Range/Units 11:58 06:35 Calcium 8.1 L 8.2 L (8.6-10.8) mg/dL Albumin 2.5 L (3.5-5.0) g/dL Pituitary panel 01/01/17 01/02/17 Range/Units 11:58 06:35 Sodium 139 141 (136-145) mEq/L Potassium 4.2 4.1 (3.5-4.5) mEq/L Chloride 108 108 (98-109) mEq/L Carbon Dioxide 26 26 (19-29) mEq/L BUN 16 15 (8-26) mg/dL Creatinine 0.66 L 0.69 L (0.72-1.25) mg/dL Glucose 85 92 (70-99) mg/dL Calcium 8.1 L 8.2 L (8.6-10.8) mg/dL Adrenal panel 01/01/17 01/02/17 Range/Units 11:58 06:35 Sodium 139 141 (136-145) mEq/L Potassium 4.2 4.1 (3.5-4.5) mEq/L Chloride 108 108 (98-109) mEq/L Carbon Dioxide 26 26 (19-29) mEq/L BUN 16 15 (8-26) mg/dL Creatinine 0.66 L 0.69 L (0.72-1.25) mg/dL Glucose 85 92 (70-99) mg/dL Calcium 8.1 L 8.2 L (8.6-10.8) mg/dL Total Bilirubin 1.0 (0.2-1.2) mg/dL AST 17 (5-34) Units/L ALT 13 (0-55) Units/L Alkaline Phosphatase 60 (38-126) Units/L Albumin 2.5 L (3.5-5.0) g/dL Consult Discharge Plan - Plan Referrals: Yen Way [Primary Care Provider] - 01/09/17 2:45 pm Viry Hillman CNP [Advanced Practice Nurse] - 01/18/17 3:25 am - Attending Attestation The patient is seen and evaluated. No evidence of active bleeding. We will continue to follow. Eduardo Hanley MD FACS
--- NOTE | 2017-01-02 09:39 | Discharge Summary ---
Date of Encounter: 01/02/17 Time of Encounter: 09:39 - Discharge Diagnosis (1) CAD (coronary artery disease) Priority: Secondary Status: Chronic Qualifiers: Coronary Disease-Associated Artery/Lesion type: [place] artery [place] vs. 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 Priority: Secondary Status: Chronic (7) Hypertension Priority: Secondary Status: Chronic Qualifiers: Hypertension type: essential hypertension Qualified Code(s): I10 - Essential (primary) hypertension (8) COPD (chronic obstructive pulmonary disease) Priority: Secondary Status: Chronic Qualifiers: COPD type: unspecified COPD Qualified Code(s): J44.9 - Chronic obstructive pulmonary disease, unspecified - Discharge Medications Home Medications: FLUoxetine HCl [Prozac] 40 mg PO DAILY 11/18/16 [History] Aspirin [Lo-Dose Aspirin EC] 81 mg PO DAILY 11/30/16 [History] Atorvastatin [Lipitor] 40 mg PO HS 11/30/16 [History] Metoprolol XL (24 HR) Succ [Toprol Xl] 25 mg PO DAILY 11/30/16 [History] Isosorbide MONOnitrate (24 HR) [Imdur] 30 mg PO DAILY #30 tab.er.24h 12/01/16 [ Rx] Nitroglycerin 0.4 mg SL Q5MIN PRN #30 tab.subl 12/01/16 [Rx] Albuterol Sulfate [Albuterol Inhaler] 2 puff IH Q4H PRN 12/06/16 [History] Oxycodone HCl/Acetaminophen [Percocet 5-325 mg Tablet] 1 tab PO Q6HR PRN [History] HYDROcodone/Acet 5/325 mg [[place] 5-325 mg] 1 tab PO BID PRN #20 tablet 12/27/16 [Rx] Omeprazole 40 mg PO BID #120 tablet. 12/27/16 [Rx] Potassium Chloride 10 meq PO DAILY #7 tab.er.prt 12/27/16 [Rx] Sucralfate [Carafate] 1 gm PO QIDAC #120 tablet 12/27/16 [Rx] Allergies/Adverse Reactions: Allergies No Known Allergies Allergy (Verified 12/21/16 22:19) Date of admission: 12/31/16 20:18 Primary care physician: Yen Way Consults: 12/31/16 20:55 Consult to Nutrition [CONS] Routine Comment: Consulting Provider: NUTRITION Reason for Dietary Consult: Diet Education 01/01/17 08:31 Consult to Manager [employer] [CONS] Routine Reason for SW Consult: multiple readmissions Discharging clinician: Gaudencio Christopher Anticipated date of discharge: 01/02/17 - Patient Status Disposition: Home Health Service Condition: Good - Discharge Instructions Follow Up With: Yen Way [Primary Care Provider] - 01/09/17 2:45 pm Viry Hillman CNP [Advanced Practice Nurse] - 01/18/17 3:25 am - Diet and Activity Activity: resume usual activities as tolerated Diet: low fat, low cholesterol, low salt diet Interval History: Mr. Pool is a 76 year old male who presents with persistent and worsening melena over 2 days prior to presentation. He has been hospitalized several times since November 30 for GI bleeding. He underwent left heart catheterization with PCI and bare metal stent placement on November 30. He was placed on aspirin and Brilinta in addition to his cardiac medications. Since then, he has been hospitalized 4 times for GI bleeding and has had several endoscopies for his gastric ulcer. The last few endoscopies revealed no stigmata of active bleeding and a stable ulcer which appears to be improving and healing. However , he has had continued GI bleeding and persistent melena. According to patient and his daughter, he has had worsening melena and dropping hemoglobin over the last 2 days prior to presentation. Workup in the ER included routine labs and a dropping hemoglobin. He has had blood transfusion initiated and was admitted to hospitalist service Hospital course: Mr. Pool is a 76 year old male admitted for management of acute on chronic anemia he received 2 units PRBCS GI was consulted with no plans for intervention this time, due to multiple work up which included GI Bleed Scan 12/31/16: no evidence of active GI bleeding during acquisition EGD 12/26/16: Non-bleeding gastric ulcer with no stigmata of bleeding. Colonoscopy 05/30/16: Two 3-6mm polyps in the descending colon and in the cecum were removed with a hot snare. Resected and retrieved. Otherwise normal exam. Pathology of the polyp in the cecum revealed tubular adenoma. Pathology of the polyp in descending colon revealed tubular adenoma. Patient was managed conservatively He is hemodynamically stable to be discharged, and has had brown stools Brilinta has been stopped after consultation with cardiology Discharged home to continue ASA, BB, Isosorbide, Sucralfate and PPI. Follow up with PCP, Cardiology/GI as out-patient Time spent discussing smoking cessation with patient: 3 to 10 minutes - Time Spent with Patient Total time spent providing and/or coordinating discharge services: Less than 30 minutes - Constitutional Vitals: Temp Pulse Resp BP Pulse Ox 98.3 F 64 16 161/74 90 01/02/17 06:57 01/02/17 06:57 01/02/17 06:57 01/02/17 06:57 01/02/17 06:57 General appearance: Present: cooperative, A&O X 3, pleasant, no acute distress, answers questions appropriately - Head Head exam: Present: atraumatic, normocephalic - Eye Eye exam: Present: PERRL, conjuntiva pink, sclera anicteric Pupils: Present: PERRL - Neck Neck exam general surgery: Present: supple, trachea midline. Absent: lymphadenopathy - Respiratory Respiratory exam: Present: CTAB. Absent: accessory muscle use, rales, rhonchi, wheezes - Cardiovascular Cardiovascular exam: Present: RRR, +S1, +S2. Absent: diastolic murmur, gallop, rubs, systolic murmur - GI/Abdominal GI/Abdominal exam: Present: normal bowel sounds, soft, no peritoneal signs. Absent: distended, tenderness - Extremities Exam Extremities exam: Present: warm, radial pulses palpable and symetrical. Absent : calf tenderness, cyanotic, pedal edema - Neurological Exam Neurological exam: Present: alert, CN II-XII intact, oriented X3, no focal deficits. Absent: pronater drift, facial droop, speech deficit - Skin Skin exam: Present: dry, intact
--- NOTE | 2017-01-02 10:33 | Physician Discharge Referral ---
Home Health/Hosp Referral Info Transfer to: Home Health Attending Provider: Dr. 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 For more information, call the [employer] Quit Line at 6-906-RRPR-NOW. - Services Needed Following services are medically necessary services: Nursing (Check Hb daily till stable) - Transfer Medications Home Medications: FLUoxetine HCl [Prozac] 40 mg PO DAILY 11/18/16 [History] Aspirin [Lo-Dose Aspirin EC] 81 mg PO DAILY 11/30/16 [History] Atorvastatin [Lipitor] 40 mg PO HS 11/30/16 [History] Metoprolol XL (24 HR) Succ [Toprol Xl] 25 mg PO DAILY 11/30/16 [History] Isosorbide MONOnitrate (24 HR) [Imdur] 30 mg PO DAILY #30 tab.er.24h 12/01/16 [ Rx] Nitroglycerin 0.4 mg SL Q5MIN PRN #30 tab.subl 12/01/16 [Rx] Albuterol Sulfate [Albuterol Inhaler] 2 puff IH Q4H PRN 12/06/16 [History] Oxycodone HCl/Acetaminophen [Percocet 5-325 mg Tablet] 1 tab PO Q6HR PRN [History] HYDROcodone/Acet 5/325 mg [[place] 5-325 mg] 1 tab PO BID PRN #20 tablet 12/27/16 [Rx] Omeprazole 40 mg PO BID #120 tablet.dr 12/27/16 [Rx] Potassium Chloride 10 meq PO DAILY #7 tab.er.prt 12/27/16 [Rx] Sucralfate [Carafate] 1 gm PO QIDAC #120 tablet 12/27/16 [Rx] Allergies/Adverse Reactions: Allergies No Known Allergies Allergy (Verified 12/21/16 22:19) Certification: Further, I certify that my clinical findings support that this patient is homebound (i.e. absences from home require considerable and taxing effort and are for medical reasons or shinto services or infrequently or short duration when for other reasons) because: Homebound Reason: Severity of cardiac or pulmonary status limits activity tolerance Attestation: My signature below is to certify that this patient is under my care and that I, or nurse practitioner, or a physician's psych assistant working with me, has a face-to -face encounter with this patient.
== END 2017-01-02 11:45 | disposition home health service (06) | DRG 384 ==
LOC: 3ANU 15:28 → EMEROO 15:28 → SUATTDRO 20:18 → 3ANU 20:18
PROVIDERS: ADMIT Psychiatry & Neurology Psychiatry; ATTEND Internal Medicine

== ENCOUNTER 2017-08-05 16:09 | Observation (INO) ==
[2017-08-05 17:30] LABS: Basophils # 0.1 K/mcL (0.0-0.2); Basophils % 0.9 %; Eosinophils # 0.1 K/mcL (0.0-0.6); Eosinophils % 1.5 %; Hematocrit 43.7 % (37.5-50.1); Hemoglobin 13.3 g/dL (12.9-16.9); Immature Granulocytes % 0.4 % (0-4); Lymphocytes % 25.3 %; Mean Corpuscular HGB Conc 30.4 g/dL (31.6-35.5); Mean Platelet Volume 9.9 fL (9.4-12.4); Monocytes # 0.6 K/mcL (0.0-1.3); Monocytes % 8.1 %; Neutrophils # 5.1 K/mcL (1.6-8.9); Platelet Count 307 K/mcL (140-400); Red Blood Count 4.75 M/mcL (4.19-5.50); Red Cell Distribution Width 14.6 % (11.5-14.5); Segmented Neutrophils % 63.8 %
[2017-08-05 17:34] LABS: BUN/Creatinine Ratio 15 (6-26); Blood Urea Nitrogen 12 mg/dL (8-26); Calcium 9.4 mg/dL (8.6-10.8); Carbon Dioxide 31 mEq/L (19-29); Chloride 104 mEq/L (98-109); Glucose 89 mg/dL (70-99); Osmolality,Calculated 291 (280-300); Potassium 4.1 mEq/L (3.5-4.5); Sodium 141 mEq/L (136-145); eGFR For African Americans > 60 (> 60); eGFR For Non-African Americans > 60 (> 60)
--- NOTE | 2017-08-05 19:31 | Emergency Department Note ---
Disposition Clinical Impression: Chest pain Qualifiers: Chest pain type: unspecified Qualified Code(s): R07.9 - Chest pain, unspecified Disposition: Admitted As Inpatient Condition: Fair Time of Disposition: 19:31 Chest Pain HPI - General Chief Complaint: ED Chest Pain Stated Complaint: CP Time Seen by Provider: 08/05/17 19:23 Source: patient Mode of arrival: ambulatory Limitations: no limitations Vital Signs Reviewed: Yes Nursing Notes Reviewed: Yes - History of Present Illness HPI Narrative: 77-year-old with a history of previous stents back in December comes in complaining of some intermittent chest pain. Patient has also a history of vascular bypass surgery remotely. Said no recent stress testing. Patient does continue to smoke. Pt complaint: chest pain Onset (ago): [employer] Duration: constant Onset: during rest Pain Location: substernal, left chest Severity: moderate Severity scale (1-10): 5 Quality: tightness, aching Pain Radiation: none Improves with: nothing Worsens with: nothing Context: other (Previous stents.) Associated symptoms: Denies: syncope, fever, cough Treatments prior to arrival chest pain: none - Related Data Home Medications Medication Instructions Recorded Confirmed FLUoxetine HCl [Prozac] 40 mg PO DAILY 11/18/16 03/07/17 Aspirin [Lo-Dose Aspirin EC] 81 mg PO DAILY 11/30/16 03/07/17 Atorvastatin [Lipitor] 40 mg PO HS 11/30/16 03/07/17 Metoprolol XL (24 HR) Succ [Toprol 25 mg PO DAILY 11/30/16 03/07/17 Xl] Dicyclomine [Bentyl] 20 mg PO BID PRN 03/07/17 03/07/17 LORazepam [Ativan] 0.5 mg PO HS 03/07/17 03/07/17 Omeprazole 20 mg PO BID 03/07/17 03/07/17 Previous Rx's Medication Instructions Recorded Isosorbide MONOnitrate (24 HR) 30 mg PO DAILY #30 tab.er.24h 12/01/16 [Imdur] Nitroglycerin 0.4 mg SL Q5MIN PRN #30 tab.subl 12/01/16 HYDROcodone/Acet 5/325 mg [[place] 1 tab PO BID PRN #20 tablet 12/27/16 5-325 mg] Sucralfate [Carafate] 1 gm PO QIDAC #120 tablet 12/27/16 Cilostazol 50 mg PO DAILY #30 tablet 03/07/17 Allergies Allergy/AdvReac Type Severity Reaction Status Date / Time No Known Allergies Allergy Verified 08/05/17 16:14 All systems ED: reviewed and negative except as stated. Constitutional: Denies: fever, chills, weakness, weight change Eyes: Denies: eye pain, eye discharge, vision change ENT ED: Denies: ear pain, throat pain, dental pain, hearing loss, epistaxis, congestion, dysphagia Cardiovascular: Reports: chest pain. Denies: palpitations, dyspnea on exertion , edema, syncope Respiratory: Denies: cough, dyspnea, wheezes, hemoptysis, stridor Gastrointestinal: Denies: abdominal pain, nausea, vomiting, diarrhea, constipation, hematemesis, melena, hematochezia Genitourinary: Denies: urgency, dysuria, frequency, hematuria Musculoskeletal: Denies: back pain, neck pain, arthralgia, myalgia Integumentary: Denies: rash, abrasion, lesions Neurological: Denies: headache, weakness, numbness, paresthesias, confusion, abnormal gait, vertigo Psychiatric: Denies: anxiety, depression, suicidal thoughts, homicidal thoughts , auditory hallucinations, visual hallucinations Endocrine: Denies: fatigue Hematological/Lymphatic: Denies: easy bleeding, easy bruising Allergic/Immunologic: Denies: facial swelling, urticaria Chest Pain PMH - Past Medical History Medical history: Reports: arthritis, COPD, coronary artery disease, GI bleed, hyperlipidemia, hypertension, myocardial infarction Surgical history: Reports: angioplasty/stent, orthopedic, other Psychiatric history: Reports: depression - Social History Smoking Status: Current every day smoker Alcohol use: Reports: none Drug use: Reports: none Physical Exam - General Limitations: no limitations General appearance: alert, in no apparent distress - Head Head exam: atraumatic, normocephalic, normal inspection - Eye Eye exam: Present: normal appearance, PERRL, EOMI - ENT ENT exam: normal exam, normal oropharynx, mucous membranes moist - Neck Neck exam: Present: normal inspection, full ROM, trachea midline - Chest Chest inspection: Present: normal inspection, symmetric chest wall rise - Respiratory Respiratory exam: Present: normal lung sounds bilaterally - Cardiovascular Cardiovascular exam: Present: regular rate, normal rhythm, normal heart sounds - Abdominal Exam Abdominal exam: Present: soft, Non-Tender. Absent: tenderness, distention, guarding, rebound, rigidity - Extremities Exam Extremities exam: Present: normal inspection, full ROM. Absent: tenderness, pedal edema - Expanded Lower Extremity Exam Neurovascular/Tendon exam: Absent: motor deficit, sensory deficit, tendon deficit Gait: observed and normal - Back Exam Back exam: Present: normal inspection, full ROM. Absent: tenderness - Neurological Exam Neurological exam: Present: alert, oriented X3 - Psychiatric Psychiatric exam: Present: normal affect, normal mood - Skin Skin exam: Present: warm, dry, intact, normal color Course - Reevaluation(s) Reevaluation #1: 77-year-old with a history of heart disease comes in complaining of chest pain. Workup here is negative for acute findings. Patient did have the axillary bifemoral bypass at [facility] remotely. He contacted [facility] who indicated he should come in and be evaluated for his chest pain. Does have a history of a stent back in December. Time: 19:55 Reevaluation #2: Lower extremity pulses were documented with Doppler Time: 20:09 - Consultations Consultation #1: Discussed with Dr. Garcia, admit. Time: 19:55 Vital Signs Temperature 97.9 F 08/05/17 16:12 Pulse Rate 69 08/05/17 16:12 Respiratory Rate 18 08/05/17 16:12 Blood Pressure 119/77 08/05/17 16:12 O2 Sat by Pulse Oximetry 95 08/05/17 16:12 Temperature 97.9 F 08/05/17 16:12 Pulse Rate 69 08/05/17 16:12 Respiratory Rate 18 08/05/17 16:12 Blood Pressure 119/77 08/05/17 16:12 O2 Sat by Pulse Oximetry 95 08/05/17 16:12 Oxygen Delivery Oxygen Delivery Room Air Chest Pain - Lab Data Lab results reviewed: Yes I reviewed the patient's lab results. Result diagrams: 08/05/17 17:10 08/05/17 17:10 Lab Results 08/05/17 08/05/17 08/05/17 Range/Units 17:10 17:10 17:10 WBC 7.9 (4.3-11.1) K/mcL RBC 4.75 (4.19-5.50) M/mcL Hgb 13.3 (12.9-16.9) g/dL Hct 43.7 (37.5-50.1) % MCV 92.0 (83.0-100.0) fL MCH 28.0 (28.0-33.3) pg MCHC 30.4 L (31.6-35.5) g/dL RDW 14.6 H (11.5-14.5) % Plt Count 307 (140-400) K/mcL MPV 9.9 (9.4-12.4) fL Immature Gran % 0.4 (0-4) % Seg Neutrophils % 63.8 % Lymphocytes % 25.3 % Monocytes % 8.1 % Eosinophils % 1.5 % Basophils % 0.9 % Neutrophils # 5.1 (1.6-8.9) K/mcL Lymphocytes # 2.0 (0.6-4.6) K/mcL Monocytes # 0.6 (0.0-1.3) K/mcL Eosinophils # 0.1 (0.0-0.6) K/mcL Basophils # 0.1 (0.0-0.2) K/mcL Sodium 141 (136-145) mEq/L Potassium 4.1 (3.5-4.5) mEq/L Chloride 104 (98-109) mEq/L Carbon Dioxide 31 H (19-29) mEq/L BUN 12 (8-26) mg/dL Creatinine 0.78 (0.72-1.25) mg/dL Est GFR ( Amer) > 60 (> 60) Est GFR (Non-Af Amer) > 60 (> 60) BUN/Creatinine Ratio 15 (6-26) Glucose 89 (70-99) mg/dL Calculated Osmolality 291 (280-300) Calcium 9.4 (8.6-10.8) mg/dL Troponin I 0.01 (0-0.03) ng/mL - Radiology Data Radiology results reviewed: Yes I reviewed the patient's radiology results. Chest X-Ray 08/05/17 16:15 IMPRESSION: No evidence of acute cardiopulmonary disease. D/ / Toni Augustine MD / Toni Augustine MD Interpreting Provider: Toni Augustine MD - EKG Data EKG attestation: Yes I reviewed and interpreted this EKG. EKG shows normal: sinus rhythm Rate: normal Rhythm: NSR Interpretation: no acute changes Heart Score - Score History: Moderately Suspicious EKG: Non Specific repolarisation Disturbance Age: Greater than 65 Risk Factors: Equal/Greater than 3 risk factor or history of atherosclerotic disease Troponin: Less than normal limit HEART Score Total: 6
[2017-08-05] MEDS ORDERED: *HR* HYDROcodone/Acet 7.5/325 mg TABLET PO PRN (20:35)
[2017-08-05] MEDS ORDERED: Nitroglycerin 0.4 MG TAB.SUBL SL PRN (20:35)
[2017-08-05] MEDS ORDERED: Albuterol 2.5 MG/3 ML NEBULIZER IH PRN (20:35)
[2017-08-05] MEDS ORDERED: Ondansetron 4 MG/2 ML VIAL IVP PRN (20:36)
[2017-08-05] MEDS ORDERED: *HR* Morphine 2 MG/ML SYRINGE IVP PRN (20:36)
[2017-08-05] MEDS ORDERED: Naloxone 0.4 MG/ML INJ IVP PRN (20:36)
--- NOTE | 2017-08-05 20:46 | Internal Med History&Physical ---
<Ravi Joy J - Last Filed: 08/05/17 20:43> Date of Encounter: 08/05/17 Time of Encounter: 20:43 Assessment and Plan (1) Chest pain Current visit: Yes Status: Acute Left-sided chest pain described as intermittent, sharp radiation to left shoulder and left neck as well as left arm. Continues to have this pain as of this assessment. However, I am not really convinced that this is anginal as patient has had recent axillary bifemoral bypass and been reporting this discomfort in this area since then. He reported that he saw his surgeon last week reported to him of this is normal following this type of surgery and the discomfort should go away with time. Initial workup negative for ischemia including normal EKG and negative troponin. My exam reveals RRR, S1, S2, clear diminished lungs, patient remains hemodynamically stable and in no distress at this time History of CAD with triple-vessel disease, per [facility] on 12/03; patient received stent LAD at that time Continue aspirin, statin and metoprolol; hold morning dose of beta ernestina Morphine and sublingual nitroglycerin for chest pain Stress test in the morning Serial troponins Continuous telemetry, continue SPO2 monitoring hold cardio consult at this time Qualifiers: Chest pain type: unspecified Qualified Code(s): R07.9 - Chest pain, unspecified (2) COPD (chronic obstructive pulmonary disease) Current visit: Yes Status: Chronic Lungs are clear diminished auscultation no wheezing noted PFT 05/05 revealed severe obstructive disease Continue bronchodilators Continue Estrace per nasal cannula; goal SPO2 greater than 92% Qualifiers: COPD type: unspecified COPD Qualified Code(s): J44.9 - Chronic obstructive pulmonary disease, unspecified (3) CAD (coronary artery disease) Current visit: Yes Status: Chronic History of CAD Echocardiogram 10/19/16 with EF of 50-55% [facility] 12/03 resulting in stent to LAD He is on aspirin, beta ernestina and atorvastatin, continue these medications Qualifiers: Coronary Disease-Associated Artery/Lesion type: [place] artery [place] vs. transplanted heart: [place] heart Associated angina: without angina Qualified Code(s): I25.10 - Atherosclerotic heart disease of [place] coronary artery without angina pectoris (4) Tobacco abuse Current visit: Yes Status: Chronic Patient is a current everyday half pack smoker has been smoking since a teenager Tobacco cessation counseling provided Denies any need for nicotine patch (5) HLD (hyperlipidemia) Current visit: Yes Status: Acute Continue simvastatin Check lipid panel in the morning Qualifiers: Hyperlipidemia type: pure hypercholesterolemia Qualified Code(s): E78.00 - Pure hypercholesterolemia, unspecified; E78.0 - Pure hypercholesterolemia (6) HTN (hypertension) Current visit: Yes Status: Acute History of essential hypertension. Blood pressure stable. Continue calcium channel ernestina and beta ernestina at home dose Qualifiers: Hypertension type: essential hypertension Qualified Code(s): I10 - Essential (primary) hypertension (7) DVT prophylaxis Current visit: Yes Status: Acute Heparin 5000 units subcutaneous twice a day Internal Medicine - H&P: HPI Chief complaint: Left-sided chest pain and Admitted From: Home Plans for Post Hospital Care: Home History of present illness: Mr. Pool is a 77 year old male arthritis, COPD, coronary artery disease, GI bleed, hyperlipidemia, hypertension, myocardial infarction, who presents to [facility] today with intermittent, sharp left-sided chest pain with radiation to the left shoulder, left arm and left neck. Denies any prior history of OH. However does have coronary artery and peripheral vascular disease as well as hyperlipidemia. Patient recently underwent a axillary bifemoral bypass at [facility], he contacted [facility] regarding symptoms and was informed to come to the ED for further evaluation. Additionally, an November/2016 patient had a OH resulting in stent placement. Denies any fever, chills, diaphoresis, nausea, abdominal pain, unilateral extremity swelling or pain increase in pain with respiration. Admits to chest pain, shortness of breath. Initial workup was negative for acute findings however, due to history and clinical presentation he is being admitted for further workup and evaluation Past Med Surg Social Fam HX - Past Medical History Medical history: arthritis, COPD, coronary artery disease, GI bleed, hyperlipidemia, hypertension, myocardial infarction Psychiatric history: depression - Past Surgical History Surgical History: angioplasty/stent, orthopedic, other - Social History Smoking Status: Current every day smoker Smokeless Tobacco Status: No Alcohol use: none Drug use: none - Family History Father Adopted: No Family Member Ethnicity: Non- Living Status: Hx Family Cardiac Disorders: No Hx Family Respiratory Disorders: No Hx Family Cancer: No Hx Family GI Disorders: No Hx Family Endocrine Disorder: No Hx Family Neuromuscular Disorders: No Hx Family Neurologic Disorders: No Hx Family HEENT Disorders: No Hx Family Autoimmune Disorders: No Internal Medicine - H&P: Meds FLUoxetine HCl [Prozac] 40 mg PO DAILY 11/18/16 [History] Aspirin [Lo-Dose Aspirin EC] 81 mg PO DAILY 11/30/16 [History] Atorvastatin [Lipitor] 40 mg PO HS 11/30/16 [History] Metoprolol XL (24 HR) Succ [Toprol Xl] 25 mg PO DAILY 11/30/16 [History] Isosorbide MONOnitrate (24 HR) [Imdur] 30 mg PO DAILY #30 tab.er.24h 12/01/16 [ Rx] Nitroglycerin 0.4 mg SL Q5MIN PRN #30 tab.subl 12/01/16 [Rx] Omeprazole 40 mg PO DAILY 03/07/17 [History] Albuterol Neb [Proventil Neb] 2.5 mg IH TID PRN 08/05/17 [History] Albuterol Sulfate [Ventolin Hfa] 2 puff IH Q4H PRN 08/05/17 [History] Budesonide/Formoterol 160/4.5 [Symbicort 160/4.5] 2 puff IH BIDR 08/05/17 [ History] Cilostazol 50 mg PO BID 08/05/17 [History] Gabapentin [Neurontin] 300 mg PO HS 08/05/17 [History] HYDROcodone/Acet 7.5/325 mg [[place] 7.5-325 mg] 1 tab PO Q8H PRN 08/05/17 [ History] Tiotropium [Spiriva] 18 mcg IH DAILY 08/05/17 [History] 3 Allergy/AdvReac Type Severity Reaction Status Date / Time No Known Allergies Allergy Verified 08/05/17 16:14 All Systems PM: A 10-system review of systems was performed and is negative for pertinent findings except as documented above in the HPI. - Constitutional Constitutional: fatigue, no chills, no fever(s), no night sweats - EENT Eyes: no change in vision, no discharge, no pain, no photophobia Ears: no ear discharge, no ear pain, no tinnitus Nose, mouth and throat: no dysphagia, no nasal discharge, no neck pain, no sore throat - Cardiovascular Cardiovascular ROS IM: as per HPI, dyspnea, dyspnea on exertion, no chest pain, no diaphoresis, no edema, no irregular heart rhythm, no lightheadedness, no orthopnea, no palpitations, no paroxysmal nocturnal dyspnea, no syncope - Respiratory Respiratory: dyspnea, dyspnea on exertion, pain on inspiration, no cough, no wheezing, no chest congestion, no excessive phlegm production, no change in phlegm color, no pain with cough - Gastrointestinal Gastrointestinal: no abdominal pain, no diarrhea, no hematemesis, no hematochezia, no melena, no nausea, no vomiting - Musculoskeletal Musculoskeletal ROS IM: no numbness, no tingling - Integumentary Integumentary IM: no rash, no unusual bruising - Neurological Neurological ROS: no confusion, no convulsions, no focal weakness, no numbness, no tingling, no tremor(s) - Hematologic/Lymphatic Hematologic/Lymphatic: no easy bruising - Constitutional Vitals: Temp Pulse Resp BP Pulse Ox 97.9 F 69 16 158/75 95 08/05/17 16:12 08/05/17 16:12 08/05/17 20:28 08/05/17 20:28 08/05/17 16:12 General appearance: Present: cooperative, A&O X 3, no acute distress, answers questions appropriately - Head Head exam: Present: atraumatic, normocephalic - Eye Eye exam: Present: PERRL Pupils: Present: PERRL - Neck Neck exam general surgery: Present: supple, trachea midline. Absent: lymphadenopathy - Respiratory Respiratory exam: Present: chest wall tenderness, decreased breath sounds, CTAB , prolonged expiratory phase. Absent: accessory muscle use, rales, respiratory distress, rhonchi, stridor, wheezes, tachypnea - Cardiovascular Cardiovascular exam: Present: RRR, +S1, +S2. Absent: diastolic murmur, gallop, irregular rhythm, JVD, rubs, systolic murmur, tachycardia - GI/Abdominal GI/Abdominal exam: Present: normal bowel sounds, soft, no peritoneal signs. Absent: diminished bowel sounds, distended, firm, guarding, rebound, tenderness - Extremities Exam Extremities exam: Present: warm, radial pulses palpable and symmetrical. Absent : calf tenderness, cyanotic, pedal edema - Neurological Exam Neurological exam: Present: CN II-XII intact, oriented X3, no focal deficits. Absent: pronater drift, facial droop, speech deficit - Skin Skin exam: Present: dry, intact Internal Med - H&P Results - Labs CBC & Chem 7: 08/05/17 17:10 08/05/17 17:10 - EKG Data -: EKG Interpreted by Myself EKG shows normal: sinus rhythm Rate: normal - EKG Data Prior EKG available for review: no Interpretation IM: normal EKG EKG comments: Sinus rhythm, no ST elevation or T-wave 08/05/17 20:49 08/05/17 20:49 - Diagnostic Studies Chest x-ray Status: image reviewed by me Additional comments: No evidence of acute cardiac pulmonary disease <Allie Patterson - Last Filed: 08/06/17 03:25> Date of Encounter: 08/05/17 Internal Medicine - H&P: HPI History of present illness: Mr. Pool is a 77 year old male All Systems PM: A 10-system review of systems was performed and is negative for pertinent findings except as documented above in the HPI. - Constitutional Vitals: Temp Pulse Resp BP Pulse Ox 97.9 F 58 16 151/77 92 08/05/17 21:31 08/05/17 21:31 08/05/17 21:44 08/05/17 21:31 08/05/17 21:44 Internal Med - H&P Results - Labs CBC & Chem 7: 08/05/17 17:10 08/05/17 17:10 Labs: Cardiac Enzymes 08/05/17 Range/Units 23:06 Troponin I 0.01 (0-0.03) ng/mL - Attending Attestation I have personally performed a face to face evaluation on this patient. I have reviewed and agree with the care plan provided by JH Joy. History and Exam by me shows: Mr. Pool is a 77 year old male arthritis, COPD, coronary artery disease s/p recent [facility] in November with x 1 stent, GI bleed, hyperlipidemia, hypertension, myocardial infarction, who presents to [facility] today with intermittent, sharp left-sided chest pain with radiation to the left shoulder, left arm and left neck. Gen: A, A, O x 3 Chest : Diminished BS b/l basal region, no crackles , no rales Heart : S1 S2 + RRR No murmurs a/p 1. Acute chest pain 2. h/o CAD s/p stents Trend on trop resume home meds Stress test in AM 3. Recent Fem Fem bypass surgery / vascular surgical intervention at [facility] will obtain records from there
[2017-08-05] MEDS ORDERED: Gabapentin 300 MG CAPSULE PO SCH (21:00)
[2017-08-05] MEDS: Budesonide/Formoterol 160/4.5 MDI IH SCH (21:44)
[2017-08-06 05:51] LABS: Basophils # 0.1 K/mcL (0.0-0.2); Eosinophils # 0.3 K/mcL (0.0-0.6); Eosinophils % 4.3 %; Hemoglobin 12.4 g/dL (12.9-16.9); Immature Granulocytes % 0.4 % (0-4); Lymphocytes # 2.1 K/mcL (0.6-4.6); Lymphocytes % 26.1 %; Mean Corpuscular Hemoglobin 28.6 pg (28.0-33.3); Mean Corpuscular Volume 92.2 fL (83.0-100.0); Mean Platelet Volume 10.3 fL (9.4-12.4); Monocytes # 0.8 K/mcL (0.0-1.3); Monocytes % 10.4 %; Neutrophils # 4.6 K/mcL (1.6-8.9); Platelet Count 265 K/mcL (140-400); Red Blood Count 4.34 M/mcL (4.19-5.50); Red Cell Distribution Width 14.7 % (11.5-14.5); Segmented Neutrophils % 57.8 %
[2017-08-06] MEDS ORDERED: *HR* Heparin 5,000 UNIT/ML VIAL SQ SCH (06:00)
[2017-08-06 06:09] LABS: BUN/Creatinine Ratio 18 (6-26); Blood Urea Nitrogen 16 mg/dL (8-26); Carbon Dioxide 29 mEq/L (19-29); Chloride 106 mEq/L (98-109); Cholesterol 156 mg/dL (< 200); Glucose 99 mg/dL (70-99); HDL Cholesterol 52 mg/dL (40-59); LDL Cholesterol,Calculated 68 mg/dL (0-99); Osmolality,Calculated 295 (280-300); Potassium 3.9 mEq/L (3.5-4.5); Sodium 142 mEq/L (136-145); Triglycerides 178 mg/dL (< 150); eGFR For African Americans > 60 (> 60); eGFR For Non-African Americans > 60 (> 60)
[2017-08-06] MEDS ORDERED: Regadenoson 0.4 MG/5 ML SYRINGE IVP ONE (06:09)
[2017-08-06] MEDS ORDERED: Isosorbide MONOnitrate (24 HR) 30 MG TAB.ER.24H PO SCH (09:00)
[2017-08-06] MEDS ORDERED: Metoprolol XL (24 HR) Succ 25 MG TAB.ER.24H PO SCH (09:00)
[2017-08-06] MEDS ORDERED: Aspirin Enteric Coated 81 MG Tablet PO SCH (09:00)
[2017-08-06] MEDS ORDERED: FLUoxetine 20 MG CAPSULE PO SCH (09:00)
[2017-08-06] MEDS ORDERED: Tiotropium 18 MCG inhalation IH SCH (09:00)
[2017-08-06] MEDS: Budesonide/Formoterol 160/4.5 MDI IH SCH (10:23)
[2017-08-06 14:57] VITALS: BP 113/66
--- NOTE | 2017-08-06 16:31 | Electrocardiograph Report ---
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
--- NOTE | 2017-08-06 16:53 | Discharge Summary ---
Date of Encounter: 08/06/17 Time of Encounter: 10:15 - Discharge Diagnosis (1) Chest pain Priority: Primary Status: Acute Comments: Patient reports intermittent left chest pain that is sharp with radiation to the left shoulder and left neck, as well as left arm. He states the pain is less than a second and may perhaps happen once or twice a day. Patient had a recent axillary bifemoral bypass and had been reporting this discomfort in the area since then, now he states the last 2 weeks that the pain had changed. He denies diaphoresis, nausea, vomiting, shortness of breath. He denies any aggravating or relieving factors. His daughter spoke with the surgeon where he had his surgery at [facility], they stated that this pain is normal and will eventually dissipate with time. The pain does not increase with movement, deep inspiration, or palpation. EKG was normal sinus rhythm rate of 70, MN interval 184, QRS 89, QTC 442. Chest x-ray was negative. Troponins were negative 3. Stress test was negative for ischemia or infarct, there was a medium-sized, moderate to severe intensity, primarily fixed defect in the basal mid inferior and inferoseptal segments. Findings were consistent with prior infarct. His gated EF is 53%. He denies further chest pain. S1 and S2 is heard with regular rate and rhythm, no gallops, clicks, murmurs. Patient is stable and appropriate for discharge. Do not feel that this is cardiac chest pain, I feel confident that it is due to post op nerve damage and changes. Qualifiers: Chest pain type: unspecified Qualified Code(s): R07.9 - Chest pain, unspecified (2) CAD (coronary artery disease) Priority: Secondary Status: Chronic Comments: Patient with prior history of CAD. Echo in October, showed a preserved EF. He had an LHC in November, resulting in a stent to the LAD. Patient will continue aspirin, beta ernestina, statin. He denies chest pain. Qualifiers: Coronary Disease-Associated Artery/Lesion type: [place] artery [place] vs. transplanted heart: [place] heart Associated angina: without angina Qualified Code(s): I25.10 - Atherosclerotic heart disease of [place] coronary artery without angina pectoris (3) COPD (chronic obstructive pulmonary disease) Priority: Secondary Status: Chronic Qualifiers: COPD type: unspecified COPD Qualified Code(s): J44.9 - Chronic obstructive pulmonary disease, unspecified (4) HLD (hyperlipidemia) Priority: Secondary Status: Chronic Comments: . Continue statin. Qualifiers: Hyperlipidemia type: pure hypercholesterolemia Qualified Code(s): E78.00 - Pure hypercholesterolemia, unspecified; E78.0 - Pure hypercholesterolemia (5) HTN (hypertension) Priority: Secondary Status: Chronic Comments: Chronic. Continue home medications. Well controlled. Qualifiers: Hypertension type: essential hypertension Qualified Code(s): I10 - Essential (primary) hypertension - Discharge Medications Home Medications: FLUoxetine HCl [Prozac] 40 mg PO DAILY 11/18/16 [History] Aspirin [Lo-Dose Aspirin EC] 81 mg PO DAILY 11/30/16 [History] Atorvastatin [Lipitor] 40 mg PO HS 11/30/16 [History] Metoprolol XL (24 HR) Succ [Toprol Xl] 25 mg PO DAILY 11/30/16 [History] Isosorbide MONOnitrate (24 HR) [Imdur] 30 mg PO DAILY #30 tab.er.24h 12/01/16 [ Rx] Nitroglycerin 0.4 mg SL Q5MIN PRN #30 tab.subl 12/01/16 [Rx] Omeprazole 40 mg PO DAILY 03/07/17 [History] Albuterol Neb [Proventil Neb] 2.5 mg IH TID PRN 08/05/17 [History] Albuterol Sulfate [Ventolin Hfa] 2 puff IH Q4H PRN 08/05/17 [History] Budesonide/Formoterol 160/4.5 [Symbicort 160/4.5] 2 puff IH BIDR 08/05/17 [ History] Cilostazol 50 mg PO BID 08/05/17 [History] Gabapentin [Neurontin] 300 mg PO HS 08/05/17 [History] HYDROcodone/Acet 7.5/325 mg [[place] 7.5-325 mg] 1 tab PO Q8H PRN 08/05/17 [ History] Tiotropium [Spiriva] 18 mcg IH DAILY 08/05/17 [History] Allergies/Adverse Reactions: 3 Allergy/AdvReac Type Severity Reaction Status Date / Time No Known Allergies Allergy Verified 08/05/17 16:14 Procedures/tests Complete & Pending: Procedures Performed prior 72 hours Category Date Time Status NM sandra perf SPECT multi [NM] Routine Exams 08/05/17 20:42 Taken SP pharm nuclear stress Routine Y 08/06/17 08:00 Completed Date of admission: 08/05/17 20:02 Primary care physician: Yen Way Discharging clinician: Shazia Hedrick Anticipated date of discharge: 08/06/17 - Patient Status Disposition: Home, Self-Care Condition: Good Functional capacity at discharge: independent ambulation Overall status at discharge: patient is back to baseline - Discharge Instructions Follow Up With: Yen Way [Primary Care Provider] - Additional Instructions: Please stop smoking. Please see primary care provider in the next 7-10 days for a follow-up visit. Please follow up with cardiology as scheduled. Please continue all home medications. Please resume all activities and diet as tolerated. Return to emergency department as needed for any other problems or concerns, or if symptoms return or worsen. - Diet and Activity Activity: increase activity as tolerated Diet: advance to your usual diet Hospital course: Mr. Pool is a 77 year old male with past medical history of chronic back pain , CAD, smoking, upper GI bleed, PAD, anemia, hypertension, gastric ulcers, and moderate protein calorie malnutrition. Patient also has a history of COPD. Patient was admitted for 2 week history of left chest pain with radiation to the neck, shoulder, arm. There is no shortness of breath, nausea, vomiting, diaphoresis. Patient states it is intermittent, perhaps happening once daily. Patient with recent surgery to axillary bifemoral bypass and has had chest discomfort since that time. All testing was negative, all imaging was negative. Troponins were negative, chest x-ray was negative echo in October showed preserved function. Stress test today showed preserved function with probable old infarct. EKG without ST changes. Patient has denied chest pain. He will follow-up with cardiology and primary care. He will continue his medications after discharge. He is appropriate for discharge. - Time Spent with Patient Total time spent providing and/or coordinating discharge services: Less than 30 minutes - Constitutional Vitals: Temp Pulse Resp BP Pulse Ox 97.9 F 73 16 113/66 90 08/06/17 14:56 08/06/17 14:56 08/06/17 14:56 08/06/17 14:56 08/06/17 14:56 General appearance: Present: cooperative, A&O X 3, pleasant, no acute distress, answers questions appropriately - Head Head exam: Present: atraumatic, normal inspection, normocephalic - Eye Eye exam: Present: PERRL, conjuntiva pink, sclera anicteric Pupils: Present: PERRL - Neck Neck exam general surgery: Present: supple, trachea midline. Absent: lymphadenopathy - Respiratory Respiratory exam: Present: CTAB. Absent: accessory muscle use, rales, rhonchi, wheezes - Cardiovascular Cardiovascular exam: Present: RRR, +S1, +S2. Absent: diastolic murmur, gallop, rubs, systolic murmur - GI/Abdominal GI/Abdominal exam: Present: normal bowel sounds, soft. Absent: distended, tenderness - Extremities Exam Extremities exam: Present: warm, radial pulses palpable and symmetrical. Absent : calf tenderness, cyanotic, pedal edema - Neurological Exam Neurological exam: Present: alert, oriented X3, no focal deficits. Absent: facial droop, speech deficit - Skin Skin exam: Present: dry, intact, normal color, warm. Absent: rash
== END 2017-08-06 17:37 | disposition home or self-care (01) ==
LOC: EMEROO 16:09 → 3BNU 16:09
PROVIDERS: ADMIT Nurse Practitioner; ATTEND Registered Nurse

== ENCOUNTER 2017-09-24 09:56 | Observation (INO) ==
[2017-09-24] MEDS: 0.9 % Sodium Chloride 1,000 ML IVC ONE ×2 (11:05→11:42)
[2017-09-24] MEDS: Ondansetron 4 MG/2 ML VIAL IVP ONE ×2 (11:05→11:42)
[2017-09-24 11:18] LABS: Basophils # 0.1 K/mcL (0.0-0.2); Basophils % 0.6 %; Eosinophils % 0.1 %; Hematocrit 42.6 % (37.5-50.1); Hemoglobin 13.4 g/dL (12.9-16.9); Immature Granulocytes % 0.4 % (0-4); Lymphocytes # 0.9 K/mcL (0.6-4.6); Lymphocytes % 10.1 %; Mean Corpuscular HGB Conc 31.5 g/dL (31.6-35.5); Mean Corpuscular Hemoglobin 27.7 pg (28.0-33.3); Mean Platelet Volume 10.8 fL (9.4-12.4); Monocytes # 0.9 K/mcL (0.0-1.3); Monocytes % 9.9 %; Platelet Count 170 K/mcL (140-400); Red Blood Count 4.84 M/mcL (4.19-5.50); Red Cell Distribution Width 15.8 % (11.5-14.5); Segmented Neutrophils % 78.9 %
[2017-09-24 11:26] LABS: INR 1.2; Prothrombin Time 12.5 Seconds (9.4-12.1)
[2017-09-24 11:28] LABS: Activated Partial Thrombo Time 33.7 Seconds (26.0-36.0)
[2017-09-24] MEDS ORDERED: Ipratropium/Albuterol Neb 3 ML IH ONE (11:28)
[2017-09-24] MEDS ORDERED: methylPREDNISolone 125 MG/2 ML VIAL IVP ONE (11:28)
[2017-09-24 11:40] LABS: Alanine Aminotransferase 16 Units/L (7-52); Albumin 3.7 g/dL (3.5-5.7); Albumin/Globulin Ratio 1.2 (1.1-2.2); Alkaline Phosphatase 84 Units/L (34-104); Aspartate Amino Transferase 31 Units/L (13-39); BUN/Creatinine Ratio 29 (6-26); Bilirubin,Direct 0.2 mg/dL (0.0-0.2); Bilirubin,Indirect 0.4 mg/dL (0.0-1.2); Bilirubin,Total 0.6 mg/dL (0.3-1.0); Blood Urea Nitrogen 22 mg/dL (8-23); Calcium 8.6 mg/dL (8.6-10.3); Carbon Dioxide 28 mEq/L (23-29); Chloride 102 mEq/L (98-107); Glucose 118 mg/dL (70-105); Magnesium 1.9 mg/dL (1.6-2.6); Osmolality,Calculated 284 (280-300); Phosphorous 3.4 mg/dL (2.7-4.5); Potassium 3.6 mEq/L (3.5-5.1); Sodium 135 mEq/L (136-145); Total Protein 6.7 g/dL (6.4-8.9); eGFR For African Americans > 60 (> 60); eGFR For Non-African Americans > 60 (> 60)
--- NOTE | 2017-09-24 11:55 | Emergency Department Note ---
Disposition Clinical Impression: Dehydration, Generalized weakness, Hypoxia, COPD exacerbation Disposition: Admitted As Inpatient Condition: Fair Referrals: Milagros Barrientos CNP [Primary Care Provider] - Time of Disposition: 14:08 Nausea/Vomiting/Diarrhea HPI - General Chief complaint: ED Nausea/Vomiting/Diarrhea Stated complaint: n/v/d Time Seen by Provider: 09/24/17 10:06 Source: patient Mode of arrival: ambulatory Limitations: no limitations Nursing Notes Reviewed: Yes Vital Signs Reviewed: Yes - History of Present Illness HPI Narrative: Patient presents to emergency room with complaint of nausea vomiting and diarrhea. He has had these symptoms for several days. He denies any trauma or injury. Patient was discharged from the hospital several months ago where he had a bypass completed secondary to poor peripheral flow on his lower extremities. Patient denies any active fevers or chills, chest pain shortness of breath, headache or vision change. His main complaint is generalized malaise and nausea vomiting and diarrhea. Pt Subjective Complaint: nausea, vomiting, diarrhea If pain, Location of pain: diffuse Radiation: diffuse Severity: mild Quality: cramping Improves with: nothing Worsens with: nonthing Associated symptoms: Reports: denies other symptoms - Related Data Home Medications Medication Instructions Recorded Confirmed FLUoxetine HCl [Prozac] 40 mg PO DAILY 11/18/16 08/05/17 Aspirin [Lo-Dose Aspirin EC] 81 mg PO DAILY 11/30/16 08/05/17 Atorvastatin [Lipitor] 40 mg PO HS 11/30/16 08/05/17 Metoprolol XL (24 HR) Succ [Toprol 25 mg PO DAILY 11/30/16 08/05/17 Xl] Omeprazole 40 mg PO DAILY 03/07/17 08/05/17 Albuterol Neb [Proventil Neb] 2.5 mg IH TID PRN 08/05/17 08/05/17 Albuterol Sulfate [Ventolin Hfa] 2 puff IH Q4H PRN 08/05/17 08/05/17 Budesonide/Formoterol 160/4.5 2 puff IH BIDR 08/05/17 08/05/17 [Symbicort 160/4.5] Cilostazol 50 mg PO BID 08/05/17 08/05/17 HYDROcodone/Acet 7.5/325 mg [[place] 1 tab PO Q8H PRN 08/05/17 08/05/17 7.5-325 mg] Tiotropium [Spiriva] 18 mcg IH DAILY 08/05/17 08/05/17 hydrOXYzine HCl [Hydroxyzine HCl] 25 mg PO DAILY 09/24/17 09/24/17 Previous Rx's Medication Instructions Recorded Isosorbide MONOnitrate (24 HR) 30 mg PO DAILY #30 tab.er.24h 12/01/16 [Imdur] Nitroglycerin 0.4 mg SL Q5MIN PRN #30 tab.subl 12/01/16 Allergies Allergy/AdvReac Type Severity Reaction Status Date / Time No Known Allergies Allergy Verified 09/24/17 10:25 All systems ED: reviewed and negative except as stated. Review of Systems: As Per HPI Constitutional: Denies: fever, chills Cardiovascular: Denies: chest pain, palpitations, dyspnea on exertion Respiratory: Denies: cough, dyspnea Gastrointestinal: Reports: abdominal pain, nausea, vomiting, diarrhea Genitourinary: Denies: dysuria, frequency Musculoskeletal: Denies: back pain, neck pain Neurological: Denies: headache Psychiatric: Denies: anxiety Past Medical History - Past Medical History Attestation: Yes The following information was validated with the patient. Source: patient Medical history: Reports: arthritis, COPD, coronary artery disease, GI bleed, hyperlipidemia, hypertension, myocardial infarction Surgical history: Reports: angioplasty/stent, orthopedic, other Psychiatric history: Reports: depression - Social History Smoking Status: Current every day smoker Smokeless Tobacco Status: No Alcohol use: Reports: none Drug use: Reports: none Physical Exam - General Limitations: no limitations General appearance: alert - ENT ENT exam: normal exam, normal oropharynx, mucous membranes moist - Neck Neck exam: Present: normal inspection, full ROM, trachea midline - Chest Chest inspection: Present: normal inspection, symmetric chest wall rise. Absent : tenderness - Respiratory Respiratory exam: Present: normal lung sounds bilaterally. Absent: respiratory distress, accessory muscle use - Cardiovascular Cardiovascular exam: Present: regular rate, normal rhythm, normal heart sounds - Abdominal Exam Abdominal exam: Present: soft, Non-Tender, normal bowel sounds. Absent: tenderness, distention, guarding, rebound, rigidity, Reynolds's sign, Rovsing's sign, tenderness at McBurney's Point - Extremities Exam Extremities exam: Present: normal inspection, full ROM, normal capillary refill. Absent: tenderness - Back Exam Back exam: Present: normal inspection, full ROM - Neurological Exam Neurological exam: Present: alert, oriented X3, CN II-XII intact, normal gait - Skin Skin exam: Present: warm, dry, intact, normal color Course Course Narrative: Patient seen and examined the time of arrival. See history of present illness. Patient presents emergency room from home in the care of the family for evaluation of nausea vomiting diarrhea and possible dehydration. He also has shortness of breath and hypoxia. Patient also presents here today with otherwise unremarkable vital signs. He is thin. Denies any other medical issues except for chronic COPD and hypertension. Patient will be treated symptomatically with breathing treatments and steroids. We will provide her with fluids you have influenza swab chest x-ray EKG and screening labs completed. Sinus CT imaging of the chest and abdomen secondary to patient having a aortic bypass from the aortic arch down to his common iliacs secondary to a stenosed aorta. There is a synthetic graft and some lateral aspect of the chest does not show any acute issues at this time. Patient otherwise is hemodynamically stable. Resuscitative measures will be completed. Pulses were palpable on bilateral lower 70s in both extremities are warm. There is no signs of swelling or edema. Patient otherwise is stable at this point. Symptomatic control to be completed this time. Disposition was recommended admission to hospital secondary to hypoxia and increased work of breathing. - Reevaluation(s) Reevaluation #1: Patient CT of the chest and abdomen are otherwise unremarkable except for some mild bronchial thickening. Patient denies any fevers at home as long as nausea vomiting and diarrhea. Some diminished treatment was established COPD his lungs are moving more air at this time is still persistently hypoxic at 90%. Patient I had a lengthy discussion about the presentation possible COPD exacerbation secondary to the fluid dehydration and viral syndrome. Patient still 90% on 2 L of oxygen and he does not have oxygen at home. Patient electively is going to be admitted to the hospital this time for further outpatient management COPD along with hypoxia. Hospice will be paged. No other concerns or issues noted on laboratory workup and evaluation Time: 13:38 Reevaluation #2: Patient was discussed with the hospitalist Dr. Miranda. Detailed review of the presentation symptoms of medical issues were discussed. Patient will be admitted for what appears to be failed outpatient management of COPD. Time: 14:18 Vital Signs Temperature 99.4 F 09/24/17 10:26 Pulse Rate 82 09/24/17 10:26 Respiratory Rate 24 09/24/17 10:26 Blood Pressure 111/73 09/24/17 10:26 O2 Sat by Pulse Oximetry 88 09/24/17 10:26 Temperature 99.4 F 09/24/17 10:26 Pulse Rate 82 09/24/17 10:26 Respiratory Rate 24 09/24/17 10:26 Blood Pressure 111/73 09/24/17 10:26 O2 Sat by Pulse Oximetry 96 09/24/17 10:59 Oxygen Delivery Oxygen Delivery Room Air Nausea/Vomiting/Diarrhea - MDM Narrative Medical decision making narrative: Hypoxia, respiratory distress, nausea vomiting diarrhea, dehydration - Medical Records Medical records reviewed: Yes I reviewed the patient's medical records. - Lab Data Lab results reviewed: Yes I reviewed the patient's lab results. Result diagrams: 09/24/17 11:09 Lab Results 09/24/17 09/24/17 09/24/17 Range/Units 11:09 11:09 11:09 WBC 8.9 (4.3-11.1) K/mcL RBC 4.84 (4.19-5.50) M/mcL Hgb 13.4 (12.9-16.9) g/dL Hct 42.6 (37.5-50.1) % MCV 88.0 (83.0-100.0) fL MCH 27.7 L (28.0-33.3) pg MCHC 31.5 L (31.6-35.5) g/dL RDW 15.8 H (11.5-14.5) % Plt Count 170 (140-400) K/mcL MPV 10.8 (9.4-12.4) fL Immature Gran % 0.4 (0-4) % Seg Neutrophils % 78.9 % Lymphocytes % 10.1 % Monocytes % 9.9 % Eosinophils % 0.1 % Basophils % 0.6 % Neutrophils # 7.0 (1.6-8.9) K/mcL Lymphocytes # 0.9 (0.6-4.6) K/mcL Monocytes # 0.9 (0.0-1.3) K/mcL Eosinophils # 0.0 (0.0-0.6) K/mcL Basophils # 0.1 (0.0-0.2) K/mcL PT 12.5 H (9.4-12.1) Seconds INR 1.2 APTT 33.7 (26.0-36.0) Seconds Lactic Acid 1.0 (0.5-2.2) mmol/L Troponin I (< 0.04) ng/mL 09/24/17 Range/Units 11:09 WBC (4.3-11.1) K/mcL RBC (4.19-5.50) M/mcL Hgb (12.9-16.9) g/dL Hct (37.5-50.1) % MCV (83.0-100.0) fL MCH (28.0-33.3) pg MCHC (31.6-35.5) g/dL RDW (11.5-14.5) % Plt Count (140-400) K/mcL MPV (9.4-12.4) fL Immature Gran % (0-4) % Seg Neutrophils % % Lymphocytes % % Monocytes % % Eosinophils % % Basophils % % Neutrophils # (1.6-8.9) K/mcL Lymphocytes # (0.6-4.6) K/mcL Monocytes # (0.0-1.3) K/mcL Eosinophils # (0.0-0.6) K/mcL Basophils # (0.0-0.2) K/mcL PT (9.4-12.1) Seconds INR APTT (26.0-36.0) Seconds Lactic Acid (0.5-2.2) mmol/L Troponin I < 0.03 (< 0.04) ng/mL - Radiology Data Radiology results reviewed: Yes I reviewed the patient's radiology results. CT does not show any acute signs of infection or etiology this point. There is bronchial wall thickening but otherwise unremarkable CT of the chest and abdomen. - EKG Data EKG attestation: Yes I reviewed and interpreted this EKG. EKG results narrative: Sinus rhythm and no acute abnormalities compared to previous. Intervals are within normal limits. Ventricular rate of 93. Interval 188. QRS duration of 85. QTC of 439. EKG in 08/05/17. Similar morphology
[2017-09-24 12:45] LABS: Bilirubin,Urine Small (Negative); Blood,Urine Moderate (Negative); Clarity,Urine Clear (Clear); Color,Urine Dark Yellow (Yellow); Glucose,Urine (UA) Normal (Normal); Ketones,Urine Negative (Negative); Leukocyte Esterase,Urine Negative (Negative); Nitrite,Urine Negative (Negative); PH,Urine 5.5 pH Units (5.0-8.0); Protein,Urine 30 mg/dL (Neg-Trace); Specific Gravity,Urine > 1.030 (1.010-1.025); Urobilinogen,Urine Normal (Normal)
[2017-09-24 12:47] LABS: Bacteria,Urine None Seen per hpf (None-Few); Hyaline Casts,Urine Few per lpf (None-Few); Squamous Epithelial Cell,Urine Many per lpf (None-Few)
[2017-09-24] MEDS ORDERED: Naloxone 0.4 MG/ML INJ IVP PRN (14:56)
[2017-09-24] MEDS ORDERED: Ipratropium/Albuterol Neb 3 ML IH PRN (14:59)
[2017-09-24] MEDS ORDERED: *HR* HYDROcodone/Acet 7.5/325 mg TABLET PO PRN (15:00)
[2017-09-24] MEDS ORDERED: Nitroglycerin 0.4 MG TAB.SUBL SL PRN (15:00)
--- NOTE | 2017-09-24 15:04 | Internal Med History&Physical ---
Date of Encounter: 09/24/17 Time of Encounter: 14:30 Assessment and Plan (1) COPD exacerbation Current visit: Yes Status: Acute Patient presenting with shortness of breath and acute COPD exacerbation. We will treat him with O2 supplementation, bronchodilators, intravenous steroids. High risk for complications. Continue inhaled steroids. (2) Hypoxia Current visit: Yes Status: Acute Patient presenting with hypoxia. Continued supplementation. This is due to acute COPD exacerbation. Patient will need to be evaluated for home oxygen prior to discharge. (3) Acute infective gastroenteritis Current visit: Yes Status: Suspected Patient presenting with diarrhea. CT of the abdomen shows findings of enterocolitis. We will check stool for GI panel. Treat with antibiotics including Levaquin and Flagyl. (4) HTN (hypertension) Current visit: Yes Status: Chronic Blood pressure is well controlled at this time. Continue home medications. Qualifiers: Hypertension type: essential hypertension Qualified Code(s): I10 - Essential (primary) hypertension (5) Tobacco abuse Current visit: Yes Status: Chronic Patient with history of chronic tobacco abuse. Counseled about cessation. Offered nicotine patch. Refused at this time. (6) DVT prophylaxis Current visit: Yes Status: Acute With subcutaneous heparin Internal Medicine - H&P: HPI Chief complaint: Shortness of breath, diarrhea Admitted From: Emergency Dept Plans for Post Hospital Care: Home History of present illness: Mr. Pool is a 77 year old male patient with a history of COPD, chronic tobacco abuse, gonorrhea treated disease, recent surgery for axillary bifemoral bypass presented to the ER with complaints of diarrhea along with shortness of breath and wheezing. Symptoms have been going on for one week. He denies any fever or chills. Denies any chest pain at this time. No palpitations. Does have cough which is chronic. No increased sputum production. No hemoptysis. No hematemesis or melena. No hematochezia. In the ER, he was found to be dyspneic and hypoxic and was placed on oxygen. He also received breathing treatments with some improvement in his symptoms. He denies any abdominal pain nausea or vomiting. Past Med Surg Social Fam HX - Past Medical History Attestation: Yes The following information was validated with the patient. Source: obtained from family Medical history: arthritis, COPD, coronary artery disease, GI bleed, hyperlipidemia, hypertension, myocardial infarction Psychiatric history: depression - Past Surgical History Surgical History: angioplasty/stent, orthopedic, other - Social History Smoking Status: Current every day smoker Smokeless Tobacco Status: No Alcohol use: none Drug use: none - Family History Father Adopted: No Family Member Ethnicity: Non- Living Status: Hx Family Cardiac Disorders: No Hx Family Respiratory Disorders: No Hx Family Cancer: No Hx Family GI Disorders: No Hx Family Endocrine Disorder: No Hx Family Neuromuscular Disorders: No Hx Family Neurologic Disorders: No Hx Family HEENT Disorders: No Hx Family Autoimmune Disorders: No Sister Living Status: Hx Family Respiratory Disorders: Yes (COPD) Internal Medicine - H&P: Meds FLUoxetine HCl [Prozac] 40 mg PO DAILY 11/18/16 [History] Aspirin [Lo-Dose Aspirin EC] 81 mg PO DAILY 11/30/16 [History] Atorvastatin [Lipitor] 40 mg PO HS 11/30/16 [History] Metoprolol XL (24 HR) Succ [Toprol Xl] 25 mg PO DAILY 11/30/16 [History] Isosorbide MONOnitrate (24 HR) [Imdur] 30 mg PO DAILY #30 tab.er.24h 12/01/16 [ Rx] Nitroglycerin 0.4 mg SL Q5MIN PRN #30 tab.subl 12/01/16 [Rx] Omeprazole 40 mg PO DAILY 03/07/17 [History] Albuterol Neb [Proventil Neb] 2.5 mg IH TID PRN 08/05/17 [History] Albuterol Sulfate [Ventolin Hfa] 2 puff IH Q4H PRN 08/05/17 [History] Budesonide/Formoterol 160/4.5 [Symbicort 160/4.5] 2 puff IH BIDR 08/05/17 [ History] Cilostazol 50 mg PO BID 08/05/17 [History] HYDROcodone/Acet 7.5/325 mg [[place] 7.5-325 mg] 1 tab PO Q8H PRN 08/05/17 [ History] Tiotropium [Spiriva] 18 mcg IH DAILY 08/05/17 [History] hydrOXYzine HCl [Hydroxyzine HCl] 25 mg PO DAILY 09/24/17 [History] 3 Allergy/AdvReac Type Severity Reaction Status Date / Time No Known Allergies Allergy Verified 09/24/17 10:25 All Systems PM: A 10-system review of systems was performed and is negative for pertinent findings except as documented above in the HPI. - Constitutional Constitutional: malaise, no chills, no fever(s), no night sweats - EENT Eyes: no change in vision, no discharge, no pain, no photophobia Ears: no ear discharge, no ear pain, no tinnitus Nose, mouth and throat: no dysphagia, no nasal discharge, no neck pain, no sore throat - Cardiovascular Cardiovascular ROS IM: no chest pain, no diaphoresis, no dyspnea, no lightheadedness, no palpitations, no syncope - Respiratory Respiratory: cough, dyspnea, wheezing, no excessive phlegm production - Gastrointestinal Gastrointestinal: diarrhea, no abdominal pain, no hematemesis, no hematochezia, no melena, no nausea, no vomiting - Musculoskeletal Musculoskeletal ROS IM: no numbness, no tingling - Integumentary Integumentary IM: no rash, no unusual bruising - Neurological Neurological ROS: no confusion, no convulsions, no focal weakness, no numbness, no tingling, no tremor(s) - Hematologic/Lymphatic Hematologic/Lymphatic: no easy bruising - Constitutional Vitals: Temp Pulse Resp BP Pulse Ox 99.4 F 72 20 107/76 92 09/24/17 10:26 09/24/17 13:11 09/24/17 13:11 09/24/17 13:11 09/24/17 13:11 General appearance: Present: cooperative, mild distress, A&O X 3, answers questions appropriately - Eye Eye exam: Present: PERRL, conjuntiva pink, sclera anicteric Pupils: Present: PERRL - Neck Neck exam general surgery: Present: supple, trachea midline. Absent: lymphadenopathy - Respiratory Respiratory exam: Present: prolonged expiratory phase, respiratory distress, wheezes. Absent: accessory muscle use, rales, rhonchi - Cardiovascular Cardiovascular exam: Present: RRR, +S1, +S2. Absent: diastolic murmur, gallop, rubs, systolic murmur - GI/Abdominal GI/Abdominal exam: Present: normal bowel sounds, soft, no peritoneal signs. Absent: distended, tenderness - Extremities Exam Extremities exam: Present: warm, radial pulses palpable and symmetrical. Absent : calf tenderness, cyanotic, pedal edema - Neurological Exam Neurological exam: Present: alert, CN II-XII intact, oriented X3, no focal deficits. Absent: facial droop, speech deficit - Skin Skin exam: Present: dry, intact Internal Med - H&P Results - Labs CBC & Chem 7: 09/24/17 11:09 09/24/17 11:09 - Impressions Impressions Abdomen/Pelvis CT 09/24/17 10:51 IMPRESSION: 1. Examination degraded by patient respiratory motion artifact. 2. Fluid density within the colon can be seen in setting of diarrhea, and may be due to enterocolitis. No gross evidence of bowel obstruction. 3. Aortoiliac atherosclerotic disease present. D/ / 09/24/2017 11:49:45 Ashley Chow MD / Yuliya Burch Interpreting Provider: Ashley Chow MD Chest CT 09/24/17 10:51 IMPRESSION: 1. Bibasilar bronchiectasis, with peribronchial thickening. Findings are likely due to bronchiolitis/atypical infection or reactive airways disease. 2. Stable 10 x 12 mm left upper lobe nodule since August 2016, which has previously been evaluated with PET-CT. A follow-up CT examination in 6-12 months is recommended to document continued stability. 3. COPD with basilar predominant emphysema. 4. Severe atherosclerosis and coronary artery disease. D/ / 09/24/2017 11:58:58 Mauricio Hager MD / yvan Interpreting Provider: Mauricio Hager MD
[2017-09-24] MEDS: Ipratropium/Albuterol Neb 3 ML IH SCH ×2 (16:04→20:35)
[2017-09-24] MEDS: Levofloxacin 750 MG/150 ML 750 MG/150 ML BAG IVPB SCH (16:36)
[2017-09-24] MEDS: MetroNIDAZOLE 500 MG/100 ML 500 MG/100 ML BAG IVPB SCH (16:37)
[2017-09-24] MEDS: *HR* Heparin 5,000 UNIT/ML VIAL SQ SCH (20:21)
[2017-09-24] MEDS: methylPREDNISolone 125 MG/2 ML VIAL IVP SCH (20:22)
[2017-09-24] MEDS: Budesonide/Formoterol 160/4.5 MDI IH SCH (20:35)
[2017-09-24 23:53] LABS: Adenovirus Not Detected (Not Detect); Coronavirus 229E Not Detected (Not Detect); Coronavirus HKU1 Not Detected (Not Detect); Coronavirus NL63 Not Detected (Not Detect)
[2017-09-24 23:54] LABS: Bordetella Pertussis Not Detected (Not Detect); Chlamydophila pneumoniae Not Detected (Not Detect); Coronavirus OC43 Not Detected (Not Detect); Human Metapneumovirus Not Detected (Not Detect); Human Rhinovirus/Enterovirus Not Detected (Not Detect); Influenza A Subtype 2009 H1 Not Detected (Not Detect); Influenza A Untypeable Not Detected (Not Detect); Influenza B Not Detected (Not Detect); Mycoplasma pneumoniae Not Detected (Not Detect); Parainfluenza Virus 1 Not Detected (Not Detect); Parainfluenza Virus 2 Not Detected (Not Detect); Parainfluenza Virus 3 Not Detected (Not Detect); Parainfluenza Virus 4 Not Detected (Not Detect); Respiratory Syncytial Virus ***DETECTED*** (Not Detect)
[2017-09-25] MEDS: Ipratropium/Albuterol Neb 3 ML IH SCH ×4 (00:27→11:50)
[2017-09-25] MEDS: methylPREDNISolone 125 MG/2 ML VIAL IVP SCH ×2 (00:51→11:18)
[2017-09-25] MEDS: MetroNIDAZOLE 500 MG/100 ML 500 MG/100 ML BAG IVPB SCH ×2 (00:51→23:33)
--- NOTE | 2017-09-25 04:59 | Electrocardiograph Report ---
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
[2017-09-25 05:45] LABS: Basophils % 0.2 %; Hematocrit 40.8 % (37.5-50.1); Hemoglobin 12.5 g/dL (12.9-16.9); Immature Granulocytes % 0.7 % (0-4); Immature Platelets 6.1 % (1.1-6.1); Lymphocytes # 0.7 K/mcL (0.6-4.6); Lymphocytes % 12.6 %; Mean Corpuscular HGB Conc 30.6 g/dL (31.6-35.5); Mean Corpuscular Hemoglobin 27.4 pg (28.0-33.3); Mean Corpuscular Volume 89.3 fL (83.0-100.0); Mean Platelet Volume 10.5 fL (9.4-12.4); Monocytes # 0.2 K/mcL (0.0-1.3); Monocytes % 2.8 %; Neutrophils # 4.5 K/mcL (1.6-8.9); Nucleated Red Blood Cells 0.4 /100 WBC (0); Platelet Count 161 K/mcL (140-400); Red Blood Count 4.57 M/mcL (4.19-5.50); Red Cell Distribution Width 15.9 % (11.5-14.5); Segmented Neutrophils % 83.7 %
[2017-09-25 06:09] LABS: BUN/Creatinine Ratio 37 (6-26); Blood Urea Nitrogen 26 mg/dL (8-23); Calcium 8.4 mg/dL (8.6-10.3); Carbon Dioxide 29 mEq/L (23-29); Chloride 104 mEq/L (98-107); Glucose 190 mg/dL (70-105); Osmolality,Calculated 294 (280-300); Potassium 3.7 mEq/L (3.5-5.1); Sodium 137 mEq/L (136-145); eGFR For African Americans > 60 (> 60); eGFR For Non-African Americans > 60 (> 60)
[2017-09-25] MEDS: *HR* Heparin 5,000 UNIT/ML VIAL SQ SCH ×2 (06:29→18:35)
[2017-09-25] MEDS: Tiotropium 18 MCG inhalation IH SCH (08:20)
[2017-09-25] MEDS: Budesonide/Formoterol 160/4.5 MDI IH SCH ×2 (08:21→19:56)
[2017-09-25] MEDS ORDERED: Isosorbide MONOnitrate (24 HR) 30 MG TAB.ER.24H PO SCH (09:00)
[2017-09-25] MEDS ORDERED: Aspirin Enteric Coated 81 MG Tablet PO SCH (09:00)
[2017-09-25] MEDS ORDERED: FLUoxetine 20 MG CAPSULE PO SCH (09:00)
[2017-09-25] MEDS ORDERED: hydrOXYzine pamoate 25 MG CAPSULE PO SCH (09:00)
[2017-09-25] MEDS ORDERED: Metoprolol XL (24 HR) Succ 25 MG TAB.ER.24H PO SCH (09:00)
--- NOTE | 2017-09-25 14:44 | Internal Med Progress Note ---
Date of Encounter: 09/25/17 Time of Encounter: 10:20 - Assessment and plan (1) COPD exacerbation Current Visit: Yes Status: Acute Assessment and plan: Patient is less bronchospastic today. We will begin to taper steroids. Continue bronchodilators as needed. Moderate risk for complications (2) Hypoxia Current Visit: Yes Status: Acute Assessment and plan: Will evaluate patient for home oxygen. He most likely will need home oxygen given his COPD as he has continued to require 3 L of O2 supplementation while at rest to keep sats greater than 90%. (3) Acute infective gastroenteritis Current Visit: Yes Status: Resolved Assessment and plan: Patient is no longer having diarrhea. Stop Flagyl as diarrhea does not appear to be infectious. (4) HTN (hypertension) Current Visit: Yes Status: Chronic Assessment and plan: Patient is having low blood pressure today. Will hold antihypertensives. Qualifiers: Hypertension type: essential hypertension Qualified Code(s): I10 - Essential (primary) hypertension (5) Tobacco abuse Current Visit: Yes Status: Chronic (6) DVT prophylaxis Current Visit: Yes Status: Acute Assessment and plan: Continue subcutaneous heparin - Subjective Interval history: Patient is feeling better today. Shortness of breath is improving. Denies any episodes of diarrhea. No nausea or vomiting. No abdominal pain. - Constitutional Vitals: Temp Pulse Resp BP Pulse Ox 97.8 F 86 16 99/57 91 09/25/17 11:37 09/25/17 11:37 09/25/17 11:50 09/25/17 11:37 09/25/17 11:50 General appearance: Present: cooperative, mild distress, A&O X 3, answers questions appropriately - Respiratory Respiratory exam: Present: CTAB, prolonged expiratory phase. Absent: accessory muscle use, rales, rhonchi, wheezes - Cardiovascular Cardiovascular exam: Present: RRR, +S1, +S2. Absent: diastolic murmur, gallop, rubs, systolic murmur - GI/Abdominal GI/Abdominal exam: Present: normal bowel sounds, soft, no peritoneal signs. Absent: distended, tenderness - Extremities Exam Extremities exam: Present: warm, radial pulses palpable and symmetrical. Absent : calf tenderness, cyanotic, pedal edema - Neurological Exam Neurological exam: Present: CN II-XII intact, oriented X3, no focal deficits. Absent: facial droop, speech deficit Internal Medicine: Result - Labs CBC & Chem 7: 09/25/17 04:58 09/25/17 04:58 Labs: Short CBC 09/25/17 Range/Units 04:58 WBC 5.4 (4.3-11.1) K/mcL Hgb 12.5 L (12.9-16.9) g/dL Hct 40.8 (37.5-50.1) % Plt Count 161 (140-400) K/mcL Neutrophils # 4.5 (1.6-8.9) K/mcL BMP 09/25/17 04:58 Sodium 137 Potassium 3.7 Chloride 104 Carbon Dioxide 29 BUN 26 H Creatinine 0.70 Glucose 190 H Calcium 8.4 L - ABG Interpretation ABG results: PT/INR, D-dimer PT 12.5 Seconds (9.4-12.1) H 09/24/17 11:09 Consult Discharge Plan - Plan Referrals: Milagros Barrientos, RAT CULTURIST [Primary Care Provider] -
[2017-09-25] MEDS: Levofloxacin 750 MG/150 ML 750 MG/150 ML BAG IVPB SCH (14:52)
[2017-09-25] MEDS: 0.9 % Sodium Chloride 1,000 ML IVC SCH (15:49)
--- NOTE | 2017-09-25 16:45 | Electrocardiograph Report ---
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
[2017-09-26] MEDS: 0.9 % Sodium Chloride 1,000 ML IVC SCH (01:03)
[2017-09-26] MEDS: *HR* Heparin 5,000 UNIT/ML VIAL SQ SCH (06:16)
[2017-09-26 08:01] VITALS: BP 114/73
[2017-09-26] MEDS: Budesonide/Formoterol 160/4.5 MDI IH SCH (08:05)
[2017-09-26] MEDS: Tiotropium 18 MCG inhalation IH SCH (08:07)
[2017-09-26] MEDS ORDERED: predniSONE 20 MG TABLET PO SCH (09:00)
--- NOTE | 2017-09-26 09:12 | Discharge Summary ---
Date of Encounter: 09/26/17 Time of Encounter: 09:07 - Discharge Diagnosis (1) COPD exacerbation Priority: Primary Status: Acute (2) Hypoxia Priority: Secondary Status: Acute (3) Acute infective gastroenteritis Priority: Secondary Status: Ruled-out (4) HTN (hypertension) Priority: Secondary Status: Chronic Qualifiers: Hypertension type: essential hypertension Qualified Code(s): I10 - Essential (primary) hypertension (5) Tobacco abuse Priority: Secondary Status: Chronic (6) DVT prophylaxis Priority: Secondary Status: Acute - Discharge Medications Prescriptions: levoFLOXacin [Levaquin] 750 mg PO DAILY #5 tablet predniSONE [PredniSONE] 10 mg PO DAILY 8 Days tablet Home Medications: FLUoxetine HCl [Prozac] 40 mg PO DAILY 11/18/16 [History] Aspirin [Lo-Dose Aspirin EC] 81 mg PO DAILY 11/30/16 [History] Atorvastatin [Lipitor] 40 mg PO HS 11/30/16 [History] Metoprolol XL (24 HR) Succ [Toprol Xl] 25 mg PO DAILY 11/30/16 [History] Isosorbide MONOnitrate (24 HR) [Imdur] 30 mg PO DAILY #30 tab.er.24h 12/01/16 [ Rx] Nitroglycerin 0.4 mg SL Q5MIN PRN #30 tab.subl 12/01/16 [Rx] Omeprazole 40 mg PO DAILY 03/07/17 [History] Albuterol Neb [Proventil Neb] 2.5 mg IH TID PRN 08/05/17 [History] Albuterol Sulfate [Ventolin Hfa] 2 puff IH Q4H PRN 08/05/17 [History] Budesonide/Formoterol 160/4.5 [Symbicort 160/4.5] 2 puff IH BIDR 08/05/17 [ History] Cilostazol 50 mg PO BID 08/05/17 [History] HYDROcodone/Acet 7.5/325 mg [[place] 7.5-325 mg] 1 tab PO Q8H PRN 08/05/17 [ History] Tiotropium [Spiriva] 18 mcg IH DAILY 08/05/17 [History] hydrOXYzine HCl [Hydroxyzine HCl] 25 mg PO DAILY 09/24/17 [History] levoFLOXacin [Levaquin] 750 mg PO DAILY #5 tablet 09/26/17 [Rx] predniSONE [PredniSONE] 10 mg PO DAILY 8 Days tablet 09/26/17 [Rx] Allergies/Adverse Reactions: 3 Allergy/AdvReac Type Severity Reaction Status Date / Time No Known Allergies Allergy Verified 09/24/17 10:25 Procedures/tests Complete & Pending: Procedures Performed prior 72 hours Category Date Time Status EKG [ECG 12 lead ECG] [ECG] Routine Y 09/25/17 08:28 Completed Date of admission: 09/24/17 14:33 Primary care physician: BAKARI Lind Consults: 09/25/17 16:48 Consult to Chief Of Safety And Protection [CONS] Routine Reason for SW Consult: oxygen Discharging clinician: Whitney Miranda Anticipated date of discharge: 09/26/17 - Patient Status Disposition: Home, Self-Care Condition: Good Functional capacity at discharge: independent ambulation Overall status at discharge: patient is progressing back to baseline - Discharge Instructions Instructions: Chronic Obstructive Pulmonary Disease (DC), Chronic Hypertension (DC) Follow Up With: Milagros Barrientos CNP [Primary Care Provider] - (In one week) Victorina Poon MD [Partnered Physician] - (in 1 -2 weeks) - Diet and Activity Activity: increase activity as tolerated, wear oxygen at all times Diet: low fat, low cholesterol, low salt diet Hospital course: Mr. Pool is a 77 year old male patient with history of COPD and chronic tobacco abuse hospitalized here after presenting to the ER with complaints of nausea or vomiting and diarrhea along with shortness of breath. He was diagnosed with COPD exacerbation and was suspected of having gastroenteritis. He was treated for these conditions with IV fluids, steroids, bronchodilators and antibiotics with improvement in his symptoms. His diarrhea resolved soon after hospitalization. As such stool studies were unable to be done. He does not appear to have been suffering from bacterial gastroenteritis. He may have viral gastroenteritis which is now resolved. His COPD improved with bronchodilator use. He was evaluated for home oxygen and has qualified for home oxygen. Patient does have chronic shortness of breath and COPD and would benefit from home oxygen use. This will be provided to the patient at time of discharge. Presently he is doing much better and is stable to be discharged home on steroid taper and short course of levofloxacin therapy. - Time Spent with Patient Total time spent providing and/or coordinating discharge services: Greater than 30 minutes (35 min) - Constitutional Vitals: Temp Pulse Resp BP Pulse Ox 98.4 F 76 16 114/73 96 09/26/17 08:00 09/26/17 08:00 09/26/17 08:00 09/26/17 08:00 09/26/17 08:00 General appearance: Present: cooperative, mild distress, A&O X 3, answers questions appropriately - Neck Neck exam general surgery: Present: supple, trachea midline. Absent: lymphadenopathy - Respiratory Respiratory exam: Present: prolonged expiratory phase. Absent: accessory muscle use, rales, rhonchi, wheezes - Cardiovascular Cardiovascular exam: Present: RRR, +S1, +S2. Absent: diastolic murmur, gallop, rubs, systolic murmur - GI/Abdominal GI/Abdominal exam: Present: normal bowel sounds, soft, no peritoneal signs. Absent: distended, tenderness - Extremities Exam Extremities exam: Present: warm, radial pulses palpable and symmetrical. Absent : calf tenderness, cyanotic, pedal edema - Skin Skin exam: Present: dry, intact
== END 2017-09-26 12:25 | disposition home or self-care (01) ==
LOC: EMEROO 09:56 → 3BNU 09:56 → SUATTDRO 14:33 → 3BNU 15:04
PROVIDERS: ADMIT Internal Medicine; ATTEND Internal Medicine

== ENCOUNTER 2019-04-02 11:44 | Inpatient (IN) ==
--- NOTE | 2019-04-02 10:40 | Anesthesia Evaluation PreOp ---
Date of Encounter: 04/02/19 Time of Encounter: 10:38 - Past History Planned Operation: Left Total Shoulder Cardiac History: MO, Cardiac Stent (2017, PTCA/Bare Metal Stent placement in the proximal LAD.), Other (Jens. Carotid stenosis) Pulmonary History: Smoker, Pack/yr (1 ppd x 61 years), COPD Other Medical History: Denies Any Significant HX Anesthesia History: No Prior Anesthetic Complications, Past Anesthesia ( angioplasty/stent, prostate bx, EGD/Colonoscopy,TSR 11/2018) Alcohol Use: none Drug use: none Medications and Allergies Aspirin [Lo-Dose Aspirin EC] 81 mg PO DAILY 11/20/18 [History] Atorvastatin [Lipitor] 40 mg PO HS 11/20/18 [History] Acetaminophen [Pain Relief] 500 mg PO Q6H 7 Days #28 tablet 04/02/19 [Rx] Docusate [Colace] 100 mg PO BID 5 Days #10 capsule 04/02/19 [Rx] HYDROcodone/Acet 5/325 mg [[place] 5-325 mg] 1 tab PO Q6H PRN 5 Days #20 tab 04/02/19 [Rx] Ibuprofen [Motrin] 600 mg PO Q6HR PRN 7 Days #28 tab 04/02/19 [Rx] Allergy/AdvReac Type Severity Reaction Status Date / Time No Known Allergies Allergy Verified 11/20/18 13:13 - Meds/Allergy Pre-op Review Medications Reviewed: Yes Allergies Reviewed: Yes Beta Blockers on Current Med List: No Anesthesia Results - Labs Laboratory Tests 11/14/16 09/24/17 03/19/19 10:33 11:09 14:03 WBC 8.9 Hgb 15.0 Hct 47.8 Plt Count 164 INR 1.2 Sodium Potassium Chloride BUN POC Creatinine 0.80 03/19/19 14:03 WBC Hgb Hct Plt Count INR Sodium 138 Potassium 4.0 Chloride 100 BUN 19 POC Creatinine - Imaging EKG: report reviewed (SINUS RHYTHM NONSPECIFIC T-WAVE ABNORMALITY Electronically Signed On 09-25-2017 16:43:20 EST by Kishor Lenz DO) Additional studies: Echocardiogram Name: Yoni Varelan Pool Date of Study: 10/29/2016 Impressions: LVEF 50-55%. Normal LV chamber size and function. Severe segmental left ventricular systolic dysfunction. Mild left ventricular diastolic dysfunction. Normal right ventricular structure and function. No evidence of pulmonary hypertension. No significant valvular dysfunction. Name: Yoni Pool Date of Study: 11/30/2016 Procedures Performed: LEFT HEART CATH Stent w/ PTCA Single Major Vessel Indications: Abnormal Test - Stress, Pre - Op clearance Impressions: There is severe three vessel coronary artery disease with FIRST GRADE TEACHER of LCx and RCA filled by collaterals and proximal LAD stenosis 80-90%. LV- Lower limits of normal, EF 45% Patient had successful PTCA/Bare Metal Stent placement in the proximal LAD. Procedure Access obtained in the right Radial artery by percutaneous puncture Patient had successful PTCA/Bare Metal Stent placement in the proximal LAD. LV Ventriculography Ejection Method: LV Gram Ejection Fraction: 45% Wall Motion: MEDINA Anterobasal Normal Anterolateral Normal Apical: Normal Inferoapical Normal Inferobasal Severe Hypokinesis Coronary Dominance: right Lesion Findings/Interventions * Left Main Coronary Artery The LMCA is angiographically free of disease. * Left Anterior Descending There is a 16 mm long, 80-90% stenosis in the Proximal LAD. The lesion has a JAILYN flow of 2 and has no thrombus present. An intervention was performed on the Proximal LAD with a final stenosis of 0%. There were no lesion complications. The final JAILYN flow was 3. * Circumflex There is a 100% stenosis in the Mid Circumflex that is recannulized, small vessel * Right Coronary Artery The Mid RCA is noted as a FIRST GRADE TEACHER. There is a 70% stenosis in the Proximal RCA. There is a 100% stenosis in the Mid RCA. The lesion has a JAILYN flow of 0 and has collaterals which feed from left to right. Anesthesia Exam O2 Sat Height 1.6 m Height 1.6 m Weight 47.627 kg Weight 47.627 kg O2 Sat by Pulse Oximetry 95 Vital Signs Temp Pulse Resp BP Pulse Ox 98.3 F 80 18 139/72 95 04/02/19 12:05 04/02/19 12:05 04/02/19 12:05 04/02/19 12:05 04/02/19 12:05 NPO (# of Hours): > 8 hrs Pain Scale: 0 Pain Scale Used: Numeric (1 - 10) - HEENT Pupil (Motor): Pupils equal, EOMI Mallampati: II Teeth: Edentulous Oral Opening: Greater than 3 - EDI MANAGER LOC: Oriented EDI MANAGER Motor: Normal RUE, Normal LUE, Normal RLE, Normal LLE, Normal Face EDI MANAGER Sensory: Normal: RUE, LUE, RLE, LLE, Face - Cardiac Rhythm: Regular Murmur: None JVD: No Carotid Bruit: No - Pulmonary Breath Sounds: bilateral Clear Respiratory Effort: Symmetrical Anesthesia Assess/Plan ASA Score: 3 Level of consciousness: Cooperative Anesthetic Plan: General, Regional Nerve Block Regional Nerve Block Plan: Supraclavicular Autologous Blood: Yes Monitoring Plan: Standard Monitors Recovery Plan: PACU
--- NOTE | 2019-04-02 11:26 | Discharge Summary ---
<Jacob Bailey - Last Filed: 04/02/19 11:24> Date of Encounter: 04/02/19 - Hospital Course Hospital course: Mr. Pool is a 78 year old male - Time Spent with Patient Total time spent providing and/or coordinating discharge services: - Discharge Medications Prescriptions: New Docusate [Colace] 100 mg PO BID 5 Days #10 capsule Ibuprofen [Motrin] 600 mg PO Q6HR PRN 7 Days #28 tab PRN Reason: Pain HYDROcodone/Acet 5/325 mg [[place] 5-325 mg] 1 tab PO Q6H PRN 5 Days #20 tab PRN Reason: Severe Pain Acetaminophen [Pain Relief] 500 mg PO Q6H 7 Days #28 tablet Continued Atorvastatin [Lipitor] 40 mg PO HS Aspirin [Lo-Dose Aspirin EC] 81 mg PO DAILY Home Medications: Aspirin [Lo-Dose Aspirin EC] 81 mg PO DAILY 11/20/18 [History] Atorvastatin [Lipitor] 40 mg PO HS 11/20/18 [History] Acetaminophen [Pain Relief] 500 mg PO Q6H 7 Days #28 tablet 04/02/19 [Rx] Docusate [Colace] 100 mg PO BID 5 Days #10 capsule 04/02/19 [Rx] HYDROcodone/Acet 5/325 mg [[place] 5-325 mg] 1 tab PO Q6H PRN 5 Days #20 tab 04/02/19 [Rx] Ibuprofen [Motrin] 600 mg PO Q6HR PRN 7 Days #28 tab 04/02/19 [Rx] Allergies/Adverse Reactions: Allergy/AdvReac Type Severity Reaction Status Date / Time No Known Allergies Allergy Verified 11/20/18 13:13 - Patient Status Disposition: Home Health Service Condition: Good - Discharge Instructions Follow Up With: Yen Way [Primary Care Provider] - Additional Instructions: Discharge Instructions: Total Shoulder Please call [facility] ([phone]), your Primary Care Physician, or report to the Emergency Room if you have any of the following symptoms: Nausea, vomiting, fever greater that 101.5, swelling, chest pain, shortness of breath, increased pain/redness/drainage/odor for your incision site, numbness/tingling, or any other concerning symptoms. ACTIVITY: Always keep your arm in the sling. Do not raise your arm away from your body. Do not use your arm to help with getting in or out of bed. No weight bearing permitted. Only perform those exercises given to you by your therapist. Incentive Spirometer 10 times an hour. MEDICATIONS: Upon discharge resume your home medications. Take all the medications as prescribed. Take a stool softener if taking narcotic pain medications. Stool softeners are only effective if you drink enough fluids. Drink 6-8 glass of water or fluids a day, unless this is not allowed for another health problem. Despite using stool softeners, if you haven't had a bowel movement in 3 days, please switch to a gentle laxative. Gentle laxatives are sold over the counter. You should have a bowel movement within 24 hours, if not call the office. You will be discharged from the hospital with a prescription for pain medication. You are encouraged to decrease the use of narcotic pain medication as tolerated. Should you require a refill, please call the office. [facility] prescribes narcotic pain medication for only 4-6 weeks after surgery. If you require pain medication beyond this time period, you may be referred to your Primary Care Physician or to the Pain Clinic for further evaluation. Plan ahead for refills on pain medication as many narcotics either need to be picked up at the office or mailed. It is best to call 48-72 hours in advance of needing a prescription refill so you don't run out of medication. To help control the post-operative pain, you may take NSAIDs (Aleve,Advil, Motrin, Ibuprofen, Naprosyn) or Tylenol as prescribed on the bottle in addition to the pain medication. WOUND CARE: Leave the dressing on for 7-10 days. You may change the dressing if it becomes saturated greater than 50%. Do not get the dressing wet at anytime. Wash your hands with antibacterial soap, rinse and dry prior to any wound care. If you have alona the visiting nurse or rehab facility can remove the stapes 10-14 days after surgery and place steri-strips across the wound. Leave the steri-strips in place until they fall off on their own. You may let water from the shower run on top of the steri-strips. If you do not have a visiting nurse or rehab facility, you will need to return to the office at 10-14 days for the alona to be removed. If you have itching or redness around the dressing call the office. FOLLOW-UP: Please follow up with your surgeon in the orthopedic clinic, as scheduled <Umm Estrada - Last Filed: 04/03/19 12:33> Orders not resulted at time of discharge: Pending orders 04/02/19 15:21 Surgical Pathology [PTH] Routine Date of Encounter: 04/03/19 Time of Encounter: 12:29 - Discharge Diagnosis (1) Status post total replacement of left shoulder Priority: Primary Status: Acute (2) Rotator cuff tear arthropathy of left shoulder Priority: Primary Status: Chronic (3) CAD (coronary artery disease) Priority: Secondary Status: Chronic Qualifiers: Coronary Disease-Associated Artery/Lesion type: unspecified vessel or lesion type [place] vs. transplanted heart: unspecified whether [place] or transplanted heart Associated angina: angina presence unspecified Qualified Code(s): I25.10 - Atherosclerotic heart disease of [place] coronary artery without angina pectoris (4) COPD (chronic obstructive pulmonary disease) Priority: Secondary Status: Chronic Qualifiers: COPD type: unspecified COPD Qualified Code(s): J44.9 - Chronic obstructive pulmonary disease, unspecified (5) HLD (hyperlipidemia) Priority: Secondary Status: Chronic Qualifiers: Hyperlipidemia type: unspecified Qualified Code(s): E78.5 - Hyperlipidemia, unspecified (6) HTN (hypertension) Priority: Secondary Status: Chronic Qualifiers: Hypertension type: unspecified Qualified Code(s): I10 - Essential (primary) hypertension - Hospital Course Hospital course: Mr. Pool is a 78 year old male Total Shoulder Replacment Reverse, left [Left shoulder cuff tear arthropathy] 04/02/19 Patient seen at bedside. Patient's daughter at bedside. A&Ox3 Dressing with 25% dark bloody drainage. Incision appears to be intact. No calf tenderness, erythema, or warmth. Neurovascularly intact b/l LE. Labwork, vitals, and medications reviewed. Pain control: Adequate Participating in therapy. All questions and concerns addressed. Educated on use of incentive spirometer, ambulation, and hydration. Patient educated on post-operative restrictions and care. Addressed: see above. Patient course and disposition discussed with Dr. Coombs D/C plan: Home with home health The patient's postoperative course was uneventful. Progressed from intravenous analgesic needs to oral analgesic needs only. Remained neurovascularly intact and mobilized satisfactorily. All radiographic studies were satisfactory. Patient course and disposition discussed with Dr. Coombs. Patient is discharged to home with home health with plan for rehabilitation and outpatient orthopedic follow up has been arranged. - Time Spent with Patient Total time spent providing and/or coordinating discharge services: Date of admission: 04/02/19 16:49 Primary care physician: Yen Way Consults: 04/02/19 16:47 Consult to Occupational Therapy [CONS] Routine Comment: post shoulder surgery Reason for Consult: post shoulder surgery Does patient have active BEDREST order?: No Is patient medically & hemodynamically stable?: Yes Consult to Physical Therapy [CONS] Routine Comment: post shoulder surgery Reason for Consult: post shoulder surgery Does patient have active BEDREST order?: No Is patient medically & hemodynamically stable?: Yes Consult to Supervisor Soldering [CONS] Routine Reason for SW Consult: shoulder surgery RT Post Op Consult [CONS] Routine Discharging clinician: Isaak Coombs Anticipated date of discharge: 04/03/19 Labs on day of discharge: Labs from last 24 hours 04/03/19 04/03/19 04/02/19 03:47 03:47 16:16 Hgb 12.2 L D 13.9 Hct 38.4 44.9 Sodium 138 Potassium 4.2 Chloride 104 Carbon Dioxide 29 BUN 18 Creatinine 0.69 L Est GFR ( Amer) > 60 Est GFR (Non-Af Amer) > 60 BUN/Creatinine Ratio 26 Glucose 230 H Calculated Osmolality 295 Calcium 8.5 L - Impressions ITS Impressions Shoulder X-Ray 04/02/19 01:00 IMPRESSION: Status post left shoulder arthroplasty. No acute postoperative complication. D/ / 04/02/2019 16:30:53 Jaime Hansen MD / bcarter Interpreting Provider: Jaime Hansen MD - Patient Status Functional capacity at discharge: independent ambulation Overall status at discharge: patient is progressing back to baseline - Diet and Activity Activity: as per physical therapy Diet: advance to your usual diet
[2019-04-02] MEDS ORDERED: CeFAZolin Syr 2,000MG/20 ML 2,000 MG/20 ML SYRINGE IVPB ONE (11:59)
[2019-04-02] MEDS ORDERED: Albuterol 2.5 MG/3 ML NEBULIZER IH ONE (11:59)
[2019-04-02] MEDS ORDERED: Ringers Solution, Lactated 1,000 ML IVC SCH ×2 (12:00→16:47)
--- NOTE | 2019-04-02 12:15 | History & Physical Report ---
Date of Encounter: 04/02/19 Time of Encounter: 12:15 24 Hour HP Update - Instructions Instructions: If the History and Physical is less than 30 days old and was completed prior to A.M. admission and or procedure and has NOT been updated on calendar day of procedure please complete this update prior to performing procedure. - Update Patient reports changes in Medical Condition: No Changes in examination, assessment, or condition: No Changes in Medication: No Preop tests/diagnostics Reviewed: Yes Surgery Remains Indicated: Yes Consent for Planned Operative Procedure(s) Verified: Yes - Pre-Operative Checklist Preoperative Checklist Indicated: No Prophylactic Antibiotic Ordered: Yes Is VTE Prophylaxis Indicated?: Yes
[2019-04-02] MEDS ORDERED: ROPIVACAINE/PF/NS 0.25% 1 EACH SYRINGE INTRAART ONE (13:46)
[2019-04-02] MEDS ORDERED: Lidocaine -MPF 2% 5 ML VIAL ONE (13:47)
[2019-04-02] MEDS ORDERED: *HR* Midazolam HCl 2 MG/2 ML VIAL ONE ×3 (13:47→14:30)
[2019-04-02] MEDS ORDERED: Propofol 500 MG/50 ML INFUS..BTL ONE (13:48)
[2019-04-02] MEDS ORDERED: *HR* FentaNYL (PF) 100 MCG/2 ML VIAL ONE ×2 (14:10→14:30)
[2019-04-02] MEDS ORDERED: *HR* Propofol 200 MG/20 ML VIAL IVP ONE (14:30)
[2019-04-02] MEDS ORDERED: Ethanol\\Acetic Acid\\Na Ace\\Ben 1,000 ML IRRIG.SOLN IR ONE (14:30)
--- NOTE | 2019-04-02 14:35 | Anesthesia Procedures ---
Date of Encounter: 04/02/19 Time of Encounter: 14:32 Procedures: Anesthesia - Nerve Block Procedure Date: 04/02/19 Time: 14:33 Allergies/Adv Reactions: NKDA Pre-op Diagnosis: L shoulder RTC arthropathy Surgical Procedure: L TSR, reverse Checklist: Correct Patient Identifier, Correct procedure, History checked Correct side: Left Blood Thinner: No Monitor Applied: EKG, BP, Pulse Oximetry Supplemental Oxygen via Nasal Cannula (L/min): 4 Sedation: Versed (mg): 2 Sedation: Fentanyl (mcg): 100 Indication: Post Op Analgesia (requested by Dr. Coombs) Pre-op Neuro Deficits: No Block Type: Supraclavicular, Other (SCP, ICB) Catheter placed: No Sterile Technique: Yes Ultrasound used: Yes Anatomy identified: Yes Visual spread of Local: Yes Neuro Stimulation: No Blood on Needle Aspiration: No Smooth Injection of Local: Yes Pain with Injection of Local: No Prep: Chlorhexadine Needle: 22 x 50 mm Stimuplex Local: Ropivacaine (30mL of 0.25% ropivicaine + 4mg dexamethasone for supraclavicular n. block; 5mL of 0.25% ropivicaine + 4mg dexamethasone for SCP; 7.5mL of 0.25% ropivicaine for ICB) Number of Attempts: 1 Complications: None/effective block Vitals: see holding vital signs notes
[2019-04-02] MEDS ORDERED: *HR* Phenylephrine 10 MG/ML VIAL ONE (15:08)
[2019-04-02] MEDS ORDERED: Neostigmine Methylsulfate 3 MG/3 ML SYRINGE ONE (15:45)
[2019-04-02] MEDS ORDERED: Naloxone 0.4 MG/ML INJ ONE (15:52)
--- NOTE | 2019-04-02 16:05 | Orthopedic Operative Note ---
Date of procedure: 04/02/19 Pre-op diagnosis: Left shoulder cuff tear arthropathy Procedure: Procedure: Total Shoulder Replacment Reverse, left Estimated blood loss: 100 cc Hardware: Metal and polyethylene replacement: Arthrex 24, +2 , 25 mm screw glenoid baseplate, 4 locking 5.5 screw, 36+4 glenosphere, 8 Velarde humeral stem, poly insert 3 Exam Under anesthesia: Full motion and no stability Procedural Notes: Failed repair supraspinatus Operative procedure: The patient was brought to the operating room and placed on the operating room table. After general anesthesia was administered the operative shoulder was examined. Findings were noted. The patient was placed in the modified beachchair position. All pressure points were padded appropriately. And the head was stabilized in the neutral position. The operative extremity was prepped and draped in the sterile surgical fashion. The patient received IV antibiotics prior to skin incision. A standard deltopectoral approach was made to the operative shoulder. Incision was made to the skin and subcutaneous tissue,hemo stasis was obtained with Bovie cautery. Using careful blunt dissection the cephalic vein was identified and mobilized medially. The deltopectoral interval was developed and the clavipectoral fascia was incised. The subscap was released off the lesser tuberosity and tagged with #2 FiberWire suture subscap was irreparable. The humerus was dislocated patient noted to have tear supraspinatus tendon, and the humeral cut was made along the anatomic neck. Anterior and posterior Bankart retractors were placed to expose the glenoid. The glenoid guide was seated and the centering hole was made. It was reamed with the appropriate reamer. The 24, +2, 25 mm screw, baseplate was seated and secured with 4 locking 5.5 screw. The baseplate was irrigated and dried and the 36+4 Glenosphere was seated and secured with the Higgins taper. The Higgins taper was tested and found to be secure, glenosphere fixation was secondarily secured with the central screw. The humerus was redislocated and prepared with the diaphyseal reamers, followed by a broaching process up to the appropriate size 8 Velarde in the patient's anatomic version. The metaphyseal reamer was then utilized. Trial reduction found the shoulder to be relocatable. Trial components were removed and 8 Velarde stem was impacted in place in the patient's anatomic version. Trial reduction found the shoulder to be relocatable and stable with the approp riate 3. Trial component was removed and the real implant was seated and secured the shoulder was reduced. The shoulder had excellent motion and excellent stability and no evidence of dislocation. The deep tissue was irrigated with pulse irrigation. The PA close the shoulder. The deltopectoral interval was closed with a running #1 PDS suture, subcutaneous tissue was irrigated and closed with 0 PDS suture, the skin was closed with Dermabond. The patient was placed in a sterile dressing, abduction brace and extubated. The patient was then transferred to the recovery room in stable condition. Anesthesia: GETBonita Surgeon: Isaak Coombs Was there an information technology assistant present: Yes Crop Or Livestock Tenant Farmer: Jacob Bailey Estimated blood loss (cc): 100 Condition: stable Disposition: PACU
[2019-04-02 16:24] LABS: Hematocrit 44.9 % (37.5-50.1); Hemoglobin 13.9 g/dL (12.9-16.9)
--- NOTE | 2019-04-02 16:46 | Anesthesia Evaluation Post Op ---
Date of Encounter: 04/02/19 Time of Encounter: 16:46 - Vital Signs Vital Signs: Vital Signs/O2 Sat, Most Current Temp Pulse Resp BP Pulse Ox 97.7 F 59 20 131/71 98 04/02/19 16:20 04/02/19 16:30 04/02/19 16:30 04/02/19 16:30 04/02/19 16:30 - Lungs Lungs: Clear Ascult./Percussion - Airway Airway: Non-obstructed - Cardiovascular Regular Rate - Mental Status Mental Status: Alert & Oriented, Answers Appropriately - Pain Pain Scale: 0 Pain Scale used: Numeric (1 - 10) - Nausea Vomiting Nausea Vomiting: Not Present - Hydration Hydration: Ice chips, Has not voided - Discharge PostOp Status: Transfer Patient to floor
[2019-04-02] MEDS ORDERED: MOM Conc 10 ML UD.LIQ PO PRN (16:47)
[2019-04-02] MEDS ORDERED: Naloxone 0.4 MG/ML INJ IVP PRN (16:47)
[2019-04-02] MEDS ORDERED: *HR* OxyCODONE Immed Rel 5 MG TABLET PO PRN (16:47)
[2019-04-02] MEDS ORDERED: Temazepam 15 MG CAPSULE PO PRN (16:47)
[2019-04-02] MEDS ORDERED: Ondansetron 4 MG/2 ML VIAL IVP PRN (16:47)
[2019-04-02] MEDS ORDERED: traMADol 50 MG TABLET PO PRN (16:47)
[2019-04-02] MEDS ORDERED: *HR* OxyCODONE/APAP 5/325 TABLET PO PRN (16:47)
[2019-04-02] MEDS ORDERED: Sennosides 8.6 MG TABLET PO PRN (16:47)
[2019-04-02] MEDS: *HR* Enoxaparin 30 MG/0.3 ML SYRINGE SQ SCH (17:55)
[2019-04-02] MEDS ORDERED: *HR* Enoxaparin 30 MG/0.3 ML SYRINGE SQ SCH (18:00)
[2019-04-03 04:42] LABS: Hematocrit 38.4 % (37.5-50.1)
[2019-04-03 04:49] LABS: Hemoglobin 12.2 g/dL (12.9-16.9)
[2019-04-03] MEDS: *HR* Enoxaparin 30 MG/0.3 ML SYRINGE SQ SCH (04:50)
[2019-04-03 05:05] LABS: BUN/Creatinine Ratio 26 (6-26); Blood Urea Nitrogen 18 mg/dL (8-23); Calcium 8.5 mg/dL (8.6-10.3); Carbon Dioxide 29 mEq/L (23-29); Chloride 104 mEq/L (98-107); Glucose 230 mg/dL (70-105); Osmolality,Calculated 295 (280-300); Potassium 4.2 mEq/L (3.5-5.1); Sodium 138 mEq/L (136-145); eGFR For African Americans > 60 (> 60); eGFR For Non-African Americans > 60 (> 60)
--- NOTE | 2019-04-03 08:10 | Orthopedics Progress Note ---
Date of Encounter: 04/03/19 Time of Encounter: 08:10 Subjective Interval history: Patient was seen this morning doing well without complaints. Afebrile vital signs stable. Operative extremity: Neurovascularly intact Dressing clean dry and intact Calves nontender Assessment and plan: Continue with postoperative care Plan for discharge today Objective Vital signs: Vital Signs Temp Pulse Resp BP Pulse Ox 04/03/19 06:36 97.7 F 77 18 117/50 96 04/03/19 04:17 98.2 F 87 20 98/61 92 04/02/19 23:57 98.3 F 69 17 104/67 92 04/02/19 21:20 98 04/02/19 20:00 98.0 F 78 17 108/78 92 04/02/19 19:00 98.1 F 80 17 105/80 93 04/02/19 18:42 93 16 102/70 92 04/02/19 18:15 98.0 F 74 18 148/76 93 04/02/19 17:40 97.8 F 68 18 148/79 91 04/02/19 17:33 93 04/02/19 17:05 97.6 F 70 20 135/53 92 04/02/19 16:40 97.7 F 60 20 143/68 98 04/02/19 16:30 59 20 134/70 98 04/02/19 16:20 97.7 F 59 20 131/71 98 04/02/19 16:10 61 22 145/62 98 04/02/19 16:00 97.1 F L 70 24 144/74 100 04/02/19 14:30 72 15 110/62 97 04/02/19 14:15 76 15 143/63 93 04/02/19 12:05 98.3 F 80 18 139/72 95 Intake and Output 04/02/19 04/03/19 04/03/19 23:59 07:59 15:59 Intake Total 100 / 100 100 / 100 Balance 100 / 0 100 / 100 Intake: IV Fluids 100 / 100 100 / 100 Ancef 2,000 MG In 0.9 % Sodium 100 / 100 100 / 100 Chloride 100 ML @ 200 mls/hr IVPB Q8H [facility] Rx#:[id number] Other: # Voids 1 Weight 49 kg - Labs CBC & BMP: 04/03/19 03:47 04/03/19 03:47 Labs: Abnormal lab results Hgb 12.2 g/dL (12.9-16.9) L D 04/03/19 03:47 Creatinine 0.69 mg/dL (0.70-1.30) L 04/03/19 03:47 Glucose 230 mg/dL (70-105) H 04/03/19 03:47 Calcium 8.5 mg/dL (8.6-10.3) L 04/03/19 03:47 Consult Discharge Plan - Plan Referrals: Yen Way [Primary Care Provider] -
[2019-04-03] MEDS ORDERED: Aspirin Enteric Coated 81 MG Tablet PO SCH (09:00)
--- NOTE | 2019-04-03 09:00 | Physician Discharge Referral ---
Home Health/Hosp Referral Info Transfer to: Home Health Attending Provider: Dr. Isaak Coombs - Diagnosis (1) Status post total replacement of left shoulder Priority: Primary Status: Acute (2) Rotator cuff tear arthropathy of left shoulder Priority: Primary Status: Chronic (3) CAD (coronary artery disease) Priority: Secondary Status: Chronic (4) COPD (chronic obstructive pulmonary disease) Priority: Secondary Status: Chronic (5) HLD (hyperlipidemia) Priority: Secondary Status: Chronic (6) HTN (hypertension) Priority: Secondary Status: Chronic - Respiratory Orders Smoking Cessation: Smoking cessation has been advised. For more information, call the [place] Tobacco Quit Line at 9-566-AFAP-NOW. - Diet/Nutrition Diet/Nutrition Orders: Regular - Activity Activity Orders: Up ad jeri, Ambulate, Chair - Services Needed Following services are medically necessary services: Nursing, Home Health Aide, Physical Therapy, Occupational Therapy, Med Social Work Home Care Orders: PT/OT. NWB to affected upper extremity. Follow Shoulder Precautions x 6 weeks. Stay in brace during activity and at night. Remove brace during exercises. ICE and elevate extremity frequently throughout the day. Opsite placed. Keep dressing intact until first follow up appointment. If greater than 50% saturated, notify office, remove dressing and place appropriate dressing back in place. Leave Zipline intact. Opsite dressing is water resistant, not water-proof. OK to shower, but do not get dressing wet. - Transfer Medications Home Medications: Aspirin [Lo-Dose Aspirin EC] 81 mg PO DAILY 11/20/18 [History] Atorvastatin [Lipitor] 40 mg PO HS 11/20/18 [History] Acetaminophen [Pain Relief] 500 mg PO Q6H 7 Days #28 tablet 04/02/19 [Rx] Docusate [Colace] 100 mg PO BID 5 Days #10 capsule 04/02/19 [Rx] HYDROcodone/Acet 5/325 mg [[place] 5-325 mg] 1 tab PO Q6H PRN 5 Days #20 tab 04/02/19 [Rx] Ibuprofen [Motrin] 600 mg PO Q6HR PRN 7 Days #28 tab 04/02/19 [Rx] Allergies/Adverse Reactions: Allergy/AdvReac Type Severity Reaction Status Date / Time No Known Allergies Allergy Verified 11/20/18 13:13 Certification: Further, I certify that my clinical findings support that this patient is homebound (i.e. absences from home require considerable and taxing effort and are for medical reasons or [employer] services or infrequently or short duration when for other reasons) because: Homebound Reason: Post-surgery restriction and or conditions limit ability to leave home Attestation: My signature below is to certify that this patient is under my care and that I, or nurse practitioner, or a physician respiratory therapy assistant working with me, has a [id number] encounter with this patient.
[2019-04-03 10:47] VITALS: BP 123/55
== END 2019-04-03 12:30 | disposition home health service (06) | DRG 483 ==
LOC: SAMDAY 11:44 → 3NENU 16:49
PROVIDERS: ADMIT Orthopaedic Surgery; ATTEND Orthopaedic Surgery